=== PATIENT | female | born 1975 | race Caucasian/White ===

== ENCOUNTER 2024-01-05 16:48 | Observation (INO) ==
[2024-01-05 17:33] LABS: Basophils # (auto) 0.06 K/uL (0.00-0.20); Basophils % (auto) 0.5 %; Eosinophils # (auto) 0.08 K/uL (0.00-0.50); Eosinophils % (auto) 0.6 %; Hematocrit (blood only) 39.6 % (37.0-47.0); Immature Granulocytes # (auto) 0.07 K/uL (0.01-0.20); Immature Granulocytes % (auto) 0.5 %; Lymphocytes % (auto) 21.2 %; Mean Corpuscular Hemoglobin 29.7 pg (25.0-34.0); Mean Corpuscular Hgb Conc 32.8 g/dL (32.0-36.0); Mean Corpuscular Volume 90.6 fL (80.0-100.0); Mean Platelet Volume 9.8 fL (9.4-12.4); Monocytes % (auto) 4.7 %; Neutrophils # (auto) 9.25 K/uL (1.40-6.50); Neutrophils % (auto) 72.5 %; Platelet Count 298 K/uL (130-400); RDW Coefficient of Variation 16.1 % (11.5-14.5); Red Blood Count 4.37 M/uL (4.20-5.40); White Blood Count 12.76 K/ul (4.8-10.8)
[2024-01-05 17:46] LABS: Alanine Aminotransferase 28 U/L (7-52); Albumin Globulin Ratio 1.4 (0.9-2); Albumin Level 4.3 gm/dl (3.4-5.0); Alkaline Phosphatase 85 U/L (34-104); Anion Gap 7 (3-11); Bilirubin,Total 0.3 mg/dl (0.2-1.0); Blood Urea Nitrogen 13 mg/dl (6-23); Calcium 9.3 mg/dl (8.6-10.3); Carbon Dioxide 30 mmol/L (21-32); Chloride 104 mmol/L (98-107); Creatinine Clr Calc Pharmacy 105.6 ml/min; Est GFR (African American) 99.5 ml/min; Est GFR (Non-African American) 85.9 ml/min; Glucose 124 mg/dl (70-99(Fasting)); Sodium 141 mmol/L (136-145); Total Protein 7.3 gm/dl (6.0-8.3); Troponin I High Sensitivity 9.2 pg/ml (0-14)
--- NOTE | 2024-01-05 17:56 | XRay Report ---
XR chest 1V not portable HISTORY: Chest pain, nonspecific COMPARISON: None. FINDINGS: No pneumothorax. No pleural effusions. A few small linear scarlike densities within the lef t midlung zone. Otherwise, the lungs are clear. The heart is mildly enlarged. No evidence for pulmona ry edema. No acute fractures. IMPRESSION: Mild cardiomegaly. Otherwise, no acute process within the chest. ACT 112: Negative or not required by law. Electronically signed by: Clark Rodríguez M.D. 01/05/2024 5:55 PM
[2024-01-05] MEDS: NITROGLYCERIN 2% OINTMENT 30GM TUBE EXT STA (18:39)
[2024-01-05] MEDS: FUROSEMIDE INJ 20 MG/2 ML VIAL IV ONE ×2 (18:41→21:59)
--- NOTE | 2024-01-05 18:49 | Emergency Department Note ---
Impression & Plan Edema, peripheral, Severe hypertension ED Provider Note NAME: LAINE CRUZ AGE: 48 SEX: Female INFORMANT: Patient ED PROVIDER(S): Junior Ng MD CHIEF COMPLAINT: Swelling PLAN: Disposition: Admitted Outpatient prescription management: none Referral: None MEDICAL DECISION MAKING: Patient presented because of complaints of edema. On physical examination she had 2-3+ pitting edema. She was severely hypertensive. She notes shortness of breath on exertion. Her CBC showed a leukocytosis but there is no evidence of cellulitis. Chemistry panel was unremarkable. Normal renal function. Normal LFTs. The patient had a negative troponin and BNP. Chest x-ray showed some cardiomegaly but no definitive edema. Patient was given a dose of IV furosemide as well as Nitropaste being applied to the anterior chest wall. Sent for ultrasound imaging of the lower extremities. Preliminary there is no evidence of DVT. Official ultrasound report pending. Patient was sent for CT imaging of the chest. Results are pending at this time. She did request some Tylenol and this was given. She has had numerous episodes of urination to indicate diuresis is underway. She was found to have mild hypokalemia and was treated with IV and oral potassium. Given the severe hypertension and sudden onset of this edema with exertional shortness of breath there was concerns that she may have early right-sided heart failure although troponin and BNP were negative. Discussed further management in the hospital and patient in agreement. Consultation was made with Dr. Kai Cummings of the [facility] service. Patient was evaluated in the ER for further management. 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 Vital Signs: reviewed and remarkable for severe hypertension Additional History obtained from: none Chronic Medical/Social Conditions affecting care: Diabetes Prior/ Outside/ External records reviewed: none Differential Diagnosis: DVT, musculoskeletal, infection, joint effusion, trauma, lymphedema, idiopathic, CHF, as well as other pathologies. Diagnostics, independently interpreted by me: ECG: Twelve-lead ECG reveals sinus tachycardia 101 bpm. Left axis deviation. LVH. Lateral and inferior Q waves. Cardiac Monitoring: Cardiac monitoring ordered by me: The patient was placed on continuous cardiac monitoring and observed. It revealed a sinus tachycardia at 103 beats per minute without ectopy or evidence of dysrhythmia. Medical decision rules: none Imaging studies: Chest x-ray. Findings: A chest x-ray was performed and revealed no pneumothorax, effusion, infiltrate, pulmonary edema, free air under the diaphragm, or wide mediastinum. Cardiomegaly. HPI: 48 year old Female arrives for evaluation of swelling to the legs. This started several days ago and is worsening. The patient also notes the following associated symptoms, feeling like her face is swollen, some mild shortness of breath on exertion, fluid weeping from her legs. The patient has taken no medication for relieving factors. Current pain is rated as 2/10. Notes a history of surgery on her legs for various reasons and history of a staph infection but does not feel like there is anything infected at this time. No recent operations pt denies LOC, headache, fevers, chills, diaphoresis, visual changes, neck pain, chest pain,, nausea, vomiting, abdominal pain, back pain, melena, hematochezia, urinary symptoms, numbness, weakness, lymphadenopathy, rash, or other complaints. . PAST MEDICAL HISTORY: See Below, diabetes PAST SURGICAL HISTORY: See Below, SOCIAL HISTORY: See Below, smoker HOME MEDICATIONS: See Below ALLERGIES: See Below VITALS: See Below PHYSICAL EXAMINATION: GENERAL: Awake, alert, well-appearing, in no distress HENT: Normocephalic, atraumatic. Cheeks flushed. Oropharynx unremarkable. EYES: Normal conjunctiva. Sclera non-icteric. NECK: Inspection normal. Non-tender. Supple. No nuchal rigidity. FROM. No masses. RESPIRATORY: Clear to auscultation. No wheezes. No rales. Normal respiratory effort. CARDIAC: Borderline tachycardic rate. Normal rhythm. No murmurs. No rubs. Extremities warm and well perfused. Pulses equal. No JVD. GI: Soft, non-distended. No tenderness to palpation. No rebound or guarding. No masses. RECTAL: Deferred. MUSCULOSKELETAL: Atraumatic. Chest examination reveals no tenderness. The back is symmetrical on inspection without obvious abnormality. There is no CVA tenderness to palpation. No joint edema. LOWER EXTREMITIES: Calves are equal size bilaterally and non-tender. 3+ edema. Scattered spots weeping serous fluid. No erythema discoloration. NEURO: Normal sensorium. No sensory or motor deficits noted. SKIN: No rash or jaundice noted. PROCEDURES: none CRITICAL CARE: none OBSERVATION NOTE: none Past Med/Surg History Problem List (Updated 01/05/24 @ 21:24 by Mk Gonzalez PA-C) Hypokalemia Tobacco abuse Leg swelling HTN (hypertension) Severe hypertension (Acute) Edema, peripheral (Acute) Medical History (Updated 01/05/24 @ 21:24 by Mk Gonzalez PA-C) Chronic pain Anxiety Hyperlipidemia DMII (diabetes mellitus, type 2) Family History (Updated 01/05/24 @ 09:47 by Deb Elias LPN) Mother Myocardial infarction Hypertension Father Fibromyalgia Social History Smoking Status: Current every day smoker Tobacco Type: Cigarettes Cigarettes Per Day: 1PPD; Second Hand Exposure: No; Do You Dip or Chew Tobacco: No; Tobacco Cessation Education Requested by Patient: No Hx Alcohol Use: No Hx Substance Use: No Preferred Language: Croatian Communication Ability: Effective Tire Beader Maker Required: No Beliefs That Will Affect Care: None Current Living Situation: Spouse Current Living Situation Comment: Other Information That Helps Us Care for You: No Feels Safe at Home: Yes Safety Concerns: Feels Safe At This Time Assistive Devices: Contacts and Glasses Allergies Allergies Allergy/AdvReac Type Severity Reaction Status Date / Time atorvastatin AdvReac Cramping Verified 01/05/24 09:46 of the Muscles Home Meds Home Medications Medication Instructions Recorded Conf[facility] 01/05/24 Verio test strips) [facility] 01/05/24 01/05/24 Verio Flex Meter) citalopram 40 mg tablet 40 mg PO DAILY 01/05/24 01/05/24 cyclobenzaprine 10 mg tablet 10 mg PO TID PRN neck pain 01/05/24 01/05/24 furosemide 20 mg tablet 20 mg PO DAILY PRN swelling 01/05/24 01/05/24 gabapentin 300 mg capsule 300 mg PO BID 01/05/24 01/05/24 hydrocodone 10 mg-acetaminophen 1 tab PO Q6H PRN leg pain 01/05/24 01/05/24 325 mg tablet hydroxyzine HCl 25 mg tablet 25 mg PO TID PRN Anxiety 01/05/24 01/05/24 metformin 500 mg tablet 500 mg PO BID 01/05/24 01/05/24 metoprolol succinate 100 mg 100 mg PO DAILY 01/05/24 01/05/24 tablet,extended release 24 hr nystatin 100,000 unit/gram topical 1 applic topical BID 01/05/24 01/05/24 powder potassium citrate 10 mEq (1,080 10 meq PO DAILY 01/05/24 01/05/24 mg) tablet,extended release valsartan 320 mg tablet 320 mg PO DAILY 01/05/24 01/05/24 Results & Data (ED) Vital Signs Vital Signs - 24 hr 01/05/24 16:52 01/05/24 18:09 01/05/24 18:27 Temperature 36.8 C Temperature Source Skin Pulse Rate 114 H 103 H Pulse Rate [Right Finger] 99 H Pulse Rhythm [Right Finger] Regular Pulse Strength [Right Finger] Normal Respiratory Rate 20 22 Respiratory Effort / Characteristics Non-Labored Non-Labored Respiratory Depth Normal Normal Respiratory Pattern Regular Blood Pressure 182/130 H Blood Pressure [Left Arm] 161/120 H Blood Pressure Mean 147 Blood Pressure Mean [Left Arm] 133 Blood Pressure Position [Left Arm] Sitting Pulse Oximetry 97 96 Oxygen Delivery Method Room Air Room Air Sepsis Recent Fever Within 48 Hours No Sepsis New/Unexplained Change in Mental Status No Sepsis Action Taken by Nursing No Action Required 01/05/24 19:48 Temperature Temperature Source Pulse Rate Pulse Rate [Right Finger] 101 H Pulse Rhythm [Right Finger] Regular Pulse Strength [Right Finger] Normal Respiratory Rate 22 Respiratory Effort / Characteristics Non-Labored Respiratory Depth Normal Respiratory Pattern Regular Blood Pressure Blood Pressure [Left Arm] 170/86 H Blood Pressure Mean Blood Pressure Mean [Left Arm] 114 Blood Pressure Position [Left Arm] Sitting Pulse Oximetry 96 Oxygen Delivery Method Room Air Sepsis Recent Fever Within 48 Hours Sepsis New/Unexplained Change in Mental Status Sepsis Action Taken by Nursing Laboratory Data 01/05/24 17:06 01/05/24 19:12 Lab Results 01/05/24 01/05/24 Range/Units 17:06 19:12 WBC 12.76 H (4.8-10.8) K/ul RBC 4.37 (4.20-5.40) M/uL Hgb 13.0 (12.0-16.0) g/dl Hct 39.6 (37.0-47.0) % MCV 90.6 (80.0-100.0) fL MCH 29.7 (25.0-34.0) pg MCHC 32.8 (32.0-36.0) g/dL RDW Std Deviation 53.0 H (36.4-46.3) fL RDW Coeff of Jhonny 16.1 H (11.5-14.5) % Plt Count 298 (130-400) K/uL MPV 9.8 (9.4-12.4) fL Immature Gran % (Auto) 0.5 % Neut % (Auto) 72.5 % Lymph % (Auto) 21.2 % Callaway % (Auto) 4.7 % Eos % (Auto) 0.6 % Baso % (Auto) 0.5 % Neut # (Auto) 9.25 H (1.40-6.50) K/uL Lymph # (Auto) 2.70 (1.20-3.40) K/uL Callaway # (Auto) 0.60 H (0.11-0.59) K/uL Eos # (Auto) 0.08 (0.00-0.50) K/uL Baso # (Auto) 0.06 (0.00-0.20) K/uL Immature Gran # (Auto) 0.07 (0.01-0.20) K/uL PT Cancelled INR Cancelled APTT Cancelled PTT Ratio Cancelled Sodium 141 (136-145) mmol/L Potassium TNP 3.1 L Chloride 104 (98-107) mmol/L Carbon Dioxide 30 (21-32) mmol/L Anion Gap 7 (3-11) BUN 13 (6-23) mg/dl Creatinine 0.81 (0.6-1.2) mg/dl Est Cr Clr Drug Dosing 105.6 ml/min Est GFR ( Amer) 99.5 ml/min Est GFR (Non-Af Amer) 85.9 ml/min BUN/Creatinine Ratio 16.0 (10-20) Glucose 124 H (70-99(Fasting)) mg/dl Calcium 9.3 (8.6-10.3) mg/dl Magnesium 1.6 L (1.7-2.4) mg/dl Total Bilirubin 0.3 (0.2-1.0) mg/dl AST TNP 20 ALT 28 (7-52) U/L Alkaline Phosphatase 85 (34-104) U/L Troponin I High Sens 9.2 (0-14) pg/ml B-Natriuretic Peptide 17 (0-100) pg/ml Total Protein 7.3 (6.0-8.3) gm/dl Albumin 4.3 (3.4-5.0) gm/dl Globulin 3.0 (2.5-4.0) gm/dl Albumin/Globulin Ratio 1.4 (0.9-2) Administered Medications Cyclobenzaprine HCl (Cyclobenzaprine Hcl 10 Mg Tab) 10 mg PO TID PRN PRN Reason: neck pain Stop: 02/04/24 23:37 Last Admin: 01/06/24 00:45 Dose: 10 mg Documented By: KYM Heparin Sodium (Porcine) (Heparin Sod 5,000 Unit/0.5 Ml Vial) 5,000 units SQ Q8H ANGELIKA Stop: 02/05/24 00:44 Last Admin: 01/06/24 00:45 Dose: 5,000 units Documented By: KYM Hydroxyzine HCl (Hydroxyzine Hcl 25 Mg Tab) 25 mg PO TID PRN PRN Reason: Anxiety Stop: 02/04/24 23:37 Last Admin: 01/06/24 00:45 Dose: 25 mg Documented By: KYM Insulin Aspart (Insulin Aspart Per Unit Charge) 0 units SC ACHS ANGELIKA Stop: 02/04/24 20:59 Last Admin: 01/05/24 21:49 Dose: Not Given Documented By: SHERI Nicotine (Nicotine 21 Mg/24 Hr Tdsy) 1 patch TD HS ANGELIKA Stop: 02/04/24 21:04 Last Admin: 01/05/24 22:00 Dose: 1 patch Documented By: SHERI Discontinued Medications Acetaminophen (Acetaminophen 500 Mg Tab) 1,000 mg PO NOW STA Stop: 01/05/24 20:13 Last Admin: 01/05/24 20:14 Dose: 1,000 mg Documented By: SHERI Hydrocodone Bitart/Acetaminophen (Hydrocodone/Acetaminophen 10/325 Tab) 1 tab PO ONE ONE Stop: 01/05/24 22:52 Last Admin: 01/05/24 23:43 Dose: 1 tab Documented By: KYM Furosemide (Furosemide Inj 20 Mg/2 Ml Vial) 20 mg IV ONE ONE Stop: 01/05/24 18:24 Last Admin: 01/05/24 18:41 Dose: 20 mg Documented By: [facility] Furosemide (Furosemide Inj 20 Mg/2 Ml Vial) 20 mg IV ONE ONE Stop: 01/05/24 21:03 Last Admin: 01/05/24 21:59 Dose: 20 mg Documented By: [facility] [place] [facility] Potassium Chloride (K Cm / Wtr) 10 meq in 100 mls @ 100 mls/hr IV ONE ONE Stop: 01/05/24 20:41 Last Infusion: 01/05/24 21:30 Dose: Infused Documented By: [facility] Admin: 01/05/24 20:08 Dose: 100 mls/hr Documented By: [facility] [place] [facility] Ioversol (Optiray 320 125ml) 119 ml IV ONCE ONE Stop: 01/05/24 20:17 Last Admin: 01/05/24 20:16 Dose: 119 ml Documented By: [facility] Nitroglycerin (Nitroglycerin 2% Ointment 30gm Tube) 0.5 inch EXT NOW STA Stop: 01/05/24 18:24 Last Admin: 01/05/24 18:39 Dose: 0.5 inch Documented By: [facility] [place] [facility] Potassium Chloride (Potassium Chloride Crtab 20 Meq Tabcr) 20 meq PO NOW STA Stop: 01/05/24 19:43 Last Admin: 01/05/24 20:09 Dose: 20 meq Documented By: [facility] [place] [facility] Potassium Chloride (Potassium Chloride Crtab 20 Meq Tabcr) 40 meq PO NOW STA Stop: 01/05/24 21:02 Last Admin: 01/05/24 21:58 Dose: 40 meq Documented By: [facility] Imaging Data Radiologist's Impression: Chest X-Ray 01/05/24 16:56 XR chest 1V not portable HISTORY: Chest pain, nonspecific COMPARISON: None. FINDINGS: No pneumothorax. No pleural effusions. A few small linear scarlike densities within the left midlung zone. Otherwise, the lungs are clear. The heart is mildly enlarged. No evidence for pulmonary edema. No acute fractures. IMPRESSION: Mild cardiomegaly. Otherwise, no acute process within the chest. ACT 112: Negative or not required by law. Electronically signed by: Clark Rodríguez M.D. 01/05/2024 5:55 PM Venous Doppler Study 01/05/24 18:23 Exam(s): US VENOUS BILATERAL LOWER EXTREMITIES EXAM: US Duplex Bilateral Lower Extremities Veins CLINICAL HISTORY: Reason for exam: leg swelling, eval for DVT. TECHNIQUE: Real-time duplex ultrasound scan of the bilateral lower extremity veins integrating B-mode two-dimensional vascular structure, Doppler spectral analysis, color flow Doppler imaging and compression. COMPARISON: No relevant prior studies available. FINDINGS: Right deep veins: Unremarkable. The visualized deep veins of the right lower extremity are compressible with color flow. No visualized thrombus. Right superficial veins: Unremarkable. Left deep veins: Unremarkable. The visualized deep veins of the left lower extremity are compressible with color flow. No visualized thrombus. Left superficial veins: Unremarkable. Soft tissues: Subcutaneous soft tissue edema. IMPRESSION: No DVT within the bilateral lower extremities. Electronically signed by: Elijah Gan MD 01/05/24 21:46 PM Chest CTA 01/05/24 19:39 Exam(s): CTA CHEST IV Amt: 119 cc opti 320 EXAM: CT Angiography Chest With Intravenous Contrast CLINICAL HISTORY: Reason for exam: SOB, tachy, peripheral edema, US neg for DVT. TECHNIQUE: Axial computed tomographic angiography images of the chest with intravenous contrast. CTDI is 28.14 mGy and DLP is 908.81 mGy-cm. Automated exposure control was utilized for the study. A dose lowering technique was utilized adhering to the principles of ALARA. MIP reconstructed images were created and reviewed. COMPARISON: No relevant prior studies available. FINDINGS: Pulmonary arteries: Unremarkable. No pulmonary embolism. Aorta: No acute findings. No thoracic aortic aneurysm. Lungs: Perihilar atelectasis. No mass. Pleural space: Unremarkable. No significant effusion. No pneumothorax. Heart: Unremarkable. No cardiomegaly. No significant pericardial effusion. No evidence of RV dysfunction. Bones/joints: No acute fracture. No dislocation. Soft tissues: Unremarkable. Lymph nodes: Unremarkable. No enlarged lymph nodes. Other findings: None IMPRESSION: No acute findings in the visualized arteries of the chest. Electronically signed by: Charity Henderson MD 01/05/24 23:03 PM Discharge Plan Visit Data Chief Complaint: Swelling/Edema to Extremity Stated Complaint: SEVERE SWELLING/BODY, CHEST PAIN/PALPITATIONS ED Provider: Junior Ng Discharge Problem: Edema, peripheral, Severe hypertension Patient Disposition: Admitted As Inpatient Discharge Instructions Interventions: ED Discharge Assessment Last Done: 01/05/24 23:13
[2024-01-05 19:40] LABS: Potassium 3.1 mmol/L (3.5-5.1)
[2024-01-05] MEDS: POTASSIUM CHLORIDE / WTR 10 MEQ/100 ML PLCT IV ONE (20:08)
[2024-01-05] MEDS: POTASSIUM CHLORIDE CRTAB 20 MEQ TABCR PO STA ×2 (20:09→21:58)
[2024-01-05] MEDS: ACETAMINOPHEN 500 MG TAB PO STA (20:14)
[2024-01-05] MEDS: OPTIRAY 320 125ml IV ONE (20:16)
[2024-01-05] MEDS ORDERED: GLUCOSE 40% GEL 15 GM TUBE PO PRN (20:42)
[2024-01-05] MEDS ORDERED: CARBOHYDRATES FOR HYPOGLYCEMIA PO PRN (20:42)
[2024-01-05] MEDS ORDERED: GLUCAGON FOR INJ 1 MG VIAL SQ PRN (20:42)
[2024-01-05] MEDS ORDERED: DEXTROSE 50% 50 ML SYRINGE IV PRN (20:42)
[2024-01-05] MEDS ORDERED: GLUCOSE 10 TAB/TUBE PO PRN (20:42)
--- NOTE | 2024-01-05 20:44 | History & Physical Report ---
Date of Service January 05, 2024 Assessment & Plan (1) Leg swelling: Plan: Admit to med telemetry Currently stable and nontoxic-appearing Presented to the ED today due to progressive bilateral lower extremity swelling over the past 1 to 2 weeks Has been experiencing symmetrical lower extremity swelling and reported mild weeping of clear fluid Per the history, it appears that her volume overload is likely due to increased sodium intake as the patient has been trying to eat less sugar with her recent diabetes mellitus diagnosis Patient was advised to limit her sodium intake to 2 g daily or less No signs of volume overload on chest x-ray, will follow results of bilateral venous Dopplers obtained in the ER Status post 20 mg IV Lasix in the ED, will give an additional 20 mg IV Lasix tonight and continue 20 mg IV twice daily tomorrow Monitor intake output every shift, daily weights Will obtain TTE tomorrow Subcu heparin for DVT prophylaxis Heart healthy, DM 2 diet with 2 g sodium and 1800 and mL fluid restrictions A.m. CBC, CMP, mag, PT/INR (2) HTN (hypertension): Plan: Noted to be hypertensive at 182/130 on arrival, systolics in the 160s after initial treatment in the ED with 20 mg IV Lasix and 0.5 inches nitroglycerin paste Will continue home valsartan along with ongoing IV diuresis Follow TTE tomorrow (3) Hypokalemia: Plan: Potassium of 3.1 in the ED Will add mag level on admission No acute T wave changes on EKG Status post 10 mEq IV KCl and 20 mEq p.o. KCl in the ED Will give an additional 40 mEq p.o. KCl now as we will continue IV diuresis tonight continue monitor on telemetry and monitor daily renal function electrolytes (4) DMII (diabetes mellitus, type 2): Plan: Hold metformin Monitor BSG ACHS, goal is [id number] Start CF of 50 and CR of 15 ACHS for now Adjust regimen as needed (5) Hyperlipidemia: Plan: Patient reports that she could not tolerate atorvastatin due to muscle cramps Not on any other regimen at this time Follow a.m. fasting lipid panel (6) Tobacco abuse: Plan: Currently smokes 1 pack/day, 20-year history Stressed the importance of cessation Start nicotine patch and as needed gum (7) Anxiety: Plan: Continue citalopram and hydroxyzine (8) Chronic pain: Plan: Continue as needed Flexeril and hydrocodone/acetaminophen Plan The patient was discussed with Dr. Cummings at the time of the admission History of Present Illness Chief Complaint: Bilateral lower extremity swelling, dyspnea on exertion Primary Care Provider: Isidro Escoto is a 48-year-old female with a past medical history significant for morbid obesity, tobacco abuse (20 pack year hx), hypertension, diabetes mellitus type 2, anxiety, LE edema who presented to the [facility] ED on 01/05/2024 with complaints of bilateral lower leg swelling with weeping and some dyspnea on exertion. She was noted to be hypertensive on arrival at 182/130, tachycardic at 114, and otherwise stable. Labs were significant for leukocytosis of 12 with neutrophil predominance of 9, potassium of 3.1, high- sensitivity troponin and BNP within normal limits. Chest x-ray was read as mild cardiomegaly otherwise no acute process within the chest. Venous Doppler of the bilateral lower extremities and CTA of the chest were obtained but results have not been reported at the time of admission. Prior to admission the patient was given 1 g IV Tylenol, 20 mg IV Lasix, 0.5 inches nitroglycerin paste, 20 mEq p.o. KCl and 10 mEq IV KCl. Patient was sitting in bed in no acute distress at time of exam. She explains that she has been dealing with increased bilateral lower extremity swelling over the past 2 weeks. Over the past 3 days she has noticed clear drainage from an old/healed wound on the left lower extremity. She has as needed 20 mg p.o. Lasix to use for increased swelling, she started taking 1 tab daily for the past 2 days with increased urinary output. She was concerned with the ongoing lower extremity swelling and noticed some heart palpitations which is why she presented here today. She states that she is planning on switching to the [facility] family medicine [facility] which is why she came to our emergency department tonight. When asked, she states that she has been adding additional salt to her food recently because she was trying to eat less sugar due to her recent diabetes mellitus diagnosis. She denies recent fever/chills, chest pain, cough, dyspnea on exertion, abdominal pain, nausea/vomiting, dysuria/hematuria, diarrhea, and recent trauma. Please refer to Dr. Cummings's attestation for any changes to the treatment plan Allergies Allergy/AdvReac Type Severity Reaction Status Date / Time atorvastatin AdvReac Cramping Verified 01/05/24 09:46 of the Muscles Home Medications Medication Instructions Recorded Confirmed Type [facility] 01/05/24 History Verio test strips) blood[facility]glucose [facility] 01/05/24 01/05/24 History Verio Flex Meter) citalopram 40 mg tablet 40 mg PO DAILY 01/05/24 01/05/24 History cyclobenzaprine 10 mg tablet 10 mg PO TID PRN neck pain 01/05/24 01/05/24 History furosemide 20 mg tablet 20 mg PO DAILY PRN swelling 01/05/24 01/05/24 History gabapentin 300 mg capsule 300 mg PO BID 01/05/24 01/05/24 History hydrocodone 10 mg-acetaminophen 1 tab PO Q6H PRN leg pain 01/05/24 01/05/24 History 325 mg tablet hydroxyzine HCl 25 mg tablet 25 mg PO TID PRN Anxiety 01/05/24 01/05/24 History metformin 500 mg tablet 500 mg PO BID 01/05/24 01/05/24 History metoprolol succinate 100 mg 100 mg PO DAILY 01/05/24 01/05/24 History tablet,extended release 24 hr nystatin 100,000 unit/gram topical 1 applic topical BID 01/05/24 01/05/24 History powder potassium citrate 10 mEq (1,080 10 meq PO DAILY 01/05/24 01/05/24 History mg) tablet,extended release valsartan 320 mg tablet 320 mg PO DAILY 01/05/24 01/05/24 History Past Med/Surg History Problem List (Updated 01/05/24 @ 21:24 by Mk Gonzalez PA-C) Hypokalemia Tobacco abuse Leg swelling HTN (hypertension) Severe hypertension (Acute) Edema, peripheral (Acute) Medical History (Updated 01/05/24 @ 21:24 by Mk Gonzalez PA-C) Chronic pain Anxiety Hyperlipidemia DMII (diabetes mellitus, type 2) Family History (Updated 01/05/24 @ 09:47 by Deb Elias LPN) Mother Myocardial infarction Hypertension Father Fibromyalgia Social History Smoking Status: Current every day smoker Tobacco Type: Cigarettes Cigarettes Per Day: 1PPD; Second Hand Exposure: No; Do You Dip or Chew Tobacco: No; Tobacco Cessation Education Requested by Patient: No Hx Alcohol Use: No Hx Substance Use: No Preferred Language: Kinyarwanda Communication Ability: Effective Plater Supervisor Required: No Beliefs That Will Affect Care: None Current Living Situation: Spouse Current Living Situation Comment: Other Information That Helps Us Care for You: No Feels Safe at Home: Yes Safety Concerns: Feels Safe At This Time Assistive Devices: Contacts and Glasses Physical Exam Physical Exam: Physical Exam: General: In no acute distress, stated age, morbidly obese, non-toxic appearing HEENT: Normocephalic, atraumatic, no scleral icterus, pupils around round, symmetrical, and reactive to light, moist mucus membranes, trachea midline, no thyromegaly Chest/Pulm: No respiratory distress, symmetrical chest expansion, clear breath sounds throughout Cardiac: tachycardic rate, regular rhythm, no murmurs noted Abdomen: Negative for ascites and bruising, normoactive bowel sounds, soft, non-tender to palpation throughout Musculoskeletal: Symmetrical and without signs of acute trauma, upper and lower extremities with full ROM, no atrophy, spasticity, or flaccidity Extremities: Radial, dorsalis pedis, and posterior tibial pulses are intact and symmetrical, symmetrical 2+ edema in the BL LE's Skin: Previous left medial thigh scar is intact and without signs of current drainage or infection Neuro: Alert and oriented to person, place, month, year, and president, no focal defects, no tremors noted Psych: No acute distress, calm and cooperative during the exam Results & Data Results & Data Vital Signs (Past 12 Hours) Vital Signs Temp Pulse Pulse Resp BP BP Pulse Ox 01/05/24 19:48 101 H 22 170/86 H 96 01/05/24 18:27 103 H 01/05/24 18:09 99 H 22 161/120 H 96 01/05/24 16:52 36.8 C 114 H 20 182/130 H 97 O2 Del Method 01/05/24 19:48 Room Air 01/05/24 18:27 01/05/24 18:09 Room Air 01/05/24 16:52 Room Air Laboratory Results Abnormal lab results 01/05/24 01/05/24 Range/Units 17:06 19:12 WBC 12.76 H (4.8-10.8) K/ul RDW Std Deviation 53.0 H (36.4-46.3) fL RDW Coeff of Jhonny 16.1 H (11.5-14.5) % Neut # (Auto) 9.25 H (1.40-6.50) K/uL [place] # (Auto) 0.60 H (0.11-0.59) K/uL Potassium 3.1 L (3.5-5.1) mmol/L Glucose 124 H (70-99(Fasting)) mg/dl Diagnostic Findings Abnormal lab results 01/05/24 01/05/24 Range/Units 17:06 19:12 WBC 12.76 H (4.8-10.8) K/ul RDW Std Deviation 53.0 H (36.4-46.3) fL RDW Coeff of Jhonny 16.1 H (11.5-14.5) % Neut # (Auto) 9.25 H (1.40-6.50) K/uL [place] # (Auto) 0.60 H (0.11-0.59) K/uL Potassium 3.1 L (3.5-5.1) mmol/L Glucose 124 H (70-99(Fasting)) mg/dl ECG Additional Comments: Sinus tachycardia Left axis deviation Minimal voltage criteria for LVH, may be normal variant ( R in aVL ) Septal infarct , age undetermined Possible Lateral infarct , age undetermined Abnormal ECG No previous ECGs available Code Status & VTE Plan Code Status full code VTE Prophylaxis Plan VTE Prophylaxis will be ordered: Yes Supervising Physician Co-Signing Physician Notes Attending addendum: I have physically seen this patient, have supervised the CAMILLE's activities, and agree with the H&P unless as otherwise noted. Assessment and Plan: Lower extremity edema- Admit to [facility] telemetry Patient reports worsening swelling of lower extremities over the past few weeks with mild weeping intermittently Patient reports that unintentionally she has been having increased sodium intake, as she was trying to switch food intake from high sugar 2 g sodium diet recommended Give a total of 40 mg Lasix IV tonight, and then 20 mg IV twice daily tomorrow Follow serial BMP and magnesium levels Hypokalemia- Optimize potassium prior to administration of Lasix, and then follow serially Diabetes mellitus- Placed on Accu-Cheks with NovoLog SSI as noted Hold metformin Tobacco abuse- 22-mfgr-dast history, 1 PPD Nicotine patch as noted Remaining orders and notations as noted PG Care Time/CCT Total # of Minutes Spent Total Time Spent with Patient: Total time spent is greater than 50% in coordination of care (as documented) at patient's floor/unit and/or counseling patient: [place] [address] INT INP/OBS CARE 3/75MIN Patient Type New Medical Decision Making High Complexity Diagnoses Leg swelling M79.89 HTN (hypertension) I10 Hypokalemia E87.6 DMII (diabetes mellitus, type 2) E11.9 Hyperlipidemia E78.5 Tobacco abuse Z72.0 Anxiety F41.9 Chronic pain G89.29
[2024-01-05] MEDS ORDERED: NICOTINE POLACRILEX 2 MG GUM MT PRN (21:02)
--- NOTE | 2024-01-05 21:47 | Ultrasound Report ---
Exam(s): US VENOUS BILATERAL LOWER EXTREMITIES EXAM: US Duplex Bilateral Lower Extremities Veins CLINICAL HISTORY: Reason for exam: leg swelling, eval for DVT. TECHNIQUE: Real-time duplex ultrasound scan of the bilateral lower extremity veins integrating B-mode two-dimensional vascular structure, Doppler spectral analysis, color flow Doppler imaging and compression. COMPARISON: No relevant prior studies available. FINDINGS: Right deep veins: Unremarkable. The visualized deep veins of the right lower extremity are compressible with color flow. No visualized thrombus. Right superficial veins: Unremarkable. Left deep veins: Unremarkable. The visualized deep veins of the left lower extremity are compressible with color flow. No visualized thrombus. Left superficial veins: Unremarkable. Soft tissues: Subcutaneous soft tissue edema. IMPRESSION: No DVT within the bilateral lower extremities. Electronically signed by: Elijah Gan MD 01/05/24 21:46 PM
[2024-01-05 21:48] LABS: Magnesium 1.6 mg/dl (1.7-2.4)
[2024-01-05] MEDS: INSULIN ASPART PER UNIT CHARGE SC SCH (21:49)
[2024-01-05] MEDS: NICOTINE 21 MG/24 HR TDSY TD SCH (22:00)
[2024-01-05] MEDS ORDERED: HYDROCODONE/ACETAMOPHEN 5/325MG TAB PO PRN (22:48)
--- NOTE | 2024-01-05 23:04 | CT Scan Report ---
Exam(s): CTA CHEST IV Amt: 119 cc opti 320 EXAM: CT Angiography Chest With Intravenous Contrast CLINICAL HISTORY: Reason for exam: SOB, tachy, peripheral edema, US neg for DVT. TECHNIQUE: Axial computed tomographic angiography images of the chest with intravenous contrast. CTDI is 28.14 mGy and DLP is 908.81 mGy-cm. Automated exposure control was utilized for the study. A dose lowering technique was utilized adhering to the principles of ALARA. MIP reconstructed images were created and reviewed. COMPARISON: No relevant prior studies available. FINDINGS: Pulmonary arteries: Unremarkable. No pulmonary embolism. Aorta: No acute findings. No thoracic aortic aneurysm. Lungs: Perihilar atelectasis. No mass. Pleural space: Unremarkable. No significant effusion. No pneumothorax. Heart: Unremarkable. No cardiomegaly. No significant pericardial effusion. No evidence of RV dysfunction. Bones/joints: No acute fracture. No dislocation. Soft tissues: Unremarkable. Lymph nodes: Unremarkable. No enlarged lymph nodes. Other findings: None IMPRESSION: No acute findings in the visualized arteries of the chest. Electronically signed by: Charity Henderson MD 01/05/24 23:03 PM
[2024-01-05] MEDS: HYDROcodone/ACETAMINOPHEN 10/325 TAB PO ONE (23:43)
[2024-01-06] MEDS: hydrOXYzine HCl 25 MG TAB PO PRN (00:45)
[2024-01-06] MEDS: CYCLOBENZAPRINE HCL 10 MG TAB PO PRN (00:45)
[2024-01-06] MEDS: HEPARIN SOD 5,000 UNIT/0.5 ML VIAL SQ SCH ×2 (00:45→08:52)
[2024-01-06] MEDS: CITALOPRAM 40 MG TAB PO SCH (05:33)
[2024-01-06] MEDS: GABAPENTIN 300 MG CAP PO SCH ×2 (05:33→20:00)
[2024-01-06 05:53] LABS: Basophils # (auto) 0.03 K/uL (0.00-0.20); Basophils % (auto) 0.3 %; Eosinophils % (auto) 1.1 %; Hematocrit (blood only) 35.6 % (37.0-47.0); Hemoglobin 11.7 g/dl (12.0-16.0); Immature Granulocytes # (auto) 0.05 K/uL (0.01-0.20); Immature Granulocytes % (auto) 0.6 %; Lymphocytes # (auto) 2.31 K/uL (1.20-3.40); Lymphocytes % (auto) 25.5 %; Mean Corpuscular Hemoglobin 30.2 pg (25.0-34.0); Mean Corpuscular Hgb Conc 32.9 g/dL (32.0-36.0); Mean Corpuscular Volume 91.8 fL (80.0-100.0); Mean Platelet Volume 9.6 fL (9.4-12.4); Monocytes # (auto) 0.52 K/uL (0.11-0.59); Monocytes % (auto) 5.7 %; Neutrophils # (auto) 6.05 K/uL (1.40-6.50); Neutrophils % (auto) 66.8 %; Platelet Count 250 K/uL (130-400); RDW Coefficient of Variation 16.3 % (11.5-14.5); RDW Standard Deviation 53.7 fL (36.4-46.3); Red Blood Count 3.88 M/uL (4.20-5.40); White Blood Count 9.06 K/ul (4.8-10.8)
[2024-01-06 06:11] LABS: BUN Creatinine Ratio 19.7 (10-20); Calcium 8.6 mg/dl (8.6-10.3); Chol HDL Ratio 6.3 (0-5); Creatinine Clr Calc Pharmacy 138.7 ml/min; Est GFR (African American) 124.2 ml/min; Est GFR (Non-African American) 107.2 ml/min; Magnesium 1.7 mg/dl (1.7-2.4); Potassium 3.9 mmol/L (3.5-5.1)
[2024-01-06 06:20] LABS: INR 0.9 (0.9-1.1); Prothrombin Time 10.1 Seconds (9.0-12.0)
[2024-01-06 07:01] LABS: Estimated Average Glucose 137 mg/dl; Hemoglobin A1C 6.4 % (4.5-5.6)
[2024-01-06] MEDS: METOPROLOL TARTRATE 1 MG/ML VIAL IV STA (08:52)
[2024-01-06] MEDS: METOPROLOL SUCC 50MG EXT REL TAB PO SCH (08:52)
[2024-01-06] MEDS: VALSARTAN 80 MG TAB PO SCH (08:52)
[2024-01-06] MEDS: FUROSEMIDE INJ 20 MG/2 ML VIAL IV SCH (08:53)
[2024-01-06] MEDS: HYDROcodone/ACETAMINOPHEN 10/325 TAB PO PRN (08:53)
[2024-01-06] MEDS ORDERED: METOPROLOL SUCC 50MG EXT REL TAB PO SCH (09:00)
--- NOTE | 2024-01-06 10:18 | XCELERA ---
[id number] \\[email or web address]_[id number]}___[id number]
--- NOTE | 2024-01-06 11:56 | Hospitalist Progress Note ---
Date of Service January 06, 2024 Assessment & Plan (1) Leg swelling: Plan: Resolving with diuresis. Cardiac echo was unremarkable except for diastolic dysfunction. She needs better blood pressure control. Metoprolol succinate has been uptitrated. Will avoid amlodipine due to leg edema side effects. (2) HTN (hypertension): Plan: Toprol XL uptitrated to twice daily dosing. Continue losartan. (3) Hypokalemia: Plan: Corrected. Serial labs (4) DMII (diabetes mellitus, type 2): Plan: ADA diet. Sliding scale coverage as needed. Metformin is temporarily on hold (5) Hyperlipidemia: Plan: Statin intolerant. Diet control (6) Tobacco abuse: Plan: Smoking cessation recommended. Nicotine patch daily while hospitalized (7) Anxiety: Plan: Stable. Continue citalopram and hydroxyzine Plan Anticipate discharge to home tomorrow, January 06 Admission and Anticipated Discharge Date Admission Date: January 05, 2024 Subjective Alert and oriented. No distress. Cardiac echo obtained today, January 05, reveals mild left ventricular hypertrophy with normal ejection fraction and diastolic dysfunction. Valve function is unremarkable. Toprol-XL uptitrated to 100 mg twice daily. Mild hypomagnesemia has been corrected to 1.7. Potassium has been corrected to 3.9. On admission, chest CTA was negative for PE and venous Doppler studies were negative for DVT. Chest x-ray revealed no evidence of CHF. Hopefully she can go home tomorrow, January 06 Review of Systems 2 Review of Systems: Constitutional-no fever or chills ENT-no blurred vision, no double vision, no epistaxis, no sore throat Respiratory-no cough, no wheezing, no shortness of breath Cardiac-no palpitations, no chest pain, no syncope GI-no nausea, vomiting, diarrhea, melena, hematochezia -no urinary retention, no urinary incontinence, no dysuria, no hematuria Musculoskeletal-no joint pain, no muscle tenderness. Gradually worsening lower extremity edema bilaterally below the knees Skin-no bruising, no rashes, no pruritus Neuro-no isolated weakness, no paresthesia Psych-no depression, no anxiety Physical Exam 2 Physical Exam: General-alert and oriented x3, no fever, no chills HEENT-head atraumatic and normocephalic, pupils equal and reactive to light, extraocular muscles intact Neck-no lymphadenopathy or thyromegaly, trachea midline Chest-clear to auscultation. No rales, wheezing or rhonchi Cardiac-regular rate and rhythm, normal S1 and S2 Abdomen-normal bowel sounds, no hepatosplenomegaly Extremities-no cyanosis, clubbing. Very mild nonpitting edema bilateral lower extremities below the knees Neuro-cranial nerves II through XII intact, motor and sensory function within normal limits, strength symmetrical, no focal deficits Psych-normal affect, normal mood Results & Data Results & Data Vital Signs (Past 12 Hours) Vital Signs Temp Pulse Pulse Resp BP BP Pulse Ox 01/06/24 11:37 85 160/96 H 01/06/24 11:36 158/98 H 01/06/24 11:16 37.3 C 93 H 20 170/112 H 93 01/06/24 07:40 37.1 C 102 H 169/102 H 94 01/06/24 07:24 101 H 01/06/24 04:31 36.6 C 57 L 18 111/66 96 01/06/24 02:39 90 17 96 01/06/24 00:06 98 H 16 95 O2 Del Method 01/06/24 11:37 01/06/24 11:36 01/06/24 11:16 CPAP 01/06/24 07:40 CPAP 01/06/24 07:24 01/06/24 04:31 Room Air, CPAP 01/06/24 02:39 01/06/24 00:06 Laboratory Results 01/06/24 05:32 01/06/24 05:32 PG Care Time/CCT Total # of Minutes Spent Total Time Spent with Patient: Total time spent is greater than 50% in coordination of care (as documented) at patient's floor/unit and/or counseling patient: Coding Level of Care Code 72297 SUB INP/OBS CARE 3/50MIN Diagnoses Leg swelling M79.89 HTN (hypertension) I10 Hypokalemia E87.6 DMII (diabetes mellitus, type 2) E11.9 Hyperlipidemia E78.5 Tobacco abuse Z72.0 Anxiety F41.9
--- NOTE | 2024-01-06 12:46 | Electrocardiogram Report ---
Test Reason : Blood Pressure : / mmHG Vent. Rate : 101 BPM Atrial Rate : 101 BPM P-R Int : 172 ms QRS Dur : 082 ms QT Int : 368 ms P-R-T Axes : 039 -44 025 degrees QTc Int : 477 ms Sinus tachycardia Left axis deviation Minimal voltage criteria for LVH, may be normal variant Poor R wave progression, consider anterior VT vs. lead placement vs. LVH Possible Lateral infarct , age undetermined Abnormal ECG No previous ECGs available Confirmed by Oneal Bob ([id number]) on 01/06/2024 12:45:37 PM Referred By: REFERRED SELF Confirmed By:Mac Bob
--- OUTSIDE RECORDS SUMMARY | 2024-01-06 15:40 | External Medical Summary | Summary of Care ---
Author Name Unknown Organization [facility] Address [address] [place] [address] Phone [phone] Care Team Providers Care Shuttlecock Feather Trimmer Name Role Phone Unavailable Primary Care Provider Unavailabl e Reason for Visit * Reason Onset Date Comments Test Results 12/07/[address] Trini sawyer Encounter Details Date Type Department Care Team (Late st Contact Info) Description 12/07/2023 Telephone Rheumatology [facility] [address] [place] [place] [address] Shaq Hernandez CRNP [address] [place] [address] Test Results (Faxed to Dr. Clemons) Allergies Active Allergy Reactions Criticality Noted Date Comments No Known Med Allergies [Other] 05/21 documented as of this encounter (statuses as of 12/08/2023) Medications Medication Sig Dispensed Refills Start Date End Date Status HYDROcodone-Acetamino phen 10-325 MG Oral Tablet As needed Active hydrOXYzine HCl 25 MG Oral Tablet As needed 11/06/2023 Active Gabapentin 300 MG Oral Capsule (Neurontin) Take 1 Capsule by mouth in the morning and 1 Capsule at noon and 1 Capsule before bedtime. 1 twice daily. 11/17/2023 Active Albuterol Sulfate HFA 108 (90 Base) MCG/ACT Inhalation Aerosol Solution As needed 10/27/2023 Active metFORMIN HCl 500 MG Oral Tablet (Glucophage) Take 1 Tablet by mouth in the morning and 1 Tablet before bedtime. 1 twice daily. 11/11/2023 Active Valsartan 320 MG Oral Tablet (Diovan) 1 daily Active Metoprolol Succinate ER 100 MG Oral Tablet Extended Release 24 Hour (toPROL XL) Take 1 Tablet by mouth in the morning. 1 daily. 10/15/2023 Active Lidocaine HCl 4 % External Solution APPLY TO AFFECTED AREA PRIOR TO WOUND CARE NEEDED 09/05/2023 Active OneTouch Ultra In Vitro Strip USE 1 TEST STRIP TO TEST BLOOD SUGAR 2 TIMES A DAY 11/11/2023 Active Potassium Citrate ER 10 MEQ (1080 MG) Oral Tablet Extended Release (Urocit-K) Take 1 Tablet by mouth in the morning. 1 daily. 11/01/2023 Active Nystatin 334603 UNIT/ML Mouth/Throat Suspension swish and swallow 5 MILLILITER four times a day for 14 days 11/29/2023 Active Cyclobenzaprine HCl 10 MG Oral Tablet (Flexeril) Take 1 Tablet by mouth 3 times a day as needed. As needed 11/06/2023 Active prednisoLONE Acetate 1 % Ophthalmic Suspension (Pred Forte) instill 1 drop into left eye every hour 11/29/2023 Active Citalopram Hydrobromide 40 MG Oral Tablet (CeleXA) Take 1 Tablet by mouth in the morning. 1 daily. 11/01/2023 Active documented as of this encounter (statuses as of 12/08/2023) Active Problems Problem Noted Date Diagnosed Date ADVANCE DIRECTIVE INFORMATION 08/23/2005 Overview: No, Advance Directive brochure offered , patient declined. BENIGN NEOPLASM SKIN NOS 12/26/2002 documented as of this encounter (statuses as of 12/08/2023) Resolved Problems Problem Noted Date Diagnosed Date Resolved Date ACUTE SINUSITIS NOS 12/11/2003 08/15/19 09 Overview: Resolved per Benign Acute Dxs Protocol #3 documented as of this encounter (statuses as of 12/08/2023) Social History Tobacco Use Types Packs/Day Years Used Date Smoking Tobacco: Every Day Cigarettes Smokeless Tobacco: Never Alcohol Use Standard Drinks/Week Comments Yes 0 (1 standard drink = 0.6 oz pur e alcohol) occas Sex and Gender Information Value Date Recorded Sex Assigned at Not on file Gender Identity Not on file Sexual Orientation Not on file Job Start Date Occupation Industry Not on file Not on file Not on file documented as of this encounter Miscellaneous Notes * Telephone Encounter - Va Quinones LPN - 12/08/2023 2:18 PM EDT All lab results have been faxed as of 12/08/2023 to PCP * Telephone Encounter - Va Quinones LPN - 12/07/2023 2:35 PM EDT Faxed lab results and xray results to Dr. Clemons at [phone]. Will fax angiotensin result when it comes back. documented in this encounter Plan of Treatment Health Maintenance Due Date Last Done Comments Pneumococcal Vaccine: Pediatrics (0 to 5 Years) and At-Risk Patients (6 to 64 Years) (1 of 2 - PCV) 1981 Depression Screening 1987 DTaP,Tdap,and Td Vaccines (1 - Tdap) 1994 Hepatitis B (1 of 3 - 19+ 3-dose series) 1994 Pap Smear 02/14/1996 Cervical Cancer Screening 2005 HPV/Co-Test 2005 Lipid Panel 09/18/2009 09/18/2004 Mammogram 2015 Cologuard 02/14/2020 Colonoscopy 02/14/2020 Colorectal Cancer Screening 02/14/2020 Fecal Occult Blood Test 02/14/2020 Sigmoidoscopy 02/14/2020 COVID-19 Vaccine (3 - season) 2023 10/08/2020, 09/17/2020 Influenza Vaccine (FLU shot) (Season Ended) 2024 05/13/2022, 06/19/2021, 04/13/2018, Additional history exists GARDASIL-HPV IMMUNIZATION SERIES Aged Out No longer eligible based on patient's age to complete this topic MENINGOCOCCAL (MENACTRA/MENVEO) Aged Out No longer eligible based on patient's age to complete this topic documented as of this encounter Medical Devices Not on filedocumented as of this encounter
--- OUTSIDE RECORDS SUMMARY | 2024-01-06 15:40 | External Medical Summary ---
Author Name Unknown Address Unknown Organization [id number][facility] [place] [address] [place] [address] Laboratory Report Ordering Provider Test Date Status GELY HUNTER 12/02/2023 12:22:59 Final Observation Date Value Abnormality Reference (Units ) Status Toxoplasma IgG, qual. 12/02/2023 12:22:59 Positive Abnormal Negative Final Performing Location [facility] [address] [address]
--- OUTSIDE RECORDS SUMMARY | 2024-01-06 15:40 | External Medical Summary | Summary of Care ---
Author Name Unknown Organization [facility] Address [address] [place] [address] Phone [phone] Care Team Providers Care Transitional Studies Instructor Name Role Phone Unavailable Primary Care Provider Unavailabl e Reason for Visit * Reason Comments NEW PATIENT Referred by Lilia Mcduffie for " abn labs, rashes, multiple joint pain ,uveitis" * Evaluate & Treat - Unlimited Visits (Within 10 days (routine)) - Pending Review Specialty Diagnoses / Procedures Referred By Sandra tse Referred To Contact Rheumatology Diagnoses Elevated C-reactive protein (CRP) Pain in unspecified joint Stiffness of unspecified joint, not elsewhere classified Lilia Mcduffie CRNP [address] [place] [address] Referral ID Status Reason Start Date Expiration Date Visits Requested Visits Authorized [id number] Pending Review Specialty Services Required 11/30/[phone] Encounter Details Date Type Department Care Team ([facility] st Contact Info) Description 12/02/2023 11:00 AM EDT Office Visit Rheumatology [address] [place] [phone] Shaq Hernandez CRNP [address] [facility] [place] [address] Uveitis of left eye* Allergies Active Allergy Reactions Criticality Noted Date Comments No Known Med Allergies [Other] 05/21 documented as of this encounter (statuses as of 12/14/2023) Medications Medication Sig Dispensed Refills Start Date End Date Status HYDROcodone-Acetam inophen 10-325 MG Oral Tablet As needed Active [...] PRIOR TO WOUND CARE NEEDED 09/05/2023 Active MADSTouch Ultra In Vitro Strip USE 1 TEST STRIP TO TEST BLOOD SUGAR 2 TIMES A DAY 11/11/2023 Active Potassium Citrate ER 10 MEQ (1080 MG) Oral Tablet Extended Release (Urocit-K) Take 1 Tablet by mouth in the morning. 1 daily. 11/01/2023 Active Nystatin 347640 UNIT/ML Mouth/Throat Suspension swish and swallow 5 [...] in the morning. 1 daily. 11/01/2023 Active ANTIVERT 12.5 MG PO TABSIndications:La byrinthitis, unspecified 1 TABLET 3 TIMES DAILY NEEDED 20 0 01/18/2007 4 Discontinued CELEXA 20 MG PO TABSIndications:Pa bela disorder 1 po qd 30 5 04/05/2007 4 Discontinued documented as of this encounter (statuses as of 12/14/2023) Active Problems Problem Noted Date Diagnosed Date ADVANCE DIRECTIVE INFORMATION 08/23/2005 Overview: No, Advance Directive brochure offered , patient declined. BENIGN NEOPLASM SKIN NOS 12/26/2002 documented as of this encounter (statuses as of 12/14/2023) Resolved Problems Problem Noted Date Diagnosed Date Resolved Date ACUTE SINUSITIS NOS 12/11/2003 08/15/19 09 Overview: Resolved per Benign Acute Dxs Protocol #3 documented as of this encounter (statuses as of 12/14/2023) Social History Tobacco Use Types Packs/Day Years [...] on file documented as of this encounter Last Filed Vital Signs Vital Sign Reading Time Taken Comments Blood Pressure - - Pulse - - Temperature 35.6 C (96 F) 12/02/2023 11:03 AM EDT Respiratory Rate - - Oxygen Saturation - - Inhaled Oxygen Concentration - - Weight 117.9 kg (260 lb) 12/02/2023 11:03 AM EDT Height - - Body Mass Index - - documented in this encounter Patient Instructions * Patient Instructions* Shaq Hernandez CRNP - 12/02/2023 12:04 PM EDT Medication Information: Methotrexate The following information was verbally provided to the patient and afterwards, a copy of the ACR medication guide was provided to supplement with more extensive information: Methotrexate (brand name Rheumatrex or Trexall), is a medication that disrupts your ability to absorb and use folate, which contributes to your body's inflammatory process. This medication is available in a pill form or as a subcutaneous injection, usually taken once weekly. Side effects include but are not limited to GI upset, liver enzyme elevations, stomatitis (mouth sores), rash, alopecia (hair loss), persistent cough, unexplained shortness of breath, malignancies, or liver, kidney, and lung toxicities. Because methotrexate can lower the ability of your immune system to fight infections, there is an increased risk of developing infections. If any of the above-mentioned side effects occur, please inform your physician or rheumatology pharmacist so that we can take the next appropriate steps in your care. It is also advised that alcohol is avoided while on this medication. Please make your physician aware if you have kidney/liver damage, have interstitial lung disease, have Hepatitis B/C, have any active infection, planning to get any vaccinations, or if you have new or changed medications on your medication list as these factors may impact your care plan. It is also imperative that you inform your physician if you are or planning to become as risk has been demonstrated. This medication may take up to 4-12 weeks to see an effect on your joints. For your safety, we will monitor you routinely through a series of blood work. For further inquiries, please refer to the medication information provided to you as well as your rheumatology careteam. documented in this encounter Progress Notes * Shaq Hernandez CRNP - 12/02/2023 11:12 AM EDT Reason for visit: Rheumatology consultation for uveitis Referring Provider: No primary care provider on file. HPI: Angelina Cotter is here at the request of No primary care provider on file. for further evaluation of uveitis. Angelina Cotter pmhx is listed below. She reports that she was having pain and redness with floaters in her left eye about 3 weeks ago and got worse and she went to Dr. Castaneda the she was referred to Dr. Clemons at retina specialist yesterday. She was getting treatment with dilation andsteroid drops. She reports that Dr. Clemons saw a lot of wbc in the eye as well inflammation. She notes that recently she got welts on her arms after sun exposure in October and was given a steroid. Reports her mother had Lupus with joint and skin issues. Her sisters have Sarcoidosis and RA. Hx of cat bite of the left thigh 4 years ago and was hospitalized in [place] and [facility], with blood transfusions. Reports mouth ulcers, Raynauds Denies hx of Anemia, DVT's, miscarriages, joint inflammation ADDENDUM 12/04/2023 Outside office notes reviewed from [facility] Musculoskeletal ROS: . Abnormal: joint pain . AM stiffness (hours): 0.5 . Pain scale (0-10): 4 . Fatigue scale (0-10): 5 Other ROS: . Constitutional: fatigue . Head normal . Eyes: normal . Ears, nose, throat, mouth: dry mouth . Cardiovascular: normal . Respiratory: normal . Gastrointestinal: normal . Genitourinary: normal . Skin: fingers turning white . Neurologic: normal . Psychiatric: normal . Endocrine: normal . Hematologic/lymphatic: normal . Allergic/immunologic: normal All other ROS reviewed and negative Current Outpatient Medications Medication Sig Dispense Refill Albuterol Sulfate HFA 108 (90 Base) MCG/ACT Inhalation Aerosol Solution As needed Citalopram Hydrobromide 40 MG Oral Tablet (CeleXA) Take 1 Tablet by mouth in the morning. 1 daily. Cyclobenzaprine HCl 10 MG Oral Tablet (Flexeril) Take 1 Tablet by mouth 3 times a day as needed. Asneeded Gabapentin 300 MG Oral Capsule (Neurontin) Take 1 Capsule by mouth in the morning and 1 Capsule at noon and 1 Capsule before bedtime. 1 twice daily. hydrOXYzine HCl 25 MG Oral Tablet As needed Lidocaine HCl 4 % External Solution APPLY TO AFFECTED AREA PRIOR TO WOUND CARE NEEDED metFORMIN HCl 500 MG Oral Tablet (Glucophage) Take 1 Tablet by mouth in the morning and 1 Tablet before bedtime. 1 twice daily. Metoprolol Succinate ER 100 MG Oral Tablet Extended Release 24 Hour (toPROL XL) Take 1 Tablet by mouth in the morning. 1 daily. Nystatin 277850 UNIT/ML Mouth/Throat Suspension swish and swallow 5 MILLILITER four times a day for14 days OneTouch Ultra In Vitro Strip USE 1 TEST STRIP TO TEST BLOOD SUGAR 2 TIMES A DAY Potassium Citrate ER 10 MEQ (1080 MG) Oral Tablet Extended Release (Urocit-K) Take 1 Tablet by mouth in the morning. 1 daily. prednisoLONE Acetate 1 % Ophthalmic Suspension (Pred Forte) instill 1 drop into left eye every hour HYDROcodone-Acetaminophen 10-325 MG Oral Tablet As needed Valsartan 320 MG Oral Tablet (Diovan) 1 daily No current facility-administered medications for this visit. Past Medical History: Diagnosis Date Benign neoplasm of skin Past Surgical History: Procedure Laterality Date LIGATE/CUT OVIDUCT(S) Family History Problem Relation Name Age of Onset Lupus Mother Mental illness Father Other (Sarcoidosis) Sister Rheum arthritis Sister Hypertension Brother Hypertension Grandmother (Maternal) Hypertension Grandfather (Maternal) Urolithiasis Grandfather (Maternal) Stomach cancer Grandmother (Paternal) Heart attack Grandfather (Paternal) Hypertension Grandfather (Paternal) Diabetes Grandfather (Paternal) Kidney disease Grandfather (Paternal) No Past Hx Other No Known Problems Daughter Thyroid Disorder Son Social History Social History Tobacco Use Smoking status: Every Day Types: Cigarettes Smokeless tobacco: Never Substance Use Topics Alcohol use: Yes Comment: occas Drug use: Never Physical Exam Filed Vitals: 12/02/23 1103 Temp: 35.6 C (96 F) TempSrc: Infrared Weight: 117.9 kg (260 lb) General: alert, healthy, and no distress HENT: normocephalic, external ears normal, no mucosal erythema, no mucosal edema, moist mucosa, no oral ulcers Eye Exam: conjunctiva are pink and non-injected, sclera clear, left pupil dialted Neck: supple, no adenopathy, no bruits, thyroid normal size, non-tender, without nodularity Heart: regular rate & rhythm, no murmur, and no gallops Lungs: clear to auscultation , no rales, wheezes or rhonchi Abdomen: abdomen soft, non-tender, normal bowel sounds, and no masses or organomegaly Extremities: no edema, no clubbing, no cyanosis Neuro Exam: alert & oriented x 3 with fluent speech, no focal motor/sensory deficits, gait normal Skin: skin color, texture, turgor are normal, no rashes or significant lesions Musculoskeletal Exam: Neuro: Alert and oriented. No gross focal neurological deficits. Bilateral elbow flexion/extension: 5/5 Bilateral wrist flexion/extension: 5/5 Bilateral finger flexion: 5/5 Bilateral hip flexion: 5/5 Bilateral knee flexion/extension: 5/5 Bilateral ankle DF/PF: 5/5 MSK exam: Hands: No swelling or tenderness. Normal ROM. Wrists: No swelling or tenderness. Normal ROM. Elbows: No swelling or tenderness. Normal ROM. Shoulders: No swelling or tenderness. Normal ROM. Neck: Normal ROM. Back: Normal ROM. Hips: Normal ROM. Knees: No swelling or tenderness. Normal ROM. Ankles: No swelling or tenderness. Normal ROM. Feet: No swelling or tenderness. Normal ROM. Outside labs reviewed from 11/02/2023 SSA/SSB- negative, Scl 70-negative, RESIDENT CARE SPEC negative, DNA ABT negative, CCP negative, SM Ab- negative Assessment (H20.9) Uveitis of left eye (primary encounter diagnosis) Plan: CULTURE, BLOOD, ANGIOTENSIN CONVERTING ENZYME, ANCA REFLEX PANEL, QUANTIFERON TB GOLD PLUS, HEPATITIS C ANTIBODY SCREEN WITH PROGRESSION TO HEPATITIS C RNA QUANTITATIVE, HEPATITIS B SURFACE ANTIBODY, HEPATITIS B CORE ANTIBODIES IGG AND IGM, HEPATITIS B SURFACE ANTIGEN, CULTURE, FUNGUS, BLOOD, CBC WITH WBC DIFFERENTIAL, CRP, HIGH SENSITIVITY (CARDIOVASCULAR RISK), ERYTHROCYTE SEDIMENTATION RATE (ESR), FTA-ABS, HLA B27 ANTIGEN, FLOW CYTOMETRY, LYME DISEASE ANTIBODY SCREEN WITH REFLEX TO CONFIRMATION, RPR, TOXOPLASMA AB IGG/IGM (ECH ONLY), XR CHEST 2 VIEWS, NON-FORMULARY TEST REQUEST, HIV ANTIGEN & ANTIBODY SCREEN W/ CONFIRMATION Ms. Cotter presents today with Uveitis and was referred by Dr. Clemons. Labs reviewed with a neg JANESSA.She had 1 occurrence of Uveitis, has a strong family hx of autoimmune diseases. Once labs are reviewed we will discuss treatment options if has reoccurrence and a need for chronic immunosuppressive therapy. Methotrexate side effects and benefits reviewed for future reference. Will get updated labs per Dr. Clemons and fax them to if office once resulted. Encouraged patient to contact clinic with any questions or concerns. Discussed the above in detail with the patient. All questions answered. Plan 1. Labs: See above 2. Imaging: Chest x-ray 3. Medications: Review information on methotrexate for future reference 4. We will fax labs to Dr. Clemons office once resulted 5. Follow up pending lab results 6. Contact clinic with any questions or concerns 7. Discussed the above in detail with the patient. All questions answered. RUT Castañeda I spent a total of Greater than 55 mins (exact time 55 mins) on the date of service in preparation,delivery, and documentation of the care provided to Angelina Cotter excluding any time spent in the performance of separately billed services. RUT [facility] Rheumatology Department I saw the patient. I agree with the findings and plan as documented by Shaq BETTENCOURT in this note. Ishmael Richards MD Rheumatology Department documented in this encounter Nursing Notes * Talon Martinez LPN - 12/02/2023 10:54 AM EDT Chief Complaint Patient presents with NEW PATIENT Referred by Lilia Mcduffie for " abn labs, rashes, multiple joint pain ,uveitis" documented in this encounter Plan of Treatment Scheduled Orders Name Type Priority Associated Diagnoses Orde r Schedule CULTURE, FUNGUS, BLOOD Lab Routine Uveitis of left eye Expected: 12/02/2023, Expires: 12/01/2024 TOXOPLASMA AB IGG/IGM (ECH ONLY) Lab Routine Uveitis of left eye Expected: 12/02/2023, Expires: 12/01/2024 Health Maintenance Due Date Last Done Comments [...] 02/14/2020 Sigmoidoscopy 02/14/2020 COVID-19 Vaccine (3 - 2022- season) 2023 10/08/2020, 09/17/2020 Influenza Vaccine (FLU shot) (Season Ended) 2024 05/13/2022, 06/19/2021, 04/13/2018, Additional history exists GARDASIL-HPV IMMUNIZATION SERIES Aged Out No longer eligible based on patient's age to complete this topic MENINGOCOCCAL (MENACTRA/MENVEO) Aged Out No longer eligible based on patient's age to complete this topic documented as of this encounter Medical Devices Not on filedocumented as of this encounter Procedures Procedure Name Priority Date/Time Associated Diagnosis Comments XR CHEST 2 VIEWS Routine 12/02/2023 12:2 8 PM EDT Uveitis of left eye NON-FORMULARY TEST REQUEST Routine 12/02/2023 12:01 PM EDT Uveitis of left eye documented in this encounter Results * XR CHEST 2 VIEWS (12/02/2023 12:28 PM EDT) Anatomical Region Laterality Modality Chest Computed Radiogr aphy 12/05/2023 6:52 PM EDT Impressions 12/05/2023 6:50 PM EDT IMPRESSION No active disease. Narrative 12/05/2023 6:50 PM EDT EXAM XR CHEST 2 VIEWS - 12/02/2023 12:28 pm HISTORY "? sarcoid" TECHNIQUE Frontal and lateral views of the chest were obtained. COMPARISON None. FINDINGS The lungs are clear, with the exception of mild linear scarring in the left mid lung. There is no pleural effusion or pneumothorax. The cardiomediastinal silhouette is within normal limits. Procedure Note Eric Jeffrey MD - 12/05/2023 EXAM XR CHEST 2 VIEWS - 12/02/2023 12:28 pm HISTORY "? sarcoid" TECHNIQUE Frontal and lateral views of the chest were obtained. COMPARISON None. FINDINGS The lungs are clear, with the exception of mild linear scarring in theleft mid lung. There is no pleural effusion or pneumothorax. Thecardiomediastinal silhouette is within normal limits. IMPRESSION IMPRESSION No active disease. Shaq BETTENCOURT RADIOLOGY ([facility]) * CULTURE, BLOOD (12/02/2023 12:23 PM EDT) Blood Culture Growth No growth 12/07/2023 10:01 PM EDT LAB[facility]ATORY [facility] Blood Venous blood specimen / Unknown Venipuncture / Unknown 12/02/2023 12:23 PM EDT 12/02/2023 12:23 PM EDT Shaq BETTENCOURT LAB MICRO - GENER AL ORDERABLES Performing Organization Address [facility] de Phone Number LAB[facility]ATORY [facility] [address] [place] [address] * HLA B27 ANTIGEN, FLOW CYTOMETRY (12/02/2023 12:18 PM EDT) Pathologist [facility] HLA-B27 Negative Negative 12/03/2023 10:04 AM EDT LAB[facility]ATORY [facility] Blood Venous blood specimen / Unknown Venipuncture / Unknown 12/02/2023 12:18 PM EDT 12/02/2023 12:18 PM EDT Narrative LAB[facility]ATORY [facility] - 12/03/2023 10:04 AM EDT HLA-B27 Antigen is found in 6-8% of Caucasians,in 3-4% of -Americans and in 1% of Asians. HLA-B27 Antigen is found in 6-8% of Caucasians,in 3-4% of -Americans and in 1% of Asians. Shaq BETTENCOURT LAB BLOOD ORDERAB LES Performing Organization Address [facility] de Phone Number LABORATORY [facility] [address] [place] [address] * HIV ANTIGEN & ANTIBODY SCREEN W/ CONFIRMATION (12/02/2023 12:17 PM EDT) [facility] HIV Antigen & Antibody Negative Negative 12/03/2023 3:33 AM EDT LAB[facility]ATORY [facility] Comment:Negative HIV-1/2 ant igen and antibody screening tset results usually indicate the absence of HIV-1 and HIV-2 infection. However, such negative results do not rule-out acute HIV infection. If acute HIV-1 infection is highly suspected, it is recommended that a specimen be submitted for detection of HIV-1 RNA. Blood Venous blood specimen / Unknown Venipuncture / Unknown 12/02/2023 12:17 PM EDT 12/02/2023 12:17 PM EDT Shaq BETTENCOURT LAB BLOOD ORDERAB LES Performing Organization Address [facility] Co de Phone Number LABORATORY [facility] [address] [place] [address] * RPR (12/02/2023 12:17 PM EDT) Pathologist [facility] RPR Screen Nonreactive Nonreactive 12/04/2023 9:48 AM EDT LABORATORY [facility] Blood Venous blood specimen / Unknown Venipuncture / Unknown 12/02/2023 12:17 PM EDT 12/02/2023 12:17 PM EDT Shaq BETTENCOURT LAB BLOOD ORDERAB LES LAB[facility]ATORY [facility] [address] [place] [address] * FTA-ABS (12/02/2023 12:17 PM EDT) Pathologist [facility] FTA-ABS Nonreactive Nonreactive 12/06/2023 6:13 PM EDT [facility] [place] Comment: The FTA-ABS is a treponemal assay that is intended to be used with other tests (e.g., RPR) as part of a diagnostic algorithm for syphilis. The preferred treponemal-specific tests for confirmation of a reactive RPR are Treponema pallidum Particle Agglutination (TP-PA) or other treponemal antibody assays. From Sexually Transmitted Infections Treatment Guidelines,2020 MMWR Recomm Rep 2020;70 (No. RR-4): pg.39. Test Performed at: [facility] [address] Clark Adam M.D., Ph.D.,Director of Laboratories Blood Venous blood specimen / Unknown Venipuncture / Unknown 12/02/2023 12:17 PM EDT 12/02/2023 12:17 PM EDT Shaq BETTENCOURT LAB BLOOD ORDERAB LES [facility] [place] [address] [place] [address] * ERYTHROCYTE SEDIMENTATION RATE (ESR) (12/02/2023 12:17 PM EDT) Pathologist [facility] ESR 19 <20 mm/hour 12/02/2023 10:35 PM EDT LABORATORY C Blood Venous blood specimen / Unknown Venipuncture / Unknown 12/02/2023 12:17 PM EDT 12/02/2023 12:17 PM EDT Shaq BETTENCOURT LAB BLOOD ORDERAB LES Performing Organization Address [facility] Co de Phone Number LABORATORY [facility] [address] [place] [address] * (ABNORMAL) CRP, HIGH SENSITIVITY (CARDIOVASCULAR RISK) (12/02/2023 12:17 PM EDT) Pathologist [facility] CRP, High Sensitivity (Cardiovascular Risk) 9.38(H) <=3.00 mg/L 12/03/2023 2:46 AM EDT LABORATORY C Blood Venous blood specimen / Unknown Venipuncture / Unknown 12/02/2023 12:17 PM EDT 12/02/2023 12:17 PM EDT Narrative LABORATORY C - 12/03/2023 2:46 AM EDT Cardiovascular Disease Risk Assessment (Relative Risk) <1.0 mg/L Low 1.0-3.0 mg/L Average >3.0 mg/L High *This table may not apply in certain inflammatory conditions. Shaq BETTENCOURT LAB BLOOD ORDERAB LES Performing Organization Address [facility] Co de Phone Number LABORATORY [facility] [address] [place] [address] * HEPATITIS B SURFACE ANTIGEN (12/02/2023 12:17 PM EDT) Pathologist [facility] Hepatitis B Surface Antigen Negative Negative 12/03/2023 3:33 AM EDT LAB[facility]ATORY [facility] Blood Venous blood specimen / Unknown Venipuncture / Unknown 12/02/2023 12:17 PM EDT 12/02/2023 12:17 PM EDT Shaq BETTENCOURT LAB BLOOD ORDERAB LES Performing Organization Address [facility] Co de Phone Number LAB[facility]ATORY [facility] [address] [place] [address] * HEPATITIS B CORE ANTIBODIES IGG AND IGM (12/02/2023 12:17 PM EDT) [facility] Hepatitis B Core Antibodies IgG and IgM Negative Negative 12/03/2023 3:33 AM EDT LAB[facility]ATORY [facility] Blood Venous blood specimen / Unknown Venipuncture / Unknown 12/02/2023 12:17 PM EDT 12/02/2023 12:17 PM EDT Shaq BETTENCOURT LAB BLOOD ORDERAB LES [facility] [address] [place] [address] * HEPATITIS B SURFACE ANTIBODY (12/02/2023 12:17 PM EDT) [facility] Hepatitis B Surface Antibody, Quantitative <3.5 mIU/mL 12/03/2023 3:33 AM EDT LAB[facility]ATORY [facility] Hepatitis B Surface Antibody, Qualitative Negative 12/03/2023 3:33 AM EDT LAB[facility]ATORY [facility] Hepatitis B Surface Antibody, Interpretation NOT immune to Hepatitis B Virus 12/03/2023 3:33 AM EDT LAB[facility]ATORY [facility] Comment: POSITIVE: >=11.5 mIU/mL INDETERMINATE: 8.5-<11.5 mIU/mL NEGATIVE: <8.5 mIU/mL Blood Venous blood specimen / Unknown Venipuncture / Unknown 12/02/2023 12:17 PM EDT 12/02/2023 12:17 PM EDT Shaq BETTENCOURT LAB BLOOD ORDERAB LES [facility] [address] [place] [address] * QUANTIFERON TB GOLD PLUS (12/02/2023 12:17 PM EDT) [facility] Quantiferon-TB Plus, 1T NEGATIVE NEGATIVE 12/06/2023 2:03 PM EDT [facility] [place] Comment: Negative test result. M. tuberculosis complex infection unlikely. NIL 0.07 IU/mL 12/06/2023 2:03 PM EDT [facility] [place] Mitogen-NIL 7.00 IU/mL 12/06/2023 2:03 PM EDT [facility] [place] TB1-NIL 0.00 IU/mL 12/06/2023 2:03 PM EDT [facility] [place] TB2-NIL 0.02 IU/mL 12/06/2023 2:03 PM EDT [facility] [place] Comment: The Nil tube value reflects the background interferon gamma immune response of the patient's blood sample. This value has been subtracted from the patient's displayed TB and Mitogen results. Lower than expected results with the Mitogen tube prevent false-negative Quantiferon readings by detect- ing a patient with a potential immune suppressive condition and/or suboptimal pre-analytical specimen handling. The TB1 Antigen tube is coated with the M. tuberculosis-specific antigens designed to elicit responses from TB antigen primed CD4+ helper T-lymphocytes. The TB2 Antigen tube is coated with the M. tuberculosis-specific antigens designed to elicit responses from TB antigen primed CD4+ helper and CD8+ cytotoxic T-lymphocytes. For additional information, please refer to http://education.Linux Voice/faq/LDZ758 (This link is being provided for information/ educational purposes only.) Test Performed at: [facility] [address] [place] [address] Clark Adam M.D., Ph.D.,Director of Laboratories Blood Venous blood specimen / Unknown Venipuncture / Unknown 12/02/2023 12:17 PM EDT 12/02/2023 12:17 PM EDT Shaq BETTENCOURT LAB BLOOD ORDERAB LES [facility] [address] [address] * ANGIOTENSIN CONVERTING ENZYME (12/02/2023 12:17 PM EDT) Pathologist [facility] Angiotensin Converting Enzyme 41 9 - 67 U/L 12/07/2023 2:29 PM EDT [facility] [place] Comment: Test Performed at: [facility] [address] [place] [address] Clark Adam M.D., Ph.D.,Director of Laboratories Blood Venous blood specimen / Unknown Venipuncture / Unknown 12/02/2023 12:17 PM EDT 12/02/2023 12:17 PM EDT Shaq BETTENCOURT LAB BLOOD ORDERAB [facility] [place] [address] [place] [address] * NON-FORMULARY TEST REQUEST (12/02/2023 12:01 PM EDT) Blood Blood specimen / Unknown 12/02/2023 12:01 PM EDT 12/02/2023 12:01 PM EDT Narrative LAB[facility]ATORY [facility] - 12/02/2023 12:28 PM EDT Reject this request due to insufficient information. Incomplete note with no mention of desired test. Please submit request with full test name, desired lab for sample testing, and test code from outside lab. This non-formulary test request was reviewed by Annemarie Willett MD. Shaq BETTENCOURT LAB BLOOD ORDERAB LES [facility] [address] [place] [address] documented in this encounter Visit Diagnoses Diagnosis Uveitis of left eye- Primary documented in this encounter
--- OUTSIDE RECORDS SUMMARY | 2024-01-06 15:40 | External Medical Summary ---
Author Name Unknown Address Unknown Organization [id number]:LAB[facility]ATORY [facility] [address] [facility] [address] Laboratory Report Ordering Provider Test Date Status GELY HUNTER 12/02/2023 12:23:23 Final Observation Date Value Abnormality Reference (Units ) Status Bacteria identified in Specimen by Culture 12/02/2023 12:23:23 No growth Final Test: Culture, Blood
[facility] Source: Blood, Venous
Specimen Type: Blood
Specimen Date: 12/02/2023 1223
Result Date: 12/07/20232200
Result Status: Final result
Resulting Lab: LABORATORY [facility]
[address]
[place] [address]

CULTURE

No growth

null Performing Location LABORATORY [facility] - [address] [facility] [address]
--- OUTSIDE RECORDS SUMMARY | 2024-01-06 15:40 | External Medical Summary | Summary of Care ---
Author Name Unknown Organization [facility] Address [address] [place] [address] Phone [phone] Care Team Providers Care Barrel Roller Operator Name Role Phone Unavailable Primary Care Provider [...] elsewhere classified Lilia Mcduffie CRNP [address] [place] [address] Referral ID Status Reason Start Date Expiration Date Visits Requested Visits Authorized [id number] Pending Review Specialty Services Required 11/30/[phone] Encounter Details Date Type Department Care Team ([facility] st Contact Info) Description 12/02/2023 11:00 AM EDT Office Visit Rheumatology [address] [place] [id number] Shaq Hernandez CRNP [address] [facility] [place] [address] Uveitis of left eye* Allergies Active Allergy Reactions Criticality Noted Date Comments No Known Med Allergies [Other] 05/21 documented as of this encounter (statuses as of 12/02/2023) Medications Medication Sig Dispensed Refills Start Date [...] PRIOR TO WOUND CARE NEEDED 09/05/2023 Active ControlScanTouch Ultra In Vitro Strip USE 1 TEST STRIP TO TEST BLOOD SUGAR 2 TIMES A DAY 11/11/2023 Active Potassium Citrate ER 10 MEQ (1080 MG) Oral Tablet Extended Release (Urocit-K) Take 1 Tablet by mouth in the morning. 1 daily. 11/01/2023 Active Nystatin 449406 UNIT/ML Mouth/Throat Suspension swish and swallow 5 [...] as of this encounter (statuses as of 12/02/2023) Active Problems Problem Noted Date Diagnosed Date ADVANCE DIRECTIVE INFORMATION 08/23/2005 Overview: No, Advance Directive brochure offered , patient declined. BENIGN NEOPLASM SKIN NOS 12/26/2002 documented as of this encounter (statuses as of 12/02/2023) Resolved Problems Problem Noted Date Diagnosed Date Resolved Date ACUTE SINUSITIS NOS 12/11/2003 08/15/19 09 Overview: Resolved per Benign Acute Dxs Protocol #3 documented as of this encounter (statuses as of 12/02/2023) Social History Tobacco Use Types Packs/Day Years [...] 4 years ago and was hospitalized in [place] [facility], with blood transfusions. Reports mouth ulcers, Raynauds Denies hx of Anemia, DVT's, miscarriages, joint inflammation Musculoskeletal ROS: . Abnormal: joint pain . [...] mouth in the morning. 1 daily. Nystatin 441813 UNIT/ML Mouth/Throat Suspension swish and swallow 5 [...] reviewed from 11/02/2023 SSA/SSB- negative, Scl 70-negative, ORACLE FUSION MIDDLEWARE ARCHITECT negative, DNA ABT negative, CCP negative, SM [...] detail with the patient. All questions answered. CC RUT Moore I spent a total of Greater than [...] documented in this encounter Plan of Treatment Pending Results Name Type Priority Associated Diagnoses Date/Time CULTURE, BLOOD Lab Routine Uveitis of left eye 12/02/2023 12:23 PM EDT ANGIOTENSIN CONVERTING ENZYME Lab Routine Uveitis of left eye 12/02/2023 12:17 PM EDT ANCA REFLEX PANEL Lab Routine Uveitis of left eye 12/02/2023 12:17 PM EDT QUANTIFERON TB GOLD PLUS Lab Routine Uveitis of left eye 12/02/2023 12:17 PM EDT HEPATITIS C ANTIBODY SCREEN WITH PROGRESSION TO HEPATITIS C RNA QUANTITATIVE Lab Routine Uveitis of left eye 12/02/2023 12:17 PM EDT HEPATITIS B SURFACE ANTIBODY Lab Routine Uveitis of left eye 12/02/2023 12:17 PM EDT HEPATITIS B CORE ANTIBODIES IGG AND IGM Lab Routine Uveitis of left eye 12/02/2023 12:17 PM EDT HEPATITIS B SURFACE ANTIGEN Lab Routine Uveitis of left eye 12/02/2023 12:17 PM EDT CBC WITH WBC DIFFERENTIAL Lab Routine Uveitis of left eye 12/02/2023 12:17 PM EDT CRP, HIGH SENSITIVITY (CARDIOVASCULAR RISK) Lab Routine Uveitis of left eye 12/02/2023 12:17 PM EDT ERYTHROCYTE SEDIMENTATION RATE (ESR) Lab Routine Uveitis of left eye 12/02/2023 12:17 PM EDT FTA-ABS Lab Routine Uveitis of left eye 12/02/2023 12:17 PM EDT HLA B27 ANTIGEN, FLOW CYTOMETRY Lab Routine Uveitis of left eye 12/02/2023 12:18 PM EDT LYME DISEASE ANTIBODY SCREEN WITH REFLEX TO CONFIRMATION Lab Routine Uveitis of left eye 12/02/2023 12:17 PM EDT RPR Lab Routine Uveitis of left eye 12/02/2023 12:17 PM EDT XR CHEST 2 VIEWS Medical Imaging Routine Uveitis of left eye 12/02/2023 12:28 PM EDT HIV ANTIGEN & ANTIBODY SCREEN W/ CONFIRMATION Lab Routine Uveitis of left eye 12/02/2023 12:17 PM EDT Scheduled Orders Name Type Priority Associated Diagnoses Orde r Schedule CULTURE, BLOOD Lab Routine Uveitis of left eye Expected: 12/02/2023, Expires: 12/01/2024 ANGIOTENSIN CONVERTING ENZYME Lab Routine Uveitis of left eye Expected: 12/02/2023, Expires: 12/01/2024 ANCA REFLEX PANEL Lab Routine Uveitis of left eye Expected: 12/02/2023, Expires: 12/01/2024 QUANTIFERON TB GOLD PLUS Lab Routine Uveitis of left eye Expected: 12/02/2023, Expires: 12/01/2024 HEPATITIS C ANTIBODY SCREEN WITH PROGRESSION TO HEPATITIS C RNA QUANTITATIVE Lab Routine Uveitis of left eye Expected: 12/02/2023, Expires: 12/01/2024 HEPATITIS B SURFACE ANTIBODY Lab Routine Uveitis of left eye Expected: 12/02/2023, Expires: 12/01/2024 HEPATITIS B CORE ANTIBODIES IGG AND IGM Lab Routine Uveitis of left eye Expected: 12/02/2023, Expires: 12/01/2024 HEPATITIS B SURFACE ANTIGEN Lab Routine Uveitis of left eye Expected: 12/02/2023, Expires: 12/01/2024 CULTURE, FUNGUS, BLOOD Lab Routine Uveitis of left eye Expected: 12/02/2023, Expires: 12/01/2024 CBC WITH WBC DIFFERENTIAL Lab Routine Uveitis of left eye Expected: 12/02/2023, Expires: 12/01/2024 CRP, HIGH SENSITIVITY (CARDIOVASCULAR RISK) Lab Routine Uveitis of left eye Expected: 12/02/2023, Expires: 12/01/2024 ERYTHROCYTE SEDIMENTATION RATE (ESR) Lab Routine Uveitis of left eye Expected: 12/02/2023, Expires: 12/01/2024 FTA-ABS Lab Routine Uveitis of left eye Expected: 12/02/2023, Expires: 12/01/2024 HLA B27 ANTIGEN, FLOW CYTOMETRY Lab Routine Uveitis of left eye Expected: 12/02/2023, Expires: 12/01/2024 LYME DISEASE ANTIBODY SCREEN WITH REFLEX TO CONFIRMATION Lab Routine Uveitis of left eye Expected: 12/02/2023, Expires: 12/01/2024 RPR Lab Routine Uveitis of left eye Expected: 12/02/2023, Expires: 12/01/2024 TOXOPLASMA AB IGG/IGM (ECH ONLY) Lab Routine Uveitis of left eye Expected: 12/02/2023, Expires: 12/01/2024 HIV ANTIGEN & ANTIBODY SCREEN W/ CONFIRMATION Lab Routine Uveitis of left eye Expected: 12/02/2023, Expires: 12/01/2024 Health Maintenance Due Date Last Done Comments Pneumococcal Vaccine: Pediatrics (0 to 5 Years) and At-Risk Patients (6 to 64 Years) (1 of 2 - PCV) 1981 Depression Screening 1987 HIV Screening 1990 Hepatitis C Screening 1993 DTaP,Tdap,and Td Vaccines (1 - Tdap) 1994 Hepatitis B (1 of 3 - 19+ 3-dose series) 1994 Pap Smear 02/14/1996 Cervical Cancer Screening 2005 HPV/Co-Test 2005 Lipid Panel 09/18/2009 09/18/2004 Mammogram 2015 Cologuard 02/14/2020 Colonoscopy 02/14/2020 Colorectal Cancer Screening 02/14/2020 Fecal Occult Blood Test 02/14/2020 Sigmoidoscopy 02/14/2020 COVID-19 Vaccine (2022- season) 2023 10/08/2020, 09/17/2020 Influenza Vaccine (FLU [...] Procedure Name Priority Date/Time Associated Diagnosis Comments NON-FORMULARY TEST REQUEST Routine 12/02/2023 12:01 PM EDT Uveitis of left eye documented in this encounter Results * NON-FORMULARY TEST REQUEST (12/02/2023 12:01 PM EDT) Blood Blood specimen / Unknown 12/02/2023 12:01 PM EDT 12/02/2023 12:01 PM EDT Narrative LABORATORY [facility] - 12/02/2023 12:28 PM EDT Reject this request due to insufficient information. Incomplete note with no mention of desired test. Please submit request with full test name, desired lab for sample testing, and test code from outside lab. This non-formulary test request was reviewed by Annemarie Willett MD. Shaq BETTENCOURT LAB BLOOD ORDERAB LES LAB[facility]ATORY [facility] [address] [place] [address] documented in this encounter Visit Diagnoses Diagnosis Uveitis of left eye- Primary documented in this encounter
--- OUTSIDE RECORDS SUMMARY | 2024-01-06 15:40 | External Medical Summary ---
Author Name Unknown Address Unknown Organization K01:LABORATORY [facility] - [address] [facility] [address] Laboratory Report Ordering Provider Test Date Status GELY HUNTER 12/02/2023 12:17:29 Final Cardiovascular Disease Risk Assessment
(Relative Risk)
<1.0 mg/L Low
1.0-3.0 mg/L Average
>3.0 mg/L High

*This table may not apply in certain inflammatory conditions. Observation Date Value Abnormality Reference (Units ) Status CRP, High-sensitivity 12/02/2023 12:17:29 9.38 Above high normal <=3.00 (mg/L) Final Performing Location [facility] [address] [facility] [address]
--- OUTSIDE RECORDS SUMMARY | 2024-01-06 15:40 | External Medical Summary ---
Author Name Unknown Address Unknown Organization K01:LABORATORY [facility] [place] - [address] [facility] [address] Laboratory Report Ordering Provider Test Date Status ELSAHONG 12/02/2023 12:18:14 Final HLA-B27 Antigen is found in 6-8% of Caucasians,in 3-4% of -Americans and in 1% of Asians.
HLA-B27 Antigen is found in 6-8% of Caucasians,in 3-4% of -Americans and in 1% of Asians. Observation Date Value Abnormality Reference (Units ) Status HLA-B27 [Presence] by Flow cytometry (FC) 12/02/2023 12:18:14 Negative Negative Final Performing Location LABORATORY C - [address] [place] [address]
--- OUTSIDE RECORDS SUMMARY | 2024-01-06 15:40 | External Medical Summary ---
Author Name Unknown Address Unknown Organization K01:LABORATORY [facility] [place] [address] [place] [address] Laboratory Report Ordering Provider Test Date Status GELY HUNTER 12/02/2023 12:22:59 Final Observation Date Value Abnormality Reference (Units ) Status Toxoplama IgM 12/02/2023 12:22:59 Negative Negati ve Final Performing Location LABORATORY [facility] - [address] [place] [address]
--- OUTSIDE RECORDS SUMMARY | 2024-01-06 15:40 | External Medical Summary | Summary of Care ---
Author Name Unknown Organization [facility] Address [address] [place] [address] Phone [phone] Care Team Providers Care Quality Analyst Name Role Phone Unavailable Primary Care Provider Unavailabl e Reason for Visit * Reason Comments Outpatient Testing Encounter Details Date Type Department Care Team (Late st Contact Info) Description 12/02/2023 12:20 PM EDT Laboratory Laboratory [address] [place] [phone] [facility] [address] [place] [address] Uveitis of left eye; Uveitis Allergies Active Allergy Reactions Criticality Noted Date [...] the morning. 1 daily. 11/01/2023 Active Nystatin 487213 UNIT/ML Mouth/Throat Suspension swish and swallow 5 [...] on file documented as of this encounter Plan of Treatment Upcoming Encounters Date Type Department Care Team (Jason Contact Info) Description 12/02/2023 1:00 PM EDT Imaging Radiology [address] [place] [address] Arrived Pending Results Name Type Priority Associated Diagnoses Date /Time ANGIOTENSIN CONVERTING ENZYME Lab Routine Uveitis of [...] of left eye 12/02/2023 12:17 PM EDT LYME DISEASE ANTIBODY SCREEN WITH REFLEX TO CONFIRMATION Lab Routine Uveitis of left eye 12/02/2023 12:17 PM EDT RPR Lab Routine Uveitis of left eye 12/02/2023 12:17 PM EDT HIV ANTIGEN & ANTIBODY SCREEN W/ CONFIRMATION Lab Routine Uveitis of left eye 12/02/2023 12:17 PM EDT ANCA, IFA Lab Routine Uveitis of left eye 12/02/2023 12:17 PM EDT HEPATITIS C ANTIBODY Lab Routine Uveitis of left eye 12/02/2023 12:17 PM EDT HEPATITIS C RNA ADD ON Lab Routine Uveitis of left eye 12/02/2023 12:17 PM EDT CBC Lab Routine Uveitis of left eye 12/02/2023 12:17 PM EDT DIFFERENTIAL, AUTOMATED Lab Routine Uveitis of left eye 12/02/2023 12:17 PM EDT LYME DISEASE ANTIBODY SCREEN Lab Routine Uveitis of left eye 12/02/2023 12:17 PM EDT HLA B27 ANTIGEN, FLOW CYTOMETRY Lab Routine Uveitis of left eye 12/02/2023 12:18 PM EDT TOXOPLASMA GONDII IGG ANTIBODY Lab Routine Uveitis 12/02/2023 12:22 PM EDT TOXOPLASMA GONDII IGM ANTIBODY Lab Routine Uveitis 12/02/2023 12:22 PM EDT CULTURE, BLOOD Lab Routine Uveitis of left eye 12/02/2023 12:23 PM EDT Health Maintenance Due Date Last Done Comments [...] Blood Test 02/14/2020 Sigmoidoscopy 02/14/2020 COVID-19 Vaccine ( season) 2023 10/08/2020, 09/17/2020 Influenza Vaccine (FLU shot) (Season Ended) 2024 05/13/2022, 06/19/2021, 04/13/2018, Additional history exists GARDASIL-HPV IMMUNIZATION SERIES Aged Out No longer eligible based on patient's age to complete this topic MENINGOCOCCAL (MENACTRA/MENVEO) Aged Out No longer eligible based on patient's age to complete this topic documented as of this encounter Medical Devices Not on filedocumented as of this encounter Visit Diagnoses Diagnosis Uveitis of left eye Uveitis Unspecified iridocyclitis documented in this encounter
--- OUTSIDE RECORDS SUMMARY | 2024-01-06 15:40 | External Medical Summary | Summary of Care ---
Author Name Unknown Organization [facility] Address [address] [place] [address] Phone [phone] Care Team Providers Care Manufacturers Representative Name Role Phone Unavailable Primary Care Provider Unavailabl e Reason for Visit * Reason Onset Date Comments Test Results 12/07/[address] Trini sawyer Encounter Details Date Type Department Care Team (Late st Contact Info) Description 12/07/2023 Telephone Rheumatology [facility] [address] [address] Shaq Hernandez CRNP [address] [place] [address] Test Results (Faxed to Dr. Clemons) Allergies [...] the morning. 1 daily. 11/01/2023 Active Nystatin 140312 UNIT/ML Mouth/Throat Suspension swish and swallow 5 [...] = 0.6 oz pur e alcohol) occas Utilities Answer Date Recorded Do you have trouble paying y our heating, water, or electric bill? (Adult - for ages 18 years and over) Not on file 12/13/2023 Is your family able to pay t he heat, water, or electric bill? (Household - for ages 0-17 years) Not on file 12/13/2023 Does your family have access to good internet? (Household - for ages 0-17 years) Not on file 12/13/2023 Social Connections Answer Date Recorded How often do you feel lonely or isolated from those around you? (Adult - for ages 18 years and over) Not on file 12/13/2023 Sex and Gender Information Value Date Recorded Sex Assigned at Not on file Gender Identity Not on file Sexual Orientation Not on file Job Start Date Occupation Industry Not on file Not on file Not on file documented as of this encounter Miscellaneous Notes * Telephone Encounter - Talon Martinez LPN - 12/14/2023 3:53 PM EDT Labs faxed to [phone] Dr Clemons * Telephone Encounter - Yeni Quinones LPN - 12/09/2023 2:17 PM EDT All labs refaxed to Dr Clemons at [phone], per their request * Telephone Encounter - Va Quinones LPN - 12/08/2023 2:18 PM EDT All lab results have been faxed as of 12/08/2023 to PCP * Telephone Encounter - Va Quinones LPN - 12/07/2023 2:35 PM EDT Faxed lab results and xray results to Dr. Clemons at [phone]. Will fax angiotensin result when it comes [...]
--- OUTSIDE RECORDS SUMMARY | 2024-01-06 15:40 | External Medical Summary | Summary of Care ---
Author Name Unknown Organization [facility] Address [address] [place] [address] Phone [phone] Care Team Providers Care Web Production Assistant Name Role Phone Unavailable Primary Care Provider Unavailabl e Reason for Visit * Reason Onset Date Comments Test Results 12/07/[address] Trini sawyer Encounter Details Date Type Department Care Team (Late st Contact Info) Description 12/07/2023 Telephone Rheumatology [facility] [id number] [place] [address] Shaq Hernandez CRNP [address] [place] [address] Test Results (Faxed to Dr. Clemons) Allergies Active Allergy Reactions Criticality Noted Date Comments No Known Med Allergies [Other] 05/21 documented as of this encounter (statuses as of 12/09/2023) Medications Medication Sig Dispensed Refills Start Date [...] the morning. 1 daily. 11/01/2023 Active Nystatin 129875 UNIT/ML Mouth/Throat Suspension swish and swallow 5 [...] as of this encounter (statuses as of 12/09/2023) Active Problems Problem Noted Date Diagnosed Date ADVANCE DIRECTIVE INFORMATION 08/23/2005 Overview: No, Advance Directive brochure offered , patient declined. BENIGN NEOPLASM SKIN NOS 12/26/2002 documented as of this encounter (statuses as of 12/09/2023) Resolved Problems Problem Noted Date Diagnosed Date Resolved Date ACUTE SINUSITIS NOS 12/11/2003 08/15/19 09 Overview: Resolved per Benign Acute Dxs Protocol #3 documented as of this encounter (statuses as of 12/09/2023) Social History Tobacco Use Types Packs/Day Years [...] encounter Miscellaneous Notes * Telephone Encounter - Yeni Quinones LPN - 12/09/2023 2:17 PM EDT All labs refaxed to Dr Clemons at [phone], per their request * Telephone Encounter - Va Quinones LPN - 12/08/2023 2:18 PM EDT All lab results have been faxed as of 12/08/2023 to PCP * Telephone Encounter - Va Quinones LPN - 12/07/2023 2:35 PM EDT Faxed lab results and xray results to Dr. Clemons at [phone]. Will fax angiotensin result when it comes [...]
--- OUTSIDE RECORDS SUMMARY | 2024-01-06 15:40 | External Medical Summary | Summary of Care ---
Author Name Unknown Organization [facility] Address [address] [place] [address] Phone [phone] Care Team Providers Care Substation Operator Chief Name Role Phone Unavailable Primary Care Provider [...] elsewhere classified Lilia Mcduffie CRNP [address] [place] [address] Referral ID Status Reason Start Date Expiration Date Visits Requested Visits Authorized [id number] Pending Review Specialty Services Required 11/30/[phone] Encounter Details Date Type Department Care Team ([facility] st Contact Info) Description 12/02/2023 11:00 AM EDT Office Visit Rheumatology [address] [place] [id number] Shaq Hernandez CRNP [address] [facility] [place] [address] Uveitis of left eye* Allergies Active Allergy Reactions Criticality Noted Date Comments No Known Med Allergies [Other] 05/21 documented as of this encounter (statuses as of 12/04/2023) Medications Medication Sig Dispensed Refills Start Date [...] PRIOR TO WOUND CARE NEEDED 09/05/2023 Active Helioz R&DTouch Ultra In Vitro Strip USE 1 TEST STRIP TO TEST BLOOD SUGAR 2 TIMES A DAY 11/11/2023 Active Potassium Citrate ER 10 MEQ (1080 MG) Oral Tablet Extended Release (Urocit-K) Take 1 Tablet by mouth in the morning. 1 daily. 11/01/2023 Active Nystatin 897184 UNIT/ML Mouth/Throat Suspension swish and swallow 5 [...] as of this encounter (statuses as of 12/04/2023) Active Problems Problem Noted Date Diagnosed Date ADVANCE DIRECTIVE INFORMATION 08/23/2005 Overview: No, Advance Directive brochure offered , patient declined. BENIGN NEOPLASM SKIN NOS 12/26/2002 documented as of this encounter (statuses as of 12/04/2023) Resolved Problems Problem Noted Date Diagnosed Date Resolved Date ACUTE SINUSITIS NOS 12/11/2003 08/15/19 Overview: Resolved per Benign Acute Dxs Protocol #3 documented as of this encounter (statuses as of 12/04/2023) Social History Tobacco Use Types Packs/Day Years [...] 4 years ago and was hospitalized in [place] and [facility], with blood transfusions. Reports mouth ulcers, Raynauds Denies hx of Anemia, DVT's, miscarriages, joint inflammation ADDENDUM 12/04/2023 Outside office notes reviewed from [facility] Musculoskeletal ROS: . Abnormal: joint pain . [...] mouth in the morning. 1 daily. Nystatin [id number] UNIT/ML Mouth/Throat Suspension swish and swallow 5 [...] reviewed from 11/02/2023 SSA/SSB- negative, Scl 70-negative, PITCH FILLER negative, DNA ABT negative, CCP negative, SM [...] Name Type Priority Associated Diagnoses Date /Time CULTURE, BLOOD Lab Routine Uveitis of left [...] of left eye 12/02/2023 12:28 PM EDT Scheduled Orders Name Type Priority Associated Diagnoses Orde r Schedule ANGIOTENSIN CONVERTING ENZYME Lab Routine Uveitis of [...] Test 02/14/2020 Sigmoidoscopy 02/14/2020 COVID-19 Vaccine ( - 2022- season) 2023 10/08/2020, 09/17/2020 Influenza Vaccine (FLU shot) (Season Ended) 2024 05/13/2022, 06/19/2021, 04/13/2018, Additional history exists HIV Screening Completed 12/02/2023 Hepatitis C Screening Completed 12/02/2023 , 12/02/2023, 12/02/2023 GARDASIL-HPV IMMUNIZATION SERIES Aged Out No longer [...] eye documented in this encounter Results * HLA B27 ANTIGEN, FLOW CYTOMETRY (12/02/2023 12:18 PM EDT) HLA-B27 Negative Negative 12/03/2023 10:04 AM EDT LABORATORY [facility] Blood Venous blood specimen / Unknown Venipuncture / Unknown 12/02/2023 12:18 PM EDT 12/02/2023 12:18 PM EDT Narrative LABORATORY [facility] - 12/03/2023 10:04 AM EDT HLA-B27 Antigen is found in 6-8% of Caucasians,in 3-4% of -Americans and in 1% of Asians. HLA-B27 Antigen is found in 6-8% of Caucasians,in 3-4% of -Americans and in 1% of Asians. Anneshena BETTENCOURT LAB BLOOD ORDERAB LES Performing Organization Address [facility] Co de Phone Number LABORATORY [facility] [address] [place] [address] * HIV ANTIGEN & ANTIBODY SCREEN W/ CONFIRMATION (12/02/2023 12:17 PM EDT) Pathologist [facility] HIV Antigen & Antibody Negative Negative 12/03/2023 3:33 AM EDT LABORATORY [facility] Comment:Negative HIV-1/2 ant igen and antibody screening [...] BLOOD ORDERAB LES Performing Organization Address [facility] Co de Phone Number LABORATORY [facility] [address] [place] [address] * RPR (12/02/2023 12:17 PM EDT) Pathologist [facility] RPR Screen Nonreactive Nonreactive 12/04/2023 9:48 AM EDT LABORATORY [facility] Blood Venous blood specimen / Unknown Venipuncture / Unknown 12/02/2023 12:17 PM EDT 12/02/2023 12:17 PM EDT Anneshena BETTENCOURT LAB BLOOD ORDERAB LES Performing Organization Address [facility] Co de Phone Number LABORATORY [facility] [address] [place] [address] * ERYTHROCYTE SEDIMENTATION RATE (ESR) (12/02/2023 12:17 PM EDT) Pathologist [facility] ESR 19 <20 mm/hour 12/02/2023 10:35 PM EDT LABORATORY [facility] Blood Venous blood specimen / Unknown Venipuncture / Unknown 12/02/2023 12:17 PM EDT 12/02/2023 12:17 PM EDT Shaq BETTENCOURT LAB BLOOD ORDERAB LES Performing Organization Address City/[facility]/ZIP Co de Phone Number LABORATORY [facility] [address] [place] [address] * (ABNORMAL) CRP, HIGH SENSITIVITY (CARDIOVASCULAR RISK) (12/02/2023 12:17 PM EDT) Pathologist [facility] CRP, High Sensitivity (Cardiovascular Risk) 9.38(H) <=3.00 mg/L 12/03/2023 2:46 AM EDT LAB[facility]ATORY [facility] Blood Venous blood specimen / Unknown Venipuncture / Unknown 12/02/2023 12:17 PM EDT 12/02/2023 12:17 PM EDT Narrative LAB[facility]ATORY [facility] - 12/03/2023 2:46 AM EDT Cardiovascular Disease Risk Assessment (Relative Risk) <1.0 mg/L Low 1.0-3.0 mg/L Average >3.0 mg/L High *This table may not apply in certain inflammatory conditions. Shaq BETTENCOURT LAB BLOOD ORDERAB LES Performing Organization Address City/[facility] Co de Phone Number LABORATORY [facility] [address] [place] [address] * HEPATITIS B SURFACE ANTIGEN (12/02/2023 12:17 PM EDT) Pathologist [facility] Hepatitis B Surface Antigen Negative Negative 12/03/2023 3:33 AM EDT LAB[facility]ATORY [facility] Blood Venous blood specimen / Unknown Venipuncture / Unknown 12/02/2023 12:17 PM EDT 12/02/2023 12:17 PM EDT Shaq BETTENCOURT LAB BLOOD ORDERAB LES LABORATORY [facility] [address] [place] [address] * HEPATITIS B CORE ANTIBODIES IGG AND IGM (12/02/2023 12:17 PM EDT) Pathologist [facility] Hepatitis B Core Antibodies IgG and IgM Negative Negative 12/03/2023 3:33 AM EDT LABORATORY [facility] Blood Venous blood specimen / Unknown Venipuncture / Unknown 12/02/2023 12:17 PM EDT 12/02/2023 12:17 PM EDT Shaq BETTENCOURT LAB BLOOD ORDERAB LES Performing Organization Address City/[facility]/ZIP Co de Phone Number LABORATORY [facility] [address] [place] [address] * HEPATITIS B SURFACE ANTIBODY (12/02/2023 12:17 PM EDT) Pathologist [facility] Hepatitis B Surface Antibody, Quantitative <3.5 mIU/mL 12/03/2023 3:33 AM EDT LABORATORY [facility] Hepatitis B Surface Antibody, Qualitative Negative 12/03/2023 3:33 AM EDT LABORATORY [facility] Hepatitis B Surface Antibody, Interpretation NOT immune to Hepatitis B Virus 12/03/2023 3:33 AM EDT LABORATORY [facility] Comment: POSITIVE: >=11.5 mIU/mL INDETERMINATE: 8.5-<11.5 mIU/mL NEGATIVE: <8.5 mIU/mL Blood Venous blood specimen / Unknown Venipuncture / Unknown 12/02/2023 12:17 PM EDT 12/02/2023 12:17 PM EDT Shaq BETTENCOURT LAB BLOOD ORDERAB LES LABORATORY [facility] [address] [place] [address] * NON-FORMULARY TEST REQUEST (12/02/2023 12:01 PM EDT) Blood Blood specimen / Unknown 12/02/2023 12:01 PM EDT 12/02/2023 12:01 PM EDT Narrative LABORATORY [facility] - 12/02/2023 12:28 PM EDT Reject this request due to insufficient information. Incomplete note with no mention of desired test. Please submit request with full test name, desired lab for sample testing, and test code from outside lab. This non-formulary test request was reviewed by Annemarie Willett MD. Shaq BETTENCOURT LAB BLOOD ORDERAB LES LAB[facility]ATORY [facility] [address] [place] [address] documented in this encounter Visit Diagnoses Diagnosis Uveitis of left eye- Primary documented in this encounter
--- OUTSIDE RECORDS SUMMARY | 2024-01-06 15:40 | External Medical Summary | Summary of Care ---
Author Name Unknown Organization [facility] Address [address] [place] [address] Phone [phone] Care Team Providers Care Warm In Name Role Phone Unavailable Primary Care Provider Unavailabl e Reason for Visit * Reason Comments Outpatient Testing Encounter Details Date Type Department Care Team (Late st Contact Info) Description 12/02/2023 12:20 PM EDT Laboratory Laboratory [address] [place] [phone] [facility] [address] [place] [address] Uveitis of left eye; Uveitis Allergies Active [...] the morning. 1 daily. 11/01/2023 Active Nystatin 537340 UNIT/ML Mouth/Throat Suspension swish and swallow 5 [...] Description 12/02/2023 1:00 PM EDT Imaging Radiology [address] [place] [address] Arrived Pending Results [...]
--- OUTSIDE RECORDS SUMMARY | 2024-01-06 15:41 | External Medical Summary ---
Author Name Unknown Address Unknown Organization [id number]:LABORATORY [facility] - [address] [facility] [address] Laboratory Report Ordering Provider Test Date Status ZACHARY HUNTERE 12/02/2023 12:17:29 Final Observation Date Value Abnormality Reference (Units ) Status Reagin Ab [Presence] in Serum by RPR 12/02/2023 12:17:29 Nonreactive Nonreactive Final Performing Location LABORATORY [facility] - [address] [facility] [address]
--- OUTSIDE RECORDS SUMMARY | 2024-01-06 15:41 | External Medical Summary ---
Author Name Unknown Address Unknown Organization [id number]:LABORATORY [facility] [address] [facility] [address] Laboratory Report Ordering Provider Test Date Status ZACHARY HUNTERE 12/02/2023 12:17:29 Final Observation Date Value Abnormality Reference (Units ) Status Hepatitis B virus core Ab [Presence] in Serum 12/02/2023 12:17:29 Negative Negative Final Performing Location LABORATORY C - [address] [place] [address]
--- OUTSIDE RECORDS SUMMARY | 2024-01-06 15:41 | External Medical Summary ---
Author Name Unknown Address Unknown Organization : Laboratory Report Ordering Provider Test Date Status GELY HUNTER 12/02/2023 12:17:29 Final Observation Date Value Abnormality Reference (Units ) Status Mycobacterium tuberculosis stimulated gamma interferon [Interpretation] in Blood Qualitative 12/02/2023 12:17:29 NEGATIVE NEGATIVE Final Negative test result. M. tub erculosis complex
infection unlikely. Gamma interferon background [Units/volume] in Blood by Immunoassay 12/02/2023 12:17:29 0.07 (IU/mL) Final Mitogen stimulated gamma int erferon [Units/volume] corrected for background in Blood 12/02/2023 12:17:29 7.00 (IU/mL) Final Mycobacterium tuberculosis s timulated gamma interferon release by CD4+ T-cells [Units/volume] corrected for background in Blood 12/02/2023 12:17:29 0.00 (IU/mL) Final Mycobacterium tuberculosis s timulated gamma interferon release by CD4+ and CD8+ T-cells [Units/volume] corrected for background in Blood 12/02/2023 12:17:29 0.02 (IU/mL) Final The Nil tube value reflects the background [...] T-lymphocytes.
For additional information, please refer to
http://education.[employer].Findery/faq/VJV151
(This link is being provided for information/
educational purposes only.)

Test Performed at:
[facility]
[address]
[place] [address]
Clark Adam M.D., Ph.D.,Director of Laboratories Performing Location
--- OUTSIDE RECORDS SUMMARY | 2024-01-06 15:41 | External Medical Summary ---
Author Name Unknown Address Unknown Organization : Laboratory Report Ordering Provider Test Date Status GELY HUNTER 12/02/2023 12:17:29 Final Observation Date Value Abnormality Reference (Units ) Status Enzyme 12/02/2023 12:17:29 41 9-67 (U/L) Final
Test Performed at:
[facility]
[address] [facility]
[place] [address]
Clark Adam M.D., Ph.D.,Director of Laboratories Performing Location
--- OUTSIDE RECORDS SUMMARY | 2024-01-06 15:41 | External Medical Summary ---
Author Name Unknown Address Unknown Organization [id number]:LABORATORY [facility] - [address] [place] [address] Laboratory Report Ordering Provider Test Date Status GELY HUNTER 12/02/2023 12:17:29 Final Observation Date Value Abnormality Reference (Units ) Status Erythrocyte sedimentation rate by Photometric method 12/02/2023 12:17:29 19 <20 (mm/hour) Final Performing Location LABORATORY C [place] [address] [place] [address]
--- OUTSIDE RECORDS SUMMARY | 2024-01-06 15:41 | External Medical Summary ---
Author Name Unknown Address Unknown Organization [id number]:LABORATORY [facility] - [address] [place] [address] Laboratory Report Ordering Provider Test Date Status GELY HUNTER 12/02/2023 12:17:29 Final Observation Date Value Abnormality Reference (Units ) Status Hep B surface Ag 12/02/2023 12:17:29 Negative Neg ative Final Performing Location LABORATORY C - [address] [place] [address]
--- OUTSIDE RECORDS SUMMARY | 2024-01-06 15:41 | External Medical Summary ---
Author Name Unknown Address Unknown Organization K01:LABORATORY [facility] - [address] [place] [address] [address] [facility] [address] Laboratory Report Ordering Provider Test Date Status GELY HUNTER 12/02/2023 12:17:29 Final Observation Date Value Abnormality Reference (Units ) Status HIV 1+2 Ab+HIV1 p24 Ag [Presence] in Serum or Plasma by Immunoassay 12/02/2023 12:17:29 Negative Negative Final Negative HIV-1/2 antigen and antibody screening tset results usually indicate the absence of HIV-1 and HIV-2 infection. However, such negative results do not rule-out acute HIV infection. If acute HIV-1 infection is highly suspected, it is recommended that a specimen be submitted for detection of HIV-1 RNA. Performing Location LABORATORY [facility] - [address] [facility] [address]
--- OUTSIDE RECORDS SUMMARY | 2024-01-06 15:41 | External Medical Summary ---
Author Name Unknown Address Unknown Organization K01:LABORATORY [place] [address] [place] [address] Laboratory Report Ordering Provider Test Date Status GELY HUTNER 12/02/2023 12:17:29 Final Observation Date Value Abnormality Reference (Units) Status Hepatitis B virus surface Ab [Units/volume] in Serum or Plasma by Immunoassay 12/02/2023 12:17:29 <3.5 (mIU/mL) Final Hepatitis B virus surface Ab [Presence] in Serum by Immunoassay 12/02/2023 12:17:29 Negative Final HEPATITIS B SURFACE ANTIBODY, INTERPRETATION 12/02/2023 12:17:29 NOT immune to Hepatitis B Virus Final POSITIVE: >=11.5 mIU/mL
INDETERMINATE: 8.5-<11.5 mIU/mL
NEGATIVE: <8.5 mIU/mL Performing Location LAB[facility]ORY [facility] [place] [address]
--- OUTSIDE RECORDS SUMMARY | 2024-01-06 15:41 | External Medical Summary ---
Author Name Unknown Address Unknown Organization K01:LABORATORY C - [address] [place] [address] Laboratory Report Ordering Provider Test Date Status GELY HUNTER 12/02/2023 12:17:29 Final Observation Date Value Abnormality Reference (Units ) Status Hep C Ab 12/02/2023 12:17:29 Negative Negative Final Further HCV quantitative ely ting not performed per protocol. Performing Location LABORATORY C - [address] [place] [address]
--- OUTSIDE RECORDS SUMMARY | 2024-01-06 15:41 | External Medical Summary ---
Author Name Unknown Address Unknown Organization : Laboratory Report Ordering Provider Test Date Status GELY HUNTER 12/02/2023 12:17:29 Final Observation Date Value Abnormality Reference (Units ) Status FTA - ABS 12/02/2023 12:17:29 Nonreactive Nonreact alanna Final The FTA-ABS is a treponemal assay that is intended to
be used with other tests (e.g., RPR) as part of a
diagnostic algorithm for syphilis. The preferred
treponemal-specific tests for confirmation of a
reactive RPR are Treponema pallidum Particle
Agglutination (TP-PA) or other treponemal antibody
assays. From Sexually Transmitted Infections Treatment
Guidelines,2020 MMWR Recomm Rep 202;70 (No. RR-4):
pg.39.

Test Performed at:
[facility]
[address]
[place] [address]
Clark Adam M.D., Ph.D.,Director of Laboratories Performing Location
--- OUTSIDE RECORDS SUMMARY | 2024-01-06 15:41 | External Medical Summary ---
Author Name Unknown Address Unknown Organization K01:LABORATORY [facility] - [address] [place] [address] Laboratory Report Ordering Provider Test Date Status MARLONDilshadHONG 12/02/2023 12:17:29 Final Observation Date Value Abnormality Reference (Units ) Status Neutrophil cytoplasmic Ab [Presence] in Serum by Immunofluorescence 12/02/2023 12:17:29 Negative Negative Final Neutrophil cytoplasmic Ab [Presence] in Serum by Immunofluorescence 12/02/2023 12:17:29 Negative Negative Final Negative for ANCA. Performing Location LABORATORY [facility] - [address] [address]
--- OUTSIDE RECORDS SUMMARY | 2024-01-06 15:41 | External Medical Summary ---
Author Name Unknown Address Unknown Organization K01:LABORATORY C - [address] [facility] [address] Laboratory Report Ordering Provider Test Date Status GELY HUNTER 12/02/2023 12:17:29 Final Observation Date Value Abnormality Reference (Units ) Status SYNC LEUKOCYTES IN BLOOD BY AUTOMATED COUNT 12/02/2023 12:17:29 13.75 Above high normal 4.00-10.80 (K/uL) Final Segs 12/02/2023 12:17:29 72.3 40.0-75.0 (%) Final Lymphs % 12/02/2023 12:17:29 20.7 18.0-42.0 (%) Final Monos 12/02/2023 12:17:29 5.5 1.0-11.0 (%) Final Eosinophils 12/02/2023 12:17:29 0.4 0.0-6.0 (%) Final Basos 12/02/2023 12:17:29 0.4 0.0-2.0 (%) Final Immature Granulocyte, Percent 12/02/2023 12:17:29 0.7 0.0-2.0 (%) Final Absolute Segs 12/02/2023 12:17:29 9.95 Above high normal 1.80-7.70 (K/uL) Final Lymphs, absolute 12/02/2023 12:17:29 2.84 1.00-4.80 (K/ul) Final Monos, Abs 12/02/2023 12:17:29 0.75 0.00-1.10 (K/uL) Final Eos, Abs 12/02/2023 12:17:29 0.05 0.00-0.70 (K/uL) Final Basos, Abs 12/02/2023 12:17:29 0.06 0.00-0.20 (K/uL) Final Immature Granulocytes, Number 12/02/2023 12:17:29 0.10 0.00-0.20 (K/uL) Final Performing Location LAB[facility]ORY [facility] [place] [address] [facility] [address]
--- OUTSIDE RECORDS SUMMARY | 2024-01-06 15:41 | External Medical Summary | Summary of Care ---
Author Name Unknown Organization [facility] Address [address] [facility] [place] [address] Phone [phone] Care Team Providers Care Sausage Smoker Name Role Phone Unavailable Primary Care Provider Unavailabl e Reason for Referral * Evaluate & Treat - Unlimited Visits (Within 10 days (routine)) - Pending Review Specialty Diagnoses / Procedures Referred By Sandra tse Referred To Contact Rheumatology Diagnoses Elevated C-reactive protein (CRP) Pain in unspecified joint Stiffness of unspecified joint, not elsewhere classified Lilia Mcduffie CRNP [address] [place] [address] Referral ID Status Reason Start Date Expiration Date Visits Requested Visits Authorized [id number] Pending Review Specialty Services Required 11/30/[phone] Question Answer Referral Priority Within 10 days (routine) Where should this appointment be scheduled? [facility] Reason for referral: Inflammatory arthritis/Autoimmune or Connective Tissue Diseases Comments Notes/ref scanned in [employer] Encounter Details Date Type Department Care Team ([facility] st Contact Info) Description 11/30/2023 Orders Only Access [facility], [place] [address] [place] [address] Ext *DO NOT REMOVE THIS DEPARTMENT* [place] [address] Request, External Referral Elevated C-reactive protein (CRP)*; Pain in unspecified joint; Stiffness of unspecified joint, not elsewhere classified Allergies Active Allergy Reactions Criticality Noted Date Comments No Known Med Allergies [Other] 05/21 documented as of this encounter (statuses as of 11/30/2023) Medications Medication Sig Dispensed Refills Start Date End Date Status ANTIVERT 12.5 MG PO TABSIndications:Labyrin thitis, unspecified 1 TABLET 3 TIMES DAILY NEEDED 20 0 01/18/2007 Active CELEXA 20 MG PO TABSIndications:Panic disorder 1 po qd 30 5 04/05/2007 Active documented as of this encounter (statuses as of 11/30/2023) Active Problems Problem Noted Date Diagnosed Date ADVANCE DIRECTIVE INFORMATION 08/23/2005 Overview: No, Advance Directive brochure offered , patient declined. BENIGN NEOPLASM SKIN NOS 12/26/2002 documented as of this encounter (statuses as of 11/30/2023) Resolved Problems Problem Noted Date Diagnosed Date Resolved Date ACUTE SINUSITIS NOS 12/11/2003 08/15/19 09 Overview: Resolved per Benign Acute Dxs Protocol #3 documented as of this encounter (statuses as of 11/30/2023) Social History Tobacco Use Types Packs/Day Years Used Date Smoking Tobacco: Never Alcohol Use Standard Drinks/Week Comments Yes 0 (1 standard drink = 0.6 oz pur e alcohol) occas Sex and Gender Information Value Date Recorded Sex Assigned at Not on file Gender Identity Not on file Sexual Orientation Not on file documented as of this encounter Plan of Treatment Scheduled Referrals Name Type Priority Associated Diagnoses Orde r Schedule RHEUMATOLOGY REFERRAL OP Referral Within 10 days (routine) Elevated C-reactive protein (CRP) Pain in unspecified joint Stiffness of unspecified joint, not elsewhere classified Ordered: 11/30/2023 Health Maintenance Due Date Last Done Comments Depression Screening 1987 HIV Screening 1990 Hepatitis C Screening 1993 DTaP,Tdap,and Td Vaccines (1 - Tdap) 1994 Hepatitis B (1 of 3 - 19+ 3- dose series) 1994 Pap Smear 02/14/1996 Cervical Cancer Screening 2005 HPV/Co-Test 2005 Lipid Panel 09/18/2009 09/18/2004 Mammogram 2015 Cologuard 02/14/2020 Colonoscopy 02/14/2020 Colorectal Cancer Screening 02/14/2020 Fecal Occult Blood Test 02/14/2020 Sigmoidoscopy 02/14/2020 COVID-19 Vaccine (2022-2 4 season) 2023 Influenza Vaccine (FLU shot) (Season Ended) 2024 GARDASIL-HPV IMMUNIZATION SERIES Aged Out No longer eligible based on patient's age to complete this topic MENINGOCOCCAL (MENACTRA/MENVEO) Aged Out No longer eligible based on patient's age to complete this topic Pneumococcal Vaccine: Pediat rics (0 to 5 Years) and At-Risk Patients (6 to 64 Years) Aged Out No longer eligi ble based on patient's age to complete this topic documented as of this encounter Medical Devices Not on filedocumented as of this encounter Visit Diagnoses Diagnosis Elevated C-reactive protein (CRP)- Primary Pain in unspecified joint Stiffness of unspecified joint, not elsewhere classified documented in this encounter
--- OUTSIDE RECORDS SUMMARY | 2024-01-06 15:41 | External Medical Summary ---
Author Name Unknown Address Unknown Organization [id number]:LABORATORY [facility] [place] - [address] [place] [address] Laboratory Report Ordering Provider Test Date Status GELY HUNTER 12/02/2023 12:17:29 Final Observation Date Value Abnormality Reference (Units ) Status WBC, Total 12/02/2023 12:17:29 13.75 Above high normal 4.00-10.80 (K/uL) Final RBC 12/02/2023 12:17:29 4.82 3.85-5.15 (M/uL) Final Hemoglobin 12/02/2023 12:17:29 14.1 12.0-15.3 (g/dL) Final HCT 12/02/2023 12:17:29 43.8 36.0-45.2 (%) Final MCV 12/02/2023 12:17:29 90.9 81.5-97.5 (fL) Final MCH 12/02/2023 12:17:29 29.3 27.0-34.0 (pg) Final MCHC 12/02/2023 12:17:29 32.2 32.0-36.0 (g/dL) Final RDW 12/02/2023 12:17:29 16.9 11.5-15.5 (%) Final Platelets 12/02/2023 12:17:29 374 140-400 (K/uL) Final MPV 12/02/2023 12:17:29 10.0 6.6-11.1 (fL) Final Nucleated erythrocytes/100 leukocytes [Ratio] in Blood by Automated count 12/02/2023 12:17:29 0 <=0 (/100 WBCs) Final Performing Location LABORATORY [facility] [place] - [address] [place] [address]
--- OUTSIDE RECORDS SUMMARY | 2024-01-06 15:41 | External Medical Summary ---
Author Name Unknown Address Unknown Organization [id number][place] [facility] [place] [address] [facility] [address] [facility] [address] Laboratory Report Ordering Provider Test Date Status GELY HUNTER 12/02/2023 12:17:29 Final Observation Date Value Abnormality Reference (Units ) Status Borrelia burgdorferi IgG and IgM [Interpretation] in Serum by Immunoassay 12/02/2023 12:17:29 Negative Negative Final Performing Location [place] [facility] [place] [address] [facility] [address]
--- OUTSIDE RECORDS SUMMARY | 2024-01-06 15:41 | External Medical Summary ---
Author Name Unknown Address Unknown Organization [id number][place] [facility] [place] [address] [facility] [address] Laboratory Report Ordering Provider Test Date Status GELY HUNTER 12/02/2023 12:01:28 Final Observation Date Value Abnormality Reference (Units ) Status COMMENT 12/02/2023 12:01:28 Reject this request due to insufficient information. Incomplete note with no mention of desired test. Please submit request with full test name, desired lab for sample testing, and test code from outside lab. Final COMMENT 12/02/2023 12:01:28 Final COMMENT 12/02/2023 12:01:28 This non-formulary test request was reviewed by Annemarie Willett MD. Final Performing Location [place] [place] [facility] [address] [address]
[2024-01-07 06:47] LABS: BUN Creatinine Ratio 30.5 (10-20); Calcium 8.6 mg/dl (8.6-10.3); Creatinine Clr Calc Pharmacy 140.5 ml/min; Est GFR (African American) 125.6 ml/min; Est GFR (Non-African American) 108.4 ml/min; Potassium 3.4 mmol/L (3.5-5.1)
[2024-01-07] MEDS: DOXAZosin MESYLATE TAB 2 MG TAB PO SCH (08:51)
[2024-01-07] MEDS: POTASSIUM CHLORIDE CRTAB 20 MEQ TABCR PO STA (08:58)
--- NOTE | 2024-01-07 10:45 | Discharge Summary ---
Date of Service January 07, 2024 Admission HPI Per Admitting Provider Tigist is a 48-year-old female with a past medical history significant for morbid obesity, tobacco abuse (20 pack year hx), hypertension, diabetes mellitus type 2, anxiety, LE edema who presented to the [facility] ED on 01/05/2024 with complaints of bilateral lower leg swelling with weeping and some dyspnea on exertion. She was noted to be hypertensive on arrival at 182/130, tachycardic at 114, and otherwise stable. Labs were significant for leukocytosis of 12 with neutrophil predominance of 9, potassium of 3.1, high- sensitivity troponin and BNP within normal limits. Chest x-ray was read as mild cardiomegaly otherwise no acute process within the chest. Venous Doppler of the bilateral lower extremities and CTA of the chest were obtained but results have not been reported at the time of admission. Prior to admission the patient was given 1 g IV Tylenol, 20 mg IV Lasix, 0.5 inches nitroglycerin paste, 20 mEq p.o. KCl and 10 mEq IV KCl. Patient was sitting in bed in no acute distress at time of exam. She explains that she has been dealing with increased bilateral lower extremity swelling over the past 2 weeks. Over the past 3 days she has noticed clear drainage from an old/healed wound on the left lower extremity. She has as needed 20 mg p.o. Lasix to use for increased swelling, she started taking 1 tab daily for the past 2 days with increased urinary output. She was concerned with the ongoing lower extremity swelling and noticed some heart palpitations which is why she presented here today. She states that she is planning on switching to the [facility] family medicine group which is why she came to our emergency department tonight. When asked, she states that she has been adding additional salt to her food recently because she was trying to eat less sugar due to her re cent diabetes mellitus diagnosis. She denies recent fever/chills, chest pain, cough, dyspnea on exertion, abdominal pain, nausea/vomiting, dysuria/hematuria, diarrhea, and recent trauma. Please refer to Dr. Cummings's attestation for any changes to the treatment plan Principal Diagnosis Uncontrolled hypertension, hypokalemia, hypomagnesemia, leg edema Discharge Exam General-alert and oriented x3, no fever, no chills HEENT-head atraumatic and normocephalic, pupils equal and reactive to light, extraocular muscles intact Neck-no lymphadenopathy or thyromegaly, trachea midline Chest-clear to auscultation. No rales, wheezing or rhonchi Cardiac-regular rate and rhythm, normal S1 and S2 Abdomen-normal bowel sounds, no hepatosplenomegaly Extremities-no cyanosis, clubbing. Very mild nonpitting edema bilateral lower extremities below the knees Neuro-cranial nerves II through XII intact, motor and sensory function within normal limits, strength symmetrical, no focal deficits Psych-normal affect, normal mood Discharge Data Allergies Allergy/AdvReac Type Severity Reaction Status Date / Time atorvastatin AdvReac Cramping Verified 01/05/24 09:46 of the Muscles Consultations 01/05/24 20:23 ED Decision to Admit Stat Ordered Studies 01/05/24 18:23 US leg [US venous doppler LE BI] Stat 01/05/24 19:39 CT angio chest PE protocol Stat Hospital Course (1) Leg swelling: Resolving with diuresis. Cardiac echo was unremarkable except for diastolic dysfunction. She needs better blood pressure control. Metoprolol succinate has been uptitrated and doxazosin added. Continue valsartan. Will avoid amlodipine due to leg edema side effects. (2) HTN (hypertension): Toprol XL uptitrated to twice daily dosing. Continue losartan. Doxazosin added todayJanuary 06 (3) Hypokalemia: Corrected. Serial labs (4) DMII (diabetes mellitus, type 2): ADA diet. Sliding scale coverage as needed. Metformin is temporarily on hold (5) Hyperlipidemia: Statin intolerant. Diet control (6) Tobacco abuse: Smoking cessation recommended. Nicotine patch daily while hospitalized (7) Anxiety: Stable. Continue citalopram and hydroxyzine Plan Home todayJanuary 06 Total Time Total Time Spent Total Time Spent (In Minutes): 45-minute Discharge Plan Discharge Items Patient Disposition: Home - Self-Care Reason For Visit: HTN, VOLUME OVERLOAD, HYPOKALEMIA Discharge Diagnosis: Uncontrolled hypertension, hypokalemia, hypomagnesemia, leg edema Activity: Resume your previous activity Non-emergency contact: Primary Care Provider Call non-emergency contact if: your symptoms worsen Follow-up/Referrals: Isidro Brown [Primary Care Provider] - Diet: Regular and Heart Healthy Addtl Attending Provider Instructions: Metoprolol is now 100 mg twice a day. Continue valsartan as before. Doxazosin has been added to enhance blood pressure control Pending Studies at Discharge: No Stand-Alone Forms: [facility] [employer], Smoking Cessation Medications and DC Order Prescriptions: New doxazosin 2 mg Tablet 2 mg PO QAM Qty: 30 0RF metoprolol succinate 100 mg capsule,sprinkle,ER 24hr 100 mg PO BID Qty: 60 0RF Continued gabapentin 300 mg capsule 300 mg PO BID citalopram 40 mg tablet 40 mg PO DAILY hydroxyzine HCl 25 mg tablet 25 mg PO TID PRN (Reason: Anxiety) valsartan 320 mg tablet 320 mg PO DAILY furosemide 20 mg tablet 20 mg PO DAILY PRN (Reason: swelling) cyclobenzaprine 10 mg tablet 10 mg PO TID PRN (Reason: neck pain) potassium citrate 10 mEq (1,080 mg) tablet extended release 10 meq PO DAILY metformin 500 mg tablet 500 mg PO BID nystatin 100,000 unit/gram powder 1 applic topical BID (DME) blood-glucose meter [OneTouch Verio Flex meter] Misc See Rx Instructions .ROUTE Rx Instructions: test blood sugar BID (DME) OneTouch Verio test strips Strip See Rx Instructions .ROUTE Rx Instructions: check blood sugar BID hydrocodone-acetaminophen 10-325 mg tablet 1 tab PO Q6H PRN (Reason: leg pain) Discontinued metoprolol succinate 100 mg tablet extended release 24 hr 100 mg PO DAILY Discharge Orders: Discharge Order (Routine); Ordered 01/07/24 Ordered By: Gaurav Mccray Admission Data Admit Date/Time: 01/05/24 20:42 Attending Provider: Gaurav Mccray Admit Provider: Kai Cummings Primary Care Provider: Isidro Brown Other Providers: Kai Cummings Coding Level of Care Code 82595 INP/OBS DISCH >30 MIN Diagnoses Leg swelling M79.89 HTN (hypertension) I10 Hypokalemia E87.6 DMII (diabetes mellitus, type 2) E11.9 Hyperlipidemia E78.5 Tobacco abuse Z72.0 Anxiety F41.9
== END 2024-01-07 12:23 | disposition home or self-care (01) ==
LOC: ED 16:48 → INTOOBSV 20:42 → 2N 20:42 → SUATTDRO 20:42 → 2N 23:13

== ENCOUNTER 2024-08-29 11:22 | Inpatient (IN) ==
[2024-08-29 11:56] LABS: Basophils # (auto) 0.05 K/uL (0.00-0.20); Basophils % (auto) 0.4 %; Eosinophils # (auto) 0.18 K/uL (0.00-0.50); Eosinophils % (auto) 1.4 %; Hematocrit (blood only) 36.4 % (37.0-47.0); Hemoglobin 12.1 g/dl (12.0-16.0); Immature Granulocytes # (auto) 0.04 K/uL (0.01-0.20); Immature Granulocytes % (auto) 0.3 %; Lymphocytes # (auto) 2.26 K/uL (1.20-3.40); Lymphocytes % (auto) 17.7 %; Mean Corpuscular Hemoglobin 28.6 pg (25.0-34.0); Mean Corpuscular Hgb Conc 33.2 g/dL (32.0-36.0); Mean Corpuscular Volume 86.1 fL (80.0-100.0); Mean Platelet Volume 10.1 fL (9.4-12.4); Monocytes # (auto) 0.64 K/uL (0.11-0.59); Neutrophils % (auto) 75.2 %; Platelet Count 299 K/uL (130-400); RDW Coefficient of Variation 14.5 % (11.5-14.5); RDW Standard Deviation 45.3 fL (36.4-46.3); Red Blood Count 4.23 M/uL (4.20-5.40); White Blood Count 12.77 K/ul (4.8-10.8)
[2024-08-29 12:17] LABS: Albumin Globulin Ratio 1.3 (0.9-2); Albumin Level 4.1 gm/dl (3.4-5.0); BUN Creatinine Ratio 34.1 (10-20); Bilirubin,Total 0.4 mg/dl (0.2-1.0); Calcium 9.5 mg/dl (8.6-10.3); Creatinine Clr Calc Pharmacy 84.5 ml/min; Globulin 3.1 gm/dl (2.5-4.0); Potassium 3.9 mmol/L (3.5-5.1); Total Protein 7.2 gm/dl (6.0-8.3)
--- NOTE | 2024-08-29 14:18 | Emergency Department Note ---
Impression & Plan Abscess Admission ED Provider Note HPI: History obtained from patient. The patient is a 49-year-old female with history of type 2 diabetes, hyperlipidemia, chronic poorly healing wound to the left lateral/proximal thigh from a cat bite 4 years ago, presents the emergency department with a chief complaint of possible wound infection. Patient states that she follows with the wound care clinic in [place], she states that she was there 8 days ago and had her wound probed during that visit. Patient states since that time she has had a mild amount of blood-tinged drainage from the wound and has had some increasing erythema surrounding the entry of the wound in the left lateral thigh. On arrival here to the ED the patient is hypertensive but otherwise hemodynamically stable, she is afebrile on arrival. Patient states she was concerned that there may be an infection in the skin or underneath the wound or possibly in the bone and therefore came to the ER to be assessed. ROS: - Per HPI Differential Diagnosis: Wound cellulitis, necrotizing soft tissue infection, abscess, sepsis, amongst other potential pathologies. *Outpatient medications and allergy history reviewed. PE: General: Alert HEENT: Normocephalic, trachea midline Eyes: Extraocular eye movement is intact, no scleral erythema Pulmonary: Clear to auscultation bilaterally, no wheezing Cardio: Regular rate and rhythm GI: Abdomen is soft to palpation : No suprapubic tenderness MSK: No evidence of trauma or malformation of the extremities, no edema Skin: There is erythema surrounding an indented wound to the proximal and lateral left thigh with some minimal dried blood noted within the indentation of the wound, there is no purulent drainage, there is no crepitus of the surrounding soft tissues, otherwise no evidence of rash Neuro: Alert, no focal deficits Psychiatric: 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 Lab work shows a mild leukocytosis, hemoglobin is normal, platelet count is normal, CMP does not show any evidence of any critical findings. CT imaging of the left femur with IV contrast was obtained and does show evidence of cellulitis with multiple fluid containing lesions underneath the wound consistent with likely abscesses. Given this finding, general surgery was consulted, I did discuss the patient's presentation with Valentina Solomon PA-C, and following evaluation decision was made that the patient will likely require operative intervention tomorrow. I did recommend admission to the medicine service and therefore the case was also discussed with the on-call hospitalist, Dr. Weir. He is in agreement to admit the patient. Patient was started on IV antibiotics and IV fluids. Patient was in agreement for admission and she was admitted in stable condition. Consultants/Discussions held with other healthcare providers: -General Surgery, Dr. Choudhury -Hospitalist, Dr. Weir Disposition discussion held by myself with: -Patient Diagnosis: 1. Wound cellulitis, acute 2. Wound abscess/fluid collection, left lower extremity, acute 3. Leukocytosis, acute Disposition: Admission Franco Mckeon DO Emergency Medicine Past Med/Surg History Problem List (Updated 08/29/24 @ 18:15 by Franco Mckeon DO) Abscess (Acute) Cellulitis Leg abscess Class 3 obesity Hyperlipidemia DMII (diabetes mellitus, type 2) Hypokalemia Leg swelling Edema, peripheral (Acute) Medical History Tobacco abuse HTN (hypertension) Chronic pain Anxiety Family History Mother Myocardial infarction Hypertension Father Fibromyalgia Social History Smoking Status: Current every day smoker Tobacco Type: Cigarettes Cigarettes Per Day: 1PPD; Second Hand Exposure: No; Do You Dip or Chew Tobacco: No; Hx Alcohol Use: No Hx Substance Use: No Preferred Language: South African Communication Ability: Effective Hat Former Required: No Beliefs That Will Affect Care: None Current Living Situation: Spouse Current Living Situation Comment: Feels Safe at Home: Yes Assistive Devices: CPAP Allergies Allergies Allergy/AdvReac Type Severity Reaction Status Date / Time rosuvastatin AdvReac Severe Cramping Unverified 08/29/24 16:13 of the Muscles atorvastatin AdvReac Cramping Verified 08/29/24 16:13 of the Muscles Home Meds Home Medications Medication Instructions Recorded Confirmed blood sugar diagnostic (OneTouch 01/05/24 07/23/24 Verio test strips) blood-glucose meter (OneTouch 01/05/24 07/23/24 Verio Flex Meter) citalopram 40 mg tablet 40 mg PO DAILY 01/05/24 08/29/24 cyclobenzaprine 10 mg tablet 10 mg PO TID PRN neck pain 01/05/24 08/29/24 gabapentin 300 mg capsule 300 mg PO BID 01/05/24 08/29/24 hydrocodone 10 mg-acetaminophen 1 tab PO Q6H PRN leg pain 01/05/24 08/29/24 325 mg tablet valsartan 320 mg tablet 320 mg PO DAILY 01/05/24 08/29/24 evolocumab 140 mg/mL subcutaneous 140 mg subcut Q14D 08/29/24 08/29/24 pen injector (Niki Malik) lidocaine HCl 4 % (40 mg/mL) 1 applic topical DAILY PRN Wound 08/29/24 08/29/24 mucosal solution Care Pain metoprolol succinate 100 mg 100 mg PO DAILY 08/29/24 08/29/24 tablet,extended release 24 hr potassium chloride 10 mEq 10 meq PO BID 08/29/24 08/29/24 tablet,extended release semaglutide 0.25 mg or 0.5 mg (2 0.5 mg subcut WK 08/29/24 08/29/24 mg/3 mL) subcutaneous pen injector (Ozjessic) Results & Data (ED) Vital Signs Vital Signs - 24 hr 08/29/24 11:27 08/29/24 14:00 08/29/24 14:02 Temperature 36.6 C Temperature Source Temporal Artery Scan Pulse Rate 88 83 Pulse Rate [Apical] 82 Pulse Rhythm [Apical] Regular Pulse Strength [Apical] Normal Respiratory Rate 18 16 Respiratory Effort / Characteristics Non-Labored Spontaneous Non-Labored Spontaneous Respiratory Depth Normal Normal Respiratory Pattern Regular Regular Blood Pressure 155/111 H Blood Pressure [Left Arm] 175/103 H Blood Pressure Mean 125 Blood Pressure Mean [Left Arm] 127 Blood Pressure Position [Left Arm] Lying Pulse Oximetry 98 98 Oxygen Delivery Method Room Air Sepsis Recent Fever Within 48 Hours No Sepsis New/Unexplained Change in Mental Status N/A Sepsis Action Taken by Nursing No Action Required Laboratory Data 08/29/24 11:40 08/29/24 11:40 Lab Results 03/05/25 Range/Units 11:40 WBC 12.77 H (4.8-10.8) K/ul RBC 4.23 (4.20-5.40) M/uL Hgb 12.1 (12.0-16.0) g/dl Hct 36.4 L (37.0-47.0) % MCV 86.1 (80.0-100.0) fL MCH 28.6 (25.0-34.0) pg MCHC 33.2 (32.0-36.0) g/dL RDW Std Deviation 45.3 (36.4-46.3) fL RDW Coeff of Jhonny 14.5 (11.5-14.5) % Plt Count 299 (130-400) K/uL MPV 10.1 (9.4-12.4) fL Immature Gran % (Auto) 0.3 % Neut % (Auto) 75.2 % Lymph % (Auto) 17.7 % Rice % (Auto) 5.0 % Eos % (Auto) 1.4 % Baso % (Auto) 0.4 % Neut # (Auto) 9.60 H (1.40-6.50) K/uL Lymph # (Auto) 2.26 (1.20-3.40) K/uL Rice # (Auto) 0.64 H (0.11-0.59) K/uL Eos # (Auto) 0.18 (0.00-0.50) K/uL Baso # (Auto) 0.05 (0.00-0.20) K/uL Immature Gran # (Auto) 0.04 (0.01-0.20) K/uL ESR 56 H (0-20) mm/hr Sodium 140 (136-145) mmol/L Potassium 3.9 (3.5-5.1) mmol/L Chloride 108 H (98-107) mmol/L Carbon Dioxide 27 (21-32) mmol/L Anion Gap 5 (3-11) BUN 28 H (6-23) mg/dl Creatinine 0.82 (0.6-1.2) mg/dl Est Cr Clr Drug Dosing 84.5 ml/min eGFR 87.63 BUN/Creatinine Ratio 34.1 H (10-20) Glucose 95 (70-99(Fasting)) mg/dl Calcium 9.5 (8.6-10.3) mg/dl Total Bilirubin 0.4 (0.2-1.0) mg/dl AST 14 (13-39) U/L ALT 8 (7-52) U/L Alkaline Phosphatase 90 (34-104) U/L C-Reactive Protein 18.93 H (0-0.5) mg/dl Total Protein 7.2 (6.0-8.3) gm/dl Albumin 4.1 (3.4-5.0) gm/dl Globulin 3.1 (2.5-4.0) gm/dl Albumin/Globulin Ratio 1.3 (0.9-2) Administered Medications Acetaminophen (Acetaminophen 325 Mg Tab) 650 mg PO Q6H PRN PRN Reason: Pain & Pre PT Stop: 09/28/24 17:37 Last Admin: 08/29/24 18:06 Dose: 650 mg Documented By: EBENEZER Morphine Sulfate (Morphine Sulfate 2 Mg/Ml Carp) 2 mg IV Q3H PRN PRN Reason: Pain (1,2,3,4,5) & Pre PT Stop: 09/12/24 17:37 Last Admin: 08/29/24 18:07 Dose: 2 mg Documented By: EBENEZER Discontinued Medications Sodium Chloride (Nss) 1,000 mls @ 999 mls/hr IV .Q1H1M ONE Stop: 08/29/24 15:16 Last Infusion: 08/29/24 15:35 Dose: Infused Documented By: Admin: 08/29/24 14:34 Dose: 999 mls/hr Documented By: NERI Vancomycin HCl 1,750 mg/ (Sodium Chloride) 535 mls @ 200 mls/hr IV NOW ONE Stop: 08/29/24 17:44 Last Admin: 08/29/24 16:19 Dose: 200 mls/hr Documented By: NERI Piperacillin Sod/Tazobactam Sod (Zosyn) 4.5 gm in 100 mls @ 200 mls/hr IV NOW ONE; Protocol Stop: 08/29/24 15:33 Last Infusion: 08/29/24 16:12 Dose: Infused Documented By: Admin: 08/29/24 15:31 Dose: 200 mls/hr Documented By: NERI Ioversol (Optiray 320 100ml) 93 ml IV ONCE ONE Stop: 08/29/24 14:45 Last Admin: 08/29/24 14:45 Dose: 93 ml Documented By: BREugene Morphine Sulfate (Morphine Sulfate 4 Mg/Ml 1 Ml Carp\Vial) 4 mg IV NOW STA Stop: 08/29/24 14:17 Last Admin: 08/29/24 14:33 Dose: 4 mg Documented By: SNS Ondansetron HCl (Ondansetron Inj 2 Mg/Ml 2 Ml Vial) 4 mg IV NOW STA Stop: 08/29/24 14:17 Last Admin: 08/29/24 14:34 Dose: 4 mg Documented By: SNS Imaging Data Radiologist's Impression: Femur CT 08/29/24 14:15 CT femur LT w con HISTORY: 49 years-old Female Chronic wound to left lateral/proximal thigh chronic wound of the mid left thigh. Clinical concern for abscess and/or osteomyelitis COMPARISON: None TECHNIQUE: Multiple axial CT images of the left femur were obtained with IV contrast. A dose lowering technique was used consistent with the principals of LETICIA. FINDINGS: Mild urinary bladder wall thickening with partial distention and perivesicular stranding. No intrapelvic fluid collections. Borderline enlarged iliac chain lymph nodes are likely reactive. Unremarkable appearance of the femoral vessels. Multiloculated air and fluid filled thick walled subcutaneous collection with thick and ill-defined wall measures approximately 4.4 x 2.1 x 4.4 cm on image 64 series 3 image 45 series 300. This appears to communicate with adjacent lateral scarring and cutaneous thickening. Additional locules of gas and fluid are noted anteriorly to this. Prominent skin thickening with subcutaneous edema. No opaque foreign bodies. There is additional scarring with small subcutaneous fluid collections of the anterior mid thigh measuring up to 1.5 cm image 222. No intramuscular fluid collections. Mild osteoarthritis of the knee and hip. No acute fracture, dislocation or osseous erosion. No avascular necrosis. IMPRESSION: 1. Cellulitis with air and fluid filled subcutaneous collections/abscesses of the lateral left upper thigh, communicating with the skin surface measuring up to approximately 4 cm. Additional smaller probable subcutaneous abscesses of the anterior mid thigh. 2. No acute osseous abnormality. ACT 112: Negative or not required by law. The above report was generated using voice recognition software. It may contain grammatical, syntax or spelling errors. Electronically signed by: Osiel Chambers M.D. 08/29/2024 2:58 PM Discharge Plan Visit Data Chief Complaint: Infection, Wound Stated Complaint: NAUSEA, WARM/EDEMA AROUND LT THIGH/WOUND, DIZZY ED Provider: Franco Mckeon Discharge Problem: Abscess Patient Disposition: Admitted As Inpatient Discharge Instructions Interventions: ED Discharge Assessment Last Done: 08/29/24 16:32
[2024-08-29] MEDS: MoRPHine SULFATE 4 MG/ML 1 ML CARP\\VIAL IV STA (14:33)
[2024-08-29] MEDS: SODIUM CHLORIDE 0.9% 1,000 ML IV ONE (14:34)
[2024-08-29] MEDS: ONDANSETRON INJ 2 MG/ML 2 ML VIAL IV STA (14:34)
[2024-08-29] MEDS: OPTIRAY 320 100ml IV ONE (14:45)
--- NOTE | 2024-08-29 14:59 | CT Scan Report ---
CT femur LT w con HISTORY: 49 years-old Female Chronic wound to left lateral/proximal thigh chronic wound of the mid l eft thigh. Clinical concern for abscess and/or osteomyelitis COMPARISON: None TECHNIQUE: Multiple axial CT images of the left femur were obtained with IV contrast. A dose lowering technique was used consistent with the principals of LETICIA. FINDINGS: Mild urinary bladder wall thickening with partial distention and perivesicular stranding. No intrapel ebenezer fluid collections. Borderline enlarged iliac chain lymph nodes are likely reactive. Unremarkable appearance of the femoral vessels. Multiloculated air and fluid filled thick walled subcutaneous collection with thick and ill-defined w all measures approximately 4.4 x 2.1 x 4.4 cm on image 64 series 3 image 45 series 300. This appears to communicate with adjacent lateral scarring and cutaneous thickening. Additional locules of gas and fluid are noted anteriorly to this. Prominent skin thickening with subcutaneous edema. No opaque for eign bodies. There is additional scarring with small subcutaneous fluid collections of the anterior m id thigh measuring up to 1.5 cm image 222. No intramuscular fluid collections. Mild osteoarthritis of the knee and hip. No acute fracture, dislocation or osseous erosion. No avascu lar necrosis. IMPRESSION: 1. Cellulitis with air and fluid filled subcutaneous collections/abscesses of the lateral left upper thigh, communicating with the skin surface measuring up to approximately 4 cm. Additional smaller pro bable subcutaneous abscesses of the anterior mid thigh. 2. No acute osseous abnormality. ACT 112: Negative or not required by law. The above report was generated using voice recognition software. It may contain grammatical, syntax o r spelling errors. Electronically signed by: Osiel Chambers M.D. 08/29/2024 2:58 PM
[2024-08-29] MEDS ORDERED: VANCOMYCIN CONSULT ACTIVE PRN (15:04)
[2024-08-29] MEDS: PIPERACILLIN/TAZOBACTAM 4.5 GM/100 ML BAG IV ONE (15:31)
--- NOTE | 2024-08-29 15:58 | History & Physical Report ---
Date of Service August 29, 2024 Assessment & Plan (1) Leg abscess: (2) Cellulitis: (3) DMII (diabetes mellitus, type 2): (4) HTN (hypertension): Plan 49-year-old female presents to the ER with cellulitis surrounding a chronic wound with an underlying abscess. #Cellulitis with underlying abscess Vancomycin + Zosyn pending surgical and blood cultures NPO after midnight, consult general surgery for incision and drainage and surgical cultures #T2DM No need for BSG checks Continue Ozempic as outpatients #Hypertension Continue valsartan and metoprolol # Tobacco use Nicotine 14 mg patch Cessation advised VTE prophylaxis - holding per surgical recommendations Diet - T2DM, NPO after midnight Disposition - admit to med/surg Admission and Anticipated Discharge Date Admission Date: August 29, 2024 History of Present Illness Chief Complaint: Cellulitis Primary Care Provider: Isidro Cotter is a 49 year old female who presents to the ER with erythema, warmth and swelling surrounding a chronic wound on her left leg. Original wound was 4 years ago with multiple I&Ds performed by [facility] by Dr Fontaine - she remembers saying there was staph on the culture but never MRSA. She has been on various antibiotics over the years but nothing in the last month. She had an appointment last Tuesday at wound care clinic in [place] and there was more concern because it was not closing and increased drainage and she has an MRI scheduled for this Tuesday due to concern for osteomyelitis as the reason the wound was not healing. The wound was probed at the appointment and felt sore the day afterwards. 2 days ago the area surrounding it became warmer and on Tuesday it became beat red and started spreading. No fever or chills. She is otherwise well. No history of stroke or heart attacks. Diabetes but x2 A1C under 4.2, now only on Ozempic. Only taken Repatha once one week ago. Allergies Allergy/AdvReac Type Severity Reaction Status Date / Time rosuvastatin AdvReac Severe Cramping Unverified 08/29/24 16:13 of the Muscles atorvastatin AdvReac Cramping Verified 08/29/24 16:13 of the Muscles Home Medications Medication Instructions Recorded Confirmed Type blood sugar diagnostic ([employer] 01/05/24 07/23/24 History Verio test strips) blood-glucose meter ([employer] 01/05/24 07/23/24 History Verio Flex Meter) citalopram 40 mg tablet 40 mg PO DAILY 01/05/24 08/29/24 History cyclobenzaprine 10 mg tablet 10 mg PO TID PRN neck pain 01/05/24 08/29/24 History gabapentin 300 mg capsule 300 mg PO BID 01/05/24 08/29/24 History hydrocodone 10 mg-acetaminophen 1 tab PO Q6H PRN leg pain 01/05/24 08/29/24 History 325 mg tablet valsartan 320 mg tablet 320 mg PO DAILY 01/05/24 08/29/24 History evolocumab 140 mg/mL subcutaneous 140 mg subcut Q14D 08/29/24 08/29/24 History pen injector (Niki Malik) lidocaine HCl 4 % (40 mg/mL) 1 applic topical DAILY PRN Wound 08/29/24 08/29/24 History mucosal solution Care Pain metoprolol succinate 100 mg 100 mg PO DAILY 08/29/24 08/29/24 History tablet,extended release 24 hr potassium chloride 10 mEq 10 meq PO BID 08/29/24 08/29/24 History tablet,extended release semaglutide 0.25 mg or 0.5 mg (2 0.5 mg subcut WK 08/29/24 08/29/24 History mg/3 mL) subcutaneous pen injector (Ozempic) Past Med/Surg History Problem List (Updated 08/29/24 @ 18:15 by Franco Mckeon DO) Abscess (Acute) Cellulitis Leg abscess Class 3 obesity Hyperlipidemia DMII (diabetes mellitus, type 2) Hypokalemia Leg swelling Edema, peripheral (Acute) Medical History Tobacco abuse HTN (hypertension) Chronic pain Anxiety Family History Mother Myocardial infarction Hypertension Father Fibromyalgia Social History Smoking Status: Current every day smoker Tobacco Type: Cigarettes Cigarettes Per Day: 1PPD; Second Hand Exposure: No; Do You Dip or Chew Tobacco: No; Tobacco Cessation Education Requested by Patient: No Hx Alcohol Use: No Hx Substance Use: No Preferred Language: Arabic Communication Ability: Effective Plastic Worker Required: No Beliefs That Will Affect Care: None Current Living Situation: Spouse Current Living Situation Comment: Other Information That Helps Us Care for You: No Feels Safe at Home: Yes Safety Concerns: Feels Safe At This Time Assistive Devices: CPAP Review of Systems 2 Review of Systems: All systems reviewed & are unremarkable except as noted in HPI & below Physical Exam 2 Constitutional: WD/WN, vitals as above Respiratory: normal respiratory effort, lungs clear to auscultation Cardiovascular: RRR, no murmur, no edema Gastrointestinal (Abdomen): normal bowel sounds, soft, nontender, no hepatosplenomegaly Skin: Erythema, warmth and swelling surrounding chronic wound on left lateral thigh Hard 1cm lump just inferior to anterior chronic scarring Results & Data Results & Data Vital Signs (Past 12 Hours) Vital Signs Temp Pulse Pulse Resp BP BP Pulse Ox 08/29/24 14:02 83 08/29/24 14:00 82 16 175/103 H 98 08/29/24 11:27 36.6 C 88 18 155/111 H 98 O2 Del Method 08/29/24 14:02 08/29/24 14:00 Room Air 08/29/24 11:27 Laboratory Results Abnormal lab results 08/29/24 Range/Units 11:40 WBC 12.77 H (4.8-10.8) K/ul Hct 36.4 L (37.0-47.0) % Neut # (Auto) 9.60 H (1.40-6.50) K/uL [place] # (Auto) 0.64 H (0.11-0.59) K/uL Chloride 108 H (98-107) mmol/L BUN 28 H (6-23) mg/dl BUN/Creatinine Ratio 34.1 H (10-20) Diagnostic Findings CT femur LT w con HISTORY: 49 years-old Female Chronic wound to left lateral/proximal thigh chronic wound of the mid left thigh. Clinical concern for abscess and/or osteomyelitis COMPARISON: None TECHNIQUE: Multiple axial CT images of the left femur were obtained with IV contrast. A dose lowering technique was used consistent with the principals of LETICIA. FINDINGS: Mild urinary bladder wall thickening with partial distention and perivesicular stranding. No intrapelvic fluid collections. Borderline enlarged iliac chain lymph nodes are likely reactive. Unremarkable appearance of the femoral vessels. Multiloculated air and fluid filled thick walled subcutaneous collection with thick and ill-defined wall measures approximately 4.4 x 2.1 x 4.4 cm on image 64 series 3 image 45 series 300. This appears to communicate with adjacent lateral scarring and cutaneous thickening. Additional locules of gas and fluid are noted anteriorly to this. Prominent skin thickening with subcutaneous edema. No opaque foreign bodies. There is additional scarring with small subcutaneous fluid collections of the anterior mid thigh measuring up to 1.5 cm image 222. No intramuscular fluid collections. Mild osteoarthritis of the knee and hip. No acute fracture, dislocation or osseous erosion. No avascular necrosis. IMPRESSION: 1. Cellulitis with air and fluid filled subcutaneous collections/abscesses of the lateral left upper thigh, communicating with the skin surface measuring up to approximately 4 cm. Additional smaller probable subcutaneous abscesses of the anterior mid thigh. 2. No acute osseous abnormality. Medications Administered ER medications given: Normal saline 1 L bolus Morphine 4 mg IV Ondansetron 4 mg IV Zosyn 4.5 g IV Vancomycin 1750 mg IV ECG Additional Comments: Not ordered Code Status & VTE Plan Code Status Full VTE Prophylaxis Plan VTE Prophylaxis will be ordered: Yes PG Care Time/CCT Total # of Minutes Spent Total Time Spent with Patient: Total time spent is greater than 50% in coordination of care (as documented) at patient's floor/unit and/or counseling patient: Coding Level of Care Code 69517 INT INP/OBS CARE 3/75MIN Diagnoses Leg abscess L02.419 Cellulitis L03.90 Type 2 diabetes mellitus without complication, without long-term current use of insulin E11.9 Diabetes mellitus complication status: without complication Diabetes mellitus senior living insulin use: without senior living use Primary hypertension I10 Hypertension type: primary hypertension (3) DMII (diabetes mellitus, type 2) Diabetes mellitus complication status: without complication Diabetes mellitus senior living insulin use: without production support analyst use Qualified Code(s): E11.9 - Type 2 diabetes mellitus without complications (4) HTN (hypertension) Hypertension type: primary hypertension Qualified Code(s): I10 - Essential (primary) hypertension
--- NOTE | 2024-08-29 15:59 | Surgery Consultation ---
Date of Consultation August 29, 2024 Assessment & Plan (1) Leg abscess: Patient with c/o left thigh pain, edema, erythema from a chronic thigh wound. Patient reports she was bite by a cat in 2020 and it got infected. She then had an incision and [place] [address] Fontaine and had a wound vac placement. She saw the wound clinic last Tuesday and since has developed an increase in erythema surrounding that continues to spread and an increase in pain without increase in drainage. On exam pt is in NAC, VSS with HTN 175/103, HR 83, afebrile. WBC elevated at 12. Left leg with post surgical scaring and left upper thigh with deep retracted scaring and small open area noted with surrounding erythema and warmth. Bloody drainage noted. No further drainage expresses with palpation surrounding open area. CT scan of left femur reading "Cellulitis with air and fluid filled subcutaneous collections/abscesses of the lateral left upper thigh, communicating with the skin surface measuring up to approximately 4 cm. Additional smaller probable subcutaneous abscesses of the anterior mid thigh." Recommending admission to hospital for IV antibiotics. Was started on zosyn the ER. IV analgesic PRN. Keep dry gauze and tape over open area. Keep NPO at [place] , will add patient on the OR schedule for tomorrow 08/30/24 for an incision and drainage of left thigh wound with furnace combustion tester surgeon Dr Choudhury. Supervising Physician Co-Signing Physician Notes Patient discussed with CAMILLE, labs imaging reviewed, agree with above. History of chronic wound on her hip, increased redness and drainage. CT with abscess. Admit to medicine, IV antibiotics, will plan for I&D in the operating room tomorrow. N.p.o. after midnight, hold anticoagulation. Will need continued follow-up with wound care and with her wound care surgeon History of Present Illness Reason for Consultation: Left thigh abscess Requesting Physician: Dr Mckeon History of Present Illness Patient is a pleasant 49 yo female with PMH of obesity, HLD, HTN, Chronic pain, diabetes type 2, non healing wound, that presented to the [facility] ER with c/o left thigh pain, edema, erythema from a chronic thigh wound. Patient reports she was bite by a cat in 2020 and it got infected. She then had an incision and drainage [place] [address] Fontaine and had a wound vac placement. She follows with a wound clinic in [place]. She reports the wound has mostly healed except for a hole that will continually drain. At current she is only cleaning her wound daily and covering with a gauze dressing. She saw the wound clinic last Tuesday and since has developed an increase in erythema surrounding that continues to spread and an increase in pain. She reports that she has had associated fever and chills at home with mild nausea, without emesis. She does not note an increase in drainage from her baseline. Allergies Allergy/AdvReac Type Severity Reaction Status Date / Time rosuvastatin AdvReac Severe Cramping Unverified 08/29/24 16:13 of the Muscles atorvastatin AdvReac Cramping Verified 08/29/24 16:13 of the Muscles Home Medications Medication Instructions Recorded Confirmed Type blood sugar diagnostic ([employer] 01/05/24 07/23/24 History Verio test strips) blood-glucose meter ([employer] 01/05/24 07/23/24 History Verio Flex Meter) citalopram 40 mg tablet 40 mg PO DAILY 01/05/24 08/29/24 History cyclobenzaprine 10 mg tablet 10 mg PO TID PRN neck pain 01/05/24 08/29/24 History gabapentin 300 mg capsule 300 mg PO BID 01/05/24 08/29/24 History hydrocodone 10 mg-acetaminophen 1 tab PO Q6H PRN leg pain 01/05/24 08/29/24 History 325 mg tablet valsartan 320 mg tablet 320 mg PO DAILY 01/05/24 08/29/24 History evolocumab 140 mg/mL subcutaneous 140 mg subcut Q14D 08/29/24 08/29/24 History pen injector (Niki Malik) lidocaine HCl 4 % (40 mg/mL) 1 applic topical DAILY PRN Wound 08/29/24 08/29/24 History mucosal solution Care Pain metoprolol succinate 100 mg 100 mg PO DAILY 08/29/24 08/29/24 History tablet,extended release 24 hr potassium chloride 10 mEq 10 meq PO BID 08/29/24 08/29/24 History tablet,extended release semaglutide 0.25 mg or 0.5 mg (2 0.5 mg subcut WK 08/29/24 08/29/24 History mg/3 mL) subcutaneous pen injector (Dionte) Patient History Medical History Tobacco abuse HTN (hypertension) Chronic pain Anxiety Family History Mother Myocardial infarction Hypertension Father Fibromyalgia Social History Smoking Status: Current every day smoker Tobacco Type: Cigarettes Cigarettes Per Day: 1PPD; Second Hand Exposure: No; Do You Dip or Chew Tobacco: No; Hx Alcohol Use: No Hx Substance Use: No Preferred Language: Chinese Communication Ability: Effective Cook Apprentice Required: No Beliefs That Will Affect Care: None Current Living Situation: Spouse Current Living Situation Comment: Feels Safe at Home: Yes Assistive Devices: CPAP Review of Systems Constitutional: + fever and + chills Respiratory: no dyspnea Cardiovascular: no chest pain Gastrointestinal: + nausea; no abdominal pain and no vomit ing Integumentary: + wounds Psychiatric: no confusion Physical Exam Constitutional: cooperative and comfortable; no acute distress Respiratory: normal respiratory effort and able to speak in complete sentences; no respiratory distress Cardiovascular: Rate/Rhythm: regular rate Skin: + wound and + erythema Psychiatric: A+Ox3, euthymic affect Results & Data Vital Signs (Past 12 Hours) Vital Signs Temp Pulse Pulse Resp BP BP Pulse Ox 08/29/24 14:02 83 08/29/24 14:00 82 16 175/103 H 98 08/29/24 11:27 97.9 F 88 18 155/111 H 98 O2 Del Method 08/29/24 14:02 08/29/24 14:00 Room Air 08/29/24 11:27 Diagnostic Findings [place] [phone] CT Scan Report Patient: LAINE CRUZ Admit Date: 08/29/24 MR#: [id number] Address1: [address] [place] [address] Acct ID:[id number] Address2: Date: 1975 [facility] Zip: [place] [address] Age: 49 Location: ED Sex: F Room/Bed: Att Phy: Diagnosis: NAUSEA, WARM/EDEMA AROUND LT THIGH/WOUND, DIZZY Liset Phy: Isidro Brown M.D. Service Date: 08/29/24 [facility] Phy: Interpreting Phy: Osiel ChambersAdmit Phy: Ordering Phy: Frnaco Mckeon DO cc: ~ CT femur LT w con HISTORY: 49 years-old Female Chronic wound to left lateral/proximal thigh chronic wound of the mid left thigh. Clinical concern for abscess and/or osteomyelitis COMPARISON: None TECHNIQUE: Multiple axial CT images of the left femur were obtained with IV contrast. A dose lowering technique was used consistent with the principals of LETICIA. FINDINGS: Mild urinary bladder wall thickening with partial distention and perivesicular stranding. No intrapelvic fluid collections. Borderline enlarged iliac chain lymph nodes are likely reactive. Unremarkable appearance of the femoral vessels. Multiloculated air and fluid filled thick walled subcutaneous collection with thick and ill-defined wall measures approximately 4.4 x 2.1 x 4.4 cm on image 64 series 3 image 45 series 300. This appears to communicate with adjacent lateral scarring and cutaneous thickening. Additional locules of gas and fluid are noted anteriorly to this. Prominent skin thickening with subcutaneous edema. No opaque foreign bodies. There is additional scarring with small subcutaneous fluid collections of the anterior mid thigh measuring up to 1.5 cm image 222. No intramuscular fluid collections. Mild osteoarthritis of the knee and hip. No acute fracture, dislocation or osseous erosion. No avascular necrosis. IMPRESSION: 1. Cellulitis with air and fluid filled subcutaneous collections/abscesses of the lateral left upper thigh, communicating with the skin surface measuring up to approximately 4 cm. Additional smaller probable subcutaneous abscesses of the anterior mid thigh. 2. No acute osseous abnormality. ACT 112: Negative or not required by law. The above report was generated using voice recognition software. It may contain grammatical, syntax or spelling errors. Electronically signed by: Osiel Chambers M.D. 08/29/2024 2:58 PM Dictated: 08/29/24 1452 Transcribed: 08/29/24 1452 Results CBC w Diff Results: RBC 4.23 M/uL (4.20-5.40) 08/29/24 WBC 12.77 K/ul (4.8-10.8) H 08/29/24 Hgb 12.1 g/dl (12.0-16.0) 08/29/24 Hct 36.4 % (37.0-47.0) L 08/29/24 MCV 86.1 fL (80.0-100.0) 08/29/24 MCH 28.6 pg (25.0-34.0) 08/29/24 MCHC 33.2 g/dL (32.0-36.0) 08/29/24 RDW Standard Deviation 45.3 fL (36.4-46.3) 08/29/24 RDW Coefficient of Variation 14.5 % (11.5-14.5) 08/29/24 Plt Count 299 K/uL (130-400) 08/29/24 MPV 10.1 fL (9.4-12.4) 08/29/24 Neutrophils (%) (Auto) 75.2 % 08/29/24 Lymphocytes (%) (Auto) 17.7 % 08/29/24 Monocytes # (Auto) 0.64 K/uL (0.11-0.59) H 08/29/24 Eosinophils # (Auto) 0.18 K/uL (0.00-0.50) 08/29/24 Immature Granulocyte % (Auto) 0.3 % 08/29/24 Neutrophils # (Auto) 9.60 K/uL (1.40-6.50) H 08/29/24 Lymphocytes # (Auto) 2.26 K/uL (1.20-3.40) 08/29/24 Monocytes # (Auto) 0.64 K/uL (0.11-0.59) H 08/29/24 Eosinophils # (Auto) 0.18 K/uL (0.00-0.50) 08/29/24 Basophils # (Auto) 0.05 K/uL (0.00-0.20) 08/29/24 Immature Granulocyte # (Auto) 0.04 K/uL (0.01-0.20) 5 PG Care Time/CCT Total # of Minutes Spent Total Time Spent with Patient: Total time spent is greater than 50% in coordination of care (as documented) at patient's floor/unit and/or counseling patient: Coding Level of Care Code 49948 IN/OBS CONSULT LVL 2,35M Diagnoses Leg abscess L02.419
[2024-08-29] MEDS: VANCOMYCIN HCL 1,750 MG in SODIUM CHLORIDE 0.9% 500 ML IV ONE (16:19)
[2024-08-29] MEDS ORDERED: ONDANSETRON INJ 2 MG/ML 2 ML VIAL IV PRN (16:32)
[2024-08-29 16:34] LABS: C Reactive Protein 18.93 mg/dl (0-0.5)
--- NOTE | 2024-08-29 16:50 | Pharmacy Report ---
Pharmacy PK ABX Note - Date of Service August 29, 2024 - Assessment and Plan Assessment * 49 year old F receiving pip/tazo and vancomycin for treatment of cellulitis/abscess 2nd chronic thigh wound followed by wound clinic. Rule out osteomyelitis. * Pertinent microbiologic data includes: blood cultures pending Plan Vancomycin * Loading dose: 1750 mg IV x 1 * Maintenance dose: 1000 mg IV every 12 hours * Regimen is predicted to achieve target AUC/JOHNATHON of 400-600 mg/L.hr * Random level ordered for: 3/7 w AM labs Pharmacy will continue to follow and will adjust dose/frequency as necessary. Thank you. Pharmacy has transitioned to AUC monitoring for vancomycin. AUC/JOHNATHON is the preferred PK/PD target and is associated with decreased risk of nephrotoxicity compared to traditional trough targets.
[2024-08-29] MEDS: ACETAMINOPHEN 325 MG TAB PO PRN (18:06)
[2024-08-29] MEDS: MoRPHine SULFATE 2 MG/ML CARP IV PRN (18:07)
[2024-08-29] MEDS ORDERED: CYCLOBENZAPRINE HCL 10 MG TAB PO PRN (18:53)
[2024-08-29] MEDS: KETOROLAC TROMETHAMINE 15 MG/ML VIAL IV PRN (19:00)
[2024-08-29] MEDS: oxyCODONE HCL IR 5 MG TAB (IMMEDIATE RELEASE) PO PRN (20:24)
[2024-08-29] MEDS: POTASSIUM CHLORIDE 10 MEQ TABCR PO SCH (20:25)
[2024-08-29] MEDS: GABAPENTIN 300 MG CAP PO SCH (20:26)
[2024-08-29] MEDS: PIPERACILLIN/TAZOBACTAM 4.5 GM/100 ML BAG IV SCH (21:52)
[2024-08-30] MEDS: VANCOMYCIN HCL 1,000 MG/270 ML BAG IV SCH (00:21)
[2024-08-30] MEDS: MoRPHine SULFATE 4 MG/ML 1 ML CARP\\VIAL IV PRN (01:51)
[2024-08-30 07:03] LABS: Basophils # (auto) 0.03 K/uL (0.00-0.20); Basophils % (auto) 0.3 %; Eosinophils # (auto) 0.22 K/uL (0.00-0.50); Hematocrit (blood only) 34.1 % (37.0-47.0); Hemoglobin 11.1 g/dl (12.0-16.0); Immature Granulocytes # (auto) 0.04 K/uL (0.01-0.20); Immature Granulocytes % (auto) 0.4 %; Lymphocytes # (auto) 1.86 K/uL (1.20-3.40); Lymphocytes % (auto) 17.2 %; Mean Corpuscular Hemoglobin 28.6 pg (25.0-34.0); Mean Corpuscular Hgb Conc 32.6 g/dL (32.0-36.0); Mean Corpuscular Volume 87.9 fL (80.0-100.0); Mean Platelet Volume 10.5 fL (9.4-12.4); Monocytes # (auto) 0.54 K/uL (0.11-0.59); Neutrophils # (auto) 8.15 K/uL (1.40-6.50); Neutrophils % (auto) 75.1 %; Platelet Count 256 K/uL (130-400); RDW Coefficient of Variation 14.6 % (11.5-14.5); RDW Standard Deviation 47.1 fL (36.4-46.3); Red Blood Count 3.88 M/uL (4.20-5.40); White Blood Count 10.84 K/ul (4.8-10.8)
[2024-08-30 07:44] LABS: BUN Creatinine Ratio 25.7 (10-20)
--- NOTE | 2024-08-30 07:57 | Anesthesiology Consultation ---
Date of Service August 30, 2024 Assessment & Plan (1) Encounter for pre-operative examination: Chart Review Chart Review: Acceptable Risk for Surgery and Patient NOT seen in Pre Admission Testing Consults Requested none ASA ASA3 Proposed Anesthesia Anesthesia Type: General History Surgery Operation Date: 08/30/24 10:00 Proposed Procedures p Incision and Debridement Left Thigh Wound - Julian Choudhury DO, FACS Height/Weight Height: 5 ft 2 in Weight: 86.1 kg Allergies Allergy/AdvReac Type Severity Reaction Status Date / Time rosuvastatin AdvReac Severe Cramping Unverified 08/29/24 16:13 of the Muscles atorvastatin AdvReac Cramping Verified 08/29/24 16:13 of the Muscles Medications Home Medications Medication Instructions Recorded Confirmed Last Taken blood sugar diagnostic (OneTouch 01/05/24 07/23/24 Unknown Verio test strips) blood-glucose meter ([employer] 01/05/24 07/23/24 Unknown Verio Flex Meter) citalopram 40 mg tablet 40 mg PO DAILY 01/05/24 08/29/24 08/29/24 cyclobenzaprine 10 mg tablet 10 mg PO TID PRN neck pain 01/05/24 08/29/24 Unknown gabapentin 300 mg capsule 300 mg PO BID 01/05/24 08/29/24 08/29/24 hydrocodone 10 mg-acetaminophen 1 tab PO Q6H PRN leg pain 01/05/24 08/29/24 Unknown 325 mg tablet valsartan 320 mg tablet 320 mg PO DAILY 01/05/24 08/29/24 01/05/24 05:00 evolocumab 140 mg/mL subcutaneous 140 mg subcut Q14D 08/29/24 08/29/24 1 Week Ago pen injector (Niki Malik) ~08/22/24 lidocaine HCl 4 % (40 mg/mL) 1 applic topical DAILY PRN Wound 08/29/24 08/29/24 Unknown mucosal solution Care Pain metoprolol succinate 100 mg 100 mg PO DAILY 08/29/24 08/29/24 Unknown tablet,extended release 24 hr potassium chloride 10 mEq 10 meq PO BID 08/29/24 08/29/24 08/29/24 tablet,extended release semaglutide 0.25 mg or 0.5 mg (2 0.5 mg subcut WK 08/29/24 08/29/24 08/26/24 mg/3 mL) subcutaneous pen injector (Ozempic) Active Medications Generic Name Dose Route Start Last Admin Trade Name Freq PRN Reason Stop Dose Admin Acetaminophen 650 mg 08/29/24 17:38 08/29/24 18:06 Acetaminophen 325 Mg Tab PO 09/28/24 17:37 650 mg Q6H PRN Administration Pain & Pre PT Gabapentin 300 mg 08/29/24 21:00 08/29/24 20:26 Gabapentin 300 Mg Cap PO 09/28/24 20:59 300 mg BID ANGELIKA Administration Piperacillin Sod/Tazobactam Sod 4.5 gm in 100 mls @ 25 mls/hr 08/29/24 22:00 08/30/24 05:45 Zosyn IV 09/05/24 21:59 25 mls/hr Q8H ANGELIKA Administration Protocol Vancomycin HCl 1,000 mg in 270 mls @ 200 mls/hr 08/30/24 00:00 08/30/24 01:48 Vancomycin Hcl IV 09/06/24 00:00 Infused Q12H ANGELIKA Infusion Ketorolac Tromethamine 15 mg 08/29/24 17:38 08/30/24 05:51 Ketorolac Tromethamine 15 Mg/Ml Vial IV 09/03/24 17:37 15 mg Q6H PRN Administration Pain & Pre PT Morphine Sulfate 2 mg 08/29/24 17:38 08/29/24 18:07 Morphine Sulfate 2 Mg/Ml Carp IV 09/12/24 17:37 2 mg Q3H PRN Administration Pain (1,2,3,4,5) & Pre PT Morphine Sulfate 4 mg 08/29/24 17:38 08/30/24 05:51 Morphine Sulfate 4 Mg/Ml 1 Ml Carp\Vial IV 09/12/24 17:37 4 mg Q3H PRN Administration Pain (6,7,8,9,10) Oxycodone HCl 10 mg 08/29/24 18:52 08/29/24 20:24 Oxycodone Hcl Ir 5 Mg Tab (Immediate Release) PO 09/12/24 18:51 10 mg Q4H PRN Administration SEVERE Pain (7,8,9,10) Potassium Chloride 10 meq 08/29/24 21:00 08/29/24 20:25 Potassium Chloride 10 Meq Tabcr PO 09/28/24 20:59 10 meq BID ANGELIKA Administration Past Medical History Medical History Tobacco abuse HTN (hypertension) Chronic pain Anxiety Past Family History Family History Mother Myocardial infarction Hypertension Father Fibromyalgia Social History Smoking Status: Current every day smoker Smoking cigarettes per day: 1PPD Do You Dip or Chew Tobacco: No Hx Alcohol Use: No Hx Substance Use: No Physical Exam Vital Signs Last Vital Signs Temp 98.6 F 08/30/24 07:20 Pulse 72 08/30/24 07:20 Resp 16 08/30/24 07:20 BP 147/83 H 08/30/24 07:20 Pulse Ox 94 08/30/24 07:20 O2 Del Method Room Air 08/30/24 07:20 Testing Laboratory Results 08/30/24 06:14 08/30/24 06:14 Electrocardiogram Date: 01/05/24 Findings: + NSR @ LAD poor R wave progression Echocardiogram Date: 01/06/24 Other Findings: + LVH (mild) and + diastolic dysfunction (G1)
[2024-08-30] MEDS ORDERED: DEXAMETHASONE SOD INJ 4 MG/ML VIAL ONE (08:10)
[2024-08-30] MEDS ORDERED: PROPOFOL IV EMULSION 10 MG/ML 20 ML VIAL IV ONE (08:10)
[2024-08-30] MEDS ORDERED: ONDANSETRON INJ 2 MG/ML 2 ML VIAL ONE (08:10)
[2024-08-30] MEDS ORDERED: MIDAZOLAM HCL 1 MG/ML 2ML VIAL ONE (08:12)
[2024-08-30] MEDS ORDERED: fentaNYL citrate PF 100 MCG/2 ML VIAL ONE (08:12)
[2024-08-30] MEDS ORDERED: ROCURONIUM BROMIDE 10 MG/ML 5 ML VIAL IV ONE (08:15)
[2024-08-30] MEDS: CITALOPRAM 40 MG TAB PO SCH (08:16)
[2024-08-30] MEDS: NICOTINE 14 MG/24 HR PATCH TD SCH (08:16)
[2024-08-30] MEDS: METOPROLOL SUCC 50MG EXT REL TAB PO SCH (08:16)
[2024-08-30] MEDS: VALSARTAN 80 MG TAB PO SCH (08:17)
[2024-08-30] MEDS ORDERED: ePHEDrine sulfate 50 MG/ML AMP IV PRN (08:36)
[2024-08-30] MEDS ORDERED: ONDANSETRON INJ 2 MG/ML 2 ML VIAL IV PRN (08:36)
[2024-08-30] MEDS ORDERED: ATROPINE SULFATE 0.1 MG/ML 10ML SYR IV PRN (08:36)
[2024-08-30] MEDS ORDERED: CARBOHYDRATES FOR HYPOGLYCEMIA PO PRN (08:46)
[2024-08-30] MEDS ORDERED: GLUCAGON FOR INJ 1 MG VIAL SQ PRN (08:46)
[2024-08-30] MEDS ORDERED: GLUCOSE 40% GEL 15 GM TUBE PO PRN (08:46)
[2024-08-30] MEDS ORDERED: DEXTROSE 50% 50 ML SYRINGE IV PRN (08:46)
[2024-08-30] MEDS ORDERED: GLUCOSE 10 TAB/TUBE PO PRN (08:46)
--- NOTE | 2024-08-30 09:40 | Surgery Progress Note ---
Date of Service August 30, 2024 Assessment & Plan (1) Leg abscess: Plan: Chronic left thigh wound from prior cat bite, now with subcutaneous abscess and fistulous tract. This is superficial to the muscle. The anterior thigh subcutaneous nodule is not infected on physical exam. Plan for incision and drainage of left thigh abscess Risk discussed to include but not limited to bleeding, infection, prolonged wound healing, damage surrounding structures, need for future more extensive surgery Wound care consult postoperatively Follow-up will be with her wound care doctor in [place] Await culture results Antibiotics per medicine team (2) Cellulitis: (3) DMII (diabetes mellitus, type 2): (4) Hyperlipidemia: (5) Class 3 obesity: Admission and Anticipated Discharge Date Admission Date: August 29, 2024 Subjective History of chronic left thigh wounds, admitted with abscess of the left lateral thigh. No overnight events Physical Exam Constitutional: WD/WN, vitals as above + obese Respiratory: normal respiratory effort, lungs clear to auscultation Cardiovascular: RRR, no murmur, no edema Skin: no rashes, warm and dry + wound and + erythema Chronic wound with grafting and central opening on the left lateral thigh with surrounding erythema and induration. Anterior thigh wound well-healed. Small palpable left anterior subcutaneous nodule, no active infection. Results & Data Vital Signs (Past 12 Hours) Vital Signs Temp Pulse Pulse Resp BP Pulse Ox O2 Del Method 08/30/24 08:37 36.8 C 73 18 183/98 H 98 Room Air 08/30/24 07:20 37 C 72 16 147/83 H 94 Room Air 08/29/24 22:36 82 [address] personally viewed and interpreted and agree with the assessment of abscess of the lateral left upper thigh. Also small anterior thigh subcutaneous nodule Femur CT 08/29/24 14:15 CT femur LT w con HISTORY: 49 years-old Female Chronic wound to left lateral/proximal thigh chronic wound of the mid left thigh. Clinical concern for abscess and/or osteomyelitis COMPARISON: None TECHNIQUE: Multiple axial CT images of the left femur were obtained with IV contrast. A dose lowering technique was used consistent with the principals of LETICIA. FINDINGS: Mild urinary bladder wall thickening with partial distention and perivesicular stranding. No intrapelvic fluid collections. Borderline enlarged iliac chain lymph nodes are likely reactive. Unremarkable appearance of the femoral vessels. Multiloculated air and fluid filled thick walled subcutaneous collection with thick and ill-defined wall measures approximately 4.4 x 2.1 x 4.4 cm on image 64 series 3 image 45 series 300. This appears to communicate with adjacent lateral scarring and cutaneous thickening. Additional locules of gas and fluid are noted anteriorly to this. Prominent skin thickening with subcutaneous edema. No opaque foreign bodies. There is additional scarring with small subcutaneous fluid collections of the anterior mid thigh measuring up to 1.5 cm image 222. No intramuscular fluid collections. Mild osteoarthritis of the knee and hip. No acute fracture, dislocation or osseous erosion. No avascular necrosis. IMPRESSION: 1. Cellulitis with air and fluid filled subcutaneous collections/abscesses of the lateral left upper thigh, communicating with the skin surface measuring up to approximately 4 cm. Additional smaller probable subcutaneous abscesses of the anterior mid thigh. 2. No acute osseous abnormality. ACT 112: Negative or not required by law. The above report was generated using voice recognition software. It may contain grammatical, syntax or spelling errors. Electronically signed by: Osiel Chambers M.D. 08/29/2024 2:58 PM PG Care Time/CCT Total # of Minutes Spent Total Time Spent with Patient: Total time spent is greater than 50% in coordination of care (as documented) at patient's floor/unit and/or counseling patient: Coding Level of Care Code 61851 SUB INP/OBS CARE 2/35MIN Diagnoses Leg abscess L02.419 Cellulitis L03.90 Type 2 diabetes mellitus without complication, without long-term current use of insulin E11.9 Diabetes mellitus penitentiary insulin use: without penitentiary use Diabetes mellitus complication status: without complication Mixed hyperlipidemia E78.2 Hyperlipidemia type: mixed hyperlipidemia Class 3 obesity E66.01 (3) DMII (diabetes mellitus, type 2) 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
[2024-08-30] MEDS ORDERED: SUCCINYLCHOLINE 100MG/5ML SYR IV ONE (09:43)
[2024-08-30] MEDS ORDERED: SUGAMMADEX SODIUM 200 MG/2 ML VIAL IV ONE (09:55)
[2024-08-30] MEDS: BUPIVACAINE 0.5 % 5 MG/1 ML MPF 30ML VIAL INFIL ONE ×2 (10:20→10:41)
--- NOTE | 2024-08-30 10:33 | Operative Report ---
PG Post Operative Report Pre & Post Diagnosis Operation Date: 08/30/24 10:00 Pre-Op Diagnosis: Left thigh abscess Post-Op Diagnosis: Left thigh abscess I identified the patient and participated in the time-out.: Yes Procedure Operation Date: 08/30/24 10:00 Actual Procedures p Incision and Debridement Left Thigh Wound(Left) - Julian Choudhury DO, TSERING Surgeon Julian Choudhury DO, TSERING Family Service Assistant None Estimated Blood Loss 5 Findings Consistent with Post-Op Diagnosis Culture sent. Fistulous tract explored the abscess cavity, opened through the old scar. Irrigated, hemostasis achieved. Packed with gauze. Specimens Left thigh abscess cultures Anesthesia Type General Complications none Disposition Accompanied Patient To Recovery: No Disposition: Recovery Room Indications 49-year-old female with chronic wound of the left thigh from old animal bite, mostly healed, now with cellulitis and left thigh abscess with fistulous tract to the scar. Plan for incision and drainage of left thigh abscess. The risks of the procedure were discussed, all questions were answered, and the patient agreed to proceed with surgery as planned. Description of Procedure The patient was properly identified, consented, and taken to the operating room where she was placed in the supine position. [General endotracheal anesthesia] was induced. SCDs and a safety belt were placed. Preoperative antibiotics were administered. The patient's left thigh was prepped and draped in the standard sterile fashion. Surgical timeout was performed and all parties were in agreement that this was the correct patient and procedure to be performed and we continued as planned. There was purulent drainage through the fistulous tract in the middle of the contracted scar. This was sent for culture. This was then explored with a DeBakey and tract anterior medially from the scar. The scar was then opened with cautery and deepened down along the fistulous tract. The abscess cavity was entered and 20 cc of purulent drainage was returned. The abscess cavity was explored and there were no loculations. The wound was irrigated and hemostasis achieved. Local anesthetic was injected. The wound was then packed with 2 inch Kerlix gauze. Fluffed gauze, an ABD, and disposable knit underwear were placed. The patient was extubated in the operating room and taken to the PACU where she recovered without apparent incident. All sponge, instrument and needle counts were correct at the conclusion of the procedure. The patient tolerated the procedure well. I attest to the content of the Intraoperative Record and any orders documented therein. Any exceptions are noted below.
[2024-08-30] MEDS: fentaNYL citrate PF 100 MCG/2 ML VIAL IV PRN (10:57)
--- NOTE | 2024-08-30 10:59 | Anesthesiology Progress Note ---
Date of Service August 30, 2024 Anesthesia Post Procedure Vital Signs Vital Signs: Temp Pulse Pulse Pulse Resp BP BP 08/30/24 08:37 98.2 F 73 18 183/98 H 08/30/24 07:20 98.6 F 72 16 147/83 H 08/29/24 22:36 82 12 08/29/24 20:42 98.2 F 77 20 160/86 H 08/29/24 17:00 08/29/24 17:00 99.0 F 75 16 170/109 H 08/29/24 16:41 76 17 167/118 H 08/29/24 16:00 76 16 08/29/24 14:02 83 08/29/24 14:00 82 16 175/103 H 08/29/24 11:27 97.9 F 88 18 155/111 H Pulse Ox O2 Del Method 08/30/24 08:37 98 Room Air 08/30/24 07:20 94 Room Air 08/29/24 22:36 98 08/29/24 20:42 96 Room Air 08/29/24 17:00 Room Air 08/29/24 17:00 96 Room Air 08/29/24 16:41 95 Room Air 08/29/24 16:00 96 Room Air 08/29/24 14:02 08/29/24 14:00 98 Room Air 08/29/24 11:27 98 Pain Intensity Left Leg: Pain Intensity: 6 Transfer of Care Handoff Completed per policy Notes Mental Status: alert / awake / arousable and participated in evaluation Patient Amnestic to Procedure: Yes Nausea / Vomiting: adequately controlled Pain: adequately controlled Airway Patency, RR, SpO2: stable & adequate BP & HR: stable & adequate Hydration State: stable & adequate Anesthetic Complications: no major complications apparent and Pt Satisfied with anesthetic care
[2024-08-30 11:03] LABS: Estimated Average Glucose 114 mg/dl; Hemoglobin A1C 5.6 % (4.5-5.6)
[2024-08-30] MEDS: hydrALAZINE HCL 20 MG/ML VIAL IV STA (11:30)
[2024-08-30] MEDS: hydrALAZINE HCL 20 MG/ML VIAL ONE (12:35)
[2024-08-30] MEDS: SODIUM CHLORIDE 0.9% 1,000 ML IV SCH (12:52)
[2024-08-30] MEDS: INSULIN ASPART PER UNIT CHARGE SC SCH (13:56)
--- NOTE | 2024-08-30 15:39 | Hospitalist Progress Note ---
Date of Service August 30, 2024 Assessment & Plan (1) Leg abscess: Plan: Left thigh area. Several abscesses and a fistulous tract to the skin were identified on CT scan. She underwent incision and drainage procedure todayAugust 30. Appreciate orthopedic consultation and recommendations. She remains on intravenous Zosyn and vancomycin, day 2. Cultures are pending. Her left thigh cellulitis issue began back in 2021 after a cat bite. (2) Cellulitis: Plan: Left thigh. Incision and drainage procedure completed todayAugust 30. Currently on intravenous Zosyn and vancomycin, day 2. (3) DMII (diabetes mellitus, type 2): Plan: ADA diet. Sliding scale coverage if needed. She will resume her home diabetic management at discharge (4) HTN (hypertension): Plan: Systolic blood pressure is running a little high postoperatively. Will follow (5) Tobacco use: Plan: Counseled to stop smoking. Will use nicotine patch while hospitalized on a daily basis Plan Hopeful discharge to home in 2 to 3 days. Admission and Anticipated Discharge Date Admission Date: August 29, 2024 Subjective The patient was seen after she had incision and drainage of the left thigh abscess. She is alert and oriented in no acute distress at the time of my examination. Review of Systems 2 Review of Systems: Constitutionalno fever or chills ENTno blurred vision, no double vision, no epistaxis, no sore throat Respiratoryno cough, no wheezing, no shortness of breath Cardiacno palpitations, no chest pain, no syncope Melyssa nausea, vomiting, diarrhea, melena, hematochezia GUno urinary retention, no urinary incontinence, no dysuria, no hematuria Musculoskeletalno joint pain, no muscle tenderness Skinno bruising, no rashes, no pruritus Neurono isolated weakness, no paresthesia, no weakness Psychno depression, no anxiety Physical Exam 2 Physical Exam: General-alert and oriented x3, no fever, no chills HEENT-head atraumatic and normocephalic, pupils equal and reactive to light, extraocular muscles intact Neck-no lymphadenopathy or thyromegaly, trachea midline Chest-clear to auscultation. No rales, wheezing or rhonchi Cardiac-regular rate and rhythm, normal S1 and S2 Abdomen-normal bowel sounds, no hepatosplenomegaly Extremities-no cyanosis, clubbing, or edema. Left thigh incision and drainage site is bandaged. Neuro-cranial nerves II through XII intact, motor and sensory function within normal limits, strength symmetrical, no focal deficits Psych-normal affect, normal mood Results & Data Results & Data Vital Signs (Past 12 Hours) Vital Signs Temp Pulse Resp BP Pulse Ox O2 Del Method O2 Flow Rate 08/30/24 15:22 37 C 86 16 164/100 H 93 CPAP 08/30/24 14:05 94 H 16 176/106 H 94 Room Air 08/30/24 13:19 92 H 16 150/90 H 92 Room Air 08/30/24 12:38 86 16 161/97 H 93 Room Air 08/30/24 12:07 36.9 C 86 16 154/88 H 96 Nasal Cannula 2 08/30/24 11:50 36.7 C 84 12 153/90 H 96 Nasal Cannula 2 08/30/24 11:40 75 14 152/87 H 98 Nasal Cannula 2 08/30/24 11:30 71 15 161/89 H 98 Nasal Cannula 2 08/30/24 11:20 78 12 173/100 H 96 Oxymask 2 08/30/24 11:10 85 20 177/101 H 95 Oxymask 2 08/30/24 11:00 71 16 133/70 98 Oxymask 2 08/30/24 10:50 74 15 118/78 98 Oxymask 4 08/30/24 10:45 37.1 C 83 14 187/115 H 98 Oxymask 6 08/30/24 08:37 36.8 C 73 18 183/98 H 98 Room Air 08/30/24 07:20 37 C 72 16 147/83 H 94 Room Air Laboratory Results 08/30/24 06:14 08/30/24 06:14 PG Care Time/CCT Total # of Minutes Spent Total Time Spent with Patient: Total time spent is greater than 50% in coordination of care (as documented) at patient's floor/unit and/or counseling patient: Coding Level of Care Code 54137 SUB INP/OBS CARE 3/50MIN Diagnoses Leg abscess L02.419 Cellulitis L03.90 Type 2 diabetes mellitus without complication, without long-term current use of insulin E11.9 Diabetes mellitus usp insulin use: without long term acute care registered nurse use Diabetes mellitus complication status: without complication Primary hypertension I10 Hypertension type: primary hypertension Tobacco use Z72.0 (3) DMII (diabetes mellitus, type 2) Diabetes mellitus long term acute care registered nurse insulin use: without long term acute care registered nurse use Diabetes mellitus complication status: without complication Qualified Code(s): E11.9 - Type 2 diabetes mellitus without complications (4) HTN (hypertension) Hypertension type: primary hypertension Qualified Code(s): I10 - Essential (primary) hypertension
[2024-08-31] MEDS: hydrALAZINE HCL 20 MG/ML VIAL IV ONE (05:38)
--- NOTE | 2024-08-31 08:15 | Surgery Progress Note ---
Date of Service August 31, 2024 Assessment & Plan (1) Leg abscess: Plan: POD 1 Left thigh Incision and drainage with Dr Choudhury expected post surgical discomfort wound dressing in place order for wound care nurse for recommendations packing vs wound vac pt would like to continue wound clinic in [place] if wound care nurse unavailable today to see patient do wet to dry dressing with 4x4, abd pad and medipore tape. General surgery will follow from peripheral call with question/concerns Dr Frazier covering weekend Admission and Anticipated Discharge Date Admission Date: August 29, 2024 Supervising Physician Co-Signing Physician Notes Patient seen and examined, labs reviewed, agree with above. POD #1 incision and drainage of left thigh abscess and site of old wound. Feels much better, erythema resolving. Wound care to see her today. Surgery will follow peripherally, Dr. Frazier covering over the weekend. She should follow-up with her wound care doctor in [place]. Subjective post surgical discomfort tolerated with po meds denies f/c, cp, sob Review of Systems Constitutional: no fever and no chills Respiratory: no dyspnea Cardiovascular: no chest pain Integumentary: + wounds Physical Exam Constitutional: cooperative and comfortable; no acute distress Respiratory: normal respiratory effort; no respiratory distress Cardiovascular: Rate/Rhythm: regular rate Skin: + wound Results & Data Vital Signs (Past 12 Hours) Vital Signs Temp Pulse Pulse Resp BP Pulse Ox O2 Del Method 08/31/24 05:10 192/104 H 08/31/24 04:10 172/100 H 08/31/24 04:03 98.1 F 87 16 94 Room Air 08/31/24 00:00 98.2 F 87 20 169/92 H 94 Room Air 08/30/24 21:00 89 21 93 PG Care Time/CCT Total # of Minutes Spent Total Time Spent with Patient: Total time spent is greater than 50% in coordination of care (as documented) at patient's floor/unit and/or counseling patient: Coding Level of Care Code 95259 Post Operative Follow-Up Diagnoses Leg abscess L02.419
[2024-08-31] MEDS: ADVANCED PROBIOTIC 625 MG CAPSULE PO SCH (08:17)
[2024-08-31 08:36] LABS: Basophils # (auto) 0.03 K/uL (0.00-0.20); Basophils % (auto) 0.2 %; Eosinophils # (auto) 0.05 K/uL (0.00-0.50); Eosinophils % (auto) 0.4 %; Hemoglobin 10.4 g/dl (12.0-16.0); Immature Granulocytes # (auto) 0.19 K/uL (0.01-0.20); Immature Granulocytes % (auto) 1.4 %; Lymphocytes # (auto) 1.99 K/uL (1.20-3.40); Lymphocytes % (auto) 14.5 %; Mean Corpuscular Hgb Conc 32.5 g/dL (32.0-36.0); Mean Platelet Volume 10.2 fL (9.4-12.4); Monocytes # (auto) 0.69 K/uL (0.11-0.59); Neutrophils % (auto) 78.5 %; Platelet Count 262 K/uL (130-400); RDW Coefficient of Variation 14.6 % (11.5-14.5); RDW Standard Deviation 45.7 fL (36.4-46.3); Red Blood Count 3.72 M/uL (4.20-5.40); White Blood Count 13.75 K/ul (4.8-10.8)
[2024-08-31 08:37] LABS: BUN Creatinine Ratio 22.2 (10-20); Calcium 8.7 mg/dl (8.6-10.3); Creatinine Clr Calc Pharmacy 96.2 ml/min; Potassium 3.5 mmol/L (3.5-5.1)
--- NOTE | 2024-08-31 11:07 | Pharmacy Report ---
Pharmacy PK ABX Note - Date of Service August 31, 2024 - Assessment and Plan Assessment 08/30: * Based on the vanco level of 13.3mcg/mL, the extrapolated AUC is within goal range. Patient is to remain on vancomycin 1000mg iv q 12 hours. * POD #1 left thigh I&D. Culture showed pin-point growth (reincubating) * Preliminary blood cultures from 08/29 are NGTD x 2 * Patient also continues on Zosyn 08/29: * 49 year old F receiving pip/tazo and vancomycin for treatment of cellulitis/abscess 2nd chronic thigh wound followed by wound clinic. Rule out osteomyelitis. * Pertinent microbiologic data includes: blood cultures pending Plan Vancomycin * Vanco level 13.3mcg/mL this morning, extrapolates to AUC of 447mg/L.hr. * Continue maintenance dose: 1000 mg IV every 12 hours * Another level will be ordered in the next few days if the vancomycin is continued. Pharmacy will continue to follow and will adjust dose/frequency as necessary. Thank you. Pharmacy has transitioned to AUC monitoring for vancomycin. AUC/JOHNATHON is the preferred PK/PD target and is associated with decreased risk of nephrotoxicity compared to traditional trough targets.
--- NOTE | 2024-08-31 15:18 | Hospitalist Progress Note ---
Date of Service August 31, 2024 Assessment & Plan (1) Leg abscess: Plan: Left thigh area. Several abscesses and a fistulous tract to the skin were identified on CT scan. She underwent incision and drainage procedure today, August 30. Appreciate orthopedic consultation and recommendations. She remains on intravenous Zosyn and vancomycin, day 3. Only Jennifer isolated from wound culture. Her left thigh cellulitis issue began back in 2021 after a cat bite. (2) Cellulitis: Plan: Left thigh. Incision and drainage procedure completed on August 30. Postoperative day #1. Currently on intravenous Zosyn and vancomycin, day 3. (3) DMII (diabetes mellitus, type 2): Plan: ADA diet. Sliding scale coverage if needed. She will resume her home diabetic management at discharge (4) HTN (hypertension): Plan: Systolic blood pressure is running high. Metoprolol uptitrated to twice daily dosing. Will follow (5) Tobacco use: Plan: Counseled to stop smoking. Will use nicotine patch while hospitalized on a daily basis Plan Hopeful discharge to home in 1 to 2 days Admission and Anticipated Discharge Date Admission Date: August 29, 2024 Subjective Alert and oriented. No acute problems. Metoprolol uptitrated to twice daily dosing for better heart rate and blood pressure control. Wound care consult placed. IV fluids discontinued. Review of Systems 2 Review of Systems: Constitutionalno fever or chills ENTno blurred vision, no double vision, no epistaxis, no sore throat Respiratoryno cough, no wheezing, no shortness of breath Cardiacno palpitations, no chest pain, no syncope Melyssa nausea, vomiting, diarrhea, melena, hematochezia GUno urinary retention, no urinary incontinence, no dysuria, no hematuria Musculoskeletalno joint pain, no muscle tenderness Skinno bruising, no rashes, no pruritus Neurono isolated weakness, no paresthesia, no weakness Psychno depression, no anxiety Physical Exam 2 Physical Exam: General-alert and oriented x3, no fever, no chills HEENT-head atraumatic and normocephalic, pupils equal and reactive to light, extraocular muscles intact Neck-no lymphadenopathy or thyromegaly, trachea midline Chest-clear to auscultation. No rales, wheezing or rhonchi Cardiac-regular rate and rhythm, normal S1 and S2 Abdomen-normal bowel sounds, no hepatosplenomegaly Extremities-no cyanosis, clubbing, or edema. Left thigh incision and drainage site is bandaged. Neuro-cranial nerves II through XII intact, motor and sensory function within normal limits, strength symmetrical, no focal deficits Psych-normal affect, normal mood Results & Data Results & Data Vital Signs (Past 12 Hours) Vital Signs Temp Pulse Resp BP Pulse Ox O2 Del Method 08/31/24 11:46 37.1 C 83 20 172/92 H 95 Room Air 08/31/24 09:44 37.4 C 88 16 159/90 H 92 Room Air 08/31/24 07:55 Room Air 08/31/24 05:10 192/104 H 08/31/24 04:10 172/100 H 08/31/24 04:03 36.7 C 87 16 94 Room Air Laboratory Results 08/31/24 08:06 08/31/24 08:06 PG Care Time/CCT Total # of Minutes Spent Total Time Spent with Patient: Total time spent is greater than 50% in coordination of care (as documented) at patient's floor/unit and/or counseling patient: Coding Level of Care Code 63723 SUB INP/OBS CARE 3/50MIN Diagnoses Leg abscess L02.419 Cellulitis L03.90 Type 2 diabetes mellitus without complication, without long-term current use of insulin E11.9 Diabetes mellitus fdc insulin use: without fdc use Diabetes mellitus complication status: without complication Primary hypertension I10 Hypertension type: primary hypertension Tobacco use Z72.0 (3) DMII (diabetes mellitus, type 2) 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
[2024-08-31] MEDS: METOPROLOL SUCC 50MG EXT REL TAB PO SCH (20:18)
[2024-08-31] MEDS: INFLUENZA VACC TS2024-25(6m+)/PF (IIV3) 0.5mL Syr IM ONE (23:08)
[2024-08-31] MEDS: PNEUMOCOCCAL VACCINE (PCV20) 20-VAL CONJ-DIP CRM/PF 0.5 ML SYR IM ONE (23:09)
[2024-09-01 07:07] LABS: Basophils # (auto) 0.04 K/uL (0.00-0.20); Basophils % (auto) 0.3 %; Eosinophils # (auto) 0.18 K/uL (0.00-0.50); Eosinophils % (auto) 1.6 %; Hematocrit (blood only) 32.3 % (37.0-47.0); Hemoglobin 10.5 g/dl (12.0-16.0); Immature Granulocytes # (auto) 0.05 K/uL (0.01-0.20); Immature Granulocytes % (auto) 0.4 %; Lymphocytes % (auto) 27.8 %; Mean Corpuscular Hemoglobin 28.2 pg (25.0-34.0); Mean Corpuscular Hgb Conc 32.5 g/dL (32.0-36.0); Mean Corpuscular Volume 86.8 fL (80.0-100.0); Mean Platelet Volume 10.2 fL (9.4-12.4); Monocytes # (auto) 0.54 K/uL (0.11-0.59); Monocytes % (auto) 4.7 %; Neutrophils # (auto) 7.52 K/uL (1.40-6.50); Neutrophils % (auto) 65.2 %; Platelet Count 271 K/uL (130-400); RDW Coefficient of Variation 14.6 % (11.5-14.5); Red Blood Count 3.72 M/uL (4.20-5.40); White Blood Count 11.53 K/ul (4.8-10.8)
[2024-09-01 07:25] LABS: BUN Creatinine Ratio 18.6 (10-20); Calcium 8.8 mg/dl (8.6-10.3); Potassium 3.4 mmol/L (3.5-5.1)
[2024-09-01] MEDS: FLUCONAZOLE 200 MG/100 ML BAG IV SCH (09:28)
[2024-09-01] MEDS: amLODIPine BESYLATE 5 MG TAB PO ONE (09:28)
--- NOTE | 2024-09-01 11:35 | Hospitalist Progress Note ---
Date of Service September 01, 2024 Assessment & Plan (1) Leg abscess: Plan: Left thigh area. Several abscesses and a fistulous tract to the skin were identified on CT scan. She underwent incision and drainage procedure on August 30. Postoperative day #2. Appreciate orthopedic consultation and recommendations. Candidate is growing from the culture. Antibiotics have been switched to Diflucan and Zosyn. Vancomycin has been discontinued. Antibiotic day 4. Her left thigh cellulitis issue began back in 2021 after a cat bite. (2) Cellulitis: Plan: Left thigh. Incision and drainage procedure completed on August 30. Postoperative day #2. Now on Zosyn and Diflucan. (3) DMII (diabetes mellitus, type 2): Plan: ADA diet. Sliding scale coverage if needed. She will resume her home diabetic management at discharge (4) HTN (hypertension): Plan: Systolic blood pressure has improved and is still running somewhat high after metoprolol uptitrated on August 31 to twice daily dosing. Amlodipine has now been added. (5) Tobacco use: Plan: Counseled to stop smoking. Will use nicotine patch while hospitalized on a daily basis Plan Hopeful discharge to home in 1 to 2 days on an oral antibiotic and oral Diflucan. Admission and Anticipated Discharge Date Admission Date: August 29, 2024 Subjective Alert and oriented. No distress. Blood pressure has improved after up titration of metoprolol yesterday, August 31, but still remains high. Amlodipine 5 mg daily has been started. Cultures obtained from the left thigh abscess reveal Jennifer. Intravenous Diflucan has been started. Continue Zosyn. Discontinue vancomycin since no evidence of MRSA. Orthopedic consultation and recommendations appreciated. Incision and drainage of the left thigh were performed on August 30, postoperative day #2. Review of Systems 2 Review of Systems: Constitutionalno fever or chills ENTno blurred vision, no double vision, no epistaxis, no sore throat Respiratoryno cough, no wheezing, no shortness of breath Cardiacno palpitations, no chest pain, no syncope Melyssa nausea, vomiting, diarrhea, melena, hematochezia GUno urinary retention, no urinary incontinence, no dysuria, no hematuria Musculoskeletalno joint pain, no muscle tenderness Skinno bruising, no rashes, no pruritus Neurono isolated weakness, no paresthesia, no weakness Psychno depression, no anxiety Physical Exam 2 Physical Exam: General-alert and oriented x3, no fever, no chills HEENT-head atraumatic and normocephalic, pupils equal and reactive to light, extraocular muscles intact Neck-no lymphadenopathy or thyromegaly, trachea midline Chest-clear to auscultation. No rales, wheezing or rhonchi Cardiac-regular rate and rhythm, normal S1 and S2 Abdomen-normal bowel sounds, no hepatosplenomegaly Extremities-no cyanosis, clubbing, or edema. Left thigh incision and drainage site is bandaged. Neuro-cranial nerves II through XII intact, motor and sensory function within normal limits, strength symmetrical, no focal deficits Psych-normal affect, normal mood Results & Data Results & Data Vital Signs (Past 12 Hours) Vital Signs Temp Pulse Resp BP Pulse Ox O2 Del Method 09/01/24 07:55 36.8 C 61 18 166/90 H 95 Room Air 09/01/24 07:20 Room Air Laboratory Results 09/01/24 06:37 09/01/24 06:37 PG Care Time/CCT Total # of Minutes Spent Total Time Spent with Patient: Total time spent is greater than 50% in coordination of care (as documented) at patient's floor/unit and/or counseling patient: Coding Level of Care Code 60564 SUB INP/OBS CARE 3/50MIN Diagnoses Leg abscess L02.419 Cellulitis L03.90 Type 2 diabetes mellitus without complication, without long-term current use of insulin E11.9 Diabetes mellitus jail insulin use: without jail use Diabetes mellitus complication status: without complication Primary hypertension I10 Hypertension type: primary hypertension Tobacco use Z72.0 (3) DMII (diabetes mellitus, type 2) Diabetes mellitus terminal supervisor insulin use: without jail use Diabetes mellitus complication status: without complication Qualified Code(s): E11.9 - Type 2 diabetes mellitus without complications (4) HTN (hypertension) Hypertension type: primary hypertension Qualified Code(s): I10 - Essential (primary) hypertension
[2024-09-01] MEDS: oxyCODONE HCL IR 5 MG TAB (IMMEDIATE RELEASE) PO PRN (21:27)
[2024-09-02 06:29] LABS: Basophils # (auto) 0.05 K/uL (0.00-0.20); Basophils % (auto) 0.5 %; Eosinophils # (auto) 0.22 K/uL (0.00-0.50); Eosinophils % (auto) 2.2 %; Hematocrit (blood only) 33.4 % (37.0-47.0); Hemoglobin 11.2 g/dl (12.0-16.0); Immature Granulocytes # (auto) 0.04 K/uL (0.01-0.20); Immature Granulocytes % (auto) 0.4 %; Lymphocytes # (auto) 2.42 K/uL (1.20-3.40); Lymphocytes % (auto) 23.8 %; Mean Corpuscular Hemoglobin 28.4 pg (25.0-34.0); Mean Corpuscular Hgb Conc 33.5 g/dL (32.0-36.0); Mean Corpuscular Volume 84.6 fL (80.0-100.0); Mean Platelet Volume 9.7 fL (9.4-12.4); Monocytes # (auto) 0.51 K/uL (0.11-0.59); Neutrophils # (auto) 6.91 K/uL (1.40-6.50); Neutrophils % (auto) 68.1 %; Platelet Count 298 K/uL (130-400); RDW Coefficient of Variation 14.4 % (11.5-14.5); RDW Standard Deviation 44.7 fL (36.4-46.3); Red Blood Count 3.95 M/uL (4.20-5.40); White Blood Count 10.15 K/ul (4.8-10.8)
[2024-09-02 06:48] LABS: BUN Creatinine Ratio 19.1 (10-20); Creatinine Clr Calc Pharmacy 101.9 ml/min; Potassium 3.4 mmol/L (3.5-5.1)
[2024-09-02] MEDS: amLODIPine BESYLATE 5 MG TAB PO SCH (07:26)
[2024-09-02] MEDS: POTASSIUM CHLORIDE CRTAB 20 MEQ TABCR PO STA (08:16)
--- NOTE | 2024-09-02 10:45 | Hospitalist Progress Note ---
Date of Service September 02, 2024 Assessment & Plan (1) Leg abscess: Plan: Left thigh area. Several abscesses and a fistulous tract to the skin were identified on CT scan. She underwent incision and drainage procedure on August 30. Postoperative day #2. Appreciate orthopedic consultation and recommendations. Candidate is growing from the culture. Antibiotics have been switched to Diflucan and Zosyn. Vancomycin has been discontinued. Antibiotic day 4. Her left thigh cellulitis issue began back in 2021 after a cat bite. -Con't zosyn/diflucan -wound care follow up in am 09/03 -plan to d/c on oral abx (2) Cellulitis: Plan: Left thigh. Incision and drainage procedure completed on August 30. Postoperative day #3. Now on Zosyn and Diflucan. (3) DMII (diabetes mellitus, type 2): Plan: ADA diet. Sliding scale coverage if needed. She will resume her home diabetic management at discharge (4) HTN (hypertension): Plan: Systolic blood pressure has improved and is still running somewhat high after metoprolol uptitrated on August 31 to twice daily dosing. Amlodipine has now been added, dose increased to 10mg. (5) Tobacco use: Plan: Counseled to stop smoking. Will use nicotine patch while hospitalized on a daily basis Plan Hopeful discharge to home in 1 to 2 days on an oral antibiotic and oral Diflucan. Admission and Anticipated Discharge Date Admission Date: August 29, 2024 Subjective No events overnight. Pt resting in bed. Review of Systems Review of Systems: CONST: Negative for fever, body aches and chills. HENT: Negative for neck pain/stiffness, headache, congestion, sore throat, swelling. EYES: Negative for discharge/pain or vision changes. RESP: Negative for cough/hemoptysis and shortness of breath. CV: Negative chest pain, difficulty breathing, palpitations. ABD: Negative pain, nausea, vomiting. : Negative increase frequency, dysuria, blood in urine or stool. MUSC: Negative for muscle aches, edema. SKIN: Negative rash, lesions/sores. NEURO: Negative headache, dizziness, weakness. Physical Exam Physical Exam: GENERAL APPEARANCE NAD, activity normal for age, well developed/ well nourished, no cyanosis, pallor, or diaphoresis. EYES lids/conjunctiva normal. EARS/NOSE/THROAT Mucous membranes moist, nares normal, lips/teeth normal uvula midline without oral pharyngeal erythema, exudate or swelling TMs normal bilaterally. No lymphangitis/lymphedema. HEAD/NECK normocephalic atraumatic, no facial trauma, neck is supple. RESPIRATORY respiratory effort normal, speaks in full sentences, no tripod position, no accessory muscle use. Lungs clear to auscultation without rhonchi, wheezes, rales CARDIAC Regular rate and rhythm, no edema. ABDOMINAL Soft, ND/NT. No evidence of fluid wave. No pulsatile masses on exam, rebound tenderness, Fam sign or pain over Mcburney's point. MUSCLES/EXTREMITIES No abnormal range of motion, no swelling. SKIN Warm, pink and dry. No rashes, dermatoses, petechiae or lesions. NEUROLOGICAL Speech is clear and appropriate. Normal level of consciousness. Gait and coordination are normal. 5/5 strength in all extremities. PSYCH Normal mood and affect. Judgement/competence is appropriate Results & Data Results & Data Vital Signs (Past 12 Hours) Vital Signs Temp Pulse Resp BP BP Pulse Ox O2 Del Method 09/02/24 07:07 37.0 C 75 16 178/109 H 93 Room Air 09/02/24 05:17 191/110 H 09/01/24 23:02 191/100 H PG Care Time/CCT Total # of Minutes Spent Total Time Spent with Patient: Total time spent is greater than 50% in coordination of care (as documented) at patient's floor/unit and/or counseling patient: Coding Level of Care Code 65278 SUB INP/OBS CARE 2/35MIN Diagnoses Leg abscess L02.419 Cellulitis L03.90 Type 2 diabetes mellitus without complication, without long-term current use of insulin E11.9 Diabetes mellitus computer terminal operator insulin use: without computer terminal operator use Diabetes mellitus complication status: without complication Primary hypertension I10 Hypertension type: primary hypertension Tobacco use Z72.0 (3) DMII (diabetes mellitus, type 2) Diabetes mellitus computer terminal operator insulin use: without skilled nursing use Diabetes mellitus complication status: without complication Qualified Code(s): E11.9 - Type 2 diabetes mellitus without complications (4) HTN (hypertension) Hypertension type: primary hypertension Qualified Code(s): I10 - Essential (primary) hypertension
[2024-09-02] MEDS: diphenhydrAMINE Capsule 25 MG CAP PO PRN (12:16)
[2024-09-03] MEDS: amLODIPine BESYLATE 5 MG TAB PO SCH (07:49)
--- NOTE | 2024-09-03 09:03 | Hospitalist Progress Note ---
Date of Service September 03, 2024 Assessment & Plan (1) Leg abscess: Plan: Left thigh area. Several abscesses and a fistulous tract to the skin were identified on CT scan. She underwent incision and drainage procedure on August 30. Postoperative day #2. Appreciate orthopedic consultation and recommendations. Candidate is growing from the culture. Antibiotics have been switched to Diflucan and Zosyn. Vancomycin has been discontinued. Antibiotic day 4. Her left thigh cellulitis issue began back in 2021 after a cat bite. -Con't zosyn/diflucan -wound care follow up in am 3/10 for packing vs wound vac -plan to d/c on oral abx (2) Cellulitis: Plan: Left thigh. Incision and drainage procedure completed on August 30. Postoperative day #4. Now on Zosyn and Diflucan. (3) DMII (diabetes mellitus, type 2): Plan: ADA diet. Sliding scale coverage if needed. She will resume her home diabetic management at discharge (4) HTN (hypertension): Plan: Systolic blood pressure has improved and is still running somewhat high after metoprolol uptitrated on August 31 to twice daily dosing. Amlodipine has now been added, dose increased to 10mg. (5) Tobacco use: Plan: Counseled to stop smoking. Will use nicotine patch while hospitalized on a daily basis Plan Hopeful discharge to home in 1 to 2 days on an oral antibiotic and oral Diflucan. Admission and Anticipated Discharge Date Admission Date: August 29, 2024 Subjective No events overnight. Pt resting in bed. Review of Systems Review of Systems: CONST: Negative for fever, body aches and chills. HENT: Negative for neck pain/stiffness, headache, congestion, sore throat, swelling. EYES: Negative for discharge/pain or vision changes. RESP: Negative for cough/hemoptysis and shortness of breath. CV: Negative chest pain, difficulty breathing, palpitations. ABD: Negative pain, nausea, vomiting. : Negative increase frequency, dysuria, blood in urine or stool. MUSC: Negative for muscle aches, edema. SKIN: Negative rash, lesions/sores. NEURO: Negative headache, dizziness, weakness. Physical Exam Physical Exam: GENERAL APPEARANCE NAD, activity normal for age, well developed/ well nourished, no cyanosis, pallor, or diaphoresis. EYES lids/conjunctiva normal. EARS/NOSE/THROAT Mucous membranes moist, nares normal, lips/teeth normal uvula midline without oral pharyngeal erythema, exudate or swelling TMs normal bilaterally. No lymphangitis/lymphedema. HEAD/NECK normocephalic atraumatic, no facial trauma, neck is supple. RESPIRATORY respiratory effort normal, speaks in full sentences, no tripod position, no accessory muscle use. Lungs clear to auscultation without rhonchi, wheezes, rales CARDIAC Regular rate and rhythm, no edema. ABDOMINAL Soft, ND/NT. No evidence of fluid wave. No pulsatile masses on exam, rebound tenderness, Fam sign or pain over Mcburney's point. MUSCLES/EXTREMITIES No abnormal range of motion, no swelling. SKIN Warm, pink and dry. No rashes, dermatoses, petechiae or lesions. NEUROLOGICAL Speech is clear and appropriate. Normal level of consciousness. Gait and coordination are normal. 5/5 strength in all extremities. PSYCH Normal mood and affect. Judgement/competence is appropriate Results & Data Results & Data Vital Signs (Past 12 Hours) Vital Signs Temp Pulse Pulse Resp BP Pulse Ox O2 Del Method 09/03/24 07:35 36.5 C 72 16 179/110 H 95 Room Air 09/03/24 07:03 36.9 C 75 18 180/111 H 93 Room Air PG Care Time/CCT Total # of Minutes Spent Total Time Spent with Patient: Total time spent is greater than 50% in coordination of care (as documented) at patient's floor/unit and/or counseling patient: Coding Level of Care Code 55132 SUB INP/OBS CARE 2/35MIN Diagnoses Leg abscess L02.419 Cellulitis L03.90 Type 2 diabetes mellitus without complication, without long-term current use of insulin E11.9 Diabetes mellitus long-term insulin use: without long-term use Diabetes mellitus complication status: without complication Primary hypertension I10 Hypertension type: primary hypertension Tobacco use Z72.0 (3) DMII (diabetes mellitus, type 2) Diabetes mellitus long-term insulin use: without long-term use Diabetes mellitus complication status: without complication Qualified Code(s): E11.9 - Type 2 diabetes mellitus without complications (4) HTN (hypertension) Hypertension type: primary hypertension Qualified Code(s): I10 - Essential (primary) hypertension
[2024-09-03 19:26] VITALS: RESP 16; O2SAT 96
[2024-09-04 07:52] VITALS: TEMP 98.8
--- NOTE | 2024-09-04 09:54 | Discharge Summary ---
Discharge Summary Date of Service September 04, 2024 Principal Dx & Hospital Course #1 = Principal Diagnosis (1) Leg abscess: Left thigh area. Several abscesses and a fistulous tract to the skin were identified on CT scan. She underwent incision and drainage procedure on August 30. Postoperative day #2. Appreciate orthopedic consultation and recommendations. Candidate is growing from the culture. Antibiotics have been switched to Diflucan and Zosyn. Vancomycin has been discontinued. Antibiotic day 4. Her left thigh cellulitis issue began back in 2021 after a cat bite. -Con't zosyn/diflucan -wound care follow up in am 3/10 for packing vs wound vac -plan to d/c on oral abx (2) Cellulitis: Left thigh. Incision and drainage procedure completed on August 30. Postoperative day #4. Now on Zosyn and Diflucan. (3) DMII (diabetes mellitus, type 2): ADA diet. Sliding scale coverage if needed. She will resume her home diabetic management at discharge (4) HTN (hypertension): Systolic blood pressure has improved and is still running somewhat high after metoprolol uptitrated on August 31 to twice daily dosing. Amlodipine has now been added, dose increased to 10mg. (5) Tobacco use: Counseled to stop smoking. Will use nicotine patch while hospitalized on a daily basis Plan Hopeful discharge to home in 1 to 2 days on an oral antibiotic and oral Diflucan. Admission HPI Per Admitting Provider Angelina Cotter is a 49 year old female who presents to the ER with erythema, warmth and swelling surrounding a chronic wound on her left leg. Original wound was 4 years ago with multiple I&Ds performed by [facility] by Dr Fontaine - she remembers saying there was staph on the culture but never MRSA. She has been on various antibiotics over the years but nothing in the last month. She had an appointment last Tuesday at wound care clinic in [place] and there was more concern because it was not closing and increased drainage and she has an MRI scheduled for this Tuesday due to concern for osteomyelitis as the reason the wound was not healing. The wound was probed at the appointment and felt sore the day afterwards. 2 days ago the area surrounding it became warmer and on Tuesday it became beat red and started spreading. No fever or chills. She is otherwise well. No history of stroke or heart attacks. Diabetes but x2 A1C under 4.2, now only on Ozempic. Only taken Repatha once one week ago. Discharge Exam GENERAL APPEARANCE NAD, activity normal for age, well developed/ well nourished, no cyanosis, pallor, or diaphoresis. EYES lids/conjunctiva normal. EARS/NOSE/THROAT Mucous membranes moist, nares normal, lips/teeth normal uvula midline without oral pharyngeal erythema, exudate or swelling TMs normal bilaterally. No lymphangitis/lymphedema. HEAD/NECK normocephalic atraumatic, no facial trauma, neck is supple. RESPIRATORY respiratory effort normal, speaks in full sentences, no tripod position, no accessory muscle use. Lungs clear to auscultation without rhonchi, wheezes, rales CARDIAC Regular rate and rhythm, no edema. ABDOMINAL Soft, ND/NT. No evidence of fluid wave. No pulsatile masses on exam, rebound tenderness, Fam sign or pain over Mcburney's point. MUSCLES/EXTREMITIES No abnormal range of motion, no swelling. SKIN Warm, pink and dry. No rashes, dermatoses, petechiae or lesions. NEUROLOGICAL Speech is clear and appropriate. Normal level of consciousness. Gait and coordination are normal. 5/5 strength in all extremities. PSYCH Normal mood and affect. Judgement/competence is appropriate Discharge Plan Discharge Items Patient Disposition: Home - Self-Care Reason For Visit: LEG ABSCESS Discharge Diagnosis: leg abscess Activity: Resume your previous activity Non-emergency contact: Primary Care Provider Call non-emergency contact if: you have any medication questions Follow-up/Referrals: Isidro Brown [Primary Care Provider] - Diet: Regular Addtl Attending Provider Instructions: Follow up with PMD in 2 weeks Pending Studies at Discharge: No Stand-Alone Forms: My [facility] [employer], Smoking Cessation Medications and DC Order Prescriptions: New amlodipine [Norvasc] 5 mg Tablet 10 mg PO QAM Qty: 30 0RF amoxicillin-pot clavulanate 875-125 mg tablet 1 tab PO Q12H Qty: 20 0RF fluconazole [Diflucan] 100 mg tablet 100 mg PO DAILY 14 Days Qty: 14 0RF oxycodone 5 mg Tablet 5 mg PO Q4H PRN (Reason: pain) Qty: 30 0RF Continued gabapentin 300 mg capsule 300 mg PO BID citalopram 40 mg tablet 40 mg PO DAILY valsartan 320 mg tablet 320 mg PO DAILY cyclobenzaprine 10 mg tablet 10 mg PO TID PRN (Reason: neck pain) (DME) blood-glucose meter [OneTouch Verio Flex meter] Misc See Rx Instructions .Route Rx Instructions: test blood sugar BID (DME) OneTouch Verio test strips Strip See Rx Instructions .Route Rx Instructions: check blood sugar BID metoprolol succinate 100 mg tablet extended release 24 hr 100 mg PO DAILY potassium chloride 10 mEq tablet extended release 10 meq PO BID lidocaine HCl 4 % (40 mg/mL) solution 1 applic topical DAILY PRN (Reason: Wound Care Pain) Repatha SureClick 140 mg/mL pen injector 140 mg subcut Q14D Ozempic 0.25 mg or 0.5 mg (2 mg/3 mL) pen injector 0.5 mg subcut WK Rx Instructions: Inject 0.5 mg once a week. Tuesday hydrocodone-acetaminophen 10-325 mg tablet 1 tab PO Q6H PRN (Reason: leg pain) Discharge Orders: Discharge Order (Routine); Ordered 09/04/24 Ordered By: George Samuel Admission Data Admit Date/Time: 08/29/24 15:52 Attending Provider: George Samuel Admit Provider: Wayne Weir Primary Care Provider: Isidro Brown Other Providers: Julian Choudhury; Wayne Weir Hospital Stay Data Consultations 08/29/24 15:05 Consult General Surgery Routine 08/29/24 15:14 ED Decision to Admit Stat Procedures Performed Operation Date: 08/30/24 10:00 Actual Procedures p Incision and Debridement Left Thigh Wound(Left) - Julian Choudhury DO, FACS Diagnostic Imagining Performed 08/29/24 14:15 CT femur LT w con Stat Pending Results Patient Have Any Pending Studies at Discharge: No Discharge Instructions Given to Patient (Per Discharging Provider) Follow up with PMD in 2 weeks Total Time Total Time Spent Total Time Spent (In Minutes): 50 Coding Level of Care Code 83434 INP/OBS DISCH >30 MIN Diagnoses Leg abscess L02.419 Cellulitis L03.90 Type 2 diabetes mellitus without complication, without long-term current use of insulin E11.9 Diabetes mellitus halfway insulin use: without intermediate manager use Diabetes mellitus complication status: without complication Primary hypertension I10 Hypertension type: primary hypertension Tobacco use Z72.0
[2024-09-04 12:21] VITALS: BP 144/82; PULSE 76
== END 2024-09-04 12:38 | disposition home health service (06) | DRG 602 ==
LOC: ED 11:22 → SUATTDRO 15:52 → EDINP 15:52 → 3N 16:32

== ENCOUNTER 2024-10-01 16:30 | Inpatient (IN) ==
--- NOTE | 2024-10-01 17:10 | Emergency Department Note ---
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 Patient reports she has the wound VAC dressing changed every several days and last was changed yesterday, Tuesday afternoon. She reports she has a scheduled appointment tomorrow with her providers in [place] for an MRI of the hip but was worried that if there was a finding she would be sent to [facility] and she preferred management at our facility where she was recently admitted for surgical management. She reports feeling chills but denies any objective fevers. She reports intermittent nausea but denies vomiting or diarrhea. On evaluation the patient is in no acute distress, afebrile heart in the 100s (documented 165 likely erroneous), blood pressure 160s/90s and vital signs otherwise stable. Left thigh wound VAC is in place where she has scant sanguinous drainage into the VAC which she reports has changed in consistency from more serous drainage previously. There is erythema warmth and tenderness surrounding the site. No overt crepitus on palpation. EKG without overt acute ischemia. CXR negative for acute cardiopulmonary process per my personal preliminary review/interpretation. WBC 14.9 K with neutrophilia but no left shift. H/H approximate to prior values. Platelets within normal limits. Chemistry without metabolic acidosis. LFTs are unremarkable. Procalcitonin is not elevated. Respiratory BioFire was negative. CT of the abdomen pelvis was performed and describes left gluteal skin wound with underlying subcutaneous emphysema and inflammatory changes suggestive of cellulitis. Note is made of 2 small underlying subcutaneous fluid locules. No deeper intramuscular osseous extensions. Given acute on chronic wound infection patient agrees plan for admission for further management. Blood cultures were obtained and empiric treatment shaded with IV Zosyn and daptomycin at this time. Case was discussed with ASHLEY Luz PAC, and Dr. Weir [facility] hospitalist who will evaluate the patient for admission. Further management per admitting team. Triage Nursing notes reviewed and agree them. Prior/external medical records reviewed Vital Signs: reviewed Differential diagnosis: Cellulitis, abscess, MRSA infection, DVT, necrotizing fasciitis, dermatitis, drug eruption, allergic reaction, as well as other pathologies. ER treatment provided: See below. Diagnostics interpreted by me: ECG: Sinus rhythm, first degree ABV, 91 bpm, no ectopy, no overt ST elevation or depression. Cardiac Monitoring: An order for continuous cardiac monitoring was placed and demonstrated Sinus rhythm, 91 bpm, no ectopy. Laboratory studies: See below Imaging studies: See below Consultation(s): ASHLEY Luz PAC, and Dr. Weir [facility] hospitalist. 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 Patient reports she has the wound VAC dressing changed every several days and last was changed yesterday, Tuesday afternoon. She reports she has a scheduled appointment tomorrow with her providers in [place] for an MRI of the hip but was worried that if there was a finding she would be sent to [facility] and she preferred management at our facility where she was recently admitted for surgical management. She reports feeling chills but denies any objective fevers. She reports intermittent nausea but denies vomiting or diarrhea. ROS: See above HPI for pertinent positives & negatives. A total of 10 systems reviewed and were otherwise negative. VITALS:See Below PHYSICAL EXAMINATION: GENERAL: Awake, alert, well-appearing, in no distress, BMI 34.3. HENT: Normocephalic, atraumatic. Oropharynx unremarkable. EYES: Normal conjunctiva. Sclera non-icteric. NECK: Supple. No nuchal rigidity. FROM. No JVD. RESPIRATORY: Clear to auscultation. CARDIAC: Regular rate, normal rhythm. Extremities warm and well perfused. Pulses equal. ABDOMEN: Soft, non-distended. No tenderness to palpation. No rebound or guarding. No masses. MUSCULOSKELETAL: Chest examination reveals no tenderness. The back is symmetrical on inspection without obvious abnormality. There is no CVA tenderness to palpation. No joint edema. LOWER EXTREMITIES: Calves are equal size bilaterally and non-tender. No edema. No discoloration. NEURO: Normal sensorium. No sensory or motor deficits noted. SKIN: No jaundice noted. Left thigh wound VAC is in place where she has scant sanguinous drainage into the VAC which she reports has changed in consistency from more serous drainage previously. There is erythema warmth and tenderness surrounding the site. No overt crepitus on palpation. Santhosh Rodriguez MD Past Med/Surg History Problem List (Updated 10/02/24 @ 20:04 by Santhosh Rodriguez MD) Leukocytosis (Acute) Essential hypertension Wound infection (Acute) Tobacco use Encounter for pre-operative examination Abscess (Acute) Cellulitis (Acute) Leg abscess (Acute) Class 3 obesity Hypokalemia Hyperlipidemia DMII (diabetes mellitus, type 2) Leg swelling Edema, peripheral (Acute) Medical History (Updated 10/02/24 @ 20:04 by Santhosh Rodriguez MD) Tobacco abuse HTN (hypertension) Chronic pain Anxiety Surgical History (Updated 08/31/24 @ 09:13 by Mary Lou Darling RN) Encounter for incision and drainage procedure (08/30/24) Incision and Debridement Left Thigh Wound(Left) - Julian Choudhury DO, FACS History of hysterectomy Family History Mother Myocardial infarction Hypertension Father Fibromyalgia Social History Smoking Status: Former smoker Tobacco Type: Cigarettes Cigarettes Per Day: 1PPD; Second Hand Exposure: No; Do You Dip or Chew Tobacco: No; Tobacco Cessation Education Requested by Patient: No Hx Alcohol Use: No Hx Substance Use: No Preferred Language: Cambodian Communication Ability: Effective Train Station Server Required: No Beliefs That Will Affect Care: None Current Living Situation: Spouse Current Living Situation Comment: Other Information That Helps Us Care for You: No Feels Safe at Home: Yes Safety Concerns: Feels Safe At This Time Assistive Devices: CPAP and Glasses Assistive Devices Comment: wound vac from home Allergies Allergies Allergy/AdvReac Type Severity Reaction Status Date / Time atorvastatin AdvReac Intermediate Cramping Verified 10/01/24 17:46 of the Muscles rosuvastatin AdvReac Intermediate Cramping Verified 10/01/24 17:46 of the Muscles Home Meds Home Medications Medication Instructions Recorded Confirmed blood sugar diagnostic (OneTouch 01/05/24 07/23/24 Verio test strips) blood-glucose meter (OneTouch 01/05/24 07/23/24 Verio Flex Meter) citalopram 40 mg tablet 40 mg PO DAILY 01/05/24 10/01/24 cyclobenzaprine 10 mg tablet 10 mg PO TID PRN neck pain 01/05/24 10/01/24 gabapentin 300 mg capsule 300 mg PO BID 01/05/24 10/01/24 hydrocodone 10 mg-acetaminophen 1 tab PO Q6H PRN leg pain 01/05/24 10/01/24 325 mg tablet valsartan 320 mg tablet 320 mg PO DAILY 01/05/24 10/01/24 evolocumab 140 mg/mL subcutaneous 140 mg subcut Q14D 08/29/24 10/01/24 pen injector (Niki Malik) lidocaine HCl 4 % (40 mg/mL) 1 applic topical DAILY PRN Wound 08/29/24 10/01/24 mucosal solution Care Pain metoprolol succinate 100 mg 100 mg PO DAILY 08/29/24 10/01/24 tablet,extended release 24 hr potassium chloride 10 mEq 10 meq PO BID 08/29/24 10/01/24 tablet,extended release semaglutide 0.25 mg or 0.5 mg (2 0.5 mg subcut WK 08/29/24 10/01/24 mg/3 mL) subcutaneous pen injector (Dionte) Previous Rx's Medication Instructions Recorded amlodipine 5 mg tablet (Norvasc) 10 mg (2 x 5 mg) PO QAM #30 tabs 09/04/24 Results & Data (ED) Vital Signs Vital Signs - 24 hr 10/01/24 20:00 10/01/24 21:07 10/01/24 22:26 Temperature Temperature Source Pulse Rate 96 H Pulse Rate [Apical] 94 H 96 H Pulse Rate from SpO2 Sensor Pulse Rhythm [Apical] Regular Regular Pulse Strength [Apical] Normal Normal Respiratory Rate 21 20 Respiratory Effort / Characteristics Non-Labored Spontaneous Non-Labored Spontaneous Respiratory Depth Normal Normal Respiratory Pattern Regular Regular Blood Pressure Blood Pressure [Right Arm] 153/105 H 159/110 H Blood Pressure Mean Blood Pressure Mean [Right Arm] 121 126 Blood Pressure Position [Right Arm] Lying Lying Pulse Oximetry 95 94 Oxygen Delivery Method Room Air Room Air 10/01/24 22:33 10/01/24 22:42 10/01/24 23:06 Temperature 36.8 C Temperature Source Oral Pulse Rate 98 H 94 H Pulse Rate [Apical] 97 H Pulse Rate from SpO2 Sensor 98 H 93 H Pulse Rhythm [Apical] Regular Pulse Strength [Apical] Normal Respiratory Rate 17 21 19 Respiratory Effort / Characteristics Non-Labored Spontaneous Respiratory Depth Normal Respiratory Pattern Regular Blood Pressure 157/92 H 144/89 H Blood Pressure [Right Arm] 157/92 H Blood Pressure Mean 113 107 Blood Pressure Mean [Right Arm] 113 Blood Pressure Position [Right Arm] Lying Pulse Oximetry 94 93 96 Oxygen Delivery Method Room Air 10/01/24 23:33 10/02/24 00:00 10/02/24 00:00 Temperature Temperature Source Pulse Rate 96 H 91 H Pulse Rate [Apical] 92 H Pulse Rate from SpO2 Sensor 96 H 91 H Pulse Rhythm [Apical] Pulse Strength [Apical] Respiratory Rate 18 16 14 Respiratory Effort / Characteristics Non-Labored Spontaneous Respiratory Depth Normal Respiratory Pattern Blood Pressure 159/95 H 107/77 Blood Pressure [Right Arm] 107/77 Blood Pressure Mean 116 87 Blood Pressure Mean [Right Arm] 87 Blood Pressure Position [Right Arm] Sitting Pulse Oximetry 92 100 92 Oxygen Delivery Method Room Air Laboratory Data Attestation: I reviewed the patient's lab results. 10/02/24 05:16 10/02/24 05:16 Lab Results 10/01/24 10/01/24 Range/Units 17:53 17:57 WBC 14.98 H (4.8-10.8) K/ul RBC 3.77 L (4.20-5.40) M/uL Hgb 10.6 L (12.0-16.0) g/dl Hct 32.0 L (37.0-47.0) % MCV 84.9 (80.0-100.0) fL MCH 28.1 (25.0-34.0) pg MCHC 33.1 (32.0-36.0) g/dL RDW Std Deviation 47.5 H (36.4-46.3) fL RDW Coeff of Jhonny 15.4 H (11.5-14.5) % Plt Count 254 (130-400) K/uL MPV 9.8 (9.4-12.4) fL Immature Gran % (Auto) 0.5 % Neut % (Auto) 78.4 % Lymph % (Auto) 15.6 % [place] % (Auto) 4.6 % Eos % (Auto) 0.8 % Baso % (Auto) 0.1 % Neut # (Auto) 11.73 H (1.40-6.50) K/uL Lymph # (Auto) 2.34 (1.20-3.40) K/uL [place] # (Auto) 0.69 H (0.11-0.59) K/uL Eos # (Auto) 0.12 (0.00-0.50) K/uL Baso # (Auto) 0.02 (0.00-0.20) K/uL Immature Gran # (Auto) 0.08 (0.01-0.20) K/uL ESR 70 H (0-20) mm/hr PT 10.9 (9.0-12.0) Seconds INR 1.0 (0.9-1.1) Sodium 139 (136-145) mmol/L Potassium 3.8 (3.5-5.1) mmol/L Chloride 105 (98-107) mmol/L Carbon Dioxide 27 (21-32) mmol/L Anion Gap 7 (3-11) BUN 23 (6-23) mg/dl Creatinine 0.82 (0.6-1.2) mg/dl Est Cr Clr Drug Dosing 83.9 ml/min eGFR 87.63 BUN/Creatinine Ratio 28.0 H (10-20) Glucose 97 (70-99(Fasting)) mg/dl Lactate 1.0 (0.4-2.0) mmol/L Calcium 9.7 (8.6-10.3) mg/dl Magnesium 1.7 (1.7-2.4) mg/dl Total Bilirubin 0.6 (0.2-1.0) mg/dl AST 12 L (13-39) U/L ALT 10 (7-52) U/L Alkaline Phosphatase 90 (34-104) U/L C-Reactive Protein 25.52 H (0-0.5) mg/dl Total Protein 7.0 (6.0-8.3) gm/dl Albumin 4.0 (3.4-5.0) gm/dl Globulin 3.0 (2.5-4.0) gm/dl Albumin/Globulin Ratio 1.3 (0.9-2) Procalcitonin 0.06 (0-0.5) ng/ml Adenovirus (PCR) Not Detected (NotDetected) B. pertussis DNA (PCR) Not Detected (NotDetected) B.parapertussis DNA PCR Not Detected (NotDetected) C. pneumoniae DNA (PCR) Not Detected (NotDetected) Coronavirus OC43 (PCR) Not Detected (NotDetected) Coronavirus HKU1 (PCR) Not Detected (NotDetected) Coronavirus 229E (PCR) Not Detected (NotDetected) SARS-CoV-2 (PCR) Not Detected (NotDetected) Coronavirus NL63 (PCR) Not Detected (NotDetected) Human Metapneumovir PCR Not Detected (NotDetected) Influenza Type A (PCR) Not Detected (NotDetected) Influenza Type B (PCR) Not Detected (NotDetected) M. pneumoniae (PCR) Not Detected (NotDetected) Parainfluenza 1 (PCR) Not Detected (NotDetected) Parainfluenza 2 (PCR) Not Detected (NotDetected) Parainfluenza 3 (PCR) Not Detected (NotDetected) Parainfluenza 4 (PCR) Not Detected (NotDetected) RSV (PCR) Not Detected (NotDetected) Entero/Rhino (PCR) Not Detected (NotDetected) Administered Medications Gabapentin (Gabapentin 300 Mg Cap) 300 mg PO BID [facility] Stop: 11/01/24 20:59 Last Admin: 10/02/24 19:48 Dose: 300 mg Documented By: EFK Piperacillin Sod/Tazobactam Sod (Zosyn) 4.5 gm in 100 mls @ 25 mls/hr IV Q8H [facility]; Protocol Stop: 10/09/24 07:59 Last Admin: 10/02/24 19:42 Dose: 25 mls/hr Documented By: Infusion: 10/02/24 15:01 Dose: Infused Documented By: Admin: 10/02/24 10:49 Dose: 25 mls/hr Documented By: LAAYNA Daptomycin 400 mg/ Syringe 8 mls @ 4 mls/min IV Q24H [facility]; Protocol Stop: 10/09/24 07:44 Last Admin: 10/02/24 10:04 Dose: 4 mls/min Documented By: ALAYNA Miscellaneous (Remove Nicoderm Patch) 1 each N/A DAILY@0859 [facility] Stop: 11/01/24 08:58 Last Admin: 10/02/24 10:09 Dose: 1 each Documented By: ALAYNA Morphine Sulfate (Morphine Sulfate 2 Mg/Ml Carp) 2 mg IV Q3H PRN PRN Reason: Pain Stop: 10/16/24 10:14 Last Admin: 10/02/24 16:36 Dose: 2 mg Documented By: Admin: 10/02/24 10:49 Dose: 2 mg Documented By: ALAYNA Nicotine (Nicotine 14 Mg/24 Hr Patch) 1 patch TD QAM [facility] Stop: 11/01/24 08:59 Last Admin: 10/02/24 10:09 Dose: 1 patch Documented By: ALAYNA Discontinued Medications Sodium Chloride (Nss) 1,000 mls @ 999 mls/hr IV .Q1H1M ONE Stop: 10/01/24 18:08 Last Infusion: 10/01/24 20:54 Dose: Infused Documented By: Admin: 10/01/24 18:04 Dose: 999 mls/hr Documented By: KATHRYN Piperacillin Sod/Tazobactam Sod (Zosyn) 4.5 gm in 100 mls @ 200 mls/hr IV NOW ONE; Protocol Stop: 10/01/24 23:36 Last Infusion: 10/02/24 00:30 Dose: Infused Documented By: Admin: 10/01/24 23:39 Dose: 200 mls/hr Documented By: ROSALINA Daptomycin 600 mg/ Syringe 12 mls @ 6 mls/min IV NOW ONE; Protocol Stop: 10/01/24 23:19 Last Admin: 10/01/24 23:39 Dose: 6 mls/min Documented By: ROSALINA Acetaminophen (Ofirmev) 1,000 mg in 100 mls @ 400 mls/hr IV NOW STA Stop: 10/01/24 23:21 Last Infusion: 10/01/24 23:48 Dose: Infused Documented By: Admin: 10/01/24 23:21 Dose: 400 mls/hr Documented By: ROSALINA Lactated Ringer's (Lr) 1,000 mls @ 100 mls/hr IV .Q10H ANGELIKA Stop: 10/02/24 16:53 Last Infusion: 10/02/24 14:04 Dose: Infused Documented By: Admin: 10/02/24 07:36 Dose: 125 mls/hr Documented By: ALAYNA Ioversol (Optiray 320 100ml) 93 ml IV ONCE ONE Stop: 10/01/24 18:50 Last Admin: 10/01/24 18:49 Dose: 93 ml Documented By: GORDON Morphine Sulfate (Morphine Sulfate 4 Mg/Ml 1 Ml Carp\Vial) 4 mg IV NOW STA Stop: 10/01/24 23:08 Last Admin: 10/01/24 23:21 Dose: 4 mg Documented By: ROSALINA Morphine Sulfate (Morphine Sulfate 4 Mg/Ml 1 Ml Carp\Vial) 4 mg IV Q6H PRN PRN Reason: Severe Pain (Scale 7, 8, 9,10) Stop: 10/16/24 02:53 Last Admin: 10/02/24 04:46 Dose: 4 mg Documented By: [facility] Imaging Data Radiologist's Impression: Chest X-Ray 10/01/24 16:57 EXAM: XR chest 1V portable CLINICAL HISTORY: weakness TECHNIQUE: An X-ray image of the chest is obtained in AP projection. COMPARISON: with the prior study dated 01/05/2024. FINDINGS: Pulmonary Parenchyma: Lungs are clear bilaterally. No evidence of consolidation, collapse, or focal opacities. No pulmonary nodules are identified. No evidence of pleural effusion or pleural thickening. Heart and Mediastinum: Unchanged cardiomegaly and bilateral hilar vascular congestion were noted. Heart size and shape are normal. No mediastinal widening or masses. No hilar or mediastinal lymphadenopathy. Bony Thorax: Bony thorax appears intact without fractures or deformities. Soft Tissues: Soft tissues overlying the chest wall are unremarkable. IMPRESSION: 1. Unchanged cardiomegaly and bilateral hilar vascular congestion were noted. 2. No interval change was depicted. Electronically signed by Keith Romero 10-01-2024 6:41 PM Abdomen/Pelvis CT 10/01/24 16:58 EXAM: CT abd pelvis IV con only CLINICAL HISTORY: left wound vac, ?cellulitis (incld area of interes TECHNIQUE: CT of the abdomen and pelvis was performed with IV contrast (93 cc optiray 320), with the following protocol: axial images with, and reconstructed coronal and sagittal images. One of the following dose reduction techniques was utilized for this exam: Automated exposure control, adjustment of the mA and/or kV according to patient size, and use of iterative reconstruction. COMPARISON: No prior studies available for comparison. FINDINGS: Abdomen: Liver: Normal in size, shape, and density. No focal lesions, cysts, or masses were identified. Hepatic vasculature and biliary ducts are unremarkable. Gallbladder and Biliary System: The gallbladder is partially contracted. No wall thickening, pericholecystic fluid, or gallstones were identified. The common bile duct is normal in caliber without dilation. Pancreas: Pancreatic head, body, and tail are visualized and appear normal in size and density. No pancreatic masses or calcifications were noted. The pancreatic duct is not dilated. Spleen: Normal in size, shape, and density. No splenic lesions or masses were identified. Appendix: The appendix is normal in size without tres appendiceal fat stranding, and without an appendicolith. No evidence of appendiceal abscess or perforation. Kidneys and Adrenal Glands: Both kidneys are normal in size, shape, and position. Few tiny bilateral simple cortical cysts (3-8 mm); BOSN[place]K 1. Cortical thickness is within normal limits. No renal calculi or hydronephrosis. Prominent right extrarenal pelvis (variant). Small nodule within the left adrenal gland measuring 8 x 8mm. Right adrenal glands is unremarkable with no evidence of mass or hyperplasia. Pelvis: Urinary Bladder: Normal in contour and wall thickness. No intraluminal lesions identified. Uterus: Not seen. No pelvic masses. Peritoneal and Retroperitoneal Structures: No free fluid or abnormal fluid collections were identified within the abdomen or pelvis. Small paraortic lymph nodes 4-11 mm likely non-specific. No lymphadenopathy was noted. Aortic atherosclerotic wall calcifications. Bowel: The visualized bowel loops are normal in caliber and appearance. No evidence of bowel obstruction or wall thickening. Sigmoid colon minimal diverticulosis, no diverticulitis. Bones and Soft Tissues: Pelvic bones and soft tissues are unremarkable. No fractures or abnormal masses were identified. Left gluteal skin wound with underlying soft tissue thickening, diffuse fat stranding and subcutaneousl emphysema, likely denoting inflammatory changes/cellulitis. No deeper intramuscular or osseous extensions. There are two underlying subcutaneous fluid locules (8-12 mm). IMPRESSION: 1. No evidence of acute intra-abdominal pathology. 2. Left gluteal skin wound with underlying subcutaneous emphysema and inflammatory changes/cellulitis as described. Two small underlying subcutaneous fluid locules (8-12 mm). No deeper intramuscular or osseous extensions. Electronically signed by Keith Romero 10-01-2024 9:50 PM Discharge Plan Visit Data Chief Complaint: Swelling/Edema to Extremity Stated Complaint: SWELLING, PAIN, WARM NEAR WOUND ON LT THIGH ED Provider: Santhosh Rodriguez Discharge Problem: Wound infection, Leg abscess, Cellulitis, Leukocytosis Patient Disposition: Admitted As Inpatient Discharge Instructions Interventions: ED Discharge Assessment Last Done: 10/02/24 01:51 Discharge Problem: Cellulitis Qualifiers: Site of cellulitis: extremity Site of cellulitis of extremity: lower extremity Laterality: left Qualified Code(s): L03.116 - Cellulitis of left lower limb Leukocytosis Qualifiers: Leukocytosis type: unspecified Qualified Code(s): D72.829 - Elevated white blood cell count, unspecified
[2024-10-01] MEDS: SODIUM CHLORIDE 0.9% 1,000 ML IV ONE (18:04)
[2024-10-01 18:15] LABS: Basophils # (auto) 0.02 K/uL (0.00-0.20); Basophils % (auto) 0.1 %; Eosinophils # (auto) 0.12 K/uL (0.00-0.50); Eosinophils % (auto) 0.8 %; Hemoglobin 10.6 g/dl (12.0-16.0); Immature Granulocytes # (auto) 0.08 K/uL (0.01-0.20); Immature Granulocytes % (auto) 0.5 %; Lymphocytes # (auto) 2.34 K/uL (1.20-3.40); Lymphocytes % (auto) 15.6 %; Mean Corpuscular Hemoglobin 28.1 pg (25.0-34.0); Mean Corpuscular Hgb Conc 33.1 g/dL (32.0-36.0); Mean Corpuscular Volume 84.9 fL (80.0-100.0); Mean Platelet Volume 9.8 fL (9.4-12.4); Monocytes # (auto) 0.69 K/uL (0.11-0.59); Monocytes % (auto) 4.6 %; Neutrophils # (auto) 11.73 K/uL (1.40-6.50); Neutrophils % (auto) 78.4 %; Platelet Count 254 K/uL (130-400); RDW Coefficient of Variation 15.4 % (11.5-14.5); RDW Standard Deviation 47.5 fL (36.4-46.3); Red Blood Count 3.77 M/uL (4.20-5.40); White Blood Count 14.98 K/ul (4.8-10.8)
[2024-10-01 18:33] LABS: Albumin Globulin Ratio 1.3 (0.9-2); Bilirubin,Total 0.6 mg/dl (0.2-1.0); Calcium 9.7 mg/dl (8.6-10.3); Creatinine Clr Calc Pharmacy 83.9 ml/min; Magnesium 1.7 mg/dl (1.7-2.4); Potassium 3.8 mmol/L (3.5-5.1)
--- NOTE | 2024-10-01 18:41 | XRay Report ---
EXAM: XR chest 1V portable CLINICAL HISTORY: weakness TECHNIQUE: An X-ray image of the chest is obtained in AP projection. COMPARISON: with the prior study dated 01/05/2024. FINDINGS: Pulmonary Parenchyma: Lungs are clear bilaterally. No evidence of consolidation, collapse, or focal opacities. No pulmonary nodules are identified. No evidence of pleural effusion or pleural thickening. Heart and Mediastinum: Unchanged cardiomegaly and bilateral hilar vascular congestion were noted. Heart size and shape are normal. No mediastinal widening or masses. No hilar or mediastinal lymphadenopathy. Bony Thorax: Bony thorax appears intact without fractures or deformities. Soft Tissues: Soft tissues overlying the chest wall are unremarkable. IMPRESSION: 1. Unchanged cardiomegaly and bilateral hilar vascular congestion were noted. 2. No interval change was depicted. Electronically signed by Keith Romero 10-01-2024 6:41 PM
[2024-10-01 18:42] LABS: Prothrombin Time 10.9 Seconds (9.0-12.0)
[2024-10-01] MEDS: OPTIRAY 320 100ml IV ONE (18:49)
[2024-10-01 19:04] LABS: Adenovirus PCR Not Detected (NotDetected); Bordetella parapertussis PCR Not Detected (NotDetected); Bordetella pertussis PCR Not Detected (NotDetected); Chlamydia pneumoniae PCR Not Detected (NotDetected); Coronavirus 229E PCR Not Detected (NotDetected); Coronavirus CoV-2 (COVID19)PCR Not Detected (NotDetected); Coronavirus HKU1 PCR Not Detected (NotDetected); Coronavirus NL63 PCR Not Detected (NotDetected); Coronavirus OC43PCR Not Detected (NotDetected); Human Metapneumovirus PCR Not Detected (NotDetected); Influenza A PCR Not Detected (NotDetected); Influenza B PCR Not Detected (NotDetected); Mycoplasma pneumoniae PCR Not Detected (NotDetected); Parainfluenza Virus 1 PCR Not Detected (NotDetected); Parainfluenza Virus 2 PCR Not Detected (NotDetected); Parainfluenza Virus 3 PCR Not Detected (NotDetected); Parainfluenza Virus 4 PCR Not Detected (NotDetected); Respiratory Syncytial VirusPCR Not Detected (NotDetected); Rhinovirus/Enterovirus PCR Not Detected (NotDetected)
--- NOTE | 2024-10-01 21:51 | CT Scan Report ---
EXAM: CT abd pelvis IV con only CLINICAL HISTORY: left wound vac, ?cellulitis (incld area of interes TECHNIQUE: CT of the abdomen and pelvis was performed with IV contrast (93 cc optiray 320), with the following protocol: axial images with, and reconstructed coronal and sagittal images. One of the following dose reduction techniques was utilized for this exam: Automated exposure control, adjustment of the mA and/or kV according to patient size, and use of iterative reconstruction. COMPARISON: No prior studies available for comparison. FINDINGS: Abdomen: Liver: Normal in size, shape, and density. No focal lesions, cysts, or masses were identified. Hepatic vasculature and biliary ducts are unremarkable. Gallbladder and Biliary System: The gallbladder is partially contracted. No wall thickening, pericholecystic fluid, or gallstones were identified. The common bile duct is normal in caliber without dilation. Pancreas: Pancreatic head, body, and tail are visualized and appear normal in size and density. No pancreatic masses or calcifications were noted. The pancreatic duct is not dilated. Spleen: Normal in size, shape, and density. No splenic lesions or masses were identified. Appendix: The appendix is normal in size without tres appendiceal fat stranding, and without an appendicolith. No evidence of appendiceal abscess or perforation. Kidneys and Adrenal Glands: Both kidneys are normal in size, shape, and position. Few tiny bilateral simple cortical cysts (3-8 mm); BOSNIAK 1. Cortical thickness is within normal limits. No renal calculi or hydronephrosis. Prominent right extrarenal pelvis (variant). Small nodule within the left adrenal gland measuring 8 x 8mm. Right adrenal glands is unremarkable with no evidence of mass or hyperplasia. Pelvis: Urinary Bladder: Normal in contour and wall thickness. No intraluminal lesions identified. Uterus: Not seen. No pelvic masses. Peritoneal and Retroperitoneal Structures: No free fluid or abnormal fluid collections were identified within the abdomen or pelvis. Small paraortic lymph nodes 4-11 mm likely non-specific. No lymphadenopathy was noted. Aortic atherosclerotic wall calcifications. Bowel: The visualized bowel loops are normal in caliber and appearance. No evidence of bowel obstruction or wall thickening. Sigmoid colon minimal diverticulosis, no diverticulitis. Bones and Soft Tissues: Pelvic bones and soft tissues are unremarkable. No fractures or abnormal masses were identified. Left gluteal skin wound with underlying soft tissue thickening, diffuse fat stranding and subcutaneousl emphysema, likely denoting inflammatory changes/cellulitis. No deeper intramuscular or osseous extensions. There are two underlying subcutaneous fluid locules (8-12 mm). IMPRESSION: 1. No evidence of acute intra-abdominal pathology. 2. Left gluteal skin wound with underlying subcutaneous emphysema and inflammatory changes/cellulitis as described. Two small underlying subcutaneous fluid locules (8-12 mm). No deeper intramuscular or osseous extensions. Electronically signed by Keith Romero 10-01-2024 9:50 PM
[2024-10-01] MEDS: ACETAMINOPHEN 1,000 MG/100 ML VIAL IV STA (23:21)
[2024-10-01] MEDS: MoRPHine SULFATE 4 MG/ML 1 ML CARP\\VIAL IV STA (23:21)
--- NOTE | 2024-10-01 23:27 | History & Physical Report ---
Date of Service October 01, 2024 Assessment & Plan (1) Leg abscess: (2) Cellulitis: (3) DMII (diabetes mellitus, type 2): (4) Tobacco use: Plan Patient is a 49-year-old female with past medical history of type II DM on Ozempic, hypertension, and tobacco use. she was admitted from 08/29 to 09/04 for a left thigh abscess and cellulitis s/p surgical I&D 08/30 with a current wound VAC. She completed a course of Zosyn and Diflucan during hospitalization transition to Diflucan and Augmentin in the outpatient setting. Surgical cultures grew Jennifer albicans and Finegoldia magna. Patient has been following with wound care and has had dressing changes of her wound VAC every few days, just changed 09/30. She presented to the ED due to worsening redness and pain of the wound VAC site. Laboratories show white count of 14.98, heart rate elevated to 97 meeting SIRS criteria however lactate 1.0. He is being admitted for IV antibiotics, surgery and infectious disease consult placed. #Left thigh abscess/cellulitis s/p I&D 08/[address] Choudhury, wound VAC placed, completed course of Zosyn+Vanco+Diflucan during inpt stay transitioned to Diflucan+Augmentin outpatient surgical cultures 08/30 grew Jennifer albicans and Finegoldia magna femur CT 08/29 showed cellulitis with air and fluid-filled subcu collection/abscesses, communicating with skin surface measuring approximately 4 cm, smaller probable subcu abscess of anterior mid thigh AP CT 10/01 showed left gluteal skin with underlying subq emphysema and cellulitis, 2 small underlying subcutaneous fluid-filled locules 8 to 12 mm + SIRS - WBC 14.98, Hr 97 - received 1L NSS bolus in ED - sepsis fluid bolus 1.5L; defer completing given BP stable (157/92), lactate 1.0, not clinically dry CRP 25.52, procal 0.06, ESR pending NPO after midnight, LR @ 80ml/hr x 1L IV Tylenol prn, morphine 2mg/4mg (for pain not relieved by #1) consult wound care - wound vac in place consult infectious disease consult general surgery continue daptomycin and Zosyn follow blood cultures trend cbc #T2DM On Ozempic at home, hold defer BSG checks, did not require during recent admission #tobacco use Patient has quit smoking -> transitioned to nicotine patches Nicotine 14 Mg patch Chronic stable diagnoses: ALBAN - may use home CPAP HS HTN - hold metoprolol and valsartan 10/02 with NPO status, resume 10/03; was started on amlodipine 10mg PO on recent discharge but has since d/c'ed with PCP anemia - Hgb 10.6, baseline, follow with PCP HLD - Repatha q2 weeks VTE ppx: SCDs, defer chemical ppx with possible surgical management Diet: NPO after midnight Dispo: med/tele with + SIRS criteria Admission and Anticipated Discharge Date Admission Date: 10/01/24 History of Present Illness Chief Complaint: swelling/edema to extremity Primary Care Provider: Isidro Brown Patient is a 49-year-old female with past medical history of type II DM on Ozempic, hypertension, and tobacco use. she was admitted from 08/29 to 09/04 for a left thigh abscess and cellulitis s/p surgical I&D 08/30 with a current wound VAC. She completed a course of Zosyn and Diflucan during hospitalization transition to Diflucan and Augmentin in the outpatient setting. Surgical cultures grew Jennifer albicans and Finegoldia magna. Patient has been following with wound care and has had dressing changes of her wound VAC every few days, just changed 09/30. She presented to the ED due to worsening redness and pain of the wound VAC site. Laboratories show white count of 14.98, heart rate elevated to 97 meeting SIRS criteria however lactate 1.0. He is being admitted for IV antibiotics, surgery and infectious disease consult placed. Patient seen at bedside. She stated that since Tuesday her wound has had increasing redness, pain, warmth, and has became hard. She endorses fatigue and general muscle aches however denies any fevers or chills. She follows with [facility] and has dressing changes once weekly there, she has home health nurses change her dressings twice a week. Her dressing changes are Tuesday, , and Tuesday. Her dressings were changed 09/30. Patient was to have an outpatient MRI with the wound clinic tomorrow however with her worsening pain, came into the ED this evening in anticipation of IV antibiotics. Patient completed her outpatient course of Diflucan and Augmentin, denies any nausea, vomiting, or diarrhea. She has quit smoking since recent admission, is currently using nicotine patch. She took her home medications today. Of note patient was started on amlodipine with recent hospitalization, she took this for 1 week at home however her BP stabilized and her PCP told her to discontinue t his. Suspect BP was elevated due to pain during recent admission. patient brought in her CPAP to use HS Patient works at [employer]. Allergies Allergy/AdvReac Type Severity Reaction Status Date / Time atorvastatin AdvReac Intermediate Cramping Verified 10/01/24 17:46 of the Muscles rosuvastatin AdvReac Intermediate Cramping Verified 10/01/24 17:46 of the Muscles Home Medications Medication Instructions Recorded Confirmed Type blood sugar diagnostic (OneTouch 01/05/24 07/23/24 History Verio test strips) blood-glucose meter (OneTouch 01/05/24 07/23/24 History Verio Flex Meter) citalopram 40 mg tablet 40 mg PO DAILY 01/05/24 10/01/24 History cyclobenzaprine 10 mg tablet 10 mg PO TID PRN neck pain 01/05/24 10/01/24 History gabapentin 300 mg capsule 300 mg PO BID 01/05/24 10/01/24 History valsartan 320 mg tablet 320 mg PO DAILY 01/05/24 10/01/24 History evolocumab 140 mg/mL subcutaneous 140 mg subcut Q14D 08/29/24 10/01/24 History pen injector (Niki Malik) lidocaine HCl 4 % (40 mg/mL) 1 applic topical DAILY PRN Wound 08/29/24 10/01/24 History mucosal solution Care Pain metoprolol succinate 100 mg 100 mg PO DAILY 08/29/24 10/01/24 History tablet,extended release 24 hr potassium chloride 10 mEq 10 meq PO BID 08/29/24 10/01/24 History tablet,extended release semaglutide 0.25 mg or 0.5 mg (2 0.5 mg subcut WK 08/29/24 10/01/24 History mg/3 mL) subcutaneous pen injector (Dionte) amlodipine 5 mg tablet (Norvasc) 10 mg (2 x 5 mg) PO QAM #30 tabs 09/04/24 10/01/24 Rx doxycycline hyclate 100 mg tablet 100 mg PO BID #22 tabs 10/10/24 Rx ibuprofen 600 mg tablet 600 mg PO Q6H PRN fever #30 tabs 10/10/24 Rx lactobacillus combination no.4 3 3,000 mmu cells PO DAILY #30 caps 10/10/24 Rx billion cell capsule (Probiotic) nystatin 100,000 unit/mL oral 10 ml PO TID 8 days #250 mL 10/10/24 Rx suspension ondansetron 4 mg disintegrating 4 mg PO Q6H PRN nausea and 10/10/24 Rx tablet vomiting #30 tabs Past Med/Surg History Problem List (Updated 10/05/24 @ 00:06 by Background Daemon) Recurrent cellulitis of lower extremity Sepsis Leukocytosis (Acute) Essential hypertension Wound infection (Acute) Abscess (Acute) Hypokalemia Leg swelling Edema, peripheral (Acute) Medical History (Updated 10/05/24 @ 00:06 by Background Daemon) Tobacco use Encounter for pre-operative examination Cellulitis Leg abscess Class 3 obesity Hyperlipidemia DMII (diabetes mellitus, type 2) Tobacco abuse HTN (hypertension) Chronic pain Anxiety Surgical History (Updated 10/09/24 @ 16:13 by Mary Lou Darling RN) History of incision and drainage (10/08/24) Left Lower Leg Incision and Drainage(Left) - Rola Maki DO Encounter for incision and drainage procedure (08/30/24) Incision and Debridement Left Thigh Wound(Left) - Julian Choudhury DO, FACS History of hysterectomy Family History Mother Myocardial infarction Hypertension Father Fibromyalgia Social History Smoking Status: Former smoker Tobacco Type: Cigarettes Cigarettes Per Day: 1PPD; Second Hand Exposure: No; Do You Dip or Chew Tobacco: No; Hx Alcohol Use: No Hx Substance Use: No Preferred Language: Lao Communication Ability: Effective Bridge Operator Slip Required: No Beliefs That Will Affect Care: None Current Living Situation: Spouse Current Living Situation Comment: Feels Safe at Home: Yes Assistive Devices: CPAP and Glasses Review of Systems Review of Systems: see HPI Physical Exam Physical Exam: The patient is awake, alert and oriented 3, well developed and well nourished, normocephalic and atraumatic, in no acute distress. Non-toxic appearing. HEENT- EOMI, mucous membranes moist. Hearing grossly intact. Heart-normal S1 and S2. No murmurs, rubs or gallops. Lungs-clear bilaterally, no respiratory distress, no accessory muscle use. Abdomen-normal bowel sounds and soft. No ascites noted. Non-tender. Extremities- Left hip with wound VAC in place, surrounding erythema, warmth. Rheumatologic-normal range of motion. Psychiatric-normal affect. Results & Data Results & Data Vital Signs (Past 12 Hours) Vital Signs Temp Pulse Pulse Resp BP BP Pulse Ox 10/01/24 22:42 36.8 C 97 H 21 157/92 H 93 10/01/24 22:26 96 H 10/01/24 21:07 96 H 20 159/110 H 94 10/01/24 20:00 94 H 21 153/105 H 95 10/01/24 18:31 90 18 142/109 H 97 10/01/24 18:16 93 H 10/01/24 18:05 91 H 16 99 10/01/24 16:35 36.3 C L 165 H 16 165/96 H 99 O2 Del Method 10/01/24 22:42 Room Air 10/01/24 22:26 10/01/24 21:07 Room Air 10/01/24 20:00 Room Air 10/01/24 18:31 Room Air 10/01/24 18:16 10/01/24 18:05 Room Air 10/01/24 16:35 Room Air Laboratory Results reviewed CBC, CMP, BioFire, lactate, magnesium Diagnostic Findings reviewed CXR and AP CT Medications Administered EDmorphine 4 Mg IV, NSS 1L bolus, 1G IV Tylenol, daptomycin plus Zosyn ECG Additional Comments: sinus rhythm with first-degree AV block Rate 91 QTc 445 Code Status & VTE Plan Code Status full VTE Prophylaxis Plan VTE Prophylaxis will be ordered: Yes Supervising Physician Co-Signing Physician Notes I personally saw and examined the patient. I independently reviewed the labs, EKG, imaging, problem list, medication list, past medical history and family history. I verified all tomlinson points and agree with Tori Michael PA-C with the following exceptions and/or additions: 49 year old female presents to the ER with cellulitis surrounding wound vac from recent abscess s/p I&D O/E Alert and well appearing, HS RRR, no murmurs, Chest CTAB, Erythema and swelling surrounding wound vac A/P Cellulitis, left thigh abscess, sepsis - does not meet criteria for sepsis fluid bolus, broad spectrum antibiotics with dapto, zosyn, NPO after midnight for surgical consult, ID consult PG Care Time/CCT Total # of Minutes Spent Total Time Spent with Patient: Total time spent is greater than 50% in coordination of care (as documented) at patient's floor/unit and/or counseling patient: Coding Level of Care Code 25938 INT INP/OBS CARE 3/75MIN Diagnoses Leg abscess L02.419 Cellulitis L03.90 Type 2 diabetes mellitus without complication, without long-term current use of insulin E11.9 Diabetes mellitus complication status: without complication Diabetes mellitus senior care insulin use: without senior care use Tobacco use Z72.0 (3) DMII (diabetes mellitus, type 2) Diabetes mellitus complication status: without complication Diabetes mellitus supervisor intermediates insulin use: without senior care use Qualified Code(s): E11.9 - Type 2 diabetes mellitus without complications
[2024-10-01] MEDS: DAPTOmycin 600 MG in SYRINGE 0 ML IV ONE (23:39)
[2024-10-01] MEDS: PIPERACILLIN/TAZOBACTAM 4.5 GM/100 ML BAG IV ONE (23:39)
[2024-10-01 23:55] LABS: C Reactive Protein 25.52 mg/dl (0-0.5)
[2024-10-02 00:38] LABS: Appearance Urine Clear (Clear); Bacteria Urine Automated None Seen (None Seen); Bilirubin Urine Negative (Negative); Blood Urine Negative (Negative); Cast Urine Automated 0-2 /lpf (0-2); Color Urine Yellow; Glucose Urine UA Negative (Negative); Ketones Urine Trace (Negative); Leukocyte Esterase Urine Negative (Negative); Nitrite Urine Negative (Negative); Protein Urine Trace (Negative); RBC Urine Automated 0-2 /hpf (0-2); Specific Gravity Urine > 1.045 (1.000-1.030); Urobilinogen Urine Negative (Negative); WBC Urine Automated 0-5 /hpf (0-5); pH Urine 5.5 (4.5-7.5)
[2024-10-02] MEDS ORDERED: MoRPHine SULFATE 2 MG/ML CARP IV PRN (02:54)
[2024-10-02] MEDS ORDERED: ACETAMINOPHEN 1,000 MG/100 ML VIAL IV PRN (02:54)
[2024-10-02] MEDS ORDERED: ONDANSETRON INJ 2 MG/ML 2 ML VIAL IV PRN (02:54)
[2024-10-02] MEDS: MoRPHine SULFATE 4 MG/ML 1 ML CARP\\VIAL IV PRN (04:46)
[2024-10-02 05:39] LABS: Basophils # (auto) 0.01 K/uL (0.00-0.20); Basophils % (auto) 0.1 %; Eosinophils # (auto) 0.12 K/uL (0.00-0.50); Hematocrit (blood only) 28.9 % (37.0-47.0); Hemoglobin 9.4 g/dl (12.0-16.0); Immature Granulocytes # (auto) 0.04 K/uL (0.01-0.20); Immature Granulocytes % (auto) 0.3 %; Lymphocytes # (auto) 1.04 K/uL (1.20-3.40); Lymphocytes % (auto) 8.8 %; Mean Corpuscular Hemoglobin 27.6 pg (25.0-34.0); Mean Corpuscular Hgb Conc 32.5 g/dL (32.0-36.0); Mean Platelet Volume 9.5 fL (9.4-12.4); Monocytes # (auto) 0.65 K/uL (0.11-0.59); Monocytes % (auto) 5.5 %; Neutrophils # (auto) 9.95 K/uL (1.40-6.50); Neutrophils % (auto) 84.3 %; Platelet Count 199 K/uL (130-400); RDW Coefficient of Variation 15.5 % (11.5-14.5); White Blood Count 11.81 K/ul (4.8-10.8)
[2024-10-02 05:54] LABS: BUN Creatinine Ratio 21.6 (10-20); Calcium 8.8 mg/dl (8.6-10.3); Creatinine Clr Calc Pharmacy 92.4 ml/min; Potassium 3.7 mmol/L (3.5-5.1)
[2024-10-02] MEDS: LACTATED RINGER'S 1,000 ML IV SCH (07:36)
[2024-10-02] MEDS: DAPTOmycin 400 MG in SYRINGE 0 ML IV SCH (10:04)
[2024-10-02] MEDS: NICOTINE 14 MG/24 HR PATCH TD SCH (10:09)
--- NOTE | 2024-10-02 10:18 | Surgery Consultation ---
Date of Consultation October 02, 2024 Assessment & Plan (1) Wound infection: (2) Cellulitis: (3) Class 3 obesity: (4) DMII (diabetes mellitus, type 2): Plan 49 yo female with recurrent wound infections and delayed wound healing of the lateral left thigh wound. There is extensive edema and ecchymosis on exam and cellulitis on CT scan. No drainable fluid collections on imaging or examination. Wound is healthy appearing without any drainage or abscess. ? etiology of continue infections and issues with wound healing , need for recurrent I&D and wound vac. ID questioning atypical pathogen or process. As of now would recommend conservative management with IV antibiotic and wound care. Will follow along. Continue medical management Discussed with Dr. Frazier who agrees with above. History of Present Illness Reason for Consultation: Left thigh wound/cellulitis Requesting Physician: Tori Michael PA-C Attending Physician: Gaurav Mccray MD History of Present Illness Angelina is a 49 yo female with history of chronic wounds of the left thigh with multiple wound vac placement for infections since 2020 after cat bite who recently had I&D of left thigh by Dr. Choudhury on 08/30/24 and wound vac placed. She states she follows with [facility] for her wound care and has wound vac change Tuesday, Tuesday, and . Nurse on Tuesday removed wound vac and wound looked healthy and vac was replaced. she states she noticed itching and redness from the wound that started Tuesday evening and the redness started to spead which prompted ER visit. No trauma or falls recently. No fevers but feels chills and face feels hot. Allergies Allergy/AdvReac Type Severity Reaction Status Date / Time atorvastatin AdvReac Intermediate Cramping Verified 10/01/24 17:46 of the Muscles rosuvastatin AdvReac Intermediate Cramping Verified 10/01/24 17:46 of the Muscles Home Medications Medication Instructions Recorded Confirmed Type blood sugar diagnostic (OneTouch 01/05/24 07/23/24 History Verio test strips) blood-glucose meter (OneTouch 01/05/24 07/23/24 History Verio Flex Meter) citalopram 40 mg tablet 40 mg PO DAILY 01/05/24 10/01/24 History cyclobenzaprine 10 mg tablet 10 mg PO TID PRN neck pain 01/05/24 10/01/24 History gabapentin 300 mg capsule 300 mg PO BID 01/05/24 10/01/24 History hydrocodone 10 mg-acetaminophen 1 tab PO Q6H PRN leg pain 01/05/24 10/01/24 History 325 mg tablet valsartan 320 mg tablet 320 mg PO DAILY 01/05/24 10/01/24 History evolocumab 140 mg/mL subcutaneous 140 mg subcut Q14D 08/29/24 10/01/24 History pen injector (Niki Malik) lidocaine HCl 4 % (40 mg/mL) 1 applic topical DAILY PRN Wound 08/29/24 10/01/24 History mucosal solution Care Pain metoprolol succinate 100 mg 100 mg PO DAILY 08/29/24 10/01/24 History tablet,extended release 24 hr potassium chloride 10 mEq 10 meq PO BID 08/29/24 10/01/24 History tablet,extended release semaglutide 0.25 mg or 0.5 mg (2 0.5 mg subcut WK 08/29/24 10/01/24 History mg/3 mL) subcutaneous pen injector (Ozempic) amlodipine 5 mg tablet (Norvasc) 10 mg (2 x 5 mg) PO QAM #30 tabs 09/04/24 10/01/24 Rx Patient History Medical History (Updated 10/02/24 @ 10:57 by Gaurav Mccray MD) Tobacco abuse HTN (hypertension) Chronic pain Anxiety Surgical History (Updated 08/31/24 @ 09:13 by Mary Lou Darling RN) Encounter for incision and drainage procedure (08/30/24) Incision and Debridement Left Thigh Wound(Left) - Julian Choudhury DO, FACS History of hysterectomy Family History Mother Myocardial infarction Hypertension Father Fibromyalgia Social History Smoking Status: Former smoker Tobacco Type: Cigarettes Cigarettes Per Day: 1PPD; Second Hand Exposure: No; Do You Dip or Chew Tobacco: No; Tobacco Cessation Education Requested by Patient: No Hx Alcohol Use: No Hx Substance Use: No Preferred Language: Emirati Communication Ability: Effective Catalog Specialist Required: No Beliefs That Will Affect Care: None Current Living Situation: Spouse Current Living Situation Comment: Other Information That Helps Us Care for You: No Feels Safe at Home: Yes Safety Concerns: Feels Safe At This Time Assistive Devices: CPAP, Glasses and Other Assistive Devices Comment: wound vac from home Review of Systems Review of Systems: All systems reviewed & are unremarkable except as noted in HPI & below Physical Exam Constitutional: WD/WN, vitals as above cooperative and comfortable; no acute distress and not ill appearing Respiratory: normal respiratory effort; no respiratory distress Musculoskeletal: Left upper lateral thigh with wound vac in place. There is surrounding edema from the wound site medially and posteriorly to the left upper gluteus muscle with ecchymosis extending posteriorly. There is no palpable crepitus or fluctuance. There is not alot of erythema surrounding the wound some medially. There is some reactive erythema to the dressing site. The wound is healthy appearing with some dry fibrinous tissue but no necrosis. No active drainage. No purulence expressed from wound once wound vac removed. Psychiatric: Orientation: alert and oriented x 3 Results & Data Vital Signs (Past 12 Hours) Vital Signs Temp Pulse Pulse Pulse Resp BP BP 10/02/24 07:32 92 H 10/02/24 07:31 38.1 C H 102 H 18 114/74 10/02/24 02:54 10/02/24 01:55 85 10/02/24 01:51 36.8 C 76 18 124/67 10/02/24 01:45 36.4 C L 84 18 106/69 10/02/24 01:45 36.4 C L 84 18 106/69 10/02/24 00:00 91 H 14 107/77 10/02/24 00:00 92 H 16 107/77 10/01/24 23:33 96 H 18 159/95 H 10/01/24 23:06 94 H 19 144/89 H 10/01/24 22:42 36.8 C 97 H 21 157/92 H 10/01/24 22:33 98 H 17 157/92 H 10/01/24 22:26 96 H Pulse Ox Pulse Ox O2 Del Method O2 Del Method 10/02/24 07:32 10/02/24 07:31 95 Room Air 10/02/24 02:54 93 Room Air 10/02/24 01:55 10/02/24 01:51 97 Room Air 10/02/24 01:45 93 Room Air 10/02/24 01:45 93 Room Air 10/02/24 00:00 92 10/02/24 00:00 100 Room Air 10/01/24 23:33 92 10/01/24 23:06 96 10/01/24 22:42 93 Room Air 10/01/24 22:33 94 10/01/24 22:26 Laboratory Results 10/02/24 10/02/24 10/01/24 Range/Units 05:16 00:24 17:57 WBC 11.81 H (4.8-10.8) K/ul RBC 3.40 L (4.20-5.40) M/uL Hgb 9.4 L (12.0-16.0) g/dl Hct 28.9 L (37.0-47.0) % MCV 85.0 (80.0-100.0) fL MCH 27.6 (25.0-34.0) pg MCHC 32.5 (32.0-36.0) g/dL RDW Std Deviation 48.0 H (36.4-46.3) fL RDW Coeff of Jhonny 15.5 H (11.5-14.5) % Plt Count 199 (130-400) K/uL MPV 9.5 (9.4-12.4) fL Immature Gran % (Auto) 0.3 % Neut % (Auto) 84.3 % Lymph % (Auto) 8.8 % Tift % (Auto) 5.5 % Eos % (Auto) 1.0 % Baso % (Auto) 0.1 % Neut # (Auto) 9.95 H (1.40-6.50) K/uL Lymph # (Auto) 1.04 L (1.20-3.40) K/uL Tift # (Auto) 0.65 H (0.11-0.59) K/uL Eos # (Auto) 0.12 (0.00-0.50) K/uL Baso # (Auto) 0.01 (0.00-0.20) K/uL Immature Gran # (Auto) 0.04 (0.01-0.20) K/uL ESR (0-20) mm/hr PT (9.0-12.0) Seconds INR (0.9-1.1) Sodium 138 (136-145) mmol/L Potassium 3.7 (3.5-5.1) mmol/L Chloride 107 (98-107) mmol/L Carbon Dioxide 27 (21-32) mmol/L Anion Gap 4 (3-11) BUN 16 (6-23) mg/dl Creatinine 0.74 (0.6-1.2) mg/dl Est Cr Clr Drug Dosing 92.4 ml/min eGFR 99.12 BUN/Creatinine Ratio 21.6 H (10-20) Glucose 100 H (70-99(Fasting)) mg/dl Lactate (0.4-2.0) mmol/L Calcium 8.8 (8.6-10.3) mg/dl Magnesium (1.7-2.4) mg/dl Total Bilirubin (0.2-1.0) mg/dl AST (13-39) U/L ALT (7-52) U/L Alkaline Phosphatase (34-104) U/L C-Reactive Protein (0-0.5) mg/dl Total Protein (6.0-8.3) gm/dl Albumin (3.4-5.0) gm/dl Globulin (2.5-4.0) gm/dl Albumin/Globulin Ratio (0.9-2) Procalcitonin (0-0.5) ng/ml Urine Color Yellow Urine Appearance Clear (Clear) Urine pH 5.5 (4.5-7.5) Ur Specific [place] > 1.045 H (1.000-1.030) Urine Protein Trace H (Negative) Urine Glucose (UA) Negative (Negative) Urine Ketones Trace H (Negative) Urine Blood Negative (Negative) Urine Nitrite Negative (Negative) Urine Bilirubin Negative (Negative) Urine Urobilinogen Negative (Negative) Ur Leukocyte Esterase Negative (Negative) Urine WBC (Auto) 0-5 (0-5) /hpf Urine RBC (Auto) 0-2 (0-2) /hpf U Hyaline Cast (Auto) 0-2 (0-2) /lpf U Epithel Cells (Auto) 3-5 H (0-2) /hpf Urine Bacteria (Auto) None Seen (None Seen) Adenovirus (PCR) Not Detected (NotDetected) B. pertussis DNA (PCR) Not Detected (NotDetected) B.parapertussis DNA PCR Not Detected (NotDetected) C. pneumoniae DNA (PCR) Not Detected (NotDetected) Coronavirus OC43 (PCR) Not Detected (NotDetected) Coronavirus HKU1 (PCR) Not Detected (NotDetected) Coronavirus 229E (PCR) Not Detected (NotDetected) SARS-CoV-2 (PCR) Not Detected (NotDetected) Coronavirus NL63 (PCR) Not Detected (NotDetected) Human Metapneumovir PCR Not Detected (NotDetected) Influenza Type A (PCR) Not Detected (NotDetected) Influenza Type B (PCR) Not Detected (NotDetected) M. pneumoniae (PCR) Not Detected (NotDetected) Parainfluenza 1 (PCR) Not Detected (NotDetected) Parainfluenza 2 (PCR) Not Detected (NotDetected) Parainfluenza 3 (PCR) Not Detected (NotDetected) Parainfluenza 4 (PCR) Not Detected (NotDetected) RSV (PCR) Not Detected (NotDetected) Entero/Rhino (PCR) Not Detected (NotDetected) 10/01/24 Range/Units 17:53 WBC 14.98 H (4.8-10.8) K/ul RBC 3.77 L (4.20-5.40) M/uL Hgb 10.6 L (12.0-16.0) g/dl Hct 32.0 L (37.0-47.0) % MCV 84.9 (80.0-100.0) fL MCH 28.1 (25.0-34.0) pg MCHC 33.1 (32.0-36.0) g/dL RDW Std Deviation 47.5 H (36.4-46.3) fL RDW Coeff of Jhonny 15.4 H (11.5-14.5) % Plt Count 254 (130-400) K/uL MPV 9.8 (9.4-12.4) fL Immature Gran % (Auto) 0.5 % Neut % (Auto) 78.4 % Lymph % (Auto) 15.6 % Tift % (Auto) 4.6 % Eos % (Auto) 0.8 % Baso % (Auto) 0.1 % Neut # (Auto) 11.73 H (1.40-6.50) K/uL Lymph # (Auto) 2.34 (1.20-3.40) K/uL Tift # (Auto) 0.69 H (0.11-0.59) K/uL Eos # (Auto) 0.12 (0.00-0.50) K/uL Baso # (Auto) 0.02 (0.00-0.20) K/uL Immature Gran # (Auto) 0.08 (0.01-0.20) K/uL ESR 70 H (0-20) mm/hr PT 10.9 (9.0-12.0) Seconds INR 1.0 (0.9-1.1) Sodium 139 (136-145) mmol/L Potassium 3.8 (3.5-5.1) mmol/L Chloride 105 (98-107) mmol/L Carbon Dioxide 27 (21-32) mmol/L Anion Gap 7 (3-11) BUN 23 (6-23) mg/dl Creatinine 0.82 (0.6-1.2) mg/dl Est Cr Clr Drug Dosing 83.9 ml/min eGFR 87.63 BUN/Creatinine Ratio 28.0 H (10-20) Glucose 97 (70-99(Fasting)) mg/dl Lactate 1.0 (0.4-2.0) mmol/L Calcium 9.7 (8.6-10.3) mg/dl Magnesium 1.7 (1.7-2.4) mg/dl Total Bilirubin 0.6 (0.2-1.0) mg/dl AST 12 L (13-39) U/L ALT 10 (7-52) U/L Alkaline Phosphatase 90 (34-104) U/L C-Reactive Protein 25.52 H (0-0.5) mg/dl Total Protein 7.0 (6.0-8.3) gm/dl Albumin 4.0 (3.4-5.0) gm/dl Globulin 3.0 (2.5-4.0) gm/dl Albumin/Globulin Ratio 1.3 (0.9-2) Procalcitonin 0.06 (0-0.5) ng/ml Urine Color Urine Appearance (Clear) Urine pH (4.5-7.5) Ur Specific [place] (1.000-1.030) Urine Protein (Negative) Urine Glucose (UA) (Negative) Urine Ketones (Negative) Urine Blood (Negative) Urine Nitrite (Negative) Urine Bilirubin (Negative) Urine Urobilinogen (Negative) Ur Leukocyte Esterase (Negative) Urine WBC (Auto) (0-5) /hpf Urine RBC (Auto) (0-2) /hpf U Hyaline Cast (Auto) (0-2) /lpf U Epithel Cells (Auto) (0-2) /hpf Urine Bacteria (Auto) (None Seen) Adenovirus (PCR) (NotDetected) B. pertussis DNA (PCR) (NotDetected) B.parapertussis DNA PCR (NotDetected) C. pneumoniae DNA (PCR) (NotDetected) Coronavirus OC43 (PCR) (NotDetected) Coronavirus HKU1 (PCR) (NotDetected) Coronavirus 229E (PCR) (NotDetected) SARS-CoV-2 (PCR) (NotDetected) Coronavirus NL63 (PCR) (NotDetected) Human Metapneumovir PCR (NotDetected) Influenza Type A (PCR) (NotDetected) Influenza Type B (PCR) (NotDetected) M. pneumoniae (PCR) (NotDetected) Parainfluenza 1 (PCR) (NotDetected) Parainfluenza 2 (PCR) (NotDetected) Parainfluenza 3 (PCR) (NotDetected) Parainfluenza 4 (PCR) (NotDetected) RSV (PCR) (NotDetected) Entero/Rhino (PCR) (NotDetected) Diagnostic Findings CT of the abdomen and pelvis was performed with IV contrast (93 cc optiray 320), with the following protocol: axial images with, and reconstructed coronal and sagittal images. One of the following dose reduction techniques was utilized for this exam: Automated exposure control, adjustment of the mA and/or kV according to patient size, and use of iterative reconstruction. COMPARISON: No prior studies available for comparison. FINDINGS: Abdomen: Liver: Normal in size, shape, and density. No focal lesions, cysts, or masses were identified. Hepatic vasculature and biliary ducts are unremarkable. Gallbladder and Biliary System: The gallbladder is partially contracted. No wall thickening, pericholecystic fluid, or gallstones were identified. The common bile duct is normal in caliber without dilation. Pancreas: Pancreatic head, body, and tail are visualized and appear normal in size and density. No pancreatic masses or calcifications were noted. The pancreatic duct is not dilated. Spleen: Normal in size, shape, and density. No splenic lesions or masses were identified. Appendix: The appendix is normal in size without tres appendiceal fat stranding, and without an appendicolith. No evidence of appendiceal abscess or perforation. Kidneys and Adrenal Glands: Both kidneys are normal in size, shape, and position. Few tiny bilateral simple cortical cysts (3-8 mm); BOSNIAK 1. Cortical thickness is within normal limits. No renal calculi or hydronephrosis. Prominent right extrarenal pelvis (variant). Small nodule within the left adrenal gland measuring 8 x 8mm. Right adrenal glands is unremarkable with no evidence of mass or hyperplasia. Pelvis: Urinary Bladder: Normal in contour and wall thickness. No intraluminal lesions identified. Uterus: Not seen. No pelvic masses. Peritoneal and Retroperitoneal Structures: No free fluid or abnormal fluid collections were identified within the abdomen or pelvis. Small paraortic lymph nodes 4-11 mm likely non-specific. No lymphadenopathy was noted. Aortic atherosclerotic wall calcifications. Bowel: The visualized bowel loops are normal in caliber and appearance. No evidence of bowel obstruction or wall thickening. Sigmoid colon minimal diverticulosis, no diverticulitis. Bones and Soft Tissues: Pelvic bones and soft tissues are unremarkable. No fractures or abnormal masses were identified. Left gluteal skin wound with underlying soft tissue thickening, diffuse fat stranding and subcutaneousl emphysema, likely denoting inflammatory changes/cellulitis. No deeper intramuscular or osseous extensions. There are two underlying subcutaneous fluid locules (8-12 mm). IMPRESSION: 1. No evidence of acute intra-abdominal pathology. 2. Left gluteal skin wound with underlying subcutaneous emphysema and inflammatory changes/cellulitis as described. Two small underlying subcutaneous fluid locules (8-12 mm). No deeper intramuscular or osseous extensions. Personally reviewed CT scan images and agree with above findings. (4) DMII (diabetes mellitus, type 2) Diabetes mellitus watermelon inspector insulin use: without residential use Diabetes mellitus complication status: without complication Qualified Code(s): E11.9 - Type 2 diabetes mellitus without complications
[2024-10-02] MEDS: MoRPHine SULFATE 2 MG/ML CARP IV PRN (10:49)
[2024-10-02] MEDS: PIPERACILLIN/TAZOBACTAM 4.5 GM/100 ML BAG IV SCH (10:49)
--- NOTE | 2024-10-02 10:58 | Hospitalist Progress Note ---
Date of Service October 02, 2024 Assessment & Plan (1) Leg abscess: Plan: Recurrent cellulitis involving left leg wound. Recent hospitalization with incision and drainage performed and wound VAC was placed on August 30. Surgery consultation and infectious disease consultation requested and pending. Continue daptomycin and Zosyn for now, day 2. (2) DMII (diabetes mellitus, type 2): Plan: ADA diet. Sliding scale coverage. (3) Tobacco use: Plan: Smoking cessation recommended. NicoDerm patch if needed (4) Essential hypertension: Plan: Stable. Continue current medical management Plan Patient is a 49-year-old female with past medical history of type II DM on Ozempic, hypertension, and tobacco use. she was admitted from 08/29 to 09/04 for a left thigh abscess and cellulitis s/p surgical I&D 08/30 with a current wound VAC. She completed a course of Zosyn and Diflucan during hospitalization transition to Diflucan and Augmentin in the outpatient setting. Surgical cultures grew Jennifer albicans and Finegoldia magna. Patient has been following with wound care and has had dressing changes of her wound VAC every few days, just changed 09/30. She presented to the ED due to worsening redness and pain of the wound VAC site. Laboratories show white count of 14.98, heart rate elevated to 97 meeting SIRS criteria however lactate 1.0. He is being admitted for IV antibiotics, surgery and infectious disease consult placed. To be determined Admission and Anticipated Discharge Date Admission Date: October 02, 2024 Subjective Recurrent complications from chronic left thigh wound and infection. She was just hospitalized August 29 through September 04 for similar symptoms and underwent surgical incision and drainage and placement of a wound VAC on August 30. She was discharged to home September 04 on oral Diflucan and Augmentin. She now returns with exacerbation of the infection and is currently on daptomycin and Zosyn, day 2. Surgery consultation and infectious disease consultation have been requested. Wound care nurse is also involved. Morphine is being given on a as needed basis for her pain. Review of Systems 2 Review of Systems: Constitutionalno fever or chills ENTno blurred vision, no double vision, no epistaxis, no sore throat Respiratoryno cough, no wheezing, no shortness of breath Cardiacno palpitations, no chest pain, no syncope Melyssa nausea, vomiting, diarrhea, melena, hematochezia GUno urinary retention, no urinary incontinence, no dysuria, no hematuria Musculoskeletalno joint pain, no muscle tenderness Skincellulitic process left thigh with scarring and small open wound from recent incision and drainage Neurono isolated weakness, no paresthesia Psychno depression, no anxiety Physical Exam 2 Physical Exam: General-alert and oriented x3, no fever, no chills HEENT-head atraumatic and normocephalic, pupils equal and reactive to light, extraocular muscles intact Neck-no lymphadenopathy or thyromegaly, trachea midline Chest-clear to auscultation. No rales, wheezing or rhonchi Cardiac-regular rate and rhythm, normal S1 and S2 Abdomen-normal bowel sounds, no hepatosplenomegaly Extremities-no cyanosis, clubbing, or edema Skincellulitic process left thigh with scarring and chronic wound. Distal aspect of wound is open from recent incision and drainage without obvious drainage at this time Neuro-cranial nerves II through XII intact, motor and sensory function within normal limits, strength symmetrical, no focal deficits Psych-normal affect, normal mood Results & Data Results & Data Vital Signs (Past 12 Hours) Vital Signs Temp Pulse Pulse Pulse Resp BP BP 10/02/24 07:32 92 H 10/02/24 07:31 38.1 C H 102 H 18 114/74 10/02/24 02:54 10/02/24 01:55 85 10/02/24 01:51 36.8 C 76 18 124/67 10/02/24 01:45 36.4 C L 84 18 106/69 10/02/24 01:45 36.4 C L 84 18 106/69 10/02/24 00:00 91 H 14 107/77 10/02/24 00:00 92 H 16 107/77 10/01/24 23:33 96 H 18 159/95 H 10/01/24 23:06 94 H 19 144/89 H Pulse Ox Pulse Ox O2 Del Method O2 Del Method 10/02/24 07:32 10/02/24 07:31 95 Room Air 10/02/24 02:54 93 Room Air 10/02/24 01:55 10/02/24 01:51 97 Room Air 10/02/24 01:45 93 Room Air 10/02/24 01:45 93 Room Air 10/02/24 00:00 92 10/02/24 00:00 100 Room Air 10/01/24 23:33 92 10/01/24 23:06 96 Laboratory Results 10/02/24 05:16 10/02/24 05:16 PG Care Time/CCT Total # of Minutes Spent Total Time Spent with Patient: Total time spent is greater than 50% in coordination of care (as documented) at patient's floor/unit and/or counseling patient: Coding Level of Care Code 52951 SUB INP/OBS CARE 3/50MIN Diagnoses Leg abscess L02.419 Type 2 diabetes mellitus without complication, without long-term current use of insulin E11.9 Diabetes mellitus senior living insulin use: without intermediate project manager use Diabetes mellitus complication status: without complication Tobacco use Z72.0 Essential hypertension I10 (2) DMII (diabetes mellitus, type 2) Diabetes mellitus intermediate project manager insulin use: without senior living use Diabetes mellitus complication status: without complication Qualified Code(s): E11.9 - Type 2 diabetes mellitus without complications
[2024-10-02] MEDS ORDERED: Nursing to Pharmacy Communication SCH (15:30)
--- NOTE | 2024-10-02 18:17 | Magnetic Resonance Report ---
Clinical history: Recent cellulitis. Cat-bite Technique: Multiple T1 and T2-weighted magnetic resonance images were obtained of the left thigh without gadolinium contrast Comparison is made to the CT dated 08/29/2024 Findings: Again seen is prominent subcutaneous edema of the lateral left hip, consistent with cellulitis. A sinus tract is again seen extending from the lateral skin surface to the left lateral outer margin of the gluteus ellyn muscle. Multiple pockets of fluid are again seen in the adjacent fat, measuring up to 3.5 cm in size. These are concerning for abscesses No fracture is identified. There is no subluxation or dislocation. No significant arthritic changes are seen. There is heterogeneity of red and yellow marrow. No definite focal osseous lesion is evident. There is no sign of osteomyelitis The visualized musculature appears unremarkable Impression: 1. No definite change in cellulitis lateral to the left hip, with a sinus tract and suspected small soft tissue abscesses 2. No sign of osteomyelitis or myositis ACT 112: Positive. There are findings on this exam that require communication between the performing entity and the patient following Patient Test Result Information Act ([place] ACT 112) guidelines. Electronically signed by Fabian Recinos 10-02-2024 6:17 PM
[2024-10-02] MEDS: GABAPENTIN 300 MG CAP PO SCH (19:48)
--- NOTE | 2024-10-02 19:48 | Infectious Disease Consult ---
Date of Consultation October 02, 2024 Assessment & Plan (1) Leg abscess: Plan ID Problem List: #Left thigh abscess/cellulitis s/p multiple I&Ds, most recently on 08/30 with wound vac, 08/30 OR Cx + C. albicans and Finegoldia magna #Recurrent L thigh abscesses Impression: Angelina Cotter is a 49-year-old woman with history of type II DM on Ozempic (A1c <4.2), HTN, tobacco use, recent admission to [facility] 08/29 to 09/04 (left thigh abscess and cellulitis s/p I&D 08/30 with a current wound VAC. 08/30 OR Cx + C. albicans and Finegoldia magna, s/p pip-tazo + fluconazole -> Augmentin + fluconazole on d/c), who presents with worsening redness and pain at the wound site. ID is consulted for R thigh wound infection. She began having episodes of L thigh cellulitis/abscesses in 2021 after adopting a kitten (patient works at the [employer]) which bit and scratched her on her left leg. The area turned red and swollen, and led to an admission s/p I&D. Since that time, she has many recurrences of infection at the L thigh s/p multiple I&Ds (including from [facility] by Dr. Fontaine; Dr. Phillips in [place]). She recalls there was Staph in cultures but never grew MRSA, she also recalls a gram negative in the past. She has also seen ID at [facility] in [place]. She reports that approximately 2 year prior, she had her last I&D and was also treated with several weeks of IV abx at that time (reportedly, at least one time in the past, there was concern about possible underlying osteomyelitis. Her infection has only recurred at the left thigh area. She does not remember the names of all of the abx she has been on but knows she has had a few rounds of 7-10d courses of doxycycline and several courses of IV vancomycin and IV pip- tazo. She said that prior to August, her last course of PO abx was around 05/2024. She has never had Staph decolonization. She was recently admitted to [facility] 08/29 to 09/04 for left thigh abscess and cellulitis. She underwent surgical I&D 08/30 with a current wound VAC. Surgical cultures 08/30 grew Jennifer albicans and Finegoldia magna. She completed a course of Zosyn and Diflucan while admitted, then was discharged on 14d Diflucan and 10d Augmentin. Patient has been following with wound care and has had dressing changes of her wound VAC every few days, just changed 09/30. She developed redness and pain around at the wound vac site starting around 09/29. No fevers or chills. In the ED, initially afebrile (Tmax 38.1 on 10/02) HR 97, WBC 14.98, CRP 25.52, lactate 1.0. CT 10/01 showed left gluteal skin with underlying subq emphysema and cellulitis, 2 small underlying subcutaneous fluid-filled locules 8 to 12 mm. She was started on daptomycin and pip-tazo Primary team in the process of obtaining records partial records obtained from Dr. Fontaine. Awaiting records from Dr. Phillips. Dr. Ibarra (wound care)s clinic has not obtained any cultures. Review of partial records from Dr. Martin office reveal 08/21/21 I&D Cx + group A Strep, and 07/20/22 I&D Cx + CoNS and Rothi mucilaginosa. She does not have any pain at other sites. No rashes. She reports that she does have stiff fingers and swollen joints sometimes. Her sister has sarcoidosis, another sister has RA, and another sister has lupus. She reports shes gotten workup for autoimmune and endocrine issues in the past but that the workup has been unremarkable. Discussion She has had recurrent abscesses for several years s/p multiple I&Ds. Interesting ly, her symptoms started with a cat bite, and the patient works at the [employer]. She reports improvement with abx and wound vacs but has persistently nonhealing wounds and recurrence of abscesses. Given the recurrent nature, wonder about an atypical pathogen or process either a zoonotic pathogen (Bartonella or Brucella although much less likely as the patient has already received multiple courses of doxycycline) or other atypical pathogen (Nocardia, NTM). Would also consider if theres a non-infectious underlying process such as hidradenitis suppurativa or perhaps even an immunodeficiency such as CGD (although has not been a lifelong issue for the patient). Interestingly, the patients sisters with multiple autoimmune/inflammatory conditions (sarcoid, lupus, RA), and wonder if her poor wound healing and/or abscess formation may represent an underlying condition. Hidradenitis suppurativa has been associated with SLE, for example. Overall this admission, per surgery, her wound appearance is overall improving; wound vac removed and no drainage from the wound currently not planning for repeat I&D. However, despite this, she has a fevers and tachycardia on 10/02 after abx have been started continue to monitor fever curve closely. BCx pending. L thigh MRI intended as outpatient, can perform as inpatient. No new wound Cx have been obtained. Can continue daptomycin and pip-tazo for now. May ultimately re- treat with another course of abx for SSTI. Will also send off Histo, Brucella, Bartonella, HIV serologies. If repeating I&D in the future, may consider broader micro workup as below. If prior records reveal Staph, then would recommend Staph decolonization. Recommendations: - Can continue daptomycin and pip-tazo for now - Send Histo/Blasto UrAg, Bartonella Ab, Brucella Ab, HIV - Would attempt to obtain records and culture results from prior I&Ds in the past few years - Per surgery, no plan for repeat I&D at this time. If pursuing I&D in the futur e, would send: bacterial/fungal/AFB Cx, Bartonella PCR, Brucella PCR, have lab save extra fluid in case of additional molecular testing - If prior records reveal Staph, then would recommend Staph decolonization - Consider autoimmune/inflammatory etiologies (e.g., HS) - L thigh MRI intended as outpatient, can perform as inpatient ID will continue to follow. Zaynab Bautista MD, M[facility] Infectious Diseases [facility] ID Connect direct line: [phone] Consultation Information Consultation was provided via telemedicine using two-way real-time interactive telecommunication between the patient and the telemedicine provider. For the duration of the visit, the provider was performing the assessment from a different facility than the patient. This includesuse of bluetooth stethoscope forauscultationperformed by the telepresenter that the telemedicine provider can hear if described in the physical exam. Mental Health Program Manager contact information: Please call [facility] Call Center [phone]. (Phone Number For Physician Use Only) After establishing a telemedicine visit, patient was: Patient was verified with two unique identifiers, Patient/authorized rep acknowledged consent and understanding and Gave permission to continue telehealth session Time Spent with Patient: Initial => 75 min History of Present Illness Reason for Consultation: L thigh wound infection Attending Physician: Gaurav Mccray MD History of Present Illness Angelina Cotter is a 49-year-old woman with history of type II DM on Ozempic (A1c <4.2), HTN, tobacco use, recent admission to [facility] 08/29 to 09/04 (left thigh abscess and cellulitis s/p I&D 08/30 with a current wound VAC. 08/30 OR Cx + C. albicans and Finegoldia magna, s/p pip-tazo + fluconazole -> Augmentin + fluconazole on d/c), who presents with worsening redness and pain at the wound site. ID is consulted for L thigh wound infection. She began having episodes of L thigh cellulitis/abscesses in 2021 after adopting a kitten (patient works at the [employer]) which bit and scratched her on her left leg. The area turned red and swollen, and led to an admission s/p I&D. Since that time, she has many recurrences of infection at the L thigh s/p multiple I&Ds (including from [facility] by Dr. Fontaine; Dr. Phillips in [place]). She recalls there was Staph in cultures but never grew MRSA, she also recalls a gram negative in the past. She has also seen ID at [facility] in [place]. She reports that approximately 2 year prior, she had her last I&D and was also treated with several weeks of IV abx at that time (reportedly, at least one time in the past, there was concern about possible underlying osteomyelitis. Her infection has only recurred at the left thigh area. She does not remember the names of all of the abx she has been on but knows she has had a few rounds of 7-10d courses of doxycycline and several courses of IV vancomycin and IV pip- tazo. She said that prior to August, her last course of PO abx was around 05/2024. She has never had Staph decolonization. She was recently admitted to [facility] 08/29 to 09/04 for left thigh abscess and cellulitis. She underwent surgical I&D 08/30 with a current wound VAC. Surgical cultures 08/30 grew Jennifer albicans and Finegoldia magna. She completed a course of Zosyn and Diflucan while admitted, then was discharged on 14d Diflucan and 10d Augmentin. Patient has been following with wound care and has had dressing changes of her wound VAC every few days, just changed 09/30. She developed redness and pain around at the wound vac site starting around 09/29. No fevers or chills. In the ED, initially afebrile (Tmax 38.1 on 10/02) HR 97, WBC 14.98, CRP 25.52, lactate 1.0. CT 10/01 showed left gluteal skin with underlying subq emphysema and cellulitis, 2 small underlying subcutaneous fluid-filled locules 8 to 12 mm. She was started on daptomycin and pip-tazo Primary team in the process of obtaining records partial records obtained from Dr. Fontaine. Awaiting records from Dr. Phillips. Dr. Ibarra (wound care)s clinic has not obtained any cultures. Review of partial records from Dr. Martin office reveal 08/21/21 I&D Cx + group A Strep, and 07/20/22 I&D Cx + CoNS and Rothi mucilaginosa. She does not have any pain at other sites. No rashes. She reports that she does have stiff fingers and swollen joints sometimes. Her sister has sarcoidosis, another sister has RA, and another sister has lupus. She reports shes gotten workup for autoimmune and endocrine issues in the past but that the workup has been unremarkable. Allergies Allergy/AdvReac Type Severity Reaction Status Date / Time atorvastatin AdvReac Intermediate Cramping Verified 10/01/24 17:46 of the Muscles rosuvastatin AdvReac Intermediate Cramping Verified 10/01/24 17:46 of the Muscles Home Medications Medication Instructions Recorded Confirmed Type blood sugar diagnostic (OneTouch 01/05/24 07/23/24 History Verio test strips) blood-glucose meter (OneTouch 01/05/24 07/23/24 History Verio Flex Meter) citalopram 40 mg tablet 40 mg PO DAILY 01/05/24 10/01/24 History cyclobenzaprine 10 mg tablet 10 mg PO TID PRN neck pain 01/05/24 10/01/24 History gabapentin 300 mg capsule 300 mg PO BID 01/05/24 10/01/24 History hydrocodone 10 mg-acetaminophen 1 tab PO Q6H PRN leg pain 01/05/24 10/01/24 History 325 mg tablet valsartan 320 mg tablet 320 mg PO DAILY 01/05/24 10/01/24 History evolocumab 140 mg/mL subcutaneous 140 mg subcut Q14D 08/29/24 10/01/24 History pen injector ([employer]) lidocaine HCl 4 % (40 mg/mL) 1 applic topical DAILY PRN Wound 08/29/24 10/01/24 History mucosal solution Care Pain metoprolol succinate 100 mg 100 mg PO DAILY 08/29/24 10/01/24 History tablet,extended release 24 hr potassium chloride 10 mEq 10 meq PO BID 08/29/24 10/01/24 History tablet,extended release semaglutide 0.25 mg or 0.5 mg (2 0.5 mg subcut WK 08/29/24 10/01/24 History mg/3 mL) subcutaneous pen injector (Ozempic) amlodipine 5 mg tablet (Norvasc) 10 mg (2 x 5 mg) PO QAM #30 tabs 09/04/24 10/01/24 Rx Patient History Medical History (Updated 10/02/24 @ 10:57 by Gaurav Mccray MD) Tobacco abuse HTN (hypertension) Chronic pain Anxiety Surgical History (Updated 08/31/24 @ 09:13 by Mary Lou Darling RN) Encounter for incision and drainage procedure (08/30/24) Incision and Debridement Left Thigh Wound(Left) - Julian Choudhury DO, FACS History of hysterectomy Family History Mother Myocardial infarction Hypertension Father Fibromyalgia Social History Smoking Status: Former smoker Tobacco Type: Cigarettes Cigarettes Per Day: 1PPD; Second Hand Exposure: No; Do You Dip or Chew Tobacco: No; Tobacco Cessation Education Requested by Patient: No Hx Alcohol Use: No Hx Substance Use: No Preferred Language: Canadian Communication Ability: Effective Pantry Cook Required: No Beliefs That Will Affect Care: None Current Living Situation: Spouse Current Living Situation Comment: Other Information That Helps Us Care for You: No Feels Safe at Home: Yes Safety Concerns: Feels Safe At This Time Assistive Devices: CPAP and Glasses Assistive Devices Comment: wound vac from home Physical Exam Physical Exam: Exam obtained with aid of in-person telepresenter. General: Well-appearing, no acute distress HEENT: Conjunctivae non-injected, sclerae anicteric, MMM, OP clear. Resp: Respirations nonlabored. Ext: L thigh I&D site with faint circumferential erythema around the dressing; erythema and tenderness of the L buttock. Skin: As above, no other rashes or lesions. Neuro: Alert & interactive. Grossly non-focal. Psych: Pleasant, appropriate. Results & Data Vital Signs (Past 12 Hours) Vital Signs Temp Pulse Pulse Resp BP Pulse Ox O2 Del Method 10/02/24 15:35 113 H 10/02/24 15:15 38.2 C H 115 H 18 163/97 H 94 CPAP 10/02/24 11:25 37.7 C H 120 H 18 130/80 91 Room Air 10/02/24 07:32 92 H 10/02/24 07:31 38.1 C H 102 H 18 114/74 95 Room Air Diagnostic Findings Micro Data: 10/01 BCx x2: PEND prior micro 08/30 Cx + C. albicans and Finegoldia magna 08/29 BCx x2: NG Dr. Fontaine OS records 07/20/22 L thigh Cx: light CoNS 07/20/22 L thigh Cx: light Rothia mucilaginosa 08/21/21 L thigh deep wound Cx: heavy group A Strep 08/21/21 L lateral thigh Cx: moderate group A Strep Antibiotic Summary: daptomycin (10/01 present) pip-tazo (10/01 present)
--- NOTE | 2024-10-02 21:41 | Electrocardiogram Report ---
Test Reason : Blood Pressure : */* mmHG Vent. Rate : 91 BPM Atrial Rate : 91 BPM P-R Int : 210 ms QRS Dur : 82 ms QT Int : 362 ms P-R-T Axes : 32 -27 32 degrees QTcB Int : 445 ms Sinus rhythm with 1st degree A-V block Anteroseptal infarct (cited on or before 05-Jan-2024) Possible Inferior infarct Abnormal ECG When compared with ECG of 05-Jan-2024 17:05, MT interval has increased Questionable change in initial forces of Lateral leads Confirmed by Quan Pride ([id number]) on 10/02/2024 9:41:35 PM Referred By: Daniel Ibarra Confirmed By: Quan Pride
[2024-10-03 06:09] LABS: Basophils # (auto) 0.02 K/uL (0.00-0.20); Basophils % (auto) 0.2 %; Eosinophils # (auto) 0.15 K/uL (0.00-0.50); Eosinophils % (auto) 1.3 %; Hemoglobin 9.5 g/dl (12.0-16.0); Immature Granulocytes # (auto) 0.04 K/uL (0.01-0.20); Immature Granulocytes % (auto) 0.4 %; Lymphocytes # (auto) 0.79 K/uL (1.20-3.40); Mean Corpuscular Hemoglobin 28.3 pg (25.0-34.0); Mean Corpuscular Hgb Conc 32.8 g/dL (32.0-36.0); Mean Corpuscular Volume 86.3 fL (80.0-100.0); Monocytes # (auto) 0.72 K/uL (0.11-0.59); Monocytes % (auto) 6.4 %; Neutrophils # (auto) 9.61 K/uL (1.40-6.50); Neutrophils % (auto) 84.7 %; Platelet Count 208 K/uL (130-400); RDW Coefficient of Variation 15.7 % (11.5-14.5); RDW Standard Deviation 49.5 fL (36.4-46.3); Red Blood Count 3.36 M/uL (4.20-5.40); White Blood Count 11.33 K/ul (4.8-10.8)
[2024-10-03 06:33] LABS: BUN Creatinine Ratio 23.8 (10-20); Calcium 8.9 mg/dl (8.6-10.3); Potassium 3.6 mmol/L (3.5-5.1)
[2024-10-03] MEDS: METOPROLOL SUCC 50MG EXT REL TAB PO SCH (08:00)
[2024-10-03] MEDS: VALSARTAN 80 MG TAB PO SCH (08:00)
[2024-10-03] MEDS: CITALOPRAM 40 MG TAB PO SCH (08:02)
--- NOTE | 2024-10-03 10:07 | Surgery Progress Note ---
Date of Service October 03, 2024 Assessment & Plan (1) Wound infection: (2) Cellulitis: (3) Class 3 obesity: (4) DMII (diabetes mellitus, type 2): Plan 49 yo female with recurrent wound infections and delayed wound healing of the lateral left thigh wound. There is extensive edema and ecchymosis on exam and cellulitis on CT scan. MRI of femur with cellulitis and multiple fluid collections measuring up to 3.5 cm with sinus tract laterally and posteriorly ? etiology of recurrent infections and issues with wound healing, need for recurrent I&D. ID questioning atypical pathogen or process? Exam today with more erythema extending medially, Femur MRi showing fistulous tr act laterally and posteriorly? will tentatively add for OR tomorrow for Incision and drainage if no improvement NPO after midnight continue IV abx per ID recommendations pain management as needed continue medical management Dr. Frazier has seen and examined patient, agrees with above. Admission and Anticipated Discharge Date Admission Date: October 02, 2024 Subjective pain controlled feeling a little better redness seems to be spreading more medially today Physical Exam Constitutional: WD/WN, vitals as above cooperative and comfortable; no acute distress and not ill appearing Respiratory: normal respiratory effort; no respiratory distress and no labored breathing Musculoskeletal: Left upper lateral thigh, wound again with healthy tissue, no necrosis, wound probed with finger, no fistulous tracts identified. Moderate cellulitis medially which looks like spreading slightly more today, edema posterior and lateral. Ecchymosis improving posteriorly and laterally. Psychiatric: A+Ox3, euthymic affect Results & Data Vital Signs (Past 12 Hours) Vital Signs Temp Pulse Pulse Resp BP Pulse Ox O2 Del Method 10/03/24 07:32 37.3 C 94 H 20 131/79 93 Room Air 10/03/24 07:16 96 H 10/03/24 04:32 36.4 C L 84 20 133/82 96 Room Air 10/03/24 00:03 36.6 C 109 H 20 132/80 93 Room Air 10/02/24 23:00 105 H Laboratory Results 10/03/24 10/02/24 Range/Units 05:21 12:20 WBC 11.33 H (4.8-10.8) K/ul RBC 3.36 L (4.20-5.40) M/uL Hgb 9.5 L (12.0-16.0) g/dl Hct 29.0 L (37.0-47.0) % MCV 86.3 (80.0-100.0) fL MCH 28.3 (25.0-34.0) pg MCHC 32.8 (32.0-36.0) g/dL RDW Std Deviation 49.5 H (36.4-46.3) fL RDW Coeff of Jhonny 15.7 H (11.5-14.5) % Plt Count 208 (130-400) K/uL MPV 10.0 (9.4-12.4) fL Immature Gran % (Auto) 0.4 % Neut % (Auto) 84.7 % Lymph % (Auto) 7.0 % [place] % (Auto) 6.4 % Eos % (Auto) 1.3 % Baso % (Auto) 0.2 % Neut # (Auto) 9.61 H (1.40-6.50) K/uL Lymph # (Auto) 0.79 L (1.20-3.40) K/uL [place] # (Auto) 0.72 H (0.11-0.59) K/uL Eos # (Auto) 0.15 (0.00-0.50) K/uL Baso # (Auto) 0.02 (0.00-0.20) K/uL Immature Gran # (Auto) 0.04 (0.01-0.20) K/uL Sodium 138 (136-145) mmol/L Potassium 3.6 (3.5-5.1) mmol/L Chloride 104 (98-107) mmol/L Carbon Dioxide 29 (21-32) mmol/L Anion Gap 5 (3-11) BUN 19 (6-23) mg/dl Creatinine 0.80 (0.6-1.2) mg/dl Est Cr Clr Drug Dosing 87.0 ml/min eGFR 90.27 BUN/Creatinine Ratio 23.8 H (10-20) Glucose 97 (70-99(Fasting)) mg/dl Calcium 8.9 (8.6-10.3) mg/dl Bartonella henselae IgG Pending Bartonella henselae IgM Pending Bartonella vernon IgG Pending Bartonella vernon IgM Pending Brucella IgG Antibody Pending Brucella IgM Antibody Pending HIV 1&2 Ab/P24 Ag 4thGn Negative (Negative) Diagnostic Findings Clinical history: Recent cellulitis. Cat-bite Technique: Multiple T1 and T2-weighted magnetic resonance images were obtained of the left thigh without gadolinium contrast Comparison is made to the CT dated 08/29/2024 Findings: Again seen is prominent subcutaneous edema of the lateral left hip, consistent with cellulitis. A sinus tract is again seen extending from the lateral skin surface to the left lateral outer margin of the gluteus ellyn muscle. Multiple pockets of fluid are again seen in the adjacent fat, measuring up to 3.5 cm in size. These are concerning for abscesses No fracture is identified. There is no subluxation or dislocation. No significant arthritic changes are seen. There is heterogeneity of red and yellow marrow. No definite focal osseous lesion is evident. There is no sign of osteomyelitis The visualized musculature appears unremarkable Impression: 1. No definite change in cellulitis lateral to the left hip, with a sinus tract and suspected small soft tissue abscesses 2. No sign of osteomyelitis or myositis ACT 112: Positive. There are findings on this exam that require communication between the performing entity and the patient following Patient Test Result Information Act ([place] ACT 112) guidelines. I Personally reviewed MRI images and concur with above findings. (2) Cellulitis Laterality: left Site of cellulitis: extremity Site of cellulitis of extremity: lower extremity Qualified Code(s): L03.116 - Cellulitis of left lower limb (4) DMII (diabetes mellitus, type 2) Diabetes mellitus complication status: without complication Diabetes mellitus intermediate designer insulin use: without assisted use Qualified Code(s): E11.9 - Type 2 diabetes mellitus without complications
--- NOTE | 2024-10-03 17:10 | Infectious Disease Progress Nt ---
Date of Service October 03, 2024 Assessment & Plan (1) Leg abscess: Plan ID Problem List: #Left thigh abscess/cellulitis s/p multiple I&Ds, most recently on 08/30 with wound vac, 08/30 OR Cx + C. albicans and Finegoldia magna #Recurrent L thigh abscesses Impression: Angelina Cotter is a 49-year-old woman with history of type II DM on Ozempic (A1c <4.2), HTN, tobacco use, recent admission to [facility] 08/29 to 09/04 (left thigh abscess and cellulitis s/p I&D 08/30 with a current wound VAC. 08/30 OR Cx + C. albicans and Finegoldia magna, s/p pip-tazo + fluconazole -> Augmentin + fluconazole on d/c), who presents with worsening redness and pain at the wound site. ID is consulted for R thigh wound infection. She began having episodes of L thigh cellulitis/abscesses in 2021 after adopting a kitten (patient works at the [employer]) which bit and scratched her on her left leg. The area turned red and swollen, and led to an admission s/p I&D. Since that time, she has many recurrences of infection at the L thigh s/p multiple I&Ds (including from [facility] by Dr. Fontaine; Dr. Phillips in [place]). She recalls there was Staph in cultures but never grew MRSA, she also recalls a gram negative in the past. She has also seen ID at [facility] in [place]. She reports that approximately 2 year prior, she had her last I&D and was also treated with several weeks of IV abx at that time (reportedly, at least one time in the past, there was concern about possible underlying osteomyelitis. Her infection has only recurred at the left thigh area. She does not remember the names of all of the abx she has been on but knows she has had a few rounds of 7-10d courses of doxycycline and several courses of IV vancomycin and IV pip- tazo. She said that prior to August, her last course of PO abx was around 05/2024. She has never had Staph decolonization. She was recently admitted to [facility] 08/29 to 09/04 for left thigh abscess and cellulitis. She underwent surgical I&D 08/30 with a current wound VAC. Surgical cultures 08/30 grew Jennifer albicans and Finegoldia magna. She completed a course of Zosyn and Diflucan while admitted, then was discharged on 14d Diflucan and 10d Augmentin. Patient has been following with wound care and has had dressing changes of her wound VAC every few days, just changed 09/30. She developed redness and pain around at the wound vac site starting around 09/29. No fevers or chills. In the ED, initially afebrile (Tmax 38.1 on 10/02) HR 97, WBC 14.98, CRP 25.52, lactate 1.0. CT 10/01 showed left gluteal skin with underlying subq emphysema and cellulitis, 2 small underlying subcutaneous fluid-filled locules 8 to 12 mm. She was started on daptomycin and pip-tazo Primary team in the process of obtaining records partial records obtained from Dr. Fontaine. Awaiting records from Dr. Phillips. Dr. Ibarra (wound care)s clinic has not obtained any cultures. Review of partial records from Dr. Martin office reveal 08/21/21 I&D Cx + group A Strep, and 07/20/22 I&D Cx + CoNS and Rothi mucilaginosa. She does not have any pain at other sites. No rashes. She reports that she does have stiff fingers and swollen joints sometimes. Her sister has sarcoidosis, another sister has RA, and another sister has lupus. She reports shes gotten workup for autoimmune and endocrine issues in the past but that the workup has been unremarkable. Discussion She has had recurrent abscesses for several years s/p multiple I&Ds. Interestingly, her symptoms started with a cat bite, and the patient works at the [employer]. She reports improvement with abx and wound vacs but has persistently nonhealing wounds and recurrence of abscesses. Given the recurrent nature, wonder about an atypical pathogen or an underlying process such as a zoonotic pathogen (Bartonella or Brucella although much less likely as the patient has already received multiple courses of doxycycline) or other atypical pathogen (Nocardia, NTM). Would also consider if theres a non-infectious underlying process such as hidradenitis suppurativa or perhaps even an immunodeficiency such as CGD (although recurrent infections have not been a lifelong issue for the patient). HIV neg. Interestingly, the patients sisters with multiple autoimmune/inflammatory conditions (sarcoid, lupus, RA), and wonder if her poor wound healing and/or abscess formation may represent an underlying condition. Hidradenitis suppurativa has been associated with SLE, for example. Overall this admission, per surgery, her wound appearance is overall improving; wound vac removed and no drainage from the wound currently not planning for repeat I&D. However, despite this, she has a fevers and tachycardia on 10/02 after abx have been started continue to monitor fever curve closely. BCx pending. 10/03 MRI L femur with cellulitis of L lateral hip, with sinus tract and suspected small soft tissue abscesses; no e/o osteomyelitis or myositis. No new wound Cx have been obtained. Can continue daptomycin and pip-tazo for now. May ultimately re-treat with another course of abx for SSTI. Pending Histo, Brucella, Bartonella. If re peating I&D in the future, may consider broader micro workup as below. If prior records reveal Staph, then would recommend Staph decolonization. Recommendations: - Can continue daptomycin and pip-tazo for now - F/u Histo/Blasto UrAg, Bartonella Ab, Brucella Ab - Would attempt to obtain records and culture results from prior I&Ds in the past few years - Per surgery, no plan for repeat I&D at this time. If pursuing I&D in the future, would send: bacterial/fungal/AFB Cx, Bartonella PCR, Brucella PCR, have lab save extra fluid in case of additional molecular testing - If prior records reveal Staph aureus, then would recommend Staph decolonization thus far have only seen one culture with CoNS - Continue to consider autoimmune/inflammatory etiologies (e.g., HS) and im munodeficiencies ID will continue to follow. Zaynab Bautista MD, MHS Infectious Diseases [facility]/ID Connect ID Connect direct line: [phone] Admission and Anticipated Discharge Date Admission Date: October 02, 2024 Subjective This patient recommendation is based on a telemedicine consult request which was completed asynchronously through chart review and information provided by the primary physician. The patient was not seen or examined today. The evaluation is consultative in nature and all patient care and treatment decisions can either be accepted or rejected by the patient's primary hospital-based treating physician using their own independent medical judgment for their patient. Time Spent Reviewing Chart: 31+ minutes - T37.7 WBC 11.3 - 4/9 MRI L femur with cellulitis of L lateral hip, with sinus tract and suspected small soft tissue abscesses; no e/o osteomyelitis or myositis Results & Data Vital Signs (Past 12 Hours) Vital Signs Temp Pulse Pulse Resp BP Pulse Ox O2 Del Method 10/03/24 15:17 37.7 C H 89 18 145/86 H 95 Room Air 10/03/24 14:01 88 10/03/24 11:19 37.1 C 77 18 128/85 92 Room Air 10/03/24 07:32 37.3 C 94 H 20 131/79 93 Room Air 10/03/24 07:16 96 H Diagnostic Findings Micro Data: 10/02 HIV: neg 10/01 BCx x2: NGTD prior micro 08/30 Cx + C. albicans and Finegoldia magna 08/29 BCx x2: NG Dr. Fontaine OS records 07/20/22 L thigh Cx: light CoNS 07/20/22 L thigh Cx: light Rothia mucilaginosa 08/21/21 L thigh deep wound Cx: heavy group A Strep 08/21/21 L lateral thigh Cx: moderate group A Strep Antibiotic Summary: daptomycin (10/01 present) pip-tazo (10/01 present)
[2024-10-03] MEDS: MoRPHine SULFATE 2 MG/ML CARP IV PRN (17:35)
--- NOTE | 2024-10-03 18:35 | Hospitalist Progress Note ---
Date of Service October 03, 2024 Assessment & Plan (1) Sepsis: (2) Leg abscess: (3) DMII (diabetes mellitus, type 2): (4) Essential hypertension: Plan Patient is a 49-year-old female with h/o type II DM on Ozempic, HTN, current smoker, obesity, ALBAN on CPAP who was admitted from 08/29 to 09/04 for a left thigh abscess and cellulitis s/p surgical I&D 08/30 with a current wound VAC. She completed a course of Zosyn/Augmentin and Diflucan after surgical cultures grew Jennifer albicans and Finegoldia magna. Patient has been following with wound care and has had dressing changes of her wound VAC every few days. She p/w left thigh cellulitis, abscess, and sepsis. #Sepsis/Recurrent Left thigh abscesses/Cellulitis- with leukocytosis, tachycardia, fevers, and cellulitis of thigh. Femur MRI shows fistula tract and multiple abscesses. She has had numerous left thigh abscesses since a cat bite in 2021. HIV negative. ID consult appreciated. Surgery consult appreciated. Continues with severe pain and spiking fevers despite being on IV antibiotics x 2 days. BCxs remain NGTD, no wound cxs yet -plan for OR 10/04 for I&D, washout-collect cultures to include: bacterial/fungal/AFB Cx, Bartonella PCR, Brucella PCR, have lab save extra fluid in case of additional molecular testing -continue daptomycin and pip-tazo -F/u Histo/Blasto UrAg, Bartonella Ab, Brucella Ab -obtain records and culture results from prior I&Ds in the past few years -If prior records reveal Staph aureus, then needs Staph decolonization thus far have only seen one culture with CoNS -check immunoglobulins, JANESSA, RF, Anti-DS DNA given +FH of autoimmune disorders, pt's numerous joint pains, and recurrent infections -increase dose of morphine to 4mg IV q3hr prn severe pain -add on toradol 15mg IV q6h prn moderate pain -continue tylenol prn pain or fever but change from IV to po #DMII-HgbA1C normal at 5.6% in 08/2024. SHe has lost a lof of weight on Ozempic which is now on hold -no need for BSGs #Obesity, BMI 35-has lost weight on Ozempic -continue Ozempic after discharge #ALBAN on CPAP-order CPAP at 8 cm H2O for while here #Current smoker-continue to encourage cessation especially with recurrent wounds #HTN/HLD-BPs controlled -continue valsartan, Toprol XL -holding home amlodipine with sepsis #Depression/anxiety-no acute issues -continue celexa DVT Proph-SCDs, add Lovenox after surgery Dispo-continued stay on med-tele Admission and Anticipated Discharge Date Admission Date: October 02, 2024 Subjective Pt continues to have severe pain in the left hip/upper thigh region. No diarrhea. Does report various joint pains chronically in hands, right shoulder, ankles. Has been seen by Rheum in the past and told inflammatory markers high but JANESSA neg. Tele with NSR, rates 80-90s Physical Exam Constitutional: WD/WN, vitals as above + obese Respiratory: normal respiratory effort, lungs clear to auscultation Cardiovascular: RRR, no murmur, no edema Gastrointestinal (Abdomen): normal bowel sounds, soft, nontender, no hepatosplenomegaly Skin: + lesion (a few excoriations left latera l hip), + wound (left lat hip with open wound draining clear fluid) and + erythema (large area surrounding open wound left hip and buttocks,ant thigh) Psychiatric: A+Ox3, euthymic affect Results & Data Results & Data Vital Signs (Past 12 Hours) Vital Signs Temp Pulse Pulse Resp BP Pulse Ox O2 Del Method 10/03/24 15:17 37.7 C H 89 18 145/86 H 95 Room Air 10/03/24 14:01 88 10/03/24 11:19 37.1 C 77 18 128/85 92 Room Air 10/03/24 07:32 37.3 C 94 H 20 131/79 93 Room Air 10/03/24 07:16 96 H Laboratory Results CBC, BMP, blood cxs reviewed PG Care Time/CCT Total # of Minutes Spent Total Time Spent with Patient: Total time spent is greater than 50% in coordination of care (as documented) at patient's floor/unit and/or counseling patient: Coding Level of Care Code 41253 SUB INP/OBS CARE 3/50MIN Diagnoses Sepsis A41.9 Leg abscess L02.419 Type 2 diabetes mellitus without complication, without long-term current use of insulin E11.9 Diabetes mellitus complication status: without complication Diabetes mellitus care home insulin use: without middle or intermediate school principal use Essential hypertension I10 (3) DMII (diabetes mellitus, type 2) Diabetes mellitus complication status: without complication Diabetes mellitus care home insulin use: without care home use Qualified Code(s): E11.9 - Type 2 diabetes mellitus without complications
[2024-10-03] MEDS: KETOROLAC TROMETHAMINE 15 MG/ML VIAL IV PRN (20:07)
[2024-10-04 05:37] LABS: Basophils # (auto) 0.02 K/uL (0.00-0.20); Basophils % (auto) 0.2 %; Eosinophils # (auto) 0.16 K/uL (0.00-0.50); Eosinophils % (auto) 1.5 %; Hematocrit (blood only) 30.3 % (37.0-47.0); Hemoglobin 9.8 g/dl (12.0-16.0); Immature Granulocytes # (auto) 0.07 K/uL (0.01-0.20); Immature Granulocytes % (auto) 0.7 %; Lymphocytes # (auto) 1.49 K/uL (1.20-3.40); Lymphocytes % (auto) 14.2 %; Mean Corpuscular Hemoglobin 27.7 pg (25.0-34.0); Mean Corpuscular Hgb Conc 32.3 g/dL (32.0-36.0); Mean Corpuscular Volume 85.6 fL (80.0-100.0); Mean Platelet Volume 9.5 fL (9.4-12.4); Monocytes % (auto) 4.8 %; Neutrophils # (auto) 8.27 K/uL (1.40-6.50); Neutrophils % (auto) 78.6 %; Platelet Count 256 K/uL (130-400); RDW Coefficient of Variation 15.5 % (11.5-14.5); RDW Standard Deviation 48.3 fL (36.4-46.3); Red Blood Count 3.54 M/uL (4.20-5.40); White Blood Count 10.51 K/ul (4.8-10.8)
[2024-10-04 05:50] LABS: Anion Gap 6 (3-11); BUN Creatinine Ratio 26.5 (10-20); Blood Urea Nitrogen 18 mg/dl (6-23); Calcium 8.8 mg/dl (8.6-10.3); Carbon Dioxide 27 mmol/L (21-32); Chloride 106 mmol/L (98-107); Creatinine Clr Calc Pharmacy 102.4 ml/min; Glucose 94 mg/dl (70-99(Fasting)); Immunoglobulin A 210.6 mg/dl (70-400); Immunoglobulin G 613.5 mg/dl (635-1741); Immunoglobulin M 130.1 mg/dl (45-281); Potassium 3.3 mmol/L (3.5-5.1); Sodium 139 mmol/L (136-145)
[2024-10-04 05:51] LABS: Iron < 10 mcg/dl (35-150); Total Iron Binding Cap Calc 227 mcg/dl (250-450); Transferrin 162 mg/dl (200-360)
[2024-10-04 06:05] LABS: Thyroid Stimulating Hormone 0.827 uIu/ml (0.300-4.500)
[2024-10-04 06:11] LABS: Ferritin 336.6 ng/ml (8-388)
--- NOTE | 2024-10-04 07:17 | History & Physical Bridge Note ---
Date of Service October 04, 2024 History & Physical Bridge Note I have examined the patient, reviewed the History & Physical and in the interval since the performance of the History & Physical I have noted the following changes of clinical significance: no changes noted
[2024-10-04 08:14] LABS: Folate (Folic Acid),Ser orPlas > 22.30 ng/ml (>5.38)
[2024-10-04 08:15] LABS: Vitamin B12 > 1500 pg/ml (180-914)
[2024-10-04] MEDS ORDERED: PROPOFOL IV EMULSION 10 MG/ML 20 ML VIAL IV ONE (09:31)
[2024-10-04] MEDS ORDERED: LIDOCAINE 2% 2 ML VIAL/AMP(20MG/ML) INFIL ONE (09:31)
[2024-10-04] MEDS ORDERED: DEXAMETHASONE SOD INJ 4 MG/ML VIAL ONE (09:31)
[2024-10-04] MEDS ORDERED: MIDAZOLAM HCL 1 MG/ML 2ML VIAL ONE (09:31)
[2024-10-04] MEDS ORDERED: ONDANSETRON INJ 2 MG/ML 2 ML VIAL ONE (09:31)
[2024-10-04] MEDS ORDERED: fentaNYL citrate PF 100 MCG/2 ML VIAL ONE (09:32)
--- NOTE | 2024-10-04 09:32 | Anesthesiology Consultation ---
Date of Service October 04, 2024 Assessment & Plan Chart Review Chart Review: Acceptable Risk for Surgery and Patient NOT seen in Pre Admission Testing Consults Requested none ASA ASA3 Proposed Anesthesia Anesthesia Type: General History Surgery Operation Date: 10/04/24 10:10 Proposed Procedures p Left Thigh/Buttock Incision and Drainage - Daniel Frazier MD Height/Weight Height: 5 ft 2 in Weight: 88.178 kg Allergies Allergy/AdvReac Type Severity Reaction Status Date / Time atorvastatin AdvReac Intermediate Cramping Verified 10/01/24 17:46 of the Muscles rosuvastatin AdvReac Intermediate Cramping Verified 10/01/24 17:46 of the Muscles Medications Home Medications Medication Instructions Recorded Confirmed Last Taken blood sugar diagnostic (OneTouch 01/05/24 07/23/24 Unknown Verio test strips) blood-glucose meter (OneTouch 01/05/24 07/23/24 Unknown Verio Flex Meter) citalopram 40 mg tablet 40 mg PO DAILY 01/05/24 10/01/24 10/01/24 cyclobenzaprine 10 mg tablet 10 mg PO TID PRN neck pain 01/05/24 10/01/24 Unknown gabapentin 300 mg capsule 300 mg PO BID 01/05/24 10/01/24 10/01/24 08:00 hydrocodone 10 mg-acetaminophen 1 tab PO Q6H PRN leg pain 01/05/24 10/01/24 Unknown 325 mg tablet valsartan 320 mg tablet 320 mg PO DAILY 01/05/24 10/01/24 10/01/24 evolocumab 140 mg/mL subcutaneous 140 mg subcut Q14D 08/29/24 10/01/24 09/23/24 pen injector (Niki Malik) lidocaine HCl 4 % (40 mg/mL) 1 applic topical DAILY PRN Wound 08/29/24 10/01/24 Unknown mucosal solution Care Pain metoprolol succinate 100 mg 100 mg PO DAILY 08/29/24 10/01/24 10/01/24 tablet,extended release 24 hr potassium chloride 10 mEq 10 meq PO BID 08/29/24 10/01/24 10/01/24 08:00 tablet,extended release semaglutide 0.25 mg or 0.5 mg (2 0.5 mg subcut WK 08/29/24 10/01/24 09/30/24 mg/3 mL) subcutaneous pen injector (Ozempic) amlodipine 5 mg tablet (Norvasc) 10 mg (2 x 5 mg) PO QAM #30 tabs 09/04/24 10/01/24 10/01/24 Active Medications Generic Name Dose Route Start Last Admin Trade Name Freq PRN Reason Stop Dose Admin Citalopram Hydrobromide 40 mg 10/03/24 09:00 10/04/24 08:11 Citalopram 40 Mg Tab PO 11/02/24 08:59 40 mg DAILY ANGELIKA Administration Gabapentin 300 mg 10/02/24 21:00 10/04/24 08:11 Gabapentin 300 Mg Cap PO 11/01/24 20:59 300 mg BID ANGELIKA Administration Ketorolac Tromethamine 15 mg 10/03/24 18:27 10/04/24 08:18 Ketorolac Tromethamine 15 Mg/Ml Vial IV 15 mg Q6H PRN Administration Pain Metoprolol Succinate 100 mg 10/03/24 09:00 10/04/24 08:11 Metoprolol Succ 50mg Ext Rel Tab PO 11/02/24 08:59 100 mg DAILY ANGELIKA Administration Miscellaneous 1 each 10/02/24 08:59 10/04/24 08:09 Remove Nicoderm Patch N/A 11/01/24 08:58 1 each DAILY@0859 ANGELIKA Administration Morphine Sulfate 4 mg 10/03/24 16:42 10/04/24 03:46 Morphine Sulfate 2 Mg/Ml Carp IV 10/16/24 10:14 4 mg Q3H PRN Administration moderate-severe pain Nicotine 1 patch 10/02/24 09:00 10/04/24 08:10 Nicotine 14 Mg/24 Hr Patch TD 11/01/24 08:59 1 patch QAM ANGELIKA Administration Valsartan 320 mg 10/03/24 09:00 10/04/24 08:10 Valsartan 80 Mg Tab PO 11/02/24 08:59 320 mg DAILY ANGELIKA Administration Past Medical History Medical History Tobacco abuse HTN (hypertension) Chronic pain Anxiety obese HLD ASCVD Ao Exercise / Class Metabolic Activity II 4-5 Yardwork/Stairs/Walk up hill Past Family History Family History Mother Myocardial infarction Hypertension Father Fibromyalgia Past Surgical History Surgical History (Updated 08/31/24 @ 09:13 by Mary Lou Darling RN) Encounter for incision and drainage procedure (08/30/24) Incision and Debridement Left Thigh Wound(Left) - Julian Choudhury DO, FACS History of hysterectomy Past Anesthesia History No Hx of Anesthesia Complications and No Family Hx of Anesthesia Complications History of PONV No Hx of PONV and No Hx of Motion Sickness Social History Smoking Status: Former smoker Smoking cigarettes per day: 1PPD Do You Dip or Chew Tobacco: No Hx Alcohol Use: No Hx Substance Use: No Physical Exam Vital Signs Last Vital Signs Temp 36.4 C L 10/04/24 07:37 Pulse 78 10/04/24 07:37 Resp 18 10/04/24 07:37 BP 162/90 H 10/04/24 07:37 Pulse Ox 95 10/04/24 07:37 O2 Del Method Room Air 10/04/24 07:37 Testing Laboratory Results 10/04/24 05:20 10/04/24 05:20 PT 10.9 Seconds (9.0-12.0) 10/01/24 17:53 INR 1.0 (0.9-1.1) 10/01/24 17:53 Urine Color Yellow 10/02/24 00:24 Urine Appearance Clear (Clear) 10/02/24 00:24 Urine pH 5.5 (4.5-7.5) 10/02/24 00:24 Ur Specific [place] > 1.045 (1.000-1.030) H 10/02/24 00:24 Urine Protein Trace (Negative) H 10/02/24 00:24 Urine Glucose (UA) Negative (Negative) 10/02/24 00:24 Urine Ketones Trace (Negative) H 10/02/24 00:24 Urine Nitrite Negative (Negative) 10/02/24 00:24 Ur Leukocyte Esterase Negative (Negative) 10/02/24 00:24 Urine WBC (Auto) 0-5 /hpf (0-5) 10/02/24 00:24 Urine RBC (Auto) 0-2 /hpf (0-2) 10/02/24 00:24 U Hyaline Cast (Auto) 0-2 /lpf (0-2) 10/02/24 00:24 U Epithel Cells (Auto) 3-5 /hpf (0-2) H 10/02/24 00:24 Urine Bacteria (Auto) None Seen (None Seen) 10/02/24 00:24 10/01/24 17:53 Aerobic Blood Culture - Preliminary Blood No growth in Aerobic bottle after 48 hours. Anaerobic Blood Culture - Preliminary No growth in Anaerobic bottle after 48 hours. 10/01/24 18:00 Aerobic Blood Culture - Preliminary Blood No growth in Aerobic bottle after 48 hours. Anaerobic Blood Culture - Preliminary No growth in Anaerobic bottle after 48 hours. Electrocardiogram Date: 10/01/24 Findings: + NSR @ (@ 91 w/ 1st degree AVB;? anteroseptal AL;? infer. AL Age ?) Chest X-Ray Date: 10/01/24 Findings: + cardiomegaly and + pulmonary vascular congestion (B/L ) Echocardiogram Date: 01/06/24 EF: 60% LV Function: normal RWMA: + none Other Findings: + LVH (mild) and + diastolic dysfunction (Grade 1) Valvular Disease: + no significant valvular disease
[2024-10-04] MEDS ORDERED: SUCCINYLCHOLINE CHLORIDE 20 MG/ML 10 ML VIAL IV ONE (09:41)
[2024-10-04] MEDS ORDERED: FLUCONAZOLE 100 MG TAB PO SCH (09:45)
[2024-10-04] MEDS ORDERED: LABETALOL HCL IV 5 MG/ML 20ML IV PRN (10:18)
[2024-10-04] MEDS ORDERED: FLUMAZENIL 0.1 MG/1 ML 10 ML VIAL IV PRN (10:18)
[2024-10-04] MEDS ORDERED: NALOXONE HCL 0.4 MG/1 ML VIAL/CARP IV PRN (10:18)
[2024-10-04] MEDS ORDERED: ONDANSETRON INJ 2 MG/ML 2 ML VIAL IV PRN (10:18)
[2024-10-04] MEDS ORDERED: ePHEDrine sulfate 50 MG/ML AMP IV PRN (10:18)
[2024-10-04] MEDS ORDERED: PROMETHAZINE HCL 6.25 MG in SODIUM CHLORIDE 0.9% 50 ML IV PRN (10:18)
[2024-10-04] MEDS ORDERED: ATROPINE SULFATE 0.1 MG/ML 10ML SYR IV PRN (10:18)
[2024-10-04] MEDS ORDERED: ROCURONIUM BROMIDE 10 MG/ML 5 ML VIAL IV ONE (11:05)
[2024-10-04] MEDS ORDERED: LARYING-O-JET KIT (LTA) ONE (11:05)
[2024-10-04] MEDS: BUPIVACAINE/EPINEPHRINE 0.5% MPF 1:200,000 30 ML VIAL ONE (11:11)
--- NOTE | 2024-10-04 11:23 | Operative Report ---
Post Operative Report Pre & Post Diagnosis Operation Date: 10/04/24 10:10 Pre-Op Diagnosis: LEFT THIGH ABCESS/CELLULITIS Post-Op Diagnosis: LEFT THIGH ABCESS/CELLULITIS I identified the patient and participated in the time-out.: Yes Procedure Operation Date: 10/04/24 10:10 Actual Procedures p Left Thigh/Buttock Incision and Drainage(Left) - Daniel Frazier MD Surgeon Daniel Frazier MD Other Wood Processing Machine Operator Anita Fu PA-C Estimated Blood Loss 10 Findings Consistent with Post-Op Diagnosis Specimens Intraoperative cultures fluid Drains none Anesthesia Type General Complications none Disposition Accompanied Patient To Recovery: No Disposition: Recovery Room Indications This is a complex 49-year-old female with open wound being treated by wound care. She developed some surrounding cellulitis and an abscess adjacent but not contiguous with the wound we will plan on doing deep I&D of this abscess with interoperative cultures. Description of Procedure The patient was taken to the OR and underwent excellent general anesthesia. They were placed in the right lateral decubitus and their left thigh and buttock was prepped and draped in normal fashion. A transverse incision was made through the body of the abscess. This was then opened and drained completely, it tract laterally into the buttock region.. Intra-op culture fluid was sent. The cavity was then irrigated. Marcaine was then used for a local block. The wound was packed with gauze. They tolerated procedure well without complications. They will be recovered in the recovery room. Anita Fu PA-C was present and participated in the entire procedure. She was integral in skin retraction and positioning. There was no qualified resident available to assist. I attest to the content of the Intraoperative Record and any orders documented therein. Any exceptions are noted below.
[2024-10-04] MEDS: fentaNYL citrate PF 100 MCG/2 ML VIAL IV PRN (11:32)
[2024-10-04] MEDS: HYDROmorphone INJ 1 MG/ML SYRINGE IV PRN (11:58)
[2024-10-04] MEDS ORDERED: POTASSIUM CHLORIDE CRTAB 20 MEQ TABCR PO ONE (12:00)
--- NOTE | 2024-10-04 12:25 | Infectious Disease Progress Nt ---
Date of Service October 04, 2024 Assessment & Plan (1) Leg abscess: (2) Recurrent cellulitis of lower extremity: Plan ID Problem List: #Left thigh abscess/cellulitis s/p multiple I&Ds, most recently on 08/30 with wound vac, 08/30 OR Cx + C. albicans and Finegoldia magna #Recurrent L thigh abscesses Impression: Angelina Cotter is a 49-year-old woman with history of type II DM on Ozempic (A1c <4.2), HTN, tobacco use, recent admission to [facility] 08/29 to 09/04 (left thigh abscess and cellulitis s/p I&D 08/30 with a current wound VAC. 08/30 OR Cx + C. albicans and Finegoldia magna, s/p pip-tazo + fluconazole -> Augmentin + fluconazole on d/c), who presents with worsening redness and pain at the wound site. ID is consulted for R thigh wound infection. She began having episodes of L thigh cellulitis/abscesses in 2021 after adopting a kitten (patient works at the [employer]) which bit and scratched her on her left leg. The area turned red and swollen, and led to an admission s/p I&D. Since that time, she has many recurrences of infection at the L thigh s/p multiple I&Ds (including from [facility] by Dr. Fontaine; Dr. Phillips in [place]). She recalls there was Staph in cultures but never grew MRSA, she also recalls a gram negative in the past. She has also seen ID at [facility] in [place]. She reports that approximately 2 year prior, she had her last I&D and was also treated with several weeks of IV abx at that time (reportedly, at least one time in the past, there was concern about possible underlying osteomyelitis. Her infection has only recurred at the left thigh area. She does not remember the names of all of the abx she has been on but knows she has had a few rounds of 7-10d courses of doxycycline and several courses of IV vancomycin and IV pip- tazo. She said that prior to August, her last course of PO abx was around 05/2024. She has never had Staph decolonization. She was recently admitted to [facility] 08/29 to 09/04 for left thigh abscess and cellulitis. She underwent surgical I&D 08/30 with a current wound VAC. Surgical cultures 08/30 grew Jennifer albicans and Finegoldia magna. She completed a course of Zosyn and Diflucan while admitted, then was discharged on 14d Diflucan and 10d Augmentin. Patient has been following with wound care and has had dressing changes of her wound VAC every few days, just changed 09/30. She developed redness and pain around at the wound vac site starting around 09/29. No fevers or chills. In the ED, initially afebrile (Tmax 38.1 on 10/02) HR 97, WBC 14.98, CRP 25.52, lactate 1.0. CT 10/01 showed left gluteal skin with underlying subq emphysema and cellulitis, 2 small underlying subcutaneous fluid-filled locules 8 to 12 mm. She was started on daptomycin and pip-tazo Primary team in the process of obtaining records partial records obtained from Dr. Fontaine. Awaiting records from Dr. Phillips. Dr. Ibarra (wound care)s clinic has not obtained any cultures. Review of partial records from Dr. Martin office reveal 08/21/21 I&D Cx + group A Strep, and 07/20/22 I&D Cx + CoNS and Rothi mucilaginosa. She does not have any pain at other sites. No rashes. She reports that she does have stiff fingers and swollen joints sometimes. Her sister has sarcoidosis, another sister has RA, and another sister has lupus. She reports shes gotten workup for autoimmune and endocrine issues in the past but that the workup has been unremarkable. Discussion She has had recurrent abscesses for several years s/p multiple I&Ds. Interestingly, her symptoms started with a cat bite, and the patient works at the [employer]. She reports improvement with abx and wound vacs but has persistently nonhealing wounds and recurrence of abscesses. Given the recurrent nature, wonder about an atypical pathogen or an underlying process such as a zoonotic pathogen (Bartonella or Brucella although much less likely as the patient has already received multiple courses of doxycycline) or other atypical pathogen (Nocardia, NTM). Would also consider if theres a non-infectious underlying process such as hidradenitis suppurativa or perhaps even an immunodeficiency such as CGD (although recurrent infections have not been a lifelong issue for the patient). HIV neg. Interestingly, the patients sisters with multiple autoimmune/inflammatory conditions (sarcoid, lupus, RA), and wonder if her poor wound healing and/or abscess formation may represent an underlying condition. Hidradenitis suppurativa has been associated with SLE, for example. Pending Histo, Brucella, Bartonella. Patient also recalled that she has had fluid drained from her eyeball due to unclear etiology but was told this might be kh aleesi virus (patient does not recall the actual name). This is of unclear etiology consider whether it represents non-infectious uveitis, ?ocular Bartonellosis, other endophthalmitis. Pt initially started on daptomycin + pip-tazo. Fevers and tachycardia on 10/02, and continued to have low grade fevers T37.9 on 10/03. 10/01 BCx NGTD. 10/03 MRI L femur with cellulitis of L lateral hip, with sinus tract and continued abscesses (up to 3.5 cm); no e/o osteomyelitis or myositis. Per surgery, plan for I&D today 10/04 will request cultures to be sent as per below. Will cover with Unasyn (covering common SSTI organisms and anaerobes, noting Finegoldia in 08/2024). If Jennifer re-grows, then will restart fluconazole. QTc 445 on 10/01. Thus far prior OSH records only show GAS and CoNS in Cx, both from >2 years ago. If prior records or new Cx reveal Staph aureus, then would recommend Staph decolonization. Recommendations: - Continue Unasyn 3g IV q6h, will follow OR Cx and adjust abx accordingly - Per surgery, plan for I&D today 10/04. Would send: bacterial/fungal/AFB Cx, Bartonella PCR, have lab save extra fluid in case of additional molecular testing - F/u Histo/Blasto UrAg, Bartonella Ab, Brucella Ab - Continue to consider autoimmune/inflammatory etiologies (e.g., HS) and immunodeficiencies, primary team has initiate workup - Would attempt to obtain all records and culture results from prior I&Ds in the past few years. If prior records reveal Staph aureus, then would recommend Staph decolonization thus far have only seen one culture with CoNS - Ensure close follow up with PCP, surgery - Referral to local outpatient ID if able ID will continue to follow. Zaynab Bautista MD, M[facility] Infectious Diseases [facility]/ID Connect ID Connect direct line: [phone] Admission and Anticipated Discharge Date Admission Date: October 02, 2024 Subjective This patient recommendation is based on a telemedicine consult request which was completed asynchronously through chart review and information provided by the primary physician. The patient was not seen or examined today. The evaluation is consultative in nature and all patient care and treatment decisions can either be accepted or rejected by the patient's primary hospital-based treating physician using their own independent medical judgment for their patient. Time Spent Reviewing Chart: 31+ minutes Results & Data Vital Signs (Past 12 Hours) Vital Signs Temp Pulse Pulse Pulse Resp BP Pulse Ox 10/04/24 12:20 36.8 C 80 20 154/98 H 96 10/04/24 12:10 78 16 138/84 95 10/04/24 12:00 76 12 139/80 96 10/04/24 11:50 74 16 153/82 H 97 10/04/24 11:40 84 20 163/98 H 98 10/04/24 11:30 75 12 146/72 H 98 10/04/24 11:22 36.4 C L 76 18 167/86 H 99 10/04/24 10:03 85 10/04/24 09:52 36.8 C 78 18 161/104 H 94 10/04/24 07:37 36.4 C L 78 18 162/90 H 95 10/04/24 03:08 36.4 C L 82 18 135/86 93 O2 Del Method O2 Flow Rate 10/04/24 12:20 Nasal Cannula 2 10/04/24 12:10 Nasal Cannula 2 10/04/24 12:00 Oxymask 2 10/04/24 11:50 Oxymask 2 10/04/24 11:40 Oxymask 2 10/04/24 11:30 Oxymask 3 10/04/24 11:22 Oxymask 6 10/04/24 10:03 10/04/24 09:52 Room Air 10/04/24 07:37 Room Air 10/04/24 03:08 Room Air
--- NOTE | 2024-10-04 12:28 | Anesthesiology Progress Note ---
Date of Service October 04, 2024 Anesthesia Post Procedure Vital Signs Vital Signs: Temp Pulse Pulse Pulse Resp BP BP 10/04/24 12:20 36.8 C 80 20 154/98 H 10/04/24 12:10 78 16 138/84 10/04/24 12:00 76 12 139/80 10/04/24 11:50 74 16 153/82 H 10/04/24 11:40 84 20 163/98 H 10/04/24 11:30 75 12 146/72 H 10/04/24 11:22 36.4 C L 76 18 167/86 H 10/04/24 10:03 85 10/04/24 09:52 36.8 C 78 18 161/104 H 10/04/24 07:37 36.4 C L 78 18 162/90 H 10/04/24 03:08 36.4 C L 82 18 135/86 10/03/24 23:07 37.1 C 92 H 18 121/76 10/03/24 22:15 88 10/03/24 19:27 37.9 C H 105 H 18 167/90 H 10/03/24 15:17 37.7 C H 89 18 145/86 H 10/03/24 14:01 88 Pulse Ox O2 Del Method O2 Flow Rate 10/04/24 12:20 96 Nasal Cannula 2 10/04/24 12:10 95 Nasal Cannula 2 10/04/24 12:00 96 Oxymask 2 10/04/24 11:50 97 Oxymask 2 10/04/24 11:40 98 Oxymask 2 10/04/24 11:30 98 Oxymask 3 10/04/24 11:22 99 Oxymask 6 10/04/24 10:03 10/04/24 09:52 94 Room Air 10/04/24 07:37 95 Room Air 10/04/24 03:08 93 Room Air 10/03/24 23:07 92 Room Air 10/03/24 22:15 10/03/24 19:27 93 Room Air 10/03/24 15:17 95 Room Air 10/03/24 14:01 Pain Intensity Left Thigh: Pain Intensity: 3 Transfer of Care Handoff Completed per policy Notes Mental Status: alert / awake / arousable Patient Amnestic to Procedure: Yes Nausea / Vomiting: adequately controlled Pain: adequately controlled Airway Patency, RR, SpO2: stable & adequate BP & HR: stable & adequate Hydration State: stable & adequate Anesthetic Complications: no major complications apparent
[2024-10-04] MEDS: AMPICILLIN/SULBACTAM SOD 3,000 MG/100 ML BAG IV SCH (12:44)
[2024-10-04] MEDS ORDERED: MoRPHine SULFATE 2 MG/ML CARP IV PRN (14:29)
[2024-10-04] MEDS: MoRPHine SULFATE 4 MG/ML 1 ML CARP\\VIAL IV PRN (14:41)
[2024-10-04] MEDS: POTASSIUM CHLORIDE CRTAB 20 MEQ TABCR PO ONE (16:57)
[2024-10-04] MEDS: oxyCODONE/ACETAMINOPHEN 5mg/325mg TAB PO PRN (17:12)
--- NOTE | 2024-10-04 17:24 | Hospitalist Progress Note ---
Date of Service October 04, 2024 Assessment & Plan (1) Sepsis: (2) Leg abscess: (3) DMII (diabetes mellitus, type 2): (4) Essential hypertension: Plan Patient is a 49-year-old female with h/o type II DM on Ozempic, HTN, current smoker, obesity, ALBAN on CPAP who was admitted from 08/29 to 09/04 for a left thigh abscess and cellulitis s/p surgical I&D 08/30 with a current wound VAC. She completed a course of Zosyn/Augmentin and Diflucan after surgical cultures grew Jennifer albicans and Finegoldia magna. Patient has been following with wound care and has had dressing changes of her wound VAC every few days. She p/w left thigh cellulitis, abscess, and sepsis. #Sepsis/Recurrent Left thigh abscesses/Cellulitis- with leukocytosis, tachycardia, fevers, and cellulitis of thigh. Femur MRI shows fistula tract and multiple abscesses. She has had numerous left thigh abscesses since a cat bite in 2021. HIV negative, IgG mildly low but IgM and IgA normal. ID consult appreciated. Surgery consult appreciated. Continued with severe pain and spiking fevers despite being on IV antibiotics x 2 days. Went for surgical I&D/washout with Dr. Frazier on 10/04. Leukocytosis/tachycardia/fevers now resolved, BCxs remain NGTD. -f/u on intraoperative bacterial cx/AFB Cx, Bartonella PCR, Brucella PCR -ID changed IV daptomycin and pip-tazo to Unasyn -F/u Histo/Blasto UrAg, Bartonella Ab, Brucella Ab serologies when available -obtain records and culture results from prior I&Ds in the past few years-asked Nurse navigator to look into obtaining previous cultures from [place] -If prior records reveal Staph aureus, then needs Staph decolonization thus far have only seen one culture with CoNS -autoimmune workup to assess for cause of recurrent abscesses/fistula: f/u JANESSA, RF, Anti-DS DNA (given +FH of autoimmune disorders, pt's numerous joint pains, and recurrent infections) -continue IV morphine or oxycodone prn severe pain, toradol 15mg IV q6h prn moderate pain, and tylenol prn pain or fever -unclear if will need wound vac replaced -consider Plastics referral as outpt if has persistent fistulous tracts #DMII, neuropathy-HgbA1C normal at 5.6% in 08/2024. SHe has lost a lot of weight on Ozempic which is now on hold -no need for BSGs -continue home gabapentin #Obesity, BMI 35-has lost weight on Ozempic -continue Ozempic after discharge #ALBAN on CPAP-order CPAP at 8 cm H2O for while here #Current smoker-continue to encourage cessation especially with recurrent wounds to ensure proper healing #HTN/HLD-BPs controlled -continue valsartan, Toprol XL -holding home amlodipine with sepsis #Hypokalemia-K+ mildly low at 3.3 -replace with KCl 20 meq po x 1 -follow BMP, Mag in AM #Depression/anxiety-no acute issues -continue celexa DVT Proph-SCDs, add Lovenox after surgery-tomorrow AM Dispo-continued stay but downgrade to med/surg as sepsis resolved Admission and Anticipated Discharge Date Admission Date: October 02, 2024 Subjective Pt was seen after return from OR. Having pain in left hip/thigh, but no other concerns. Tele with NSR, PACs, rates 80s Physical Exam Constitutional: WD/WN, vitals as above + obese Respiratory: normal respiratory effort, lungs clear to auscultation Cardiovascular: RRR, no murmur, no edema Gastrointestinal (Abdomen): normal bowel sounds, soft, nontender, no hepatosplenomegaly Skin: + wound (with dressing in place with dri ed serosang fluid soaked) and + erythema (large area surrounding open wound left hip and buttocks,ant thigh) Psychiatric: A+Ox3, euthymic affect Results & Data Results & Data Vital Signs (Past 12 Hours) Vital Signs Temp Pulse Pulse Pulse Resp BP BP 10/04/24 16:59 36.8 C 83 19 135/87 10/04/24 15:21 88 10/04/24 15:16 36.3 C L 86 20 153/90 H 10/04/24 12:52 36.5 C 83 20 146/90 H 10/04/24 12:20 36.8 C 80 20 154/98 H 10/04/24 12:10 78 16 138/84 10/04/24 12:00 76 12 139/80 10/04/24 11:50 74 16 153/82 H 10/04/24 11:40 84 20 163/98 H 10/04/24 11:30 75 12 146/72 H 10/04/24 11:22 36.4 C L 76 18 167/86 H 10/04/24 10:03 85 10/04/24 09:52 36.8 C 78 18 161/104 H 10/04/24 07:37 36.4 C L 78 18 162/90 H Pulse Ox O2 Del Method O2 Flow Rate 10/04/24 16:59 96 Room Air 10/04/24 15:21 10/04/24 15:16 90 Room Air 10/04/24 12:52 93 Room Air 10/04/24 12:20 96 Nasal Cannula 2 10/04/24 12:10 95 Nasal Cannula 2 10/04/24 12:00 96 Oxymask 2 10/04/24 11:50 97 Oxymask 2 10/04/24 11:40 98 Oxymask 2 10/04/24 11:30 98 Oxymask 3 10/04/24 11:22 99 Oxymask 6 10/04/24 10:03 10/04/24 09:52 94 Room Air 10/04/24 07:37 95 Room Air Laboratory Results CBC, BMP, B12, folate, immunoglobulins, BCxs, Gram stain from wound cxs reviewed PG Care Time/CCT Total # of Minutes Spent Total Time Spent with Patient: Total time spent is greater than 50% in coordination of care (as documented) at patient's floor/unit and/or counseling patient: Coding Level of Care Code 89293 SUB INP/OBS CARE 3/50MIN Diagnoses Sepsis A41.9 Leg abscess L02.419 Type 2 diabetes mellitus without complication, without long-term current use of insulin E11.9 Diabetes mellitus complication status: without complication Diabetes mellitus care home insulin use: without care home use Essential hypertension I10 (3) DMII (diabetes mellitus, type 2) Diabetes mellitus complication status: without complication 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
[2024-10-04] MEDS: FLUCONAZOLE 100 MG TAB PO SCH (18:20)
[2024-10-04] MEDS ORDERED: DOXYCYCLINE HYCLATE 100 MG CAP PO SCH (21:00)
[2024-10-05 06:17] LABS: Basophils # (auto) 0.02 K/uL (0.00-0.20); Basophils % (auto) 0.3 %; Eosinophils # (auto) 0.14 K/uL (0.00-0.50); Eosinophils % (auto) 1.8 %; Hematocrit (blood only) 28.4 % (37.0-47.0); Hemoglobin 9.1 g/dl (12.0-16.0); Immature Granulocytes # (auto) 0.04 K/uL (0.01-0.20); Immature Granulocytes % (auto) 0.5 %; Lymphocytes # (auto) 1.56 K/uL (1.20-3.40); Lymphocytes % (auto) 20.4 %; Mean Corpuscular Hemoglobin 27.6 pg (25.0-34.0); Mean Corpuscular Volume 86.1 fL (80.0-100.0); Mean Platelet Volume 9.5 fL (9.4-12.4); Monocytes # (auto) 0.48 K/uL (0.11-0.59); Monocytes % (auto) 6.3 %; Neutrophils # (auto) 5.42 K/uL (1.40-6.50); Neutrophils % (auto) 70.7 %; Platelet Count 257 K/uL (130-400); RDW Coefficient of Variation 15.3 % (11.5-14.5); RDW Standard Deviation 48.4 fL (36.4-46.3); White Blood Count 7.66 K/ul (4.8-10.8)
[2024-10-05 06:36] LABS: BUN Creatinine Ratio 20.6 (10-20); C Reactive Protein 22.95 mg/dl (0-0.5); Calcium 8.6 mg/dl (8.6-10.3); Creatinine Clr Calc Pharmacy 102.8 ml/min; Magnesium 1.7 mg/dl (1.7-2.4); Potassium 3.2 mmol/L (3.5-5.1)
[2024-10-05] MEDS: POTASSIUM CHLORIDE CRTAB 20 MEQ TABCR PO STA (08:19)
--- NOTE | 2024-10-05 13:21 | Surgery Progress Note ---
Date of Service October 05, 2024 Assessment & Plan (1) Wound infection: (2) Cellulitis: (3) Class 3 obesity: (4) DMII (diabetes mellitus, type 2): Plan 49 yo female with recurrent wound infections and delayed wound healing of the lateral left thigh wound. There is extensive edema and ecchymosis on exam and cellulitis on CT scan. MRI of femur with cellulitis and multiple fluid collections measuring up to 3.5 cm with sinus tract laterally and posteriorly ? etiology of recurrent infections and issues with wound healing, need for recurrent I&D. ID questioning atypical pathogen or process? POD # 1 I&D of Left thigh cellulitis/abscess counter incision medially made, undermining at 10 and 12 O'clock positions leukocytosis resolved Continue pain management continue antibiotics per infectious disease erythema marked with skin marker wound vac placed today will need ID and wound care on discharge, patient may benefit from plastic surgery consultation once through infection phase due to chronic non healing wounds and repetitive infections continue medical management MN surgery covering weekend Admission and Anticipated Discharge Date Admission Date: October 02, 2024 Subjective Soraya wound nurse at bedside, patient having pain at wound site with dressing removal Physical Exam Constitutional: WD/WN, vitals as above + obese; no acute distress Musculoskeletal: Left Thigh: Two open wounds, medial surgical wound with bloody drainage and granulation tissue present, there is undermining at 9-10 o'clock for about 5 cm and 12-1 o'clock for 8 cm. There is still moderate surrounding erythema and edema extending posteriorly to left buttock. Tender to palpation Psychiatric: Orientation: alert and oriented x 3 Results & Data Vital Signs (Past 12 Hours) Vital Signs Temp Pulse Pulse Resp BP BP Pulse Ox 10/05/24 12:29 37.5 C 88 18 144/86 H 94 10/05/24 08:10 36.7 C 81 18 140/82 96 O2 Del Method 10/05/24 12:29 Room Air 10/05/24 08:10 Room Air Laboratory Results 10/05/24 10/04/24 Range/Units 05:31 13:58 WBC 7.66 (4.8-10.8) K/ul RBC 3.30 L (4.20-5.40) M/uL Hgb 9.1 L (12.0-16.0) g/dl Hct 28.4 L (37.0-47.0) % MCV 86.1 (80.0-100.0) fL MCH 27.6 (25.0-34.0) pg MCHC 32.0 (32.0-36.0) g/dL RDW Std Deviation 48.4 H (36.4-46.3) fL RDW Coeff of Jhonny 15.3 H (11.5-14.5) % Plt Count 257 (130-400) K/uL MPV 9.5 (9.4-12.4) fL Immature Gran % (Auto) 0.5 % Neut % (Auto) 70.7 % Lymph % (Auto) 20.4 % Eagle % (Auto) 6.3 % Eos % (Auto) 1.8 % Baso % (Auto) 0.3 % Neut # (Auto) 5.42 (1.40-6.50) K/uL Lymph # (Auto) 1.56 (1.20-3.40) K/uL Eagle # (Auto) 0.48 (0.11-0.59) K/uL Eos # (Auto) 0.14 (0.00-0.50) K/uL Baso # (Auto) 0.02 (0.00-0.20) K/uL Immature Gran # (Auto) 0.04 (0.01-0.20) K/uL ESR 81 H (0-20) mm/hr Sodium 140 (136-145) mmol/L Potassium 3.2 L (3.5-5.1) mmol/L Chloride 106 (98-107) mmol/L Carbon Dioxide 28 (21-32) mmol/L Anion Gap 6 (3-11) BUN 14 (6-23) mg/dl Creatinine 0.68 (0.6-1.2) mg/dl Est Cr Clr Drug Dosing 102.8 ml/min eGFR 106.70 BUN/Creatinine Ratio 20.6 H (10-20) Glucose 138 H (70-99(Fasting)) mg/dl Calcium 8.6 (8.6-10.3) mg/dl Magnesium 1.7 (1.7-2.4) mg/dl C-Reactive Protein 22.95 H (0-0.5) mg/dl Treponema pallidum Ab Negative (Negative) U Histopl Galactoman Ag Pending Microbiology 10/04/24 11:07 Acid Fast Bacilli Smear - Final Tissue,Undefined 10/04/24 11:07 Gram Stain - Final Hip,Left (2) Cellulitis Laterality: left Site of cellulitis: extremity Site of cellulitis of extremity: lower extremity Qualified Code(s): L03.116 - Cellulitis of left lower limb (4) DMII (diabetes mellitus, type 2) Diabetes mellitus complication status: without complication Diabetes mellitus fdc insulin use: without petroleum terminal plant 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
--- NOTE | 2024-10-05 13:22 | Hospitalist Progress Note ---
Date of Service October 05, 2024 Assessment & Plan (1) Sepsis: (2) Leg abscess: (3) DMII (diabetes mellitus, type 2): (4) Essential hypertension: Plan Patient is a 49-year-old female with h/o type II DM on Ozempic, HTN, current smoker, obesity, ALBAN on CPAP who was admitted from 08/29 to 09/04 for a left thigh abscess and cellulitis s/p surgical I&D 08/30 with a current wound VAC. She completed a course of Zosyn/Augmentin and Diflucan after surgical cultures grew Jennifer albicans and Finegoldia magna. Patient has been following with wound care and has had dressing changes of her wound VAC every few days. She p/w left thigh cellulitis, abscess, and sepsis. 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 #Sepsis/Recurrent Left thigh abscesses/Cellulitis- with leukocytosis, tachycardia, fevers, and cellulitis of thigh. She has had numerous left thigh abscesses since a cat bite in 2021. HIV negative, IgG mildly low but IgM and IgA normal. Leukocytosis/tachycardia/fevers now resolved, BCxs remain NGTD. Surgery consult appreciated - s/p surgical I&D/washout with Dr. Frazier on 10/04. ID consult appreciated - switched from dapto/zosyn to Unasyn on 10/04. Will need local ID follow up Pending studies: intraoperative bacterial cx/AFB Cx, Bartonella PCR, Brucella PCR, Histo/Blasto UrAg, Bartonella Ab, Brucella Ab serologies Autoimmune workup to assess for cause of recurrent abscesses/fistula: f/u JANESSA, RF, Anti-DS DNA (given +FH of autoimmune disorders, pt's numerous joint pains, and recurrent infections) Awaiting records and culture results from prior I&Ds in the past few years-asked Nurse navigator to look into obtaining previous cultures from [facility] Pain control: IV morphine or oxycodone prn severe pain, toradol 15mg IV q6h prn moderate pain, and tylenol prn pain or fever (pt request rx for oxy at discharge, had issues with insurance/prior auth last time and had no pain medication for multiple days, now has a prior auth for one year for oxycodone) #DMII, neuropathy-HgbA1C normal at 5.6% in 08/2024. She has lost a lot of weight on Ozempic which is now on hold Continue home gabapentin #Obesity, BMI 35- on ozempic, can be continued at discharge #ALBAN on CPAP-order CPAP at 8 cm H2O for while here #Current smoker-continue to encourage cessation especially with recurrent wounds to ensure proper healing #Anemia-hgb 9.8 and stable, normocytic. Serum Fe undetectable, TIBC low, transferrin sat cannot be calculated however ferritin elevated at 336 but could be acute phase reactant. B12, folate, and TSH normal. Likely anemia of chronic disease with some Fe deficiency anemia. No evidence of bleeding #HTN/HLD-BPs controlled Continue valsartan, Toprol XL. Resume amlodipine for 10/06 #Hypokalemia K 3.2 today, magnesium WNL. 40 mill equivalents KCl p.o. x 1 Recheck BMP a.m. #Depression/anxiety-continue celexa DVT Proph- add Lovenox to start tomorrow 10/06 Dispo-continued stay, eventual discharge home but have to coordinate antibioti cs postdischarge Admission and Anticipated Discharge Date Admission Date: October 02, 2024 Supervising Physician Co-Signing Physician Notes Attending Attestation: Chart reviewed, care plan d/w LEANNE Sparrow. I agree w/ the tomlinson components of her documentation. Appreciate gen surg assistance; await wound cx results from L thigh. Appreciate ID assistance. Wayne Sanches MD Subjective patient seen this morning, lying in bed. States that her appetite is starting to improve. Still having bouts of worsening pain but states that is much better from prior to when she went to the OR. Feels like the infection is improving States she spoke with infectious disease this morning and was thinking 1-2 more days of IV antibiotics. Unclear at this time the patient will have to go home on IV antibiotics or orals States the plan for the surgeon is to place a wound VAC today Review of Systems Review of Systems: All systems reviewed & are unremarkable except as noted in Subjective Physical Exam Physical Exam: General: NAD, VS as above, obese Resp: normal respiratory effort, lungs clear to auscultation CV: RRR, no murmur, Abd: normal bowel sounds, non tender, soft Extremities: Moves all extremities, dressing not removed as it had to be reinforced from serosanguineous drainage this morning. Reinforce dressings clean dry and intact Neuro: A&O x3, Results & Data Results & Data Vital Signs (Past 12 Hours) Vital Signs Temp Pulse Pulse Resp BP BP Pulse Ox 10/05/24 12:29 99.5 F 88 18 144/86 H 94 10/05/24 08:10 98.1 F 81 18 140/82 96 O2 Del Method 10/05/24 12:29 Room Air 10/05/24 08:10 Room Air Laboratory Results CBC and chemistry reviewed CRP reviewed that is downtrending ESR reviewed PG Care Time/CCT Total # of Minutes Spent Total Time Spent with Patient: Total time spent is greater than 50% in coordination of care (as documented) at patient's floor/unit and/or counseling patient: Coding Level of Care Code 64520 SUB INP/OBS CARE 3/50MIN Diagnoses Sepsis A41.9 Leg abscess L02.419 Type 2 diabetes mellitus without complication, without long-term current use of insulin E11.9 Diabetes mellitus complication status: without complication Diabetes mellitus watermelon harvesting supervisor insulin use: without watermelon harvesting supervisor use Essential hypertension I10 (3) DMII (diabetes mellitus, type 2) Diabetes mellitus complication status: without complication Diabetes mellitus watermelon harvesting supervisor insulin use: without watermelon harvesting supervisor use Qualified Code(s): E11.9 - Type 2 diabetes mellitus without complications
--- NOTE | 2024-10-05 14:30 | Infectious Disease Progress Nt ---
Date of Service October 05, 2024 Assessment & Plan (1) Leg abscess: (2) Recurrent cellulitis of lower extremity: Plan ID Problem List: #Left thigh abscess/cellulitis s/p multiple I&Ds, most recently on 08/30 with wound vac, 08/30 OR Cx + C. albicans and Finegoldia magna. S/p I&D on 10/04, OR Cx + Staph aureus #Recurrent L thigh abscesses Impression: Angelina Cotter is a 49-year-old woman with history of type II DM on Ozempic (A1c <4.2), HTN, tobacco use, recent admission to [facility] 08/29 to 09/04 (left thigh abscess and cellulitis s/p I&D 08/30 with a current wound VAC. 08/30 OR Cx + C. albicans and Finegoldia magna, s/p pip-tazo + fluconazole -> Augmentin + fluconazole on d/c), who presents with worsening redness and pain at the wound site. ID is consulted for R thigh wound infection. She began having episodes of L thigh cellulitis/abscesses in 2021 after adopting a kitten (patient works at the [employer]) which bit and scratched her on her left leg. The area turned red and swollen, and led to an admission s/p I&D. Since that time, she has many recurrences of infection at the L thigh s/p multiple I&Ds (including from [facility] by Dr. Fontanie; Dr. Phillips in [place]). She recalls there was Staph in cultures but never grew MRSA, she also recalls a gram negative in the past. She has also seen ID at [facility] in [place]. She reports that approximately 2 year prior, she had her last I&D and was also treated with several weeks of IV abx at that time (reportedly, at least one time in the past, there was concern about possible underlying osteomyelitis. Her infection has only recurred at the left thigh area. She does not remember the names of all of the abx she has been on but knows she has had a few rounds of 7-10d courses of doxycycline and several courses of IV vancomycin and IV pip- tazo. She said that prior to August, her last course of PO abx was around 05/2024. She has never had Staph decolonization. She was recently admitted to [facility] 08/29 to 09/04 for left thigh abscess and cellulitis. She underwent surgical I&D 08/30 with a current wound VAC. Surgical cultures 08/30 grew Jennifer albicans and Finegoldia magna. She completed a course of Zosyn and Diflucan while admitted, then was discharged on 14d Difl ucan and 10d Augmentin. Patient has been following with wound care and has had dressing changes of her wound VAC every few days, just changed 09/30. She developed redness and pain around at the wound vac site starting around 09/29. No fevers or chills. In the ED, initially afebrile (Tmax 38.1 on 10/02) HR 97, WBC 14.98, CRP 25.52, lactate 1.0. CT 10/01 showed left gluteal skin with underlying subq emphysema and cellulitis, 2 small underlying subcutaneous fluid-filled locules 8 to 12 mm. She was started on daptomycin and pip-tazo Primary team in the process of obtaining records partial records obtained from Dr. Fontaine. Awaiting records from Dr. Phillips. Dr. Ibarra (wound care)s clinic has not obtained any cultures. Review of partial records from Dr. Martin office reveal 08/21/21 I&D Cx + group A Strep, and 07/20/22 I&D Cx + CoNS and Rothi mucilaginosa. She does not have any pain at other sites. No rashes. She reports that she does have stiff fingers and swollen joints sometimes. Her sister has sarcoidosis, another sister has RA, and another sister has lupus. She reports shes gotten workup for autoimmune and endocrine issues in the past but that the workup has been unremarkable. Discussion She has had recurrent abscesses for several years s/p multiple I&Ds. Interestingly, her symptoms started with a cat bite, and the patient works at the [employer] and has contact with numerous animals. She reports improvement with abx and wound vacs but has persistently nonhealing wounds and recurrence of abscesses. This admission, she presents with fevers and tachycardia, 10/01 BCx NGTD. 10/03 MRI L femur with cellulitis of L lateral hip, with sinus tract and continued abscesses (up to 3.5 cm); no e/o osteomyelitis or myositis. S/p I&D by surgery on 10/04, with OR Cx + Staph aureus. Note recent prior Finegoldia and Jennifer from 08/2024. Can continue daptomycin and Unasyn for now (can stop daptomycin if Staph aureus is MSSA). If Jennifer re-grows, then will restart fluconazole. QTc 445 on 10/01. Final abx selection and duration pending Cx and source control; anticipate at least a 2-week course (with possible transition to PO), or potentially longer if there are remaining abscess pockets. Would consider repeat thigh CT prior to EOT. Would also recommend Staph decolonization after resolution of abscesses and completion of her abx course. Although Staph is a suitable explanation for her large abscess, do note that this is the first data (from the available records) showing Staph aureus. Thus far prior OSH records only show GAS and CoNS in Cx, both from >2 years ago. Given the recurrent nature of her symptoms over several years, did also wonder about an atypical pathogen or an underlying process such as a zoonotic pathogen (Bartonella or Brucella although much less likely as the patient has already received multiple courses of doxycycline) or other atypical pathogen (Nocardia, NTM). Would also consider if theres a non-infectious underlying process such as hidradenitis suppurativa or perhaps even an immunodeficiency such as CGD (although recurrent infections have not been a lifelong issue for the patient). HIV neg. Interestingly, the patients sisters with multiple autoi mmune/inflammatory conditions (sarcoid, lupus, RA), and wonder if her poor wound healing and/or abscess formation may represent an underlying condition. Hidradenitis suppurativa has been associated with SLE, for example. Pending Histo, Brucella, Bartonella. Patient also recalled that she has had fluid drained from her eyeball due to unclear etiology but was told this might be khaleesi virus (patient does not recall the actual name). This is of unclear etiology consider whether it represents non-infectious uveitis, ?ocular Bartonellosis, other endophthalmitis. Recommendations: - Continue Unasyn 3g IV q6h for now given recent anaerobes in Cx - Restart daptomycin 625 mg (~7 mg/kg) IV q24h can stop daptomycin if Staph aureus results as MSSA - Final abx selection and duration pending Cx and source control; anticipate at least a 2-week course (with possible transition to PO), or potentially longer if there are remaining abscess pockets - Consider repeat thigh CT prior to EOT - Recommend Staph decolonization after resolution of abscess and completion of abx course (see sample protocol below) - F/u 10/05 I&D Cx, Bartonella PCR - F/u Histo/Blasto UrAg, Bartonella Ab, Brucella Ab - Continue to consider autoimmune/inflammatory etiologies (e.g., HS) and immunodeficiencies, primary team has initiated workup - Ensure close follow up with PCP, surgery - Consider re-referral to local outpatient ID Staph/MRSA decolonization protocol Perform decolonization of all household members simultaneously. (1) Nasal decolonization: mupirocin ointment (2%) - Apply twice a day to each nostril (each household member should have a separate one) for 5 days (2) Topical body decolonization: chlorhexidine gluconate (Hibiclens) (2% or 4% solution) washes - Wet body. Turn off water and put Hibiclens all over body from the neck down, with special attention to underarms and groin. Wait 3-5 minutes, then wash off Hibiclens. Do this daily for 5 days. - Bathroom: Daily Clorox bleach to shower/bathroom. - Gym: Ok to go to gym, but wash off equipment before and after use. Do not stay in sweaty clothes; immediately shower after exercise. Do not re-wear sweaty clothes. - Laundry: Wash towels/washcloths/sheets/underwear/sweaty clothes after each use in hot water and color-safe bleach. Do not share towels or washcloths. - Personal hygiene products: Throw out deodorant and razors now. Avoid loofahs. Only use razors for 1 week at a time. If you develop cellulitis (skin infection), get rid of deodorant and razors again. ID will continue to follow, but does not monitor the chart or round over the weekend; covering physician can be contacted at [phone] ([facility] call center) for telephonic consultation if needed. Dr. Oneyda Escoto will resume care of the ID service on Tuesday. Zaynab Bautista MD, M[facility] Infectious Diseases [facility]/ID Connect ID Connect direct line: [phone] Admission and Anticipated Discharge Date Admission Date: October 02, 2024 Subjective PLEASE NOTE: E-consult was performed for this visit given that no telepresenter was available today. This patient recommendation is based on a telemedicine consult request which was completed asynchronously through chart review and information provided by the primary physician. The patient was not seen or examined today. The evaluation is consultative in nature and all patient care and treatment decisions can either be accepted or rejected by the patient's primary hospital-based treating physician using their own independent medical judgment for their patient. Time Spent Reviewing Chart: 31+ minutes - Afebrile - s/p I&D on 10/04 Results & Data Vital Signs (Past 12 Hours) Vital Signs Temp Pulse Pulse Resp BP BP Pulse Ox 10/05/24 12:29 37.5 C 88 18 144/86 H 94 10/05/24 08:10 36.7 C 81 18 140/82 96 O2 Del Method 10/05/24 12:29 Room Air 10/05/24 08:10 Room Air Diagnostic Findings Diagnostics: 10/03 MRI L femur 1. No definite change in cellulitis lateral to the left hip, with a sinus tract and suspected small soft tissue abscesses 2. No sign of osteomyelitis or myositis Micro Data: 10/04 L thigh OR Cx bact Cx: Staph aureus AFB Cx: PEND Bartonella PCR: PEND 10/02 HIV: neg 10/01 BCx x2: NGTD prior micro 08/30 L thigh Cx: + C. albicans and Finegoldia magna 08/29 BCx x2: NG Dr. Fontaine OS records 07/20/22 L thigh Cx: light CoNS 07/20/22 L thigh Cx: light Rothia mucilaginosa 08/21/21 L thigh deep wound Cx: heavy group A Strep 08/21/21 L lateral thigh Cx: moderate group A Strep Antibiotic Summary: daptomycin (10/01 present) Unasyn (10/04 present) prior pip-tazo (10/01 present)
[2024-10-05] MEDS: DAPTOmycin 500 MG in SYRINGE 0 ML IV SCH (15:17)
[2024-10-06 08:47] LABS: BUN Creatinine Ratio 18.2 (10-20); Calcium 8.9 mg/dl (8.6-10.3); Creatinine Clr Calc Pharmacy 128.7 ml/min; Potassium 3.3 mmol/L (3.5-5.1)
[2024-10-06] MEDS: amLODIPine BESYLATE 5 MG TAB PO SCH (08:55)
[2024-10-06] MEDS: ENOXAPARIN INJ 40 MG/0.4 ML SYR SQ SCH (08:56)
[2024-10-06] MEDS: POTASSIUM CHLORIDE CRTAB 20 MEQ TABCR PO STA ×2 (09:26→17:53)
--- NOTE | 2024-10-06 10:02 | Surgery Progress Note ---
<Statement entered by Rola Maki, DO - 10/06/24 10:59> I have seen and examined this patient with the surgical INDUSTRIAL TRACTOR DRIVER and I agree with this plan. Date of Service October 06, 2024 Assessment & Plan (1) Wound infection: Plan: pt is pod 2 I+D in OR with Dr Frazier Wound vac on , erythema marked 10/05/24 today with increasing extending outside line into left buttock indurated, warmth, painful to touch . Did not appreciate any fluctuance but has soft tissue edema with blanching VSS afebrile wbc wnl ordered ultrasound of left buttock to evaluate possible abscess pt may need further surgical intervention in the next few days ID on consult will follow , pt seen and examined with Dr Maki Admission and Anticipated Discharge Date Admission Date: October 02, 2024 Subjective pt with increase erythema to left thigh Review of Systems Constitutional: no fever and no chills Respiratory: no dyspnea Integumentary: + wounds Physical Exam Constitutional: comfortable; no acute distress Skin: + wound Results & Data Vital Signs (Past 12 Hours) Vital Signs Temp Pulse Resp BP BP Pulse Ox O2 Del Method 10/06/24 08:30 Room Air, CPAP 10/06/24 08:09 97.9 F 78 13 180/98 H 93 Room Air 10/05/24 23:20 157/98 H 10/05/24 22:23 98.1 F 72 16 175/111 H 96 Room Air Results CBC w Diff Results: RBC 3.30 M/uL (4.20-5.40) L 10/05/24 WBC 7.66 K/ul (4.8-10.8) 10/05/24 Hgb 9.1 g/dl (12.0-16.0) L 10/05/24 Hct 28.4 % (37.0-47.0) L 10/05/24 MCV 86.1 fL (80.0-100.0) 10/05/24 MCH 27.6 pg (25.0-34.0) 10/05/24 MCHC 32.0 g/dL (32.0-36.0) 10/05/24 RDW Standard Deviation 48.4 fL (36.4-46.3) H 10/05/24 RDW Coefficient of Variation 15.3 % (11.5-14.5) H 10/05/24 Plt Count 257 K/uL (130-400) 10/05/24 MPV 9.5 fL (9.4-12.4) 10/05/24 Neutrophils (%) (Auto) 70.7 % 10/05/24 Lymphocytes (%) (Auto) 20.4 % 10/05/24 Monocytes # (Auto) 0.48 K/uL (0.11-0.59) 10/05/24 Eosinophils # (Auto) 0.14 K/uL (0.00-0.50) 10/05/24 Immature Granulocyte % (Auto) 0.5 % 10/05/24 Neutrophils # (Auto) 5.42 K/uL (1.40-6.50) 10/05/24 Lymphocytes # (Auto) 1.56 K/uL (1.20-3.40) 10/05/24 Monocytes # (Auto) 0.48 K/uL (0.11-0.59) 10/05/24 Eosinophils # (Auto) 0.14 K/uL (0.00-0.50) 10/05/24 Basophils # (Auto) 0.02 K/uL (0.00-0.20) 10/05/24 Immature Granulocyte # (Auto) 0.04 K/uL (0.01-0.20) 5 PG Care Time/CCT Total # of Minutes Spent Total Time Spent with Patient: Total time spent is greater than 50% in coordination of care (as documented) at patient's floor/unit and/or counseling patient: Coding Level of Care Code 56105 SUB INP/OBS CARE 07/21MIN Diagnoses Wound infection T14.8XXA; L08.9
--- NOTE | 2024-10-06 10:04 | Hospitalist Progress Note ---
Date of Service October 06, 2024 Assessment & Plan (1) Sepsis: (2) Leg abscess: (3) DMII (diabetes mellitus, type 2): (4) Essential hypertension: Plan Patient is a 49-year-old female with h/o type II DM on Ozempic, HTN, current smoker, obesity, ALBAN on CPAP who was admitted from 08/29 to 09/04 for a left thigh abscess and cellulitis s/p surgical I&D 08/30 with a current wound VAC. She completed a course of Zosyn/Augmentin and Diflucan after surgical cultures grew Jennifer albicans and Finegoldia magna. Patient has been following with wound care and has had dressing changes of her wound VAC every few days. She p/w left thigh cellulitis, abscess, and sepsis. 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 #Sepsis/Recurrent Left thigh abscesses/Cellulitis- with leukocytosis, tachycardia, fevers, and cellulitis of thigh. She has had numerous left thigh abscesses since a cat bite in 2021. HIV negative, IgG mildly low but IgM and IgA normal. Leukocytosis/tachycardia/fevers now resolved, BCxs remain NGTD. Surgery consult appreciated - s/p surgical I&D/washout with Dr. Frazier on 10/04. Repeat US today concerning for another abscess - possible OR in the next few days ID consult appreciated - switched from dapto/zosyn to Unasyn on 10/04. OR culture with staph, sensitivies pending - dapto re-added 10/05. May need staph decolinzation for everyone in household ( See ID note 10/06). Will need local ID follow up Pending studies: intraoperative bacterial cx/AFB Cx, Bartonella PCR, Brucella PCR, Histo/Blasto UrAg, Bartonella Ab, Brucella Ab serologies Autoimmune workup to assess for cause of recurrent abscesses/fistula: f/u JANESSA, RF, Anti-DS DNA (given +FH of autoimmune disorders, pt's numerous joint pains, and recurrent infections) Awaiting records and culture results from prior I&Ds in the past few years-asked Nurse navigator to look into obtaining previous cultures from [place] Pain control: IV morphine or oxycodone prn severe pain, toradol 15mg IV q6h prn moderate pain, and tylenol prn pain or fever. Topical lidocaine added for dressing changes (pt request rx for oxy at discharge, had issues with insurance/prior auth last time and had no pain medication for multiple days, now has a prior auth for one year for oxycodone) #DMII, neuropathy-HgbA1C normal at 5.6% in 08/2024. She has lost a lot of weight on Ozempic which is now on hold Continue home gabapentin No BSG checks okay for regular diet. #Obesity, BMI 35- on ozempic, can be continued at discharge #ALBAN on CPAP-order CPAP at 8 cm H2O for while here #Current smoker-continue to encourage cessation especially with recurrent wounds to ensure proper healing #Anemia-hgb 9.8 and stable, normocytic. Serum Fe undetectable, TIBC low, transferrin sat cannot be calculated however ferritin elevated at 336 but could be acute phase reactant. B12, folate, and TSH normal. Likely anemia of chronic disease with some Fe deficiency anemia. No evidence of bleeding #HTN/HLD-BPs controlled Continue valsartan, Toprol XL. Resume amlodipine for 10/06 #Hypokalemia K 3.3 today, magnesium WNL. 40 mill equivalents KCl p.o. x 1 again today Recheck BMP and mag a.m. #Depression/anxiety-continue celexa DVT Proph- Lovenox Dispo-continued stay, may need OR in the next few days Case discussed with Surgery CAMILLE Isaías Admission and Anticipated Discharge Date Admission Date: October 02, 2024 Supervising Physician Co-Signing Physician Notes Attending Attestation: Chart reviewed, care plan d/w LEANNE Sparrow. I agree w/ the tomlinson components of her documentation. Appreciate gen surg assistance. Appreciate ID assistance. Intra-op culture from 10/04 growing staph aureus, sensitivities pending. u/s results of L thigh noted from today. Wayne Sanches MD Subjective Patient seen lying in bed, reports more pain today surgery saw her already and told her likely OR in the next few days, with US pending appetite is okay asking for regular diet Review of Systems Review of Systems: All systems reviewed & are unremarkable except as noted in Subjective Physical Exam Physical Exam: General: NAD, VS as above, obese Resp: normal respiratory effort, lungs clear to auscultation CV: RRR, no murmur, Abd: normal bowel sounds, non tender, soft Extremities: Moves all extremities, wound vac in place, erythema exceeds line superiorly but improved inferiorly - ?worsening infection vs effects of gravity Neuro: A&O x3, Results & Data Results & Data Vital Signs (Past 12 Hours) Vital Signs Temp Pulse Resp BP BP Pulse Ox O2 Del Method 10/06/24 08:30 Room Air, CPAP 10/06/24 08:09 97.9 F 78 13 180/98 H 93 Room Air 10/05/24 23:20 157/98 H 10/05/24 22:23 98.1 F 72 16 175/111 H 96 Room Air Laboratory Results bmp reviewed PG Care Time/CCT Total # of Minutes Spent Total Time Spent with Patient: Total time spent is greater than 50% in coordination of care (as documented) at patient's floor/unit and/or counseling patient: Coding Level of Care Code 44820 SUB INP/OBS CARE 3/50MIN Diagnoses Sepsis A41.9 Leg abscess L02.419 Type 2 diabetes mellitus without complication, without long-term current use of insulin E11.9 Diabetes mellitus complication status: without complication Diabetes mellitus predatory animal exterminator insulin use: without predatory animal exterminator use Essential hypertension I10 (3) DMII (diabetes mellitus, type 2) Diabetes mellitus complication status: without complication Diabetes mellitus predatory animal exterminator insulin use: without snf use Qualified Code(s): E11.9 - Type 2 diabetes mellitus without complications
--- NOTE | 2024-10-06 11:02 | Ultrasound Report ---
US softtissue plvcwall/buttock CLINICAL HISTORY: Left hip/thigh/buttock evaluate for abscess COMPARISON STUDY: CT of 10/01/2024 FINDINGS: In the site of clinical concern in the soft tissues at the lateral left upper thigh in the subcutaneous soft tissues there is a 4.4 cm oval predominantly hypoechogenic finding with mild vascul ar flow. The surrounding soft tissues appear edematous and there is overlying skin thickening. The fi nding likely represents phlegmon or abscess. IMPRESSION: Likely soft tissue phlegmon or abscess in the region of clinical concern. ACT 112: Negative or not required by law. Electronically signed by: Julian Jeffers M.D. 10/06/2024 10:59 AM
[2024-10-06] MEDS ORDERED: LIDOCAINE 4% TOP 50 ML VIAL EXT PRN (12:30)
[2024-10-06 17:47] LABS: LSP % Cells Analyzed CD4 48 % (30-61); LSP Absolute Ct CD4 692 cells/uL (490-1740); LSP Lymphocytes Absolute 1433 cells/uL (850-3900)
[2024-10-06] MEDS: MAGNESIUM SULFATE / D5W 1 GM/100 ML BAG IV ONE (17:53)
[2024-10-07 01:28] LABS: Bartonella henselae IgG Negative; Bartonella henselae IgM Ab Negative; Bartonella quintana IgG Ab Negative; Bartonella quintana IgM Ab Negative; Brucella AB IgG 0.58
[2024-10-07 05:56] LABS: Basophils # (auto) 0.04 K/uL (0.00-0.20); Basophils % (auto) 0.5 %; Eosinophils # (auto) 0.21 K/uL (0.00-0.50); Eosinophils % (auto) 2.8 %; Hematocrit (blood only) 28.8 % (37.0-47.0); Hemoglobin 9.4 g/dl (12.0-16.0); Immature Granulocytes % (auto) 1.4 %; Lymphocytes # (auto) 1.94 K/uL (1.20-3.40); Lymphocytes % (auto) 26.3 %; Mean Corpuscular Hemoglobin 27.8 pg (25.0-34.0); Mean Corpuscular Hgb Conc 32.6 g/dL (32.0-36.0); Mean Corpuscular Volume 85.2 fL (80.0-100.0); Mean Platelet Volume 9.2 fL (9.4-12.4); Monocytes # (auto) 0.54 K/uL (0.11-0.59); Monocytes % (auto) 7.3 %; Neutrophils # (auto) 4.55 K/uL (1.40-6.50); Neutrophils % (auto) 61.7 %; Platelet Count 329 K/uL (130-400); RDW Coefficient of Variation 15.2 % (11.5-14.5); RDW Standard Deviation 47.4 fL (36.4-46.3); Red Blood Count 3.38 M/uL (4.20-5.40); White Blood Count 7.38 K/ul (4.8-10.8)
[2024-10-07 06:16] LABS: BUN Creatinine Ratio 15.8 (10-20); Calcium 9.1 mg/dl (8.6-10.3); Creatinine Clr Calc Pharmacy 124.2 ml/min; Magnesium 1.9 mg/dl (1.7-2.4); Potassium 4.2 mmol/L (3.5-5.1)
[2024-10-07] MEDS: CITALOPRAM 20 MG TAB PO SCH (08:28)
--- NOTE | 2024-10-07 11:07 | Surgery Progress Note ---
<Statement entered by Rloa Maki, DO - 10/07/24 15:17> I have seen and examined this patient today with the surgical PA and I agree with this plan. Date of Service October 07, 2024 Assessment & Plan (1) Recurrent cellulitis of lower extremity: Plan: POD#3 I+D in OR with Dr Frazier A repeat US was performed yesterday due to some expanding erythema which showed a 4.4 cm area concerning for phlegmon vs abscess WBC 7. vital stable Wound vac on , erythema appears mildly improved. there is an area of induration and tenderness that remains likely consistent with what appears on the US We will follow up again tomorrow but we have placed her on the schedule for further I&D with dr. maki who has obtained consent. npo at midnight keep wound vac in place today ID on consult Admission and Anticipated Discharge Date Admission Date: October 02, 2024 Subjective patient reports redness is a bit improved, but that area in her L thigh continues to be fairly painful Physical Exam Physical Exam: awake/alert, no distress Skin: L thigh with wound vac in place, some mild surrounding erythema, area lateral to wound tender Results & Data Vital Signs (Past 12 Hours) Vital Signs Temp Pulse Resp BP Pulse Ox O2 Del Method 10/07/24 08:17 98.4 F 77 14 148/91 H 94 Room Air PG Care Time/CCT Total # of Minutes Spent Total Time Spent with Patient: Total time spent is greater than 50% in coordination of care (as documented) at patient's floor/unit and/or counseling patient: Coding Level of Care Code 89490 SUB INP/OBS CARE 07/21MIN Diagnoses Recurrent cellulitis of lower extremity L03.119
--- NOTE | 2024-10-07 11:45 | Hospitalist Progress Note ---
Date of Service October 07, 2024 Assessment & Plan (1) Sepsis: (2) Leg abscess: (3) DMII (diabetes mellitus, type 2): (4) Essential hypertension: Plan Patient is a 49-year-old female with h/o type II DM on Ozempic, HTN, current smoker, obesity, ALBAN on CPAP who was admitted from 08/29 to 09/04 for a left thigh abscess and cellulitis s/p surgical I&D 08/30 with a current wound VAC. She completed a course of Zosyn/Augmentin and Diflucan after surgical cultures grew Jennifer albicans and Finegoldia magna. Patient has been following with wound care and has had dressing changes of her wound VAC every few days. She p/w left thigh cellulitis, abscess, and sepsis. 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 status post I&D with Dr. Frazier 10/04 #Sepsis/Recurrent Left thigh abscesses/Cellulitis- with leukocytosis, tachycard ia, fevers, and cellulitis of thigh. She has had numerous left thigh abscesses since a cat bite in 2021. HIV negative, IgG mildly low but IgM and IgA normal. Leukocytosis/tachycardia/fevers now resolved, BCxs remain NGTD. Surgery consult appreciated - s/p surgical I&D/washout with Dr. Frazier on 10/04. Repeat US 10/06 concerning for another abscess - plan for / ID consult appreciated - switched from dapto/zosyn to Unasyn on 10/04. OR culture with staph, sensitivies pending - dapto re-added 10/05. May need staph decolinzation for everyone in household ( See ID note 10/06). Will need local ID follow up Expanded workup: Brucella Ab negative, Bartonella Ab negative Pending studies: intraoperative bacterial cx/AFB Cx, Bartonella PCR, Brucella PCR, Histo/Blasto UrAg, Autoimmune workup to assess for cause of recurrent abscesses/fistula: f/u JANESSA, RF, Anti-DS DNA (given +FH of autoimmune disorders, pt's numerous joint pains, and recurrent infections) Awaiting records and culture results from prior I&Ds in the past few years-asked Nurse navigator to look into obtaining previous cultures from [place] Pain control: IV morphine or oxycodone prn severe pain, toradol 15mg IV q6h prn moderate pain, and tylenol prn pain or fever. Topical lidocaine added for dressing changes (pt request rx for oxy at discharge, had issues with insurance/prior auth last time and had no pain medication for multiple days, now has a prior auth for one year for oxycodone) AM CBC and BMP #DMII, neuropathy-HgbA1C normal at 5.6% in 08/2024. She has lost a lot of weight on Ozempic which is now on hold Continue home gabapentin No BSG checks okay for regular diet. #Obesity, BMI 35- on ozempic, can be continued at discharge #ALBAN on CPAP-order CPAP at 8 cm H2O for while here #Current smoker-continue to encourage cessation especially with recurrent wounds to ensure proper healing #Anemia-hgb 9.8 and stable, normocytic. Serum Fe undetectable, TIBC low, transferrin sat cannot be calculated however ferritin elevated at 336 but could be acute phase reactant. B12, folate, and TSH normal. Likely anemia of chronic disease with some Fe deficiency anemia. No evidence of bleeding #HTN/HLD-BPs controlled Continue valsartan, Toprol XL, amlodipine #Hypokalemia K 4.2 today with Mag 1.9 - no additional PO repletion needed #Depression/anxiety-continue celexa DVT Proph- Lovenox held Dispo-continued stay, OR tomorrow Admission and Anticipated Discharge Date Admission Date: October 02, 2024 Supervising Physician Co-Signing Physician Notes Attending Attestation: Chart reviewed, care plan d/w LEANNE Sparrow. I agree w/ the tomlinson components of her documentation. Appreciate gen surg assistance. Appreciate ID assistance. Intra-op culture from 10/04 grew MRSA. To OR tomorrow for I/D of additional L thigh abscess. Wayne Sanches MD Subjective Still having pain in her left thigh, shocked to hear that she has MRSA. Thankful for the diet upgrade. States that she was seen by surgery and the plan is to go to the OR tomorrow Review of Systems Review of Systems: All systems reviewed & are unremarkable except as noted in Subjective Physical Exam Physical Exam: General: NAD, VS as above, obese Resp: normal respiratory effort, lungs clear to auscultation CV: RRR, no murmur, Abd: normal bowel sounds, non tender, soft Extremities: Moves all extremities, wound vac in place, erythema has receded within the originally drawn line, erythema has improved Neuro: A&O x3, Results & Data Results & Data Vital Signs (Past 12 Hours) Vital Signs Temp Pulse Resp BP BP Pulse Ox O2 Del Method 10/07/24 11:30 97.9 F 73 17 147/84 H 95 Room Air 10/07/24 08:17 98.4 F 77 14 148/91 H 94 Room Air Laboratory Results CBC and chemistry reviewed PG Care Time/CCT Total # of Minutes Spent Total Time Spent with Patient: Total time spent is greater than 50% in coordination of care (as documented) at patient's floor/unit and/or counseling patient: Coding Level of Care Code 41732 SUB INP/OBS CARE 3/50MIN Diagnoses Sepsis A41.9 Leg abscess L02.419 Type 2 diabetes mellitus without complication, without long-term current use of insulin E11.9 Diabetes mellitus complication status: without complication Diabetes mellitus termite treater helper insulin use: without retirement use Essential hypertension I10 (3) DMII (diabetes mellitus, type 2) Diabetes mellitus complication status: without complication Diabetes mellitus retirement insulin use: without retirement use Qualified Code(s): E11.9 - Type 2 diabetes mellitus without complications
[2024-10-07] MEDS: ACETAMINOPHEN 500 MG TAB PO PRN (15:49)
[2024-10-08] MEDS: LACTATED RINGER'S 1,000 ML IV SCH ×2 (00:54→13:36)
[2024-10-08] MEDS: FIRST - Mouthwash BLM 5 ML UDP PO PRN (05:02)
[2024-10-08 06:25] LABS: Hematocrit (blood only) 29.9 % (37.0-47.0); Hemoglobin 9.6 g/dl (12.0-16.0); Mean Corpuscular Hemoglobin 27.4 pg (25.0-34.0); Mean Corpuscular Hgb Conc 32.1 g/dL (32.0-36.0); Mean Corpuscular Volume 85.2 fL (80.0-100.0); Mean Platelet Volume 9.1 fL (9.4-12.4); Platelet Count 398 K/uL (130-400); RDW Coefficient of Variation 15.4 % (11.5-14.5); RDW Standard Deviation 47.4 fL (36.4-46.3); Red Blood Count 3.51 M/uL (4.20-5.40); White Blood Count 8.09 K/ul (4.8-10.8)
[2024-10-08 06:43] LABS: Calcium 9.2 mg/dl (8.6-10.3); Creatinine Clr Calc Pharmacy 94.1 ml/min; Potassium 4.3 mmol/L (3.5-5.1)
[2024-10-08 11:27] LABS: Anti Nuclear Antibody Screen NEGATIVE (NEGATIVE); Anti-dsDNA Recombinant <1 IU/mL; Rheumatoid Factor 20 IU/mL (<14)
--- NOTE | 2024-10-08 12:53 | Infectious Disease Progress Nt ---
Date of Service October 08, 2024 Assessment & Plan (1) Leg abscess: (2) Recurrent cellulitis of lower extremity: Plan 49yo F with h/o T2DM on Ozempic (A1c <4.2), HTN, tobacco use, prior episodes of left thigh cellulitis/abscesses since 2021, recent admission to [facility] 08/29 to 09/04 (left thigh abscess and cellulitis s/p I&D 08/30 with a current wound VAC. 08/30 OR Cx + C. albicans and Finegoldia magna, s/p pip-tazo + fluconazole -> Augmentin + fluconazole x 14d on d/c), who presented 10/01 with worsening redness and pain at the wound site. On admission, initially afebrile (Tmax 38.1 on 10/02) HR 97, WBC 14.98, CRP 25.52, lactate 1.0. CT 10/01 showed left gluteal skin with underlying subcu emphysema and cellulitis, 2 small underlying subcutaneous fluid-filled locules 8 to 12 mm. She was started on daptomycin and pip-tazo. 10/01 BCx NGTD. 10/03 MRI L femur with cellulitis of L lateral hip, with sinus tract and continued abscesses (up to 3.5 cm); no e/o osteomyelitis or myositis. ID consulted 10/02. Review of partial records from Dr. Martin office reveal 08/21/21 I&D Cx + group A Strep, and 07/20/22 I&D Cx + CoNS and Rothi mucilaginosa. S/p I&D by surgery on 10/04, with OR Cx + MRSA. Soft tissue u/s 10/06 with phlegmon/abscess. Bartonella, HIV, Brucella negative. Planned for I+D today. Im going to stop Unasyn since only growth is MRSA. Anticipate at least a 2-week course (with possible transition to PO), or potentially longer if there are remaining abscess pockets. Would consider repeat thigh CT prior to EOT. Would also recommend Staph decolonization after resolution of abscesses and completion of her abx course. # Left thigh abscess/cellulitis s/p multiple I&Ds, most recently on 08/30 with wound vac, 08/30 OR Cx + C. albicans and Finegoldia magna. S/p I&D on 10/04, OR Cx + MRSA # Recurrent L thigh abscesses thrush - Carmelina stopped Unasyn - continue daptomycin 500mg (~8mg/kg) IV q24h (CrCl 94, BMI 35, AdjBW 65kg) - will f/u I+D today - anticipate at least 2 weeks of abx (can be done with PO) pending resolution of abscesses consider repeat CT thigh prior to end of abx - will need Staph decolonization after resolution of acute infection - F/u Histo/Blasto UrAg, - Consider autoimmune/inflammatory etiologies (e.g., HS) and immunodeficiencies, primary team has initiated workup - Ensure close follow up with PCP, surgery - Consider re-referral to local outpatient ID Will continue to follow. If questions or concerns, contact via [employer] or Infectious Disease Call Center . Oneyda Escoto MD [facility], Division of Infectious Diseases Admission and Anticipated Discharge Date Admission Date: October 02, 2024 Subjective Subsequent visit was provided via telemedicine using two-way real-time interactive telecommunication between the patient and the telemedicine provider. For the duration of the visit, the provider was performing the assessment from a different facility than the patient. This includesuse of bluetooth stethoscope forauscultationperformed by the telepresenter that the telemedicine provider can hear if described in the physical exam. Photographic Spotter contact information: Please call [facility] Call Center . (Phone Number For Physician Use Only) After establishing a telemedicine visit, patient was: Patient was verified with two unique identifiers, Patient/authorized rep acknowledged consent and understanding and Gave permission to continue telehealth session Time Spent with Patient: Subsequent => 55 min Patient doing well. She says she has throat soreness and was told she has thrush. She has had improvement with mouthwash. No diarrhea. Physical Exam Physical Exam: General: Awake, alert, no acute distress HEENT: NC/AT, EOMI, area on posterior pharynx with white discoloration Neck: supple Lungs: respirations non-labored Heart: nl peripheral perfusion Abdomen: soft, NT/ND Ext: left hip with wound vac, area of redness Neuro: moving all extremities Results & Data Vital Signs (Past 12 Hours) Vital Signs Temp Pulse Resp BP BP Pulse Ox O2 Del Method 10/08/24 11:18 36.7 C 55 L 14 122/86 96 Room Air 10/08/24 10:47 36.7 C 90 16 174/101 H 93 Room Air 10/08/24 07:50 Room Air 10/08/24 07:42 37.4 C 86 16 168/98 H 96 Room Air Laboratory Results Labs reviewed. Diagnostic Findings Imaging reviewed.
--- NOTE | 2024-10-08 15:05 | Anesthesiology Consultation ---
Date of Service October 08, 2024 Assessment & Plan Chart Review Chart Review: Acceptable Risk for Surgery Consults Requested none History Surgery Operation Date: 10/04/24 10:10 Proposed Procedures p Left Thigh/Buttock Incision and Drainage - Daniel Frazier MD Operation Date: 10/08/24 07:00 Proposed Procedures p Left Lower Leg Incision and Drainage - Rola Maki DO Height/Weight Height: 5 ft 2 in Weight: 89 kg Allergies Allergy/AdvReac Type Severity Reaction Status Date / Time atorvastatin AdvReac Intermediate Cramping Verified 10/01/24 17:46 of the Muscles rosuvastatin AdvReac Intermediate Cramping Verified 10/01/24 17:46 of the Muscles Medications Home Medications Medication Instructions Recorded Confirmed Last Taken blood sugar diagnostic (OneTouch 01/05/24 07/23/24 Unknown Verio test strips) blood-glucose meter (OneTouch 01/05/24 07/23/24 Unknown Verio Flex Meter) citalopram 40 mg tablet 40 mg PO DAILY 01/05/24 10/01/24 10/01/24 cyclobenzaprine 10 mg tablet 10 mg PO TID PRN neck pain 01/05/24 10/01/24 Unknown gabapentin 300 mg capsule 300 mg PO BID 01/05/24 10/01/24 10/01/24 08:00 hydrocodone 10 mg-acetaminophen 1 tab PO Q6H PRN leg pain 01/05/24 10/01/24 Unknown 325 mg tablet valsartan 320 mg tablet 320 mg PO DAILY 01/05/24 10/01/24 10/01/24 evolocumab 140 mg/mL subcutaneous 140 mg subcut Q14D 08/29/24 10/01/24 09/23/24 pen injector (Niki Malik) lidocaine HCl 4 % (40 mg/mL) 1 applic topical DAILY PRN Wound 08/29/24 10/01/24 Unknown mucosal solution Care Pain metoprolol succinate 100 mg 100 mg PO DAILY 08/29/24 10/01/24 10/01/24 tablet,extended release 24 hr potassium chloride 10 mEq 10 meq PO BID 08/29/24 10/01/24 10/01/24 08:00 tablet,extended release semaglutide 0.25 mg or 0.5 mg (2 0.5 mg subcut WK 08/29/24 10/01/24 09/30/24 mg/3 mL) subcutaneous pen injector (Ozempic) amlodipine 5 mg tablet (Norvasc) 10 mg (2 x 5 mg) PO QAM #30 tabs 09/04/24 10/01/24 10/01/24 Active Medications Generic Name Dose Route Start Last Admin Trade Name Freq PRN Reason Stop Dose Admin Acetaminophen 1,000 mg 10/03/24 23:00 10/07/24 15:49 Acetaminophen 500 Mg Tab PO 11/02/24 22:59 1,000 mg Q8H PRN Administration mild pain or fever Amlodipine Besylate 10 mg 10/06/24 09:00 10/08/24 07:45 Amlodipine Besylate 5 Mg Tab PO 11/05/24 08:59 10 mg QAM ANGELIKA Administration Citalopram Hydrobromide 40 mg 10/07/24 09:00 10/08/24 07:46 Citalopram 20 Mg Tab PO 11/06/24 08:59 40 mg DAILY ANGELIKA Administration Enoxaparin Sodium 40 mg 10/06/24 09:00 10/07/24 08:28 Enoxaparin Inj 40 Mg/0.4 Ml Syr SQ 11/05/24 08:59 40 mg QAM ANGELIKA Administration Gabapentin 300 mg 10/02/24 21:00 10/08/24 07:45 Gabapentin 300 Mg Cap PO 11/01/24 20:59 300 mg BID ANGELIKA Administration Daptomycin 500 mg/ Syringe 10 mls @ 5 mls/min 10/05/24 15:00 10/07/24 15:57 IV 11/16/24 14:59 5 mls/min Q24H ANGELIKA Administration Protocol Lactated Ringer's 1,000 mls @ 15 mls/hr 10/08/24 13:30 10/08/24 13:36 Lr IV 10/09/24 13:29 15 mls/hr .Q24H ANGELIKA Administration KVO Ketorolac Tromethamine 15 mg 10/03/24 18:27 10/05/24 20:21 Ketorolac Tromethamine 15 Mg/Ml Vial IV 15 mg Q6H PRN Administration Pain Metoprolol Succinate 100 mg 10/03/24 09:00 10/08/24 07:46 Metoprolol Succ 50mg Ext Rel Tab PO 11/02/24 08:59 100 mg DAILY ANGELIKA Administration Miscellaneous 1 each 10/02/24 08:59 10/08/24 07:46 Remove Nicoderm Patch N/A 11/01/24 08:58 1 each DAILY@0859 ANGELIKA Administration Morphine Sulfate 4 mg 10/04/24 14:29 10/08/24 09:29 Morphine Sulfate 4 Mg/Ml 1 Ml Carp\Vial IV 10/18/24 14:28 4 mg Q3H PRN Administration Pain (6,7,8,9,10) Multi-Ingredient Mouthwash/Gargle 5 ml 10/07/24 23:52 10/08/24 05:02 First - Mouthwash Blm 5 Ml Udp PO 11/06/24 23:44 5 ml Q4H PRN Administration Sore Throat Nicotine 1 patch 10/02/24 09:00 10/08/24 07:46 Nicotine 14 Mg/24 Hr Patch TD 11/01/24 08:59 1 patch QAM ANGELIKA Administration Oxycodone/Acetaminophen 2 tab 10/04/24 14:29 10/08/24 06:35 Oxycodone/Acetaminophen 5mg/325mg Tab PO 10/18/24 14:28 2 tab Q4H PRN Administration SEVERE Pain (7,8,9,10) Valsartan 320 mg 10/03/24 09:00 10/08/24 07:45 Valsartan 80 Mg Tab PO 11/02/24 08:59 320 mg DAILY ANGELIKA Administration NPO Date Last Intake of Fluids: 10/08/24 Time Last Intake of Fluids: 09:00 Last Intake of Fluids Comment: sip with med Date Last Intake of Solids: 10/07/24 Time Last Intake of Solids: 20:00 Past Medical History Medical History Tobacco abuse HTN (hypertension) Chronic pain Anxiety Past Family History Family History Mother Myocardial infarction Hypertension Father Fibromyalgia Past Surgical History Surgical History Encounter for incision and drainage procedure (08/30/24) Incision and Debridement Left Thigh Wound(Left) - Julian Choudhury DO, FACS History of hysterectomy Social History Smoking Status: Former smoker Smoking cigarettes per day: 1PPD Do You Dip or Chew Tobacco: No Hx Alcohol Use: No Hx Substance Use: No Physical Exam Vital Signs Last Vital Signs Temp 36.7 C 10/08/24 13:18 Pulse 86 10/08/24 13:18 Resp 18 10/08/24 13:18 BP 164/101 H 10/08/24 13:18 Pulse Ox 95 10/08/24 13:18 O2 Del Method Room Air 10/08/24 13:18 O2 Flow Rate 2 10/04/24 12:20 Testing Laboratory Results 10/08/24 05:22 10/08/24 05:22 PT 10.9 Seconds (9.0-12.0) 10/01/24 17:53 INR 1.0 (0.9-1.1) 10/01/24 17:53 Urine Color Yellow 10/02/24 00:24 Urine Appearance Clear (Clear) 10/02/24 00:24 Urine pH 5.5 (4.5-7.5) 10/02/24 00:24 Ur Specific [place]ak[place] > 1.045 (1.000-1.030) H 10/02/24 00:24 Urine Protein Trace (Negative) H 10/02/24 00:24 Urine Glucose (UA) Negative (Negative) 10/02/24 00:24 Urine Ketones Trace (Negative) H 10/02/24 00:24 Urine Nitrite Negative (Negative) 10/02/24 00:24 Ur Leukocyte Esterase Negative (Negative) 10/02/24 00:24 Urine WBC (Auto) 0-5 /hpf (0-5) 10/02/24 00:24 Urine RBC (Auto) 0-2 /hpf (0-2) 10/02/24 00:24 U Hyaline Cast (Auto) 0-2 /lpf (0-2) 10/02/24 00:24 U Epithel Cells (Auto) 3-5 /hpf (0-2) H 10/02/24 00:24 Urine Bacteria (Auto) None Seen (None Seen) 10/02/24 00:24 10/04/24 11:07 Gram Stain - Final Hip,Left Aerobic and Anaerobic Culture - Preliminary Staph aureus MRSA 10/01/24 18:00 Aerobic Blood Culture - Final Blood No growth in Aerobic bottle after 5 days. Anaerobic Blood Culture - Final No growth in Anaerobic bottle after 5 days. 10/01/24 17:53 Aerobic Blood Culture - Final Blood No growth in Aerobic bottle after 5 days. Anaerobic Blood Culture - Final No growth in Anaerobic bottle after 5 days. 10/04/24 11:07 Acid Fast Bacilli Smear - Final Tissue,Undefined
[2024-10-08] MEDS ORDERED: PROPOFOL IV EMULSION 10 MG/ML 20 ML VIAL IV ONE (15:18)
--- NOTE | 2024-10-08 15:18 | Hospitalist Progress Note ---
Date of Service October 08, 2024 Assessment & Plan (1) Sepsis: (2) Leg abscess: (3) DMII (diabetes mellitus, type 2): (4) Essential hypertension: Plan Patient is a 49-year-old female with h/o type II DM on Ozempic, HTN, current smoker, obesity, ALBAN on CPAP who was admitted from 08/29 to 09/04 for a left thigh abscess and cellulitis s/p surgical I&D 08/30 with a current wound VAC. She completed a course of Zosyn/Augmentin and Diflucan after surgical cultures grew Jennifer albicans and Finegoldia magna. Patient has been following with wound care and has had dressing changes of her wound VAC every few days. She p/w left thigh cellulitis, abscess, and sepsis. 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 status post I&D with Dr. Frazier 10/04 #Sepsis/Recurrent Left thigh abscesses/Cellulitis She has had numerous left thigh abscesses since a cat bite in 2021. HIV negative, IgG mildly low but IgM and IgA normal. Leukocytosis/tachycardia/fevers now resolved, BCxs remain NGTD. Surgery consult appreciated - s/p surgical I&D/washout with Dr. Frazier on 10/04. Repeat US 10/06 concerning for another abscess - plan for OR 10/08 ID consult appreciated - stop Unasyn, continue IV Dapto. Anticipate 2 weeks abx, possibly PO abx. Consider repeat CT thigh prior to end of abx. Will need staph decolonization after resolution of acute infx. Outpatient follow up w/ ID. Expanded workup: Brucella Ab negative, Bartonella Ab negative Pending studies: intraoperative bacterial cx/AFB Cx, Bartonella PCR, Brucella PCR, Histo/Blasto UrAg, Autoimmune workup to assess for cause of recurrent abscesses/fistula: f/u JANESSA, RF, Anti-DS DNA (given +FH of autoimmune disorders, pt's numerous joint pains, and recurrent infections) Awaiting records and culture results from prior I&Ds in the past few years-asked Nurse navigator to look into obtaining previous cultures from [facility] Pain control: IV morphine or oxycodone prn severe pain, toradol 15mg IV q6h prn moderate pain, and tylenol prn pain or fever. Topical lidocaine added for d ressing changes (pt request rx for oxy at discharge, had issues with insurance/prior auth last time and had no pain medication for multiple days, now has a prior auth for one year for oxycodone) CBC/BMP remain stable. AM CBC and BMP #DMII, neuropathy HgbA1C normal at 5.6% in 08/2024. She has lost a lot of weight on Ozempic which is now on hold Continue home gabapentin No BSG checks okay for regular diet. #Obesity, BMI 35 on Ozempic, can be continued at discharge #ALBAN on CPAP order CPAP at 8 cm H2O for while here #Current smoker continue to encourage cessation especially with recurrent wounds to ensure proper healing #Anemia hgb 9.6 and stable, normocytic. Serum Fe undetectable, TIBC low, transferrin sat cannot be calculated however ferritin elevated at 336 but could be acute phase reactant. B12, folate, and TSH normal. Likely anemia of chronic disease with some Fe deficiency anemia. No evidence of bleeding #HTN/HLD BPs controlled Continue valsartan, Toprol XL, amlodipine #Hypokalemia - resolved K 4.3, no repletion needed #Depression/anxiety continue celexa DVT Proph- Lovenox held, can likely resume after surgery. Admission and Anticipated Discharge Date Admission Date: October 02, 2024 Supervising Physician Co-Signing Physician Notes Attending Attestation: Chart reviewed, care plan d/w LEANNE De La Fuente. I agree w/ the tomlinson components of her documentation. To OR today for I/D of additional left thigh MRSA abscess. Appreciate gen surg assistance. Cont IV daptomycin. Wayne Sanches MD Subjective Patient seen and examined this morning. patient reports thigh pain this morning but it is tolerable. She is ready to undergo another operation to hopefully help with the healing process. She denies any other complaints. Physical Exam Constitutional: WD/WN, vitals as above Eyes: PERRL, conjunctivae normal, anicteric sclerae Respiratory: breathing unlabored Cardiovascular: well perfused Musculoskeletal: wound vac in place on left thigh Psychiatric: A+Ox3, euthymic affect Results & Data Results & Data Vital Signs (Past 12 Hours) Vital Signs Temp Pulse Resp BP BP Pulse Ox O2 Del Method 10/08/24 13:18 36.7 C 86 18 164/101 H 95 Room Air 10/08/24 11:18 36.7 C 55 L 14 122/86 96 Room Air 10/08/24 10:47 36.7 C 90 16 174/101 H 93 Room Air 10/08/24 07:50 Room Air 10/08/24 07:42 37.4 C 86 16 168/98 H 96 Room Air PG Care Time/CCT Total # of Minutes Spent Total Time Spent with Patient: Total time spent is greater than 50% in coordination of care (as documented) at patient's floor/unit and/or counseling patient: Coding Level of Care Code 92181 SUB INP/OBS CARE 3/50MIN Diagnoses Sepsis A41.9 Leg abscess L02.419 Type 2 diabetes mellitus without complication, without long-term current use of insulin E11.9 Diabetes mellitus complication status: without complication Diabetes mellitus predatory animal exterminator insulin use: without predatory animal exterminator use Essential hypertension I10 (3) DMII (diabetes mellitus, type 2) Diabetes mellitus complication status: without complication Diabetes mellitus predatory animal exterminator insulin use: without skilled nursing use Qualified Code(s): E11.9 - Type 2 diabetes mellitus without complications
[2024-10-08] MEDS ORDERED: MIDAZOLAM HCL 1 MG/ML 2ML VIAL ONE (15:34)
[2024-10-08] MEDS ORDERED: fentaNYL citrate PF 100 MCG/2 ML VIAL ONE ×2 (15:35→16:13)
[2024-10-08] MEDS ORDERED: LIDOCAINE 2% 2 ML VIAL/AMP(20MG/ML) INFIL ONE (15:36)
--- NOTE | 2024-10-08 15:47 | Surgery Progress Note ---
Date of Service October 08, 2024 Assessment & Plan (1) Recurrent cellulitis of lower extremity: (2) Abscess: Plan POD#3 I+D in OR with Dr Frazier A repeat US was performed yesterday due to some expanding erythema which showed a 4.4 cm area concerning for phlegmon vs abscess WBC 7. vital stable Wound vac on , erythema appears mildly improved. there is an area of induration and tenderness that remains likely consistent with what appears on the US We will follow up again tomorrow but we have placed her on the schedule for further I&D with dr. de jesus who has obtained consent. npo at midnight keep wound vac in place today ID on consult Admission and Anticipated Discharge Date Admission Date: October 02, 2024 Subjective pain continues left hip Physical Exam Constitutional: no acute distress, not ill appearing, not in distress and not diaphoretic Skin: swelling and erythema left hip Results & Data Vital Signs (Past 12 Hours) Vital Signs Temp Pulse Resp BP BP Pulse Ox O2 Del Method 10/08/24 13:18 36.7 C 86 18 164/101 H 95 Room Air 10/08/24 11:18 36.7 C 55 L 14 122/86 96 Room Air 10/08/24 10:47 36.7 C 90 16 174/101 H 93 Room Air 10/08/24 07:50 Room Air 10/08/24 07:42 37.4 C 86 16 168/98 H 96 Room Air PG Care Time/CCT Total # of Minutes Spent Total Time Spent with Patient: Total time spent is greater than 50% in coordination of care (as documented) at patient's floor/unit and/or counseling patient: Coding Level of Care Code 82674 Post Operative Follow-Up Diagnoses Recurrent cellulitis of lower extremity L03.119 Abscess L02.91
[2024-10-08] MEDS ORDERED: ONDANSETRON INJ 2 MG/ML 2 ML VIAL ONE (16:10)
[2024-10-08] MEDS ORDERED: DEXAMETHASONE SOD INJ 4 MG/ML VIAL ONE (16:10)
[2024-10-08] MEDS ORDERED: ePHEDrine sulfate 50 MG/5 ML SYR ONE (16:37)
--- NOTE | 2024-10-08 16:53 | Operative Report ---
PG Post Operative Report Pre & Post Diagnosis Operation Date: 10/08/24 07:00 Pre-Op Diagnosis: 1. Recurrent cellulitis of lower extremity left 2. Abscess Post-Op Diagnosis: 1. Recurrent cellulitis of lower extremity left 2. Abscess I identified the patient and participated in the time-out.: Yes Procedure Operation Date: 10/08/24 07:00 Actual Procedures p Left Lower Leg Incision and Drainage(Left) - Rola Maki DO Surgeon Rola Maki DO Kiln Placer Anita Fu PA-C Estimated Blood Loss 5 Findings Consistent with Post-Op Diagnosis Specimens None Anesthesia Type General Complications none Disposition Accompanied Patient To Recovery: No Disposition: Recovery Room Indications abscess accumulation Description of Procedure The patient was brought back to the operating room and placed on the operating room table in lazy right lateral decubitus position. She was connected to cardiac and oxygen monitoring, supplemental O2 with provide and SCDs were applied to bilateral lower extremities. The patient was administered general anesthesia and superiorly with the pelvis. The left hip area wound VAC was removed and the area was prepped and draped in typical sterile fashion using Betadine prep. An intraoperative ultrasound was performed to confirm the location of abscess at the far lateral left hip and the incision was made over this area. This involved a large area that contained tunneling. The incision was extended in both directions to open the tunneled areas to avoid further retention of abscess. There was an additional tunneled area identified at the most medial previously opened abscess pocket inferior and medial to the one opened at this procedure. The wounds were irrigated with saline and dried. Previous lower medial wound: The previous areas of tunneling that were packed with white wound vac sponge were lightly packed with Iodoform, the additional medial tunnel area was packed. Previous lower lateral wound: No additional areas of tunneling were identified here. This was lightly packed with Iodoform packing. The abscess cavity that was opened at this procedure was packed and packing included a tunnel that extended medially from the inferior aspect of the wound. The wounds were covered with dry gauze secured in place with tape. The patient was awakened from anesthesia With securing airway with removal and she was transferred in stable condition. She tolerated the procedure well. I attest to the content of the Intraoperative Record and any orders documented t herein. Any exceptions are noted below.
--- NOTE | 2024-10-08 17:04 | Anesthesiology Progress Note ---
Date of Service October 08, 2024 Anesthesia Post Procedure Vital Signs Vital Signs: Temp Pulse Pulse Resp BP BP Pulse Ox 10/08/24 16:53 36.2 C L 89 14 142/83 H 95 10/08/24 13:18 36.7 C 86 18 164/101 H 95 10/08/24 11:18 36.7 C 55 L 14 122/86 96 10/08/24 10:47 36.7 C 90 16 174/101 H 93 10/08/24 07:50 10/08/24 07:42 37.4 C 86 16 168/98 H 96 10/07/24 20:00 36.4 C L 77 18 107/64 100 10/07/24 19:15 O2 Del Method O2 Flow Rate 10/08/24 16:53 Oxymask 8 10/08/24 13:18 Room Air 10/08/24 11:18 Room Air 10/08/24 10:47 Room Air 10/08/24 07:50 Room Air 10/08/24 07:42 Room Air 10/07/24 20:00 Room Air 10/07/24 19:15 Room Air, CPAP Pain Intensity Left Thigh: Pain Intensity: 6 Transfer of Care Handoff Completed per policy Notes Mental Status: alert / awake / arousable Patient Amnestic to Procedure: Yes Nausea / Vomiting: adequately controlled Pain: adequately controlled Airway Patency, RR, SpO2: stable & adequate BP & HR: stable & adequate Hydration State: stable & adequate Anesthetic Complications: no major complications apparent
[2024-10-08] MEDS ORDERED: ePHEDrine sulfate 50 MG/ML AMP IV PRN (17:06)
[2024-10-08] MEDS ORDERED: ATROPINE SULFATE 0.1 MG/ML 10ML SYR IV PRN (17:06)
[2024-10-08] MEDS ORDERED: PROMETHAZINE HCL 6.25 MG in SODIUM CHLORIDE 0.9% 50 ML IV PRN (17:06)
[2024-10-08] MEDS ORDERED: ONDANSETRON INJ 2 MG/ML 2 ML VIAL IV PRN (17:06)
[2024-10-08] MEDS: fentaNYL citrate PF 100 MCG/2 ML VIAL IV PRN (17:10)
[2024-10-08] MEDS: fentaNYL citrate PF 100 MCG/2 ML VIAL ONE (17:40)
[2024-10-08] MEDS: NYSTATIN SUSP 500,000 U/5 ML UDC PO SCH (21:27)
--- NOTE | 2024-10-09 08:02 | Surgery Progress Note ---
Date of Service October 09, 2024 Assessment & Plan (1) Wound infection: Plan: POD#1 left thigh wound I&D with Dr. Maki & POD#5 I+D in OR with Dr Frazier Labs pending, vitals stable, pt afebrile Outside of post surgical discomfort, she reports the leg does feel better Surgical dressing intact with some shadowing noted underneath, it is currently packed in 3 separate wounds with 1" iodoform packing Will ask wound care to evaluate patient today for possible wound vac, the wounds do have area's of tunneling to be aware about Pt states she does f/u in [facility] [place] and has routinely been on a tu/thurs/sat basis along with the assistance of home health ID on consult, continue abx per their recommendations Admission and Anticipated Discharge Date Admission Date: October 02, 2024 Subjective Patient reports her leg feeling better, post op pain present, but overall improved. no fevers overnight. Physical Exam Physical Exam: awake, alert Skin: left thigh surgical dressing in place, some shadowing on ABD noted Results & Data Vital Signs (Past 12 Hours) Vital Signs Temp Pulse Resp BP BP Pulse Ox O2 Del Method 10/09/24 07:39 98.1 F 93 H 18 143/83 H 93 Room Air 10/09/24 00:00 98.1 F 93 H 18 151/95 H 94 CPAP 10/08/24 22:00 98.2 F 92 H 18 154/89 H 95 CPAP 10/08/24 20:00 Room Air, CPAP PG Care Time/CCT Total # of Minutes Spent Total Time Spent with Patient: Total time spent is greater than 50% in coordination of care (as documented) at patient's floor/unit and/or counseling patient: Coding Level of Care Code 95466 Post Operative Follow-Up Diagnoses Wound infection T14.8XXA; L08.9
--- NOTE | 2024-10-09 10:04 | Infectious Disease Progress Nt ---
Date of Service October 09, 2024 Assessment & Plan (1) Leg abscess: (2) Recurrent cellulitis of lower extremity: Plan 49yo F with h/o T2DM on Ozempic (A1c <4.2), HTN, tobacco use, prior episodes of left thigh cellulitis/abscesses since 2021, recent admission to [facility] 08/29 to 09/04 (left thigh abscess and cellulitis s/p I&D 08/30 with a current wound VAC. 08/30 OR Cx + C. albicans and Finegoldia magna, s/p pip-tazo + fluconazole -> Augmentin + fluconazole x 14d on d/c), who presented 10/01 with worsening redness and pain at the wound site. On admission, initially afebrile (Tmax 38.1 on 10/02) HR 97, WBC 14.98, CRP 25.52, lactate 1.0. CT 10/01 showed left gluteal skin with underlying subcu emphysema and cellulitis, 2 small underlying subcutaneous fluid-filled locules 8 to 12 mm. She was started on daptomycin and pip-tazo. 10/01 BCx NGTD. 10/03 MRI L femur with cellulitis of L lateral hip, with sinus tract and continued abscesses (up to 3.5 cm); no e/o osteomyelitis or myositis. ID consulted 10/02. Review of partial records from Dr. Martin office reveal 08/21/21 I&D Cx + group A Strep, and 07/20/22 I&D Cx + CoNS and Rothi mucilaginosa. S/p I&D by surgery on 10/04, with OR Cx + MRSA. Soft tissue u/s 10/06 with phlegmon/abscess. Bartonella, HIV, Brucella negative. S/p repeat I+D 10/08. Only growth is MRSA on cultures, abx were narrowed to daptomycin. Plan to treat for 2 weeks starting from last I&D, may need longer course if there continues to remain abscess pockets during course of treatment. Favor repeating CT prior to end of therapy. Would also recommend Staph decolonization after resolution of abscesses and completion of her abx course. # Left thigh abscess/cellulitis - s/p I&D on 10/04, OR Cx + MRSA, repeat I&D 10/08 # Recurrent L thigh abscesses - continue daptomycin 500mg (~8mg/kg) IV q24h (CrCl 94, BMI 35, AdjBW 65kg) - when shes ready for discharge, abx can be changed to doxycycline 100mg PO bid to complete 2 weeks (start 10/08, end through 10/21) may need longer until resolution of abscesses - favor repeating MRI or CT left thigh with contrast near end of therapy - will need Staph decolonization after resolution of acute infection - F/u Histo UrAg, - immunodeficiencies w/u per primary team (given her history) - Ensure close follow up with PCP, surgery, and re-referral to local outpatient ID Staph/MRSA decolonization protocol: Perform decolonization of all household members simultaneously. (1) Nasal decolonization: mupirocin ointment (2%) - Apply twice a day to each nostril (each household member should have a separate one) for 5 days (2) Topical body decolonization: chlorhexidine gluconate (Hibiclens) (2% or 4% solution) washes - Wet body. Turn off water and put Hibiclens all over body from the neck down, with special attention to underarms and groin. Wait 3-5 minutes, then wash off Hibiclens. Do this daily for 5 days. - Bathroom: Daily Clorox bleach to shower/bathroom. - Gym: Ok to go to gym, but wash off equipment before and after use. Do not stay in sweaty clothes; immediately shower after exercise. Do not re-wear sweaty clothes. - Laundry: Wash towels/washcloths/sheets/underwear/sweaty clothes after each use in hot water and color-safe bleach. Do not share towels or washcloths. - Personal hygiene products: Throw out deodorant and razors now. Avoid loofahs. Only use razors for 1 week at a time. If you develop cellulitis (skin infection), get rid of deodorant and razors again. Will discontinue active follow up at this time. Please do not hesitate to reconsult the Infectious Diseases service as needed. Oneyda Escoto MD [facility], Division of Infectious Diseases Admission and Anticipated Discharge Date Admission Date: October 02, 2024 Subjective This patient recommendation is based on a telemedicine consult request which was completed asynchronously through chart review and information provided by the primary physician. The patient was not seen or examined today. The evaluation is consultative in nature and all patient care and treatment decisions can either be accepted or rejected by the patient's primary hospital-based treating physician using their own independent medical judgment for their patient. Time Spent Reviewing Chart: 31+ minutes S/p I+D yesterday. Afebrile. Results & Data Vital Signs (Past 12 Hours) Vital Signs Temp Pulse Resp BP BP Pulse Ox O2 Del Method 10/09/24 07:39 36.7 C 93 H 18 143/83 H 93 Room Air 10/09/24 00:00 36.7 C 93 H 18 151/95 H 94 CPAP Laboratory Results Labs reviewed. Diagnostic Findings Imaging reviewed.
[2024-10-09 11:30] LABS: Basophils # (auto) 0.02 K/uL (0.00-0.20); Basophils % (auto) 0.1 %; Eosinophils # (auto) 0.01 K/uL (0.00-0.50); Eosinophils % (auto) 0.1 %; Hemoglobin 9.7 g/dl (12.0-16.0); Immature Granulocytes # (auto) 0.12 K/uL (0.01-0.20); Immature Granulocytes % (auto) 0.9 %; Lymphocytes # (auto) 1.96 K/uL (1.20-3.40); Lymphocytes % (auto) 14.7 %; Mean Corpuscular Hemoglobin 27.6 pg (25.0-34.0); Mean Corpuscular Hgb Conc 33.4 g/dL (32.0-36.0); Mean Corpuscular Volume 82.6 fL (80.0-100.0); Mean Platelet Volume 8.9 fL (9.4-12.4); Monocytes % (auto) 5.2 %; Neutrophils # (auto) 10.54 K/uL (1.40-6.50); Platelet Count 428 K/uL (130-400); RDW Coefficient of Variation 15.2 % (11.5-14.5); RDW Standard Deviation 45.1 fL (36.4-46.3); Red Blood Count 3.51 M/uL (4.20-5.40); White Blood Count 13.35 K/ul (4.8-10.8)
[2024-10-09 11:42] LABS: Potassium 3.6 mmol/L (3.5-5.1)
[2024-10-09 11:48] LABS: BUN Creatinine Ratio 18.3 (10-20)
[2024-10-09] MEDS: oxyCODONE/ACETAMINOPHEN 5mg/325mg TAB PO PRN (15:51)
--- NOTE | 2024-10-09 16:52 | Hospitalist Progress Note ---
Date of Service October 09, 2024 Assessment & Plan (1) Sepsis: (2) Leg abscess: (3) DMII (diabetes mellitus, type 2): (4) Essential hypertension: Plan Patient is a 49-year-old female with h/o type II DM on Ozempic, HTN, current smoker, obesity, ALBAN on CPAP who was admitted from 08/29 to 09/04 for a left thigh abscess and cellulitis s/p surgical I&D 08/30 with a current wound VAC. She completed a course of Zosyn/Augmentin and Diflucan after surgical cultures grew Jennifer albicans and Finegoldia magna. Patient has been following with wound care and has had dressing changes of her wound VAC every few days. She p/w left thigh cellulitis, abscess, and sepsis. 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 status post I&D with Dr. Frazier 10/04 #Sepsis/Recurrent Left thigh abscesses/Cellulitis She has had numerous left thigh abscesses since a cat bite in 2021. HIV negative, IgG mildly low but IgM and IgA normal. BCxs remain NGTD. Wound culture from 10/04 + for MRSA. Surgery consult appreciated - s/p surgical I&D/washout with Dr. Frazier on 10/04. Repeat US 10/06 concerning for another abscess, s/p I&D 10 10/08 w/ Dr. Maki ID consult appreciated - stop Unasyn, continue IV Dapto. Anticipate 2 weeks abx, Doxycycline on dc. Consider repeat CT thigh prior to end of abx. Will need staph decolonization after resolution of acute infx. Outpatient follow up w/ ID. Expanded workup: Brucella Ab negative, Bartonella Ab negative Pending studies: AFB Cx, Bartonella PCR, Brucella PCR, Histo/Blasto UrAg, Autoimmune workup to assess for cause of recurrent abscesses/fistula: f/u JANESSA, RF, Anti-DS DNA (given +FH of autoimmune disorders, pt's numerous joint pains, and recurrent infections) Pain control: IV morphine or oxycodone prn severe pain, toradol 15mg IV q6h prn moderate pain, and tylenol prn pain or fever. Topical lidocaine added for dressing changes (pt request rx for oxy at discharge, had issues with insurance/prior auth last time and had no pain medication for multiple days, now has a prior auth for one year for oxycodone) CBC w/ leukocytosis 10/09, may be secondary to operation 10/08. Will continue to monitor. BMP stable. AM CBC and BMP #DMII, neuropathy HgbA1C normal at 5.6% in 08/2024. She has lost a lot of weight on Ozempic which is now on hold Continue home gabapentin No BSG checks okay for regular diet. #Obesity, BMI 35 on Ozempic, can be continued at discharge #ALBAN on CPAP order CPAP at 8 cm H2O for while here #Current smoker continue to encourage cessation especially with recurrent wounds to ensure proper healing #Anemia hgb 9.6 and stable, normocytic. Serum Fe undetectable, TIBC low, transferrin sat cannot be calculated however ferritin elevated at 336 but could be acute phase reactant. B12, folate, and TSH normal. Likely anemia of chronic disease with some Fe deficiency anemia. No evidence of bleeding #HTN/HLD BPs controlled Continue valsartan, Toprol XL, amlodipine #Hypokalemia - resolved K 4.3, no repletion needed #Depression/anxiety continue Celexa DVT Proph- Lovenox held, can likely resume after surgery. Anticipate discharge home 10/10 pending stabilization of WBC. Discussed w/ General surgery 10/09. Awaiting records and culture results from prior I&Ds in the past few years-asked Nurse navigator to look into obtaining previous cultures from [place] Admission and Anticipated Discharge Date Admission Date: October 02, 2024 Supervising Physician Co-Signing Physician Notes Attending Attestation: Chart reviewed, care plan d/w LEANNE De La Fuente. I agree w/ the tomlinson components of her documentation. ID recommendations noted. Appreciate Gen Surg assistance. Cont abx for MRSA abscess. Wayne Sanches MD Subjective Patient seen and examined this morning. Patient reports improvement of her left thigh following surgery yesterday. She does report pain w/ movement and severe pain w/ her wound vac placement. She reports the pain medication is helpful in controlling it. Denies any nausea/vomiting. Feeling well after surgery. Physical Exam Constitutional: WD/WN, vitals as above Eyes: PERRL, conjunctivae normal, anicteric sclerae Respiratory: breathing unlabored Cardiovascular: well perfused Psychiatric: A+Ox3, euthymic affect Results & Data Results & Data Vital Signs (Past 12 Hours) Vital Signs Temp Pulse Resp BP BP Pulse Ox O2 Del Method 10/09/24 16:44 36.7 C 86 18 157/90 H 91 Room Air 10/09/24 11:28 36.7 C 91 H 18 145/84 H 94 Room Air 10/09/24 08:00 Room Air 10/09/24 07:39 36.7 C 93 H 18 143/83 H 93 Room Air PG Care Time/CCT Total # of Minutes Spent Total Time Spent with Patient: Total time spent is greater than 50% in coordination of care (as documented) at patient's floor/unit and/or counseling patient: Coding Level of Care Code 01064 SUB INP/OBS CARE 3/50MIN Diagnoses Sepsis A41.9 Leg abscess L02.419 Type 2 diabetes mellitus without complication, without long-term current use of insulin E11.9 Diabetes mellitus complication status: without complication Diabetes mellitus long-term insulin use: without long-term use Essential hypertension I10 (3) DMII (diabetes mellitus, type 2) Diabetes mellitus complication status: without complication Diabetes mellitus assistant terminal manager insulin use: without long-term use Qualified Code(s): E11.9 - Type 2 diabetes mellitus without complications
--- NOTE | 2024-10-10 10:20 | Surgery Progress Note ---
Date of Service October 10, 2024 Assessment & Plan (1) Wound infection: Plan: POD#2 left thigh wound I&D with Dr. Maki & POD#6 I+D in OR with Dr Frazier Labs pending, vitals stable, pt afebrile Some pain with vac, but reports it is getting better and less tender to palpation Vac is holding good seal If WBC improving we are okay with discharge to home today ID on board for abx guidance Pt states she does f/u in [facility] and has routinely been on a //sat basis along with the assistance of home health Admission and Anticipated Discharge Date Admission Date: October 02, 2024 Subjective patient states after vac was put on yesterday she had some pain, this is getting better throughout the evening and into today. it is manageable. she is eager for discharge Physical Exam Physical Exam: awake/alert, no distress Skin: wound vac in place to left thigh wound, less tender to palpation, holding good seal Results & Data Vital Signs (Past 12 Hours) Vital Signs Temp Pulse Pulse Resp BP Pulse Ox O2 Del Method 10/10/24 07:32 98.4 F 90 93 H 14 173/92 H 95 Room Air PG Care Time/CCT Total # of Minutes Spent Total Time Spent with Patient: Total time spent is greater than 50% in coordination of care (as documented) at patient's floor/unit and/or counseling patient: Coding Level of Care Code 34202 Post Operative Follow-Up Diagnoses Wound infection T14.8XXA; L08.9
[2024-10-10 10:22] LABS: Basophils # (auto) 0.06 K/uL (0.00-0.20); Basophils % (auto) 0.5 %; Eosinophils # (auto) 0.13 K/uL (0.00-0.50); Hematocrit (blood only) 32.1 % (37.0-47.0); Hemoglobin 10.4 g/dl (12.0-16.0); Immature Granulocytes # (auto) 0.12 K/uL (0.01-0.20); Lymphocytes # (auto) 3.06 K/uL (1.20-3.40); Lymphocytes % (auto) 24.5 %; Mean Corpuscular Hgb Conc 32.4 g/dL (32.0-36.0); Mean Corpuscular Volume 86.5 fL (80.0-100.0); Monocytes # (auto) 0.65 K/uL (0.11-0.59); Monocytes % (auto) 5.2 %; Neutrophils # (auto) 8.46 K/uL (1.40-6.50); Neutrophils % (auto) 67.8 %; Platelet Count 521 K/uL (130-400); RDW Coefficient of Variation 15.7 % (11.5-14.5); Red Blood Count 3.71 M/uL (4.20-5.40); White Blood Count 12.48 K/ul (4.8-10.8)
[2024-10-10 10:42] LABS: Calcium 9.1 mg/dl (8.6-10.3); Potassium 3.6 mmol/L (3.5-5.1)
[2024-10-10 10:48] LABS: BUN Creatinine Ratio 23.4 (10-20); Creatinine Clr Calc Pharmacy 91.6 ml/min
--- NOTE | 2024-10-10 12:03 | Discharge Summary ---
Discharge Summary Date of Service October 10, 2024 Principal Dx & Hospital Course #1 = Principal Diagnosis (1) Sepsis: (2) Leg abscess: (3) DMII (diabetes mellitus, type 2): (4) Essential hypertension: Plan Patient is a 49-year-old female with h/o type II DM on Ozempic, HTN, current smoker, obesity, ALBAN on CPAP who was admitted from 08/29 to 09/04 for a left thigh abscess and cellulitis s/p surgical I&D 08/30 with a current wound VAC. She completed a course of Zosyn/Augmentin and Diflucan after surgical cultures grew Jennifer albicans and Finegoldia magna. Patient has been following with wound care and has had dressing changes of her wound VAC every few days. She p/w left thigh cellulitis, abscess, and sepsis. 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 status post I&D with Dr. Frazier 10/04 #Sepsis/Recurrent Left thigh abscesses/Cellulitis She has had numerous left thigh abscesses since a cat bite in 2021. HIV negative, IgG mildly low but IgM and IgA normal. BCxs negative. Wound culture from 10/04 + for MRSA. CBC w/ downtrending WBC, hgb stable. Stable BMP Surgery followed - s/p surgical I&D/washout with Dr. Frazier on 10/04. Repeat US 10/06 concerning for another abscess, s/p I&D 10 10/08 w/ Dr. Maki ID followed- stop Unasyn, continue IV Dapto. Anticipate 2 weeks abx, Doxycycline on dc (through 10/21). Consider repeat CT thigh prior to end of abx. Will need staph decolonization after resolution of acute infx. Outpatient follow up w/ ID. Expanded workup: Brucella Ab negative, Bartonella Ab negative Pending studies: AFB Cx, Bartonella PCR, Brucella PCR, Histo/Blasto UrAg, Autoimmune workup to assess for cause of recurrent abscesses/fistula: f/u JANESSA, RF, Anti-DS DNA (given +FH of autoimmune disorders, pt's numerous joint pains, and recurrent infections) Pain control: hydrocodone q6h prn at discharge (per PDMP patient should have plenty hydrocodone at home for pain management), Ibuprofen prn, tylenol prn *Patient does have nausea/vomiting w/ doxycycline, sent in Zofran and probiotic for her to take with antibiotic. #DMII, neuropathy HgbA1C normal at 5.6% in 08/2024. Continue home gabapentin Can resume Ozempic on discharge. #Obesity, BMI 35 on Ozempic, can be continued at discharge #ALBAN on CPAP Home CPAP #Current smoker continue to encourage cessation especially with recurrent wounds to ensure proper healing #Anemia hgb 10.4 and stable, normocytic. Serum Fe undetectable, TIBC low, transferrin sat cannot be calculated however ferritin elevated at 336 but could be acute phase reactant. B12, folate, and TSH normal. Likely anemia of chronic disease with some Fe deficiency anemia. No evidence of bleeding #HTN/HLD BPs controlled Continue valsartan, Toprol XL, amlodipine #Hypokalemia - resolved K 4.3, no repletion needed #Depression/anxiety continue Celexa Patient discharged 10/10. Already established w/ home health and wound clinic. Referral to [facility] [place] sent upon discharge. Admission HPI Per Admitting Provider Patient is a 49-year-old female with past medical history of type II DM on Ozempic, hypertension, and tobacco use. she was admitted from 08/29 to 09/04 for a left thigh abscess and cellulitis s/p surgical I&D 08/30 with a current wound VAC. She completed a course of Zosyn and Diflucan during hospitalization transition to Diflucan and Augmentin in the outpatient setting. Surgical cultures grew Jennifer albicans and Finegoldia magna. Patient has been following with wound c are and has had dressing changes of her wound VAC every few days, just changed 09/30. She presented to the ED due to worsening redness and pain of the wound VAC site. Laboratories show white count of 14.98, heart rate elevated to 97 meeting SIRS criteria however lactate 1.0. He is being admitted for IV antibiotics, surgery and infectious disease consult placed. Patient seen at bedside. She stated that since Tuesday her wound has had increasing redness, pain, warmth, and has became hard. She endorses fatigue and general muscle aches however denies any fevers or chills. She follows with [place] wound clinic and has dressing changes once weekly there, she has home health nurses change her dressings twice a week. Her dressing changes are Tuesday, , and Tuesday. Her dressings were changed 09/30. Patient was to have an outpatient MRI with the wound clinic tomorrow however with her worsening pain, came into the ED this evening in anticipation of IV antibiotics. Patient completed her outpatient course of Diflucan and Augmentin, denies any nausea, vomiting, or diarrhea. She has quit smoking since recent admission, is currently using nicotine patch. She took her home medications today. Of note patient was started on amlodipine with recent hospitalization, she took this for 1 week at home however her BP stabilized and her PCP told her to discontinue this. Suspect BP was elevated due to pain during recent admission. patient brought in her CPAP to use HS Patient works at [employer]. Discharge Exam Constitutional WD/WN, vitals as above Eyes PERRL, conjunctivae normal, anicteric sclerae Respiratory breathing unlabored Cardiovascular well perfused Skin wound vac in place on left thigh Psychiatric A+Ox3, euthymic affect Discharge Plan Discharge Items Patient Disposition: Home - Self-Care Reason For Visit: LEFT THIGH ABCESS/CELLULITIS Discharge Diagnosis: Left thigh Abscess Activity: Resume your previous activity Non-emergency contact: Primary Care Provider and Surgeon Call non-emergency contact if: you have any medication questions, your symptoms worsen and you have a fever Follow-up/Referrals: Isidro Brown [Primary Care Provider] - (PLEASE CALL YOUR PRIMARY CARE PROVIDER TO SCHEDULE A HOSPITAL FOLLOW-UP APPOINTMENT WITHIN 7-10 DAYS) Rola Maki DO [Physician] - Diet: Regular Addtl Attending Provider Instructions: Mrs. Cotter, You were recently hospitalized for your left thigh abscess. You underwent two surgeries, on 10/04 and 10/08. You were also evaluated by our infectious disease physician for antibiotic management. Please see recommendations below regarding your discharge. Please take Doxycycline 100mg twice daily through October 21, 2024. Please take with food to avoid GI upset. Please take a probiotic to help with GI symptoms given prolonged duration of antibiotic therapy. Your first dose at home starts, 10/11 in the AM. Please use Zofran as needed every 6 hours for nausea or vomiting. Please use Hydrocodone-APAP every 6 hours as needed for leg pain. - per review of the prescription drug monitoring program, you should have hydrocodone tablets at home for use. In addition to the hydrocodone, you may take extra strength Ibuprofen for the pain as needed. A prescription has been sent into your pharmacy. For your Thrush, Please use Nystatin three times daily through 10/18. Your next dose at home will be prior to bed this evening, 10/10. Please follow up with the Wound Clinic. Please follow up with your surgeon outpatient. We have referred you to [facility] [place] for further care from an infectious disease standpoint. Your household may require a MRSA decolonization protocol following the end of your treatment. Please follow up with your PCP within 1-2 weeks of discharge. If you develop any severe pain, fever, chills, abnormal drainage from wound site please report back to the ER for further care. Sincerely, Allie De La Fuente PA-C Pending Studies at Discharge: Yes Studies:: additional infection labs ordered by ID Stand-Alone Forms: My [facility] Plum, Smoking Cessation Medications and DC Order Prescriptions: New doxycycline hyclate 100 mg tablet 100 mg PO BID Qty: 22 0RF ondansetron 4 mg tablet,disintegrating 4 mg PO Q6H PRN (Reason: nausea and vomiting) Qty: 30 0RF Probiotic 3 billion cell capsule 3,000 mmu cells PO DAILY Qty: 30 0RF Rx Instructions: administer with a meal ibuprofen 600 mg tablet 600 mg PO Q6H PRN (Reason: fever) Qty: 30 0RF nystatin 100,000 unit/mL suspension 10 ml PO TID 8 Days Qty: 250 0RF Rx Instructions: administer 1/2 of dose in each side of the mouth Continued gabapentin 300 mg capsule 300 mg PO BID citalopram 40 mg tablet 40 mg PO DAILY valsartan 320 mg tablet 320 mg PO DAILY cyclobenzaprine 10 mg tablet 10 mg PO TID PRN (Reason: neck pain) metoprolol succinate 100 mg tablet extended release 24 hr 100 mg PO DAILY potassium chloride 10 mEq tablet extended release 10 meq PO BID lidocaine HCl 4 % (40 mg/mL) solution 1 applic topical DAILY PRN (Reason: Wound Care Pain) Repatha SureClick 140 mg/mL pen injector 140 mg subcut Q14D Rx Instructions: DUE 10/07/24. Ozempic 0.25 mg or 0.5 mg (2 mg/3 mL) pen injector 0.5 mg subcut WK Rx Instructions: SUNDAYS amlodipine [Norvasc] 5 mg Tablet 10 mg PO QAM Qty: 30 0RF Discontinued hydrocodone-acetaminophen 10-325 mg tablet 1 tab PO Q6H PRN (Reason: leg pain) Rx Instructions: PER PT "TAKE ALMOST EVERY 6 HRS". No Action (DME) blood-glucose meter [OneTouch Verio Flex meter] Misc See Rx Instructions .Route Rx Instructions: test blood sugar BID (DME) OneTouch Verio test strips Strip See Rx Instructions .Route Rx Instructions: check blood sugar BID Discharge Orders: Discharge Order (Routine); Ordered 10/10/24 Ordered By: Allie Snider/Other Patient Handouts: Nutrition for Wound Healing Admission Data Admit Date/Time: 10/02/24 00:02 Attending Provider: Zuri Art Admit Provider: Wayne Weir Primary Care Provider: Isidro Brown Other Providers: Wayne Weir; Daniel Frazier Hospital Stay Data Consultations 10/01/24 23:07 ED Decision to Admit Stat 10/02/24 02:54 Consult General Surgery Routine Consult Infectious Diseases Routine Procedures Performed Operation Date: 10/08/24 07:00 Actual Procedures p Left Lower Leg Incision and Drainage(Left) - Rola Maki DO Diagnostic Imagining Performed 10/01/24 16:58 CT abd pelvis IV con only Stat 10/02/24 13:49 MRI Leg [MR femur LT wo con] Urgent 10/06/24 09:54 US softtissue plvcwall/buttock Urgent Pending Results Patient Have Any Pending Studies at Discharge: Yes Discharge Instructions Given to Patient (Per Discharging Provider) Mrs. Cotter, You were recently hospitalized for your left thigh abscess. You underwent two surgeries, on 10/04 and 10/08. You were also evaluated by our infectious disease physician for antibiotic management. Please see recommendations below regarding your discharge. Please take Doxycycline 100mg twice daily through October 21, 2024. Please take with food to avoid GI upset. Please take a probiotic to help with GI symptoms given prolonged duration of antibiotic therapy. Your first dose at home starts, 10/11 in the AM. Please use Zofran as needed every 6 hours for nausea or vomiting. Please use Hydrocodone-APAP every 6 hours as needed for leg pain. - per review of the prescription drug monitoring program, you should have hydrocodone tablets at home for use. In addition to the hydrocodone, you may take extra strength Ibuprofen for the pain as needed. A prescription has been sent into your pharmacy. For your Thrush, Please use Nystatin three times daily through 10/18. Your next dose at home will be prior to bed this evening, 10/10. Please follow up with the Wound Clinic. Please follow up with your surgeon outpatient. We have referred you to [facility] for further care from an infectious disease standpoint. Your household may require a MRSA decolonization protocol following the end of your treatment. Please follow up with your PCP within 1-2 weeks of discharge. If you develop any severe pain, fever, chills, abnormal drainage from wound site please report back to the ER for further care. 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
[2024-10-10 12:20] VITALS: BP 152/90; PULSE 88; RESP 18; TEMP 98.2; O2SAT 91
== END 2024-10-10 17:24 | disposition home health service (06) | DRG 872 ==
LOC: SUATTDRO → ED 16:30 → SUATTDRO 10-02 00:02 → 2N 10-02 00:02